=== PATIENT | male | born 1945 | race Caucasian/White ===

== ENCOUNTER → 2020-05-12 | Outpatient (CLI) | payer MEDICARE, OTHER ==
[2020-05-12 10:13] LABS: HCT 45.2 % (39.0-53.0); HGB 14.5 gm/dL (13.0-17.5); MCHC 32.1 g/dL (31.0-37.0); MCV 99.9 fL (80.0-100.0); Mean Platelet Volume 7.6; Platelet Count 258 k/uL (150-450); RBC 4.53 m/uL (4.30-5.90); RDW 12.5 % (11.5-15.5); WBC 13.4 k/uL (3.8-10.6)
[2020-05-12 11:18] LABS: African American GFR (CKD) >90 (>60 ml/min/1.73 sqM); Anion Gap 4 mmol/L; Blood Urea Nitrogen 16 mg/dL (9-20); Carbon Dioxide 31 mmol/L (22-30); Chloride 106 mmol/L (98-107); Non-African American GFR(CKD) 81 (>60 ml/min/1.73 sqM); Potassium 4.4 mmol/L (3.5-5.1); Sodium 141 mmol/L (137-145)
== END | disposition home or self-care (01) ==
LOC: LABPAT 09:39
PROVIDERS: ATTEND Internal Medicine Interventional Cardiology
DX: Z01.818 Encounter for other preprocedural examination (principal); I25.10 Atherosclerotic heart disease of native coronary artery without angina pectoris
CPT/HCPCS: 36415; 80051; 82565; 84520; 85027

== ENCOUNTER 2020-05-19 09:05 | Day surgery (SDC) | payer MEDICARE, OTHER ==
[2020-05-17 11:06] VITALS: BMI 23.0
[~2020-05-19 09:05] MED LIST: ALPRAZolam 0.25 MG TAB PO PRN; ALPRAZolam 0.5 MG TAB PO PRN; ASPIRIN 325 MG TAB PO STA; ATORVASTATIN 80 MG TAB PO STA; NITROGLYCERIN SL TABS 0.4 MG TAB SUBLINGUAL PRN; SODIUM CHLORIDE 0.9% 1,000 ML in EMPTY BAG 1 BAG IV ONE
[2020-05-19] MEDS ORDERED: SODIUM CHLORIDE 0.9% 1,000 ML IV ONE (09:33)
[2020-05-19 09:37] VITALS: RESP 16; TEMP 97.8
[2020-05-19] MEDS ORDERED: LIDOCAINE 1% INJ 10MG/ML (20 ML MDV) ONE (09:42)
[2020-05-19] MEDS ORDERED: MIDAZOLAM 2 MG/2 ML VIAL IVP ONE (09:58)
[2020-05-19] MEDS ORDERED: LIDOCAINE 1% INJ 10MG/ML (20 ML MDV) SQ ONE (09:59)
[2020-05-19] MEDS ORDERED: RX INFO: IV CONTRAST WAS GIVEN 1 EACH MISC MISCELLANE PRN (10:26)
[2020-05-19] MEDS ORDERED: IOPAMIDOL-370 125ML BTL INJ ONE (10:27)
[2020-05-19] MEDS ORDERED: SODIUM CHLORIDE 0.9% 1,000 ML IV SCH (10:30)
--- NOTE | 2020-05-19 10:38 | P.PCN ---
Date of Procedure: 05/19/20 Operative Findings: CARDIAC CATHETERIZATION PERFORMING PHYSICIAN: Bradley Mera MD, RPVI PROCEDURE PERFORMED: 1. Selective right and left coronary angiogram 2. Left heart catheterization 3. Right heart catheterization INDICATION: This is a very pleasant 75-year-old gentleman was hypertension and dyslipidemia who was experiencing symptoms of shortness of breath. He underwent myocardial perfusion imaging stress test that came in to be abnormal showing inferior reversible defect. Because of that he was brought today to undergo a heart catheterization. He underwent an echocardiogram and that revealed normal left ventricular systolic function was mild pulmonary hypertension COMPLICATION: None APPROACH: Right common femoral vein Right common femoral artery LEVEL OF SEDATION: Moderate sedation length of 25 minutes PROCEDURE DESCRIPTION: After obtaining an informed consent, the patient was brought to cardiac dental laboratory supervisor. Local anesthesia was performed using lidocaine subcutaneously. The right common femoral artery was cannulated using Seldinger technique, the guidewire passed easily, following that we advanced a 6 Dominican sheath dilator assembly, the wire and dilator were removed and sheath was flushed. Subsequently I did cannulated the right femoral vein using the same technique and I placed an 8- Dominican sheath. Selective right and left coronary angiogram using a 6-Dominican JR4.5 and JL catheters. Following that we did left heart catheterization using 6-Dominican pigtail catheter. Right heart catheterization was performed using 6-Dominican Ste[place] catheter. The procedure was completed there was no complication. SELECTIVE CORONARY ANGIOGRAM: The right coronary artery: Is a large caliber vessel and is dominant vessel. The right coronary artery is calcified. Distally bifurcates into PDA and PLV branches. The PLV branch is angiographically normal and the PDA branch has a tight lesion in the midportion appears to be in the range of 70%. The arteries only 2 mm in diameter. Otherwise the proximal, mid, and distal RCA appears to have mild disease only. Left main: Is angiographically normal. Bifurcates into a CXR and LAD The left circumflex: Is a large caliber vessel and nondominant vessel. The LCx has mild disease only. In the midportion gives rise into an OM1 which has mild disease only. The left anterior descending artery: The proximal LAD appeared to have mild disease only. The mid LAD has mild dis ease as well appears to be in the range of 30%. The LAD distally appears to have mild disease only as well. The LAD gives rises into first and second diagonal branches both appears to have mild disease only. HEMODYNAMICS: The pulmonary capillary wedge pressure was 12 mmHg PA pressures were as follow systolic 21, diastolic 8, and mean of 13 mmHg RV pressures were as follow systolic 21 and end-diastolic of 7 mmHg RA pressure was 4 mmHg The LVEDP was 11 mmHg CONCLUSION: 1. Normal right heart pressures 2. Normal left ventricular end-diastolic pressure 3. Extremely calcified right and left coronary system 4. Severe disease involving the PDA branch of the RCA which is only about 2 mm in diameter 5. [id number] nonobstructive disease involving the left coronary system POSTPROCEDURE MANAGEMENT: Giving the above anatomy, I did recommend maximize medical treatment and follow- up with the patient. If the patient continues to be symptomatic I with consider doing a PCI of the PDA
[2020-05-19 16:01] VITALS: BP 117/70
[2020-05-19 16:15] VITALS: PULSE 64
== END 2020-05-19 16:25 | disposition home or self-care (01) ==
LOC: CATHCVL 09:05
PROVIDERS: ATTEND Internal Medicine Interventional Cardiology
DX: R94.39 Abnormal result of other cardiovascular function study (principal); I25.110 Atherosclerotic heart disease of native coronary artery with unstable angina pectoris; I25.84 Coronary atherosclerosis due to calcified coronary lesion; I10 Essential (primary) hypertension; I08.1 Rheumatic disorders of both mitral and tricuspid valves; Z72.0 Tobacco use; E78.5 Hyperlipidemia, unspecified; E78.00 Pure hypercholesterolemia, unspecified; I27.20 Pulmonary hypertension, unspecified; Z82.49 Family history of ischemic heart disease and other diseases of the circulatory system; Z79.82 Long term (current) use of aspirin; Z79.899 Other long term (current) drug therapy
CPT/HCPCS: 93460; C1760; C1769 ×4; C1894 ×2; J2250; J2001; Q9967

== ENCOUNTER 2020-05-27 03:54 | Inpatient (IN) | payer MEDICARE, OTHER ==
[2020-05-27] MEDS ORDERED: SODIUM CHLORIDE 0.9% 1,000 ML IV STA (03:55)
--- NOTE | 2020-05-27 03:56 | ED ---
Neuro HPI - General Stated Complaint: Neuro Deficits Time Seen by Provider: 05/27/20 03:55 - Related Data Home Medications: Home Medications Medication Instructions Recorded Confirmed Amantadine HCl [Symmetrel] 100 mg PO TID 05/17/20 05/19/20 Aspirin [Adult Low Dose Aspirin EC] 81 mg PO DAILY 05/17/20 05/19/20 Carbidopa-Levodopa 25-100 mg 1 each PO Q3H 05/17/20 05/19/20 [Sinemet 25-100 mg] Isosorbide Mononitrate ER [Imdur] 30 mg PO DAILY 05/17/20 05/19/20 Melatonin 5 mg PO HS 05/17/20 05/19/20 Allergies/Adverse Reactions: Allergies Allergy/AdvReac Type Severity Reaction Status Date / Time No Known Allergies Allergy Verified 05/19/20 09:19 Review of Systems ROS Statement: Those systems with pertinent positive or pertinent negative responses have been documented in the HPI. ROS Other: All systems not noted in ROS Statement are negative. Stroke MDM - Lab Data Result diagrams: 05/27/20 04:03 05/27/20 04:03 Lab Results 05/27/20 05/27/20 05/27/20 Range/Units 03:57 04:03 04:03 WBC 9.5 (3.8-10.6) k/uL RBC 4.65 (4.30-5.90) m/uL Hgb 14.1 (13.0-17.5) gm/dL Hct 45.7 (39.0-53.0) % MCV 98.2 (80.0-100.0) fL MCH 30.4 (25.0-35.0) pg MCHC 31.0 (31.0-37.0) g/dL RDW 12.5 (11.5-15.5) % Plt Count 291 (150-450) k/uL Neutrophils % 84 % Lymphocytes % 7 % Monocytes % 7 % Eosinophils % 1 % Basophils % 1 % Neutrophils # 8.0 H (1.3-7.7) k/uL Lymphocytes # 0.6 L (1.0-4.8) k/uL Monocytes # 0.7 (0-1.0) k/uL Eosinophils # 0.1 (0-0.7) k/uL Basophils # 0.1 (0-0.2) k/uL PT 10.0 (9.0-12.0) sec INR 1.0 (<1.2) APTT 23.0 (22.0-30.0) sec Sodium (137-145) mmol/L Potassium (3.5-5.1) mmol/L Chloride (98-107) mmol/L Carbon Dioxide (22-30) mmol/L Anion Gap mmol/L BUN (9-20) mg/dL Creatinine (0.66-1.25) mg/dL Est GFR (CKD-EPI)AfAm (>60 ml/min/1.73 sqM) Est GFR (CKD-EPI)NonAf (>60 ml/min/1.73 sqM) Glucose (74-99) mg/dL POC Glucose (mg/dL) 107 H (75-99) mg/dL POC Glu Tube Fitter ID Huber Patel Calcium (8.4-10.2) mg/dL Total Bilirubin (0.2-1.3) mg/dL AST (17-59) U/L ALT (4-49) U/L Alkaline Phosphatase (38-126) U/L Troponin I (0.000-0.034) ng/mL Total Protein (6.3-8.2) g/dL Albumin (3.5-5.0) g/dL 05/27/20 05/27/20 Range/Units 04:03 04:03 WBC (3.8-10.6) k/uL RBC (4.30-5.90) m/uL Hgb (13.0-17.5) gm/dL Hct (39.0-53.0) % MCV (80.0-100.0) fL MCH (25.0-35.0) pg MCHC (31.0-37.0) g/dL RDW (11.5-15.5) % Plt Count (150-450) k/uL Neutrophils % % Lymphocytes % % Monocytes % % Eosinophils % % Basophils % % Neutrophils # (1.3-7.7) k/uL Lymphocytes # (1.0-4.8) k/uL Monocytes # (0-1.0) k/uL Eosinophils # (0-0.7) k/uL Basophils # (0-0.2) k/uL PT (9.0-12.0) sec INR (<1.2) APTT (22.0-30.0) sec Sodium 139 (137-145) mmol/L Potassium 4.1 (3.5-5.1) mmol/L Chloride 104 (98-107) mmol/L Carbon Dioxide 29 (22-30) mmol/L Anion Gap 6 mmol/L BUN 21 H (9-20) mg/dL Creatinine 0.99 (0.66-1.25) mg/dL Est GFR (CKD-EPI)AfAm 86 (>60 ml/min/1.73 sqM) Est GFR (CKD-EPI)NonAf 74 (>60 ml/min/1.73 sqM) Glucose 111 H (74-99) mg/dL POC Glucose (mg/dL) (75-99) mg/dL POC Glu Tube Fitter ID Calcium 9.1 (8.4-10.2) mg/dL Total Bilirubin 0.4 (0.2-1.3) mg/dL AST 23 (17-59) U/L ALT 12 (4-49) U/L Alkaline Phosphatase 110 (38-126) U/L Troponin I <0.012 (0.000-0.034) ng/mL Total Protein 7.1 (6.3-8.2) g/dL Albumin 3.9 (3.5-5.0) g/dL - EKG Data -: EKG Interpreted by Me (EKG shows sinus rhythm of 60 5 PM 144 QRS 80 QTC 418) Course Vital Signs 05/27/20 05/27/20 05/27/20 04:00 04:24 04:30 Temperature 98.1 F Pulse Rate 67 66 65 Respiratory 16 16 16 Rate Blood Pressure 167/89 155/87 163/86 O2 Sat by Pulse 97 97 64 L Oximetry 05/27/20 05/27/20 04:45 05:00 Temperature Pulse Rate 64 61 Respiratory 16 16 Rate Blood Pressure 152/89 154/86 O2 Sat by Pulse 96 96 Oximetry Disposition Clinical Impression: Cerebrovascular accident (CVA), Parkinson's disease Disposition: ADMITTED IP TO THIS HOSP Condition: Fair Is patient prescribed a controlled substance at d/c from ED?: No Referrals: Magali Britt MD [Primary Care Provider] - 1-2 days
[2020-05-27 03:58] LABS: Glucose,Whole Blood 107 mg/dL (75-99)
[2020-05-27 04:12] LABS: Basophils # (A) 0.1 k/uL (0-0.2); Basophils % (A) 1 %; Eosinophils # (A) 0.1 k/uL (0-0.7); Eosinophils % (A) 1 %; HCT 45.7 % (39.0-53.0); HGB 14.1 gm/dL (13.0-17.5); Lymphocytes # (A) 0.6 k/uL (1.0-4.8); Lymphocytes % (A) 7 %; MCH 30.4 pg (25.0-35.0); MCV 98.2 fL (80.0-100.0); Mean Platelet Volume 7.4; Monocytes # (A) 0.7 k/uL (0-1.0); Monocytes % (A) 7 %; Neutrophils % (A) 84 %; Platelet Count 291 k/uL (150-450); RBC 4.65 m/uL (4.30-5.90); RDW 12.5 % (11.5-15.5); WBC 9.5 k/uL (3.8-10.6)
[2020-05-27 04:30] LABS: Albumin 3.9 g/dL (3.5-5.0); Calcium 9.1 mg/dL (8.4-10.2); Potassium 4.1 mmol/L (3.5-5.1); Total Bilirubin 0.4 mg/dL (0.2-1.3); Total Protein 7.1 g/dL (6.3-8.2)
--- NOTE | 2020-05-27 04:42 | CT ---
EXAMINATION TYPE: CT angio head neck DATE OF EXAM: 05/27/2020 COMPARISON: HISTORY: Neuro deficit, acute, stroke suspected CT DLP: 407.1 mGycm Automated exposure control for dose reduction was used. CONTRAST: Performed with IV Contrast, patient injected with 65 mL of Isovue 370. There are 3-D post processed images. There is normal branching pattern of the great vessels on the aortic arch. There is bilateral arteria l flow in the subclavian arteries. There is arterial flow in the common internal and external carotid arteries bilaterally. There is wide patency of the carotid artery bifurcations. There is bilateral a rterial flow in the vertebral arteries. There is no evidence of carotid or vertebral artery aneurysm or dissection. There is arterial flow in the vertebrobasilar artery system. There is large cisterna magna which is normal variant. There is arterial flow in the anterior middle and posterior cerebral arteries. I see no evidence of intracranial arterial stenosis. There is normal contrast opacification of the venous sinuses. There is no mass effect. There is no evidence of intra cranial aneurysm or neovascularity. IMPRESSION: Negative CT angiogram of the neck. Negative CT angiogram of the brain.
--- NOTE | 2020-05-27 04:46 | CT ---
EXAMINATION TYPE: CT brain wo con for TPA DATE OF EXAM: 05/27/2020 COMPARISON: None HISTORY: AMS CT DLP: 1073 mGycm Automated exposure control for dose reduction was used. There is cerebral mild cortical atrophy. There is no mass effect nor midline shift. There is no sign of intracranial hemorrhage. The calvarium is intact. There is some mild hypodensity in the anterior l eft and right internal capsule. Temporal bones appear normal. IMPRESSION: Mild cerebral atrophy. Old lacunar infarcts in the anterior left and right internal capsule. No acute intracranial abnormality.
--- NOTE | 2020-05-27 04:47 | XR ---
EXAMINATION TYPE: XR chest 1V DATE OF EXAM: 05/27/2020 COMPARISON: NONE HISTORY: Weakness TECHNIQUE: Single view FINDINGS: There is no heart failure nor confluent pneumonic infiltrate. Costophrenic angles are clear . There are no hilar masses. Bony thorax is intact. IMPRESSION: No active cardiopulmonary disease.
[2020-05-27] MEDS ORDERED: ASPIRIN 325 MG TAB PO STA (05:35)
[2020-05-27] MEDS: SODIUM CHLORIDE 0.9% 1,000 ML IV SCH ×2 (06:17→17:52)
[2020-05-27 06:42] LABS: Appearance,Urine Clear (Clear); Bilirubin,Urine Negative (Negative); Blood,Urine Negative (Negative); Color,Urine Light Yellow; Glucose,Urine (UA) Negative (Negative); Ketones,Urine Negative (Negative); Leukocyte Esterase,Urine Negative (Negative); Nitrite,Urine Negative (Negative); PH, Urine 5.5 (5.0-8.0); Protein,Urine Negative (Negative); Specific Gravity,Urine 1.032 (1.001-1.035); Urobilinogen,Urine <2.0 mg/dL (<2.0)
[2020-05-27 06:59] LABS: Amphetamine Screen,Urine Not Detected (NotDetected); Barbiturate Screen,Urine Not Detected (NotDetected); Benzodiazepines Screen,Urine Not Detected (NotDetected); Cocaine Screen,Urine Not Detected (NotDetected); Methadone Screen, Urine Not Detected (NotDetected); Opiate Screen,Urine Not Detected (NotDetected); Oxycodone Screen, Urine Not Detected (NotDetected); Phencyclidine Screen,Urine Not Detected (NotDetected); Tricyclic Antidepressant,Urine Not Detected (NotDetected); Urn Cannabinoid Scrn Detected (NotDetected)
--- NOTE | 2020-05-27 11:44 | CONS ---
CONSULTATION Jerson is a 75-year-old gentleman with history of hypertension and parkinsonism, who is admitted to hospital with confusion and facial droop. Cardiology has been consulted because of association with us. The patient had a recent cardiac catheterization because of an abnormal stress test, that showed normal pulmonary pressures. There is severe disease involving a PDA branch and calcified coronaries. The cath was done on the 19. He comes in with CVA now. At the time of my evaluation, his confusion has improved. Still has facial droop that is improving. The patient had a CT scan of the brain that shows old lacunar infarct involving the internal capsular. There is no intracranial hemorrhage. The EKG shows sinus rhythm. PAST MEDICAL HISTORY: Significant for coronary artery disease, Parkinsonism. Medications at home include aspirin, Imdur, melatonin, and Sinemet. ALLERGIES: There are no known drug allergies. FAMILY HISTORY: Negative for premature coronary artery disease. SOCIAL HISTORY: Negative for current smoking, EtOH abuse, or drug abuse. REVIEW OF SYSTEMS: HEENT is significant for facial droop. Cardiac as described above. Respiratory negative. GI negative. negative. Allergy/Immunology none. Skin negative. Musculoskeletal negative. Endocrine negative. DERM: Negative. CONSTITUTIONAL: Negative. MACHINE SKIVER significant for CVA. Rest of the system review is not relevant. EXAM: Patient is afebrile. Heart rate is 60 beats per minute, blood pressure is 140/84, respiratory rate 18, and O2 saturation is 96% on room air. There is no jugular venous distention. Carotid upstroke is diminished. There is no bruit. Chest exam reveals good air entry bilaterally. Heart exam reveals first and second heart sounds. No gallop. No murmur. ABDOMEN: Soft. Exam of extremities did not reveal any edema. Peripheral pulses are felt. Facial droop is noted. Does not have any other focal neurological deficits. ASSESSMENT: 1. Cerebrovascular accident. 2. Recent cardiac catheterization. 3. Mild coronary artery disease. 4. Parkinsonism. PLAN: Patient will continue the aspirin, Imdur that he is on along with the Lipitor. Consult Neurology. I will obtain a 2D echo and will follow the patient. MMODL / IJN: [id number] /
[2020-05-27] MEDS ORDERED: NON FORMULARY DRUG (Aspirin [Adult Low Dose Aspirin Ec] 81 MG) PO SCH (12:15)
--- NOTE | 2020-05-27 12:49 | P.HPIM ---
History of Present Illness H&P Date: 05/27/20 Chief Complaint: Left sided facial weakness and numbness Jerson Edwards, is a 75-year-old male who presented to [facility] emergency room with a chief complaint of left facial droop and numbness of the left upper lip he was evaluated in the emergency room patient was not a candidate for TPA he was admitted to telemetry floor for further evaluation and treatment. Patient was seen and examined he is feeling better he has better movement of the left side of his face, he is still having some numbness and weakness of the left upper lip, patient has a known history of coronary artery disease , he recently had cardiac catheterization about 1 week ago, no angioplasty or stent placement was attempted. He has a known history of Parkinson disease. patient and were informed that there is no neurologist available in the hospital to Friday morning, they were given the option of being transferred to [facility] or [facility], patient and his opted to stay in the hospital. At this time will order MRI of the brain with contrast, will obtain echocardiogram, continue aspirin and add Plavix 75 mg by mouth daily. Past Medical History Past Medical History: Chest Pain / Angina, Myocardial Infarction ([place]) Additional Past Medical History / Comment(s): parkinsons disease Last Myocardial Infarction Date:: 1983 History of Any Multi-Drug Resistant Organisms: None Reported Past Surgical History: Heart Catheterization Additional Past Surgical History / Comment(s): states heart cath last week with Dr Mera- "mild Blockages' Past Anesthesia/Blood Transfusion Reactions: No Reported Reaction Past Psychological History: No Psychological Hx Reported Smoking Status: Former smoker Past Alcohol Use History: Occasional Past Drug Use History: None Reported - Past Family History Mother Family Medical History: Myocardial Infarction ([place]) Father Family Medical History: Myocardial Infarction ([place]) Medications and Allergies Home Medications Medication Instructions Recorded Confirmed Type Amantadine HCl [Symmetrel] 100 mg PO TID 05/17/20 05/27/20 History Aspirin [Adult Low Dose Aspirin EC] 81 mg PO DAILY 05/17/20 05/27/20 History Carbidopa-Levodopa 25-100 mg 1 tab PO Q3H 05/17/20 05/27/20 History [Sinemet 25-100 mg] Isosorbide Mononitrate ER [Imdur] 30 mg PO DAILY 05/17/20 05/27/20 History Melatonin 5 mg PO HS 05/17/20 05/27/20 History Allergies Allergy/AdvReac Type Severity Reaction Status Date / Time No Known Allergies Allergy Verified 05/27/20 10:28 Physical Exam Vitals: Vital Signs Temp Pulse Pulse Resp BP BP Pulse Ox 05/27/20 11:58 98.2 F 56 L 20 136/83 96 05/27/20 08:00 58 L 24 05/27/20 07:23 97.8 F 58 L 24 145/82 96 05/27/20 06:00 57 L 16 145/84 97 05/27/20 05:00 61 16 154/86 96 05/27/20 04:45 64 16 152/89 96 05/27/20 04:30 65 16 163/86 64 L 05/27/20 04:24 66 16 155/87 97 05/27/20 04:00 98.1 F 67 16 167/89 97 Intake and Output 05/26/20 05/27/20 05/27/20 22:59 06:59 14:59 Intake Total 600 Output Total 1 Balance 599 Intake: IV 600 Sodium Chloride 0.9% 1, 600 000 ml @ 100 mls/hr IV . Q10H [facility] Rx#:[id number] Output: Urine 1 Other: Voiding Method Urinal Weight 74.843 kg 74.843 kg In general patient is alert and oriented 3 in no apparent distress. HEENT head normocephalic and atraumatic Neck is supple no JVD no goiter no lymphadenopathy Chest exam reveals a few scattered rhonchi no wheezing Cardiac exam reveals regular heart sounds S1 and S2 no gallops no murmurs Abdomen is soft nontender no organomegaly with normal bowel sounds Extremity exam reveals no edema no cyanosis or clubbing Neurological examination reveals left-sided facial droop, otherwise no findings on exam, there is no weakness or numbness in any of the extremities, no change in vision speech is fluent. Gait was not tested at this time. Results CBC & Chem 7: 05/27/20 04:03 05/27/20 04:03 Labs: Abnormal Lab Results - Last 24 Hours (Table) 05/27/20 05/27/20 05/27/20 Range/Units 03:57 04:03 04:03 Neutrophils # 8.0 H (1.3-7.7) k/uL Lymphocytes # 0.6 L (1.0-4.8) k/uL BUN 21 H (9-20) mg/dL Glucose 111 H (74-99) mg/dL POC Glucose (mg/dL) 107 H (75-99) mg/dL U Marijuana (THC) Screen (NotDetected) 05/27/20 Range/Units 06:26 Neutrophils # (1.3-7.7) k/uL Lymphocytes # (1.0-4.8) k/uL BUN (9-20) mg/dL Glucose (74-99) mg/dL POC Glucose (mg/dL) (75-99) mg/dL U Marijuana (THC) Screen Detected H (NotDetected) Thrombosis Risk Factor Assmnt - Choose All That Apply Each Factor Represents 1 point: Medical pt on bed rest Each Risk Factor Represents 3 Points: Age 75 years or older Thrombosis Risk Factor Assessment Total Risk Factor Score: 4 Thrombosis Risk Factor Assessment Level: Moderate Risk Assessment and Plan Plan: 1. Stroke was left facial droop. At this time continue with current medications including aspirin and add Plavix 75 mg once daily, MRI of the brain with contrast and echocardiogram were ordered, neurology consultation was requested it won't be available until Friday. 2. Underlying history of coronary artery disease stable, patient denies any chest pain, cardiac catheterization done one week ago. 3. Underlying history of Parkinson disease, resume home medications 4. Underlying history of hyperlipidemia 5. Underlying history of hypertension 6. For DVT prophylaxis Will use Lovenox 40 mg subcu once daily, for GI prophylaxis Will add Protonix Will follow during this admission for medical management
--- NOTE | 2020-05-27 13:10 | ECHOF ---
Referral Reason:Thrombus MEASUREMENTS -------- HEIGHT: 180.3 cm WEIGHT: 74.8 kg BP: 145/84 RVIDd: 3.3 cm (< 3.3) IVSd: 1.2 cm (0.6 - 1.1) LVIDd: 5.2 cm (3.9 - 5.3) LVPWd: 1.1 cm (0.6 - 1.1) IVSs: 1.7 cm LVIDs: 3.4 cm LVPWs: 1.7 cm LA Diam: 3.6 cm (2.7 - 3.8) LAESV Index (A-L): 30.96 ml/m Ao Diam: 3.4 cm (2.0 - 3.7) AV Cusp: 2.0 cm (1.5 - 2.6) MV EXCURSION: 13.991 mm (> 18.000) MV EF SLOPE: 97 mm/s (70 - 150) EPSS: 0.7 cm MV E Cricket: 0.77 m/s MV DecT: 245 ms MV A Cricket: 0.87 m/s MV E/A Ratio: 0.88 RAP: 5.00 mmHg RVSP: 23.57 mmHg FINDINGS -------- Sinus rhythm. This was a technically good study. The left ventricular size is normal. There is borderline concentric left ventricular hypertrophy. Overall left ventricular systolic function is normal with, an EF between 60 - 65 %. The right ventricle is mildly enlarged. LA is midly dilated 29-33ml/m2. The right atrium is normal in size. Interatrial and interventricular septum intact. The aortic valve is trileaflet and appears structurally normal. Mild mitral regurgitation is present. Mild tricuspid regurgitation present. Right ventricular systolic pressure is normal at < 35 mmHg. Trace/mild (physiologic) pulmonic regurgitation. The aortic root size is normal. Normal inferior vena cava with normal inspiratory collapse consistent with estimated right atrial pre ssure of 5 mmHg. There is no pericardial effusion. CONCLUSIONS -------- 1. Sinus rhythm. 2. This was a technically good study. 3. The left ventricular size is normal. 4. There is borderline concentric left ventricular hypertrophy. 5. Overall left ventricular systolic function is normal with, an EF between 60 - 65 %. 6. The right ventricle is mildly enlarged. 7. LA is midly dilated 29-33ml/m2. 8. The right atrium is normal in size. 9. Interatrial and interventricular septum intact. 10. The aortic valve is trileaflet and appears structurally normal. 11. Mild mitral regurgitation is present. 12. Mild tricuspid regurgitation present. 13. Right ventricular systolic pressure is normal at < 35 mmHg. 14. Trace/mild (physiologic) pulmonic regurgitation. 15. The aortic root size is normal. 16. Normal inferior vena cava with normal inspiratory collapse consistent with estimated right atrial pressure of 5 mmHg. 17. There is no pericardial effusion. [employer]OTBALLER: Emi Senior RDCS
[2020-05-27] MEDS: ENOXAPARIN 40 MG/0.4 ML SYRINGE SQ SCH (13:37)
[2020-05-27] MEDS: CARBIDOPA-LEVODOPA 25-100 MG 1 EACH TAB PO SCH ×4 (13:37→20:05)
[2020-05-27] MEDS: CLOPIDOGREL 75 MG TAB PO SCH (13:37)
[2020-05-27] MEDS: AMANTADINE HCL 100 MG CAP PO SCH ×3 (13:38→20:04)
[2020-05-27] MEDS: ISOSORBIDE MONONITRATE ER 30 MG TAB.ER.24H PO SCH (13:39)
--- NOTE | 2020-05-27 15:40 | MR ---
EXAMINATION TYPE: MR brain wo/w con DATE OF EXAM: 05/27/2020 COMPARISON: None HISTORY: CVA CONTRAST: Standard multiplanar, multisequence MRI departmental protocol utilizing 7.5 mL intravenous Gadavist g adolinium contrast. There is mild cerebral cortical atrophy. There is no mass effect nor midline shift. There is no sign of intracranial hemorrhage. There is no evidence of acute infarct on the diffusion images. On the FLAIR images there are numerous foci of increased signal in the periventricular white matter. Total number is approximately 25. These measure up to 1 cm. The brainstem appears normal. Contrast im ages show no pathologic enhancement. Corpus callosum is intact. There is normal opacification of the venous sinuses. IMPRESSION: Cerebral atrophy. Periventricular white matter changes more likely related to chronic small vessel is chemia. I think demyelinating disease is less likely. There is relative sparing of the corpus callosu m. No evidence of acute infarct.
[2020-05-27] MEDS: ATORVASTATIN 80 MG TAB PO SCH (20:04)
[2020-05-27] MEDS: MELATONIN 5 MG TABLET PO SCH (20:04)
[2020-05-28] MEDS: SODIUM CHLORIDE 0.9% 1,000 ML IV SCH ×2 (03:32→15:19)
[2020-05-28] MEDS: CARBIDOPA-LEVODOPA 25-100 MG 1 EACH TAB PO SCH ×6 (06:09→21:22)
[2020-05-28 07:38] LABS: Basophils # (A) 0.1 k/uL (0-0.2); Basophils % (A) 1 %; Eosinophils # (A) 0.1 k/uL (0-0.7); Eosinophils % (A) 1 %; HCT 39.7 % (39.0-53.0); HGB 12.9 gm/dL (13.0-17.5); Lymphocytes # (A) 0.8 k/uL (1.0-4.8); Lymphocytes % (A) 10 %; MCHC 32.4 g/dL (31.0-37.0); Mean Platelet Volume 7.6; Monocytes # (A) 0.6 k/uL (0-1.0); Monocytes % (A) 7 %; Neutrophils # (A) 6.1 k/uL (1.3-7.7); Neutrophils % (A) 80 %; Platelet Count 235 k/uL (150-450); RBC 4.01 m/uL (4.30-5.90); RDW 12.5 % (11.5-15.5); WBC 7.7 k/uL (3.8-10.6)
[2020-05-28 07:40] LABS: ALT <6 U/L (4-49); AST 15 U/L (17-59); African American GFR (CKD) >90 (>60 ml/min/1.73 sqM); Albumin 3.1 g/dL (3.5-5.0); Alkaline Phosphatase 90 U/L (38-126); Anion Gap 5 mmol/L; Blood Urea Nitrogen 16 mg/dL (9-20); Calcium 8.5 mg/dL (8.4-10.2); Carbon Dioxide 28 mmol/L (22-30); Chloride 107 mmol/L (98-107); Cholesterol 97 mg/dL (<200); Glucose 88 mg/dL (74-99); HDL Cholesterol 38 mg/dL (40-60); LDL Cholesterol,Calculated 43 mg/dL (0-99); Non-African American GFR(CKD) 85 (>60 ml/min/1.73 sqM); Potassium 4.1 mmol/L (3.5-5.1); Sodium 140 mmol/L (137-145); Total Bilirubin 1.1 mg/dL (0.2-1.3); Triglycerides 81 mg/dL (<150)
[2020-05-28] MEDS: AMANTADINE HCL 100 MG CAP PO SCH ×3 (09:06→21:23)
[2020-05-28] MEDS: ISOSORBIDE MONONITRATE ER 30 MG TAB.ER.24H PO SCH (09:06)
[2020-05-28] MEDS: ASPIRIN 325 MG TAB PO SCH (09:07)
[2020-05-28] MEDS: ENOXAPARIN 40 MG/0.4 ML SYRINGE SQ SCH (09:07)
[2020-05-28] MEDS: CLOPIDOGREL 75 MG TAB PO SCH (09:07)
--- NOTE | 2020-05-28 11:46 | P.PN ---
Subjective Progress Note Date: 05/28/20 Jerson Edwards, is a 75-year-old male who presented to [facility] emergency room with a chief complaint of left facial droop and numbness of the left upper lip he was evaluated in the emergency room patient was not a candidate for TPA he was admitted to telemetry floor for further evaluation and treatment. Patient was seen and examined he is feeling better he has better movement of the left side of his face, he is still having some numbness and weakness of the left upper lip, patient has a known history of coronary artery disease , he recently had cardiac catheterization about 1 week ago, no angioplasty or stent placement was attempted. He has a known history of Parkinson disease. patient and were informed that there is no neurologist available in the hospital to Friday morning, they were given the option of being transferred to [facility] or [facility], patient and his opted to stay in the hospital. At this time will order MRI of the brain with contrast, will obtain echocardiogram, continue aspirin and add Plavix 75 mg by mouth daily. On 05/28/2020 patient was seen and examined on the medical floor he is alert and oriented 3 in no apparent distress he is still having significant drooping in the left side of his face he is still complaining of numbness in his upper lip on the left side otherwise he denies any complaints there is no fever or chills no headache or dizziness no chest pain no shortness of breath no cough no nausea or vomiting no abdominal pain no diarrhea no burning with urination no frequency or urgency no hematuria. MRI reviewed no evidence of acute infarct, there is a possibility that this is left facial nerve palsy, at this time neurology is not available to tomorrow, will start IV Solu-Medrol and oral Valtrex until evaluated by neurology. Objective - Vital Signs Vital signs: Vital Signs Temp 97.8 F 05/28/20 11:39 Pulse 62 05/28/20 11:39 Resp 20 05/28/20 11:39 BP 136/61 05/28/20 11:39 Pulse Ox 95 05/28/20 11:39 Intake & Output 05/27/20 05/28/20 05/28/20 18:59 06:59 18:59 Intake Total 620 240 Balance 620 240 Weight 74.843 kg 74.9 kg Intake: IV 500 Sodium Chloride 0.9% 1, 500 000 ml @ 100 mls/hr IV . Q10H [facility] Rx#:[id number] Oral 120 240 Other: Voiding Method Urinal Urinal Toilet Urinal # Voids 1 1 # Bowel Movements 1 - Exam In general patient is alert and oriented 3 in no apparent distress. HEENT head normocephalic and atraumatic Neck is supple no JVD no goiter no lymphadenopathy Chest exam reveals a few scattered rhonchi no wheezing Cardiac exam reveals regular heart sounds S1 and S2 no gallops no murmurs Abdomen is soft nontender no organomegaly with normal bowel sounds Extremity exam reveals no edema no cyanosis or clubbing Neurological examination reveals left-sided facial droop, otherwise no findings on exam, there is no weakness or numbness in any of the extremities, no change in vision speech is fluent. Gait was not tested at this time. No change since yesterday - Labs CBC & Chem 7: 05/28/20 07:04 05/28/20 07:04 Labs: Abnormal Lab Results - Last 24 Hours (Table) 05/28/20 05/28/20 Range/Units 07:04 07:04 RBC 4.01 L (4.30-5.90) m/uL Hgb 12.9 L (13.0-17.5) gm/dL Lymphocytes # 0.8 L (1.0-4.8) k/uL AST 15 L (17-59) U/L Total Protein 6.0 L (6.3-8.2) g/dL Albumin 3.1 L (3.5-5.0) g/dL HDL Cholesterol 38 L (40-60) mg/dL Assessment and Plan Plan: 1. left facial droop. Stroke versus left facial nerve palsy. At this time continue with current medications including aspirin and add Plavix 75 mg once daily, MRI of the brain with contrast and echocardiogram were ordered, neurology consultation was requested it won't be available until Friday. At this time I added IV Solu-Medrol and oral Valtrex awaiting neurology evaluation 2. Underlying history of coronary artery disease stable, patient denies any chest pain, cardiac catheterization done one week ago. 3. Underlying history of Parkinson disease, resume home medications 4. Underlying history of hyperlipidemia 5. Underlying history of hypertension 6. For DVT prophylaxis Will use Lovenox 40 mg subcu once daily, for GI prophylaxis Will add Protonix Will follow during this admission for medical management
--- NOTE | 2020-05-28 12:13 | P.PN ---
Subjective Progress Note Date: 05/28/20 This is a pleasant 75-year-old gentleman with history of hypertension, parkinsonism, who initially presented to the hospital with symptoms. And facial droop. Patient had a recent cardiac catheterization because of an abnormal stress test that revealed normal pulmonary pressures, there is severe disease i nvolving the PDA branch and patient had calcified coronary arteries. Patient did rule in for a CVA, his confusion overall has improved he still continues to have a mild facial droop. EKG and rhythm strips continued to show a normal sinus rhythm. MRI of the brain revealed cerebral atrophy, P rate ventricular white matter changes more likely related to chronic small vessel ischemia. Blood pressure 136/60 with a heart rate in the 60s, 95% on room air. Laboratory data reviewed today, white blood cell count 7.7, hemoglobin 12.9, platelet count 235. Sodium 140, potassium 4.1, BUN 16, creatinine 0.8. Objective - Vital Signs Vital signs: Vital Signs Temp 97.8 F 05/28/20 11:39 Pulse 62 05/28/20 11:39 Resp 20 05/28/20 11:39 BP 136/61 05/28/20 11:39 Pulse Ox 95 05/28/20 11:39 Intake & Output 05/27/20 05/28/20 05/28/20 18:59 06:59 18:59 Intake Total 620 240 Balance 620 240 Weight 74.843 kg 74.9 kg Intake: IV 500 Sodium Chloride 0.9% 1, 500 000 ml @ 100 mls/hr IV . Q10H [facility] Rx#:[id number] Oral 120 240 Other: Voiding Method Urinal Urinal Toilet Urinal # Voids 1 1 # Bowel Movements 1 - Exam PHYSICAL EXAMINATION: GENERAL: 75-year-old gentleman in no acute distress at the time of my examination HEENT: Head is atraumatic, normocephalic. Pupils equal, round. Sclera anicte letha. Conjunctiva are clear. Mucous membranes of the mouth are moist. Neck is supple. There is no elevated jugular venous pressure. No carotid bruit is heard. HEART EXAMINATION: Heart S1, S2 normal. No murmur or gallop heard. CHEST EXAMINATION: Lungs are clear to auscultation and precussion. No chest wall tenderness is noted on palpation or with deep breathing. ABDOMEN: Soft, nontender. Bowel sounds are heard. No organomegaly noted. EXTREMITIES: 2+ peripheral pulses with no evidence of peripheral edema and no calf tenderness noted. NEUROLOGIC patient is awake, alert and oriented 3 Patient continues to have a left-sided facial droop. . - Labs CBC & Chem 7: 05/28/20 07:04 05/28/20 07:04 Labs: Abnormal Lab Results - Last 24 Hours (Table) 05/28/20 05/28/20 Range/Units 07:04 07:04 RBC 4.01 L (4.30-5.90) m/uL Hgb 12.9 L (13.0-17.5) gm/dL Lymphocytes # 0.8 L (1.0-4.8) k/uL AST 15 L (17-59) U/L Total Protein 6.0 L (6.3-8.2) g/dL Albumin 3.1 L (3.5-5.0) g/dL HDL Cholesterol 38 L (40-60) mg/dL Assessment and Plan Plan: Assessment and plan #1 symptoms of confusion with associated left facial droop, rule out CVA. #2 known history of coronary artery disease, recent cardiac catheterization performed medical therapy advised. #3 hyperlipidemia #4 Parkinson's Plan Echocardiogram with Doppler study was performed which revealed a normal left ventricular systolic function. No evidence of any atrial fibrillation on the monitor. We'll continue with current medications. DNP note has been reviewed, I agree with a documented findings and plan of care. Patient was seen and examined.
[2020-05-28] MEDS: methylPREDNISolone SOD SUCCI 125 MG/2 ML VIAL IV SCH ×2 (12:50→18:22)
[2020-05-28] MEDS: valACYclovir 500 MG TAB PO SCH ×3 (15:18→21:23)
[2020-05-28 17:00] LABS: Glucose,Whole Blood 111 mg/dL (75-99)
[2020-05-28 20:49] LABS: Glucose,Whole Blood 178 mg/dL (75-99)
[2020-05-28] MEDS: MELATONIN 5 MG TABLET PO SCH (21:22)
[2020-05-28] MEDS: ATORVASTATIN 80 MG TAB PO SCH (21:23)
[2020-05-29] MEDS: methylPREDNISolone SOD SUCCI 125 MG/2 ML VIAL IV SCH ×3 (00:05→12:44)
[2020-05-29 05:59] LABS: Glucose,Whole Blood 108 mg/dL (75-99)
[2020-05-29] MEDS: CARBIDOPA-LEVODOPA 25-100 MG 1 EACH TAB PO SCH ×4 (06:39→16:29)
[2020-05-29 06:44] VITALS: TEMP 98
--- NOTE | 2020-05-29 09:51 | P.PN ---
Subjective Progress Note Date: 05/29/20 This is a pleasant 75-year-old gentleman with history of hypertension, parkinsonism, who initially presented to the hospital with symptoms. And facial droop. Patient had a recent cardiac catheterization because of an abnormal stress test that revealed normal pulmonary pressures, there is severe disease i nvolving the PDA branch and patient had calcified coronary arteries. Patient did rule in for a CVA, his confusion overall has improved he still continues to have a mild facial droop. EKG and rhythm strips continued to show a normal sinus rhythm. MRI of the brain revealed cerebral atrophy, P rate ventricular white matter changes more likely related to chronic small vessel ischemia. Blood pressure 136/60 with a heart rate in the 60s, 95% on room air. Laboratory data reviewed today, white blood cell count 7.7, hemoglobin 12.9, platelet count 235. Sodium 140, potassium 4.1, BUN 16, creatinine 0.8. 05/29/2020 Patient seen and examined this morning, sitting up in the chair at bedside. Bl ood pressure 146/78 with a heart rate in the 60s, afebrile, 96% on room air. Objective - Vital Signs Vital signs: Vital Signs Temp 98.0 F 05/29/20 04:00 Pulse 68 05/29/20 04:00 Resp 18 05/29/20 04:00 BP 159/81 05/29/20 04:00 Pulse Ox 96 05/29/20 04:00 Intake & Output 05/28/20 05/29/20 05/29/20 18:59 06:59 18:59 Intake Total 600 700 Balance 600 700 Weight 74.1 kg Intake: IV 0 700 Sodium Chloride 0.9% 1, 0 700 000 ml @ 100 mls/hr IV . Q10H [facility] Rx#:[id number] Oral 600 Other: Voiding Method Toilet Toilet Urinal Urinal # Voids 2 - Exam PHYSICAL EXAMINATION: GENERAL: 75-year-old gentleman in no acute distress at the time of my examination HEENT: Head is atraumatic, normocephalic. Pupils equal, round. Sclera anicteric. Conjunctiva are clear. Mucous membranes of the mouth are moist. Neck is supple. There is no elevated jugular venous pressure. No carotid bruit is heard. HEART EXAMINATION: Heart S1, S2 normal. No murmur or gallop heard. CHEST EXAMINATION: Lungs are clear to auscultation and precussion. No chest wall tenderness is noted on palpation or with deep breathing. ABDOMEN: Soft, nontender. Bowel sounds are heard. No organomegaly noted. EXTREMITIES: 2+ peripheral pulses with no evidence of peripheral edema and no calf tenderness noted. NEUROLOGIC patient is awake, alert and oriented 3 Patient continues to have a left-sided facial droop. . - Labs CBC & Chem 7: 05/28/20 07:04 05/28/20 07:04 Labs: Abnormal Lab Results - Last 24 Hours (Table) 05/28/20 05/28/20 05/29/20 Range/Units 16:45 20:43 05:50 POC Glucose (mg/dL) 111 H 178 H 108 H (75-99) mg/dL Assessment and Plan Plan: Assessment and plan #1 symptoms of confusion with associated left facial droop, rule out CVA. #2 known history of coronary artery disease, recent cardiac catheterization performed medical therapy advised. #3 hyperlipidemia #4 Parkinson's Plan Echocardiogram with Doppler study was performed which revealed a normal left ventricular systolic function. No evidence of any atrial fibrillation on the monitor. We'll continue with current medications. Patient may be discharged home from our perspective. We'll make a follow-up appointment in the office post discharge. DNP note has been reviewed, I agree with a documented findings and plan of care. Patient was seen and examined.
[2020-05-29] MEDS: CLOPIDOGREL 75 MG TAB PO SCH (10:28)
[2020-05-29] MEDS: ISOSORBIDE MONONITRATE ER 30 MG TAB.ER.24H PO SCH (10:29)
[2020-05-29] MEDS: ENOXAPARIN 40 MG/0.4 ML SYRINGE SQ SCH (10:29)
[2020-05-29] MEDS: valACYclovir 500 MG TAB PO SCH ×2 (10:29→16:20)
[2020-05-29] MEDS: AMANTADINE HCL 100 MG CAP PO SCH ×2 (10:29→16:37)
[2020-05-29] MEDS: ASPIRIN 325 MG TAB PO SCH (10:29)
[2020-05-29 11:34] LABS: Glucose,Whole Blood 117 mg/dL (75-99)
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
[2020-05-29 16:26] LABS: Glucose,Whole Blood 109 mg/dL (75-99)
[2020-05-29 16:58] VITALS: PULSE 58
--- NOTE | 2020-05-29 17:13 | P.DS ---
Providers Date of admission: 05/27/20 05:35 Expected date of discharge: 05/29/20 Attending physician: Jeovanny Lui Consults: 05/27/20 05:36 Consult Physician Routine Consulting Provider: Bradley Mera Consult Reason/Comments: known Do you want consulting provider notified?: Yes 05/27/20 12:14 Consult Physician Routine Consulting Provider: Dave Tierney Consult Reason/Comments: CVA Do you want consulting provider notified?: Yes Primary care physician: Magali Britt Hospital Course: Diagnosis on discharge: 1. left facial droop. Stroke versus left facial nerve palsy. At this time continue with current medications including aspirin and add Plavix 75 mg once daily, MRI of the brain with contrast and echocardiogram were ordered, neurology consultation was requested it won't be available until Friday. At this time I added IV Solu-Medrol and oral Valtrex awaiting neurology evaluation. Patient was evaluated again on 05/29/2020, case was discussed in details with neurology, patient's symptoms improved significantly, and this favors CVA etiology versus left facial nerve pulsy, patient was evaluated by neurology and was cleared for discharge Solu-Medrol and Valtrex were discontinued Plavix 75 mg by mouth daily was added to regimen and Lipitor 80 mg by mouth daily was added by cardiology. 2. Underlying history of coronary artery disease stable, patient denies any chest pain, cardiac catheterization done one week ago. 3. Underlying history of Parkinson disease, resume home medications 4. Underlying history of hyperlipidemia 5. Underlying history of hypertension 6. For DVT prophylaxis Will use Lovenox 40 mg subcu once daily, for GI prophylaxis Will add Protonix Hospital course: Jerson Edwards, is a 75-year-old male who presented to [facility] emergency room with a chief complaint of left facial droop and numbness of the left upper lip he was evaluated in the emergency room patient was not a candidate for TPA he was admitted to telemetry floor for further evaluation and treatment. Patient was seen and examined he is feeling better he has better movement of the left side of his face, he is still having some numbness and weakness of the left upper lip, patient has a known history of coronary artery disease , he recently had cardiac catheterization about 1 week ago, no angioplasty or stent placement was attempted. He has a known history of Parkinson disease. patient and were informed that there is no neurologist available in the hospital to Friday morning, they were given the option of being transferred to [facility] or [facility], patient and his opted to stay in the hospital. At this time will order MRI of the brain with contrast, will obtain echocardiogram, continue aspirin and add Plavix 75 mg by mouth daily. On 05/28/2020 patient was seen and examined on the medical floor he is alert and oriented 3 in no apparent distress he is still having significant drooping in the left side of his face he is still complaining of numbness in his upper lip on the left side otherwise he denies any complaints there is no fever or chills no headache or dizziness no chest pain no shortness of breath no cough no nausea or vomiting no abdominal pain no diarrhea no burning with urination no frequency or urgency no hematuria. MRI reviewed no evidence of acute infarct, there is a possibility that this is left facial nerve palsy, at this time neurology is not available to tomorrow, will start IV Solu-Medrol and oral Valtrex until evaluated by neurology. On 05/29/2020 patient was seen and examined on the medical floor he is alert and oriented 3 in no apparent distress there is no fever or chills no headache or dizziness no chest pain no shortness of breath no cough no nausea or vomiting no abdominal pain no diarrhea no burning with urination no frequency or urgency no hematuria left sided facial drooping improved significantly since yesterday Patient Condition at Discharge: Fair Plan - Discharge Summary New Discharge Prescriptions: New Atorvastatin [Lipitor] 80 mg PO HS tab Clopidogrel [Plavix] 75 mg PO DAILY tab Continue Carbidopa-Levodopa 25-100 mg [Sinemet 25-100 mg] 1 tab PO Q3H Amantadine HCl [Symmetrel] 100 mg PO TID Isosorbide Mononitrate ER [Imdur] 30 mg PO DAILY Aspirin [Adult Low Dose Aspirin EC] 81 mg PO DAILY Melatonin 5 mg PO HS Discharge Medication List Amantadine HCl [Symmetrel] 100 mg PO TID 05/17/20 [History] Aspirin [Adult Low Dose Aspirin EC] 81 mg PO DAILY 05/17/20 [History] Carbidopa-Levodopa 25-100 mg [Sinemet 25-100 mg] 1 tab PO Q3H 05/17/20 [History] Isosorbide Mononitrate ER [Imdur] 30 mg PO DAILY 05/17/20 [History] Melatonin 5 mg PO HS 05/17/20 [History] Atorvastatin [Lipitor] 80 mg PO HS tab 05/29/20 [Rx] Clopidogrel [Plavix] 75 mg PO DAILY tab 05/29/20 [Rx] Follow up Appointment(s)/Referral(s): Magali Britt MD [Primary Care Provider] - 1-2 days
[2020-05-29 17:18] VITALS: BP 152/84; RESP 17
[2020-05-30] MEDS ORDERED: ASPIRIN 81 MG PO SCH (09:00)
== END 2020-05-29 18:16 | disposition home or self-care (01) | DRG 65 ==
LOC: EC 03:54 → 3SCARD 05:35
PROVIDERS: ADMIT Internal Medicine; ATTEND Internal Medicine
DX: I63.9 Cerebral infarction, unspecified (principal); G93.40 Encephalopathy, unspecified; R29.810 Facial weakness; G20 Parkinson's disease; E78.5 Hyperlipidemia, unspecified; I10 Essential (primary) hypertension; Z11.59 Encounter for screening for other viral diseases; I25.10 Atherosclerotic heart disease of native coronary artery without angina pectoris; I25.2 Old myocardial infarction; I73.9 Peripheral vascular disease, unspecified; Z79.02 Long term (current) use of antithrombotics/antiplatelets; Z79.82 Long term (current) use of aspirin; Z79.899 Other long term (current) drug therapy; Z82.49 Family history of ischemic heart disease and other diseases of the circulatory system; Z86.73 Personal history of transient ischemic attack (TIA), and cerebral infarction without residual deficits; Z87.891 Personal history of nicotine dependence
CPT/HCPCS: 36415; 70450; 70496; 70498; 70553; 71045; 80053; 80061; 80306; 81003; 84484; 85025; 85610; 85730; 93005; 93306; 96360; 96372; 99285

== ENCOUNTER 2023-10-02 07:53 | Day surgery (SDC) | payer MEDICARE ==
[2023-09-30 12:37] VITALS: BMI 20.6
--- NOTE | 2023-10-02 07:52 | P.GSHP ---
History of Present Illness H&P Date: 10/02/23 CHIEF COMPLAINT: Complications from gastrostomy tube HISTORY OF PRESENT ILLNESS: The patient is a 78-year-old male who presents reports complications from gastrostomy tube and gastroesophageal reflux disease. Upper endoscopy was offered for further evaluation and management. PAST MEDICAL HISTORY: Please see list. PAST SURGICAL HISTORY: Please see list. MEDICATIONS: Please see list. ALLERGIES: Please see list. SOCIAL HISTORY: No illicit drug use FAMILY HISTORY: No reports of Crohn disease or ulcerative colitis. REVIEW OF ORGAN SYSTEMS: CONSTITUTIONAL: No reports of fevers or chills. GI: Denies any blood in stools or constipation. NEURO: Parkinson's disease with history of aspiration pneumonia PHYSICAL EXAM: VITAL SIGNS: Stable GENERAL: Well-developed and pleasant in no acute distress. HEENT: No scleral icterus. Extraocular movements grossly intact. Moist buccal mucosa. NECK: Supple without lymphadenopathy. CHEST: Unlabored respirations. Equal bilateral excursions. CARDIOVASCULAR: Regular rate and rhythm. Distal 2+ pulses. ABDOMEN: Soft, nondistended. MUSCULOSKELETAL: No clubbing, cyanosis, or edema. ASSESSMENT: 1. Gastrostomy tube status PLAN: 1. Recommend proceeding with an upper endoscopy with removal of gastrostomy tube Past Medical History Past Medical History: Chest Pain / Angina, CVA/TIA, GERD/Reflux, Hyperlipidemia, Hypertension, Myocardial Infarction ([place]), Musculoskeletal Disorder Additional Past Medical History / Comment(s): parkinsons disease. 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-NO RESIDUAL EFFFECTS Last Myocardial Infarction Date:: 1983, History of Any Multi-Drug Resistant Organisms: None Reported Past Surgical History: Heart Catheterization Additional Past Surgical History / Comment(s): states heart cath last week with Dr Mera- "mild Blockages'- PEG TUBE PLACEMENT-08/13/23, COLONOSCOPY Past Anesthesia/Blood Transfusion Reactions: No Reported Reaction Smoking Status: Former smoker - Past Family History Mother Family Medical History: Myocardial Infarction ([place]) Father Family Medical History: Myocardial Infarction ([place]) Medications and Allergies Home Medications Medication Instructions Recorded Confirmed Type Carbidopa-Levodopa 25-100 mg 1 tab PO Q3HR 05/17/20 09/30/23 History [Sinemet 25-100 mg] amantadine HCL [Symmetrel] 100 mg PO TID@0600,1200,1800 05/17/20 09/30/23 History Multivitamins, Thera [Multivitamin 1 tab PO DAILY 08/09/23 09/30/23 History (formulary)] amLODIPine [Norvasc] 5 mg PO HS 08/09/23 09/30/23 History Artificial Tears-Hypromellose 2 drops BOTH EYES Q2H ml 08/18/23 09/30/23 Rx [Artificial Tear Drops] Aspirin 325 mg PO DAILY 30 Days #30 tab 08/18/23 09/30/23 Rx Atorvastatin [Lipitor] 40 mg PO DAILY 30 Days #30 tab 08/18/23 09/30/23 Rx Clopidogrel [Plavix] 75 mg PO DAILY 30 Days #30 tab 08/18/23 09/30/23 Rx Losartan [Cozaar] 50 mg PO DAILY 30 Days #30 tab 08/18/23 09/30/23 Rx Pantoprazole [Protonix] 40 mg PO AC-BRKFST 30 Days #30 tab 08/18/23 09/30/23 Rx Allergies Allergy/AdvReac Type Severity Reaction Status Date / Time No Known Allergies Allergy Verified 09/30/23 12:09
[~2023-10-02 07:53] MED LIST changes: -ALPRAZolam 0.25 MG TAB PO PRN; -ALPRAZolam 0.5 MG TAB PO PRN; -ASPIRIN 325 MG TAB PO STA; -ATORVASTATIN 80 MG TAB PO STA; +LACTATED RINGERS 1,000 ML IV SCH; +LIDOCAINE 1% (10MG/ML) FOR IV START INTRADERMA PRN; -NITROGLYCERIN SL TABS 0.4 MG TAB SUBLINGUAL PRN; -SODIUM CHLORIDE 0.9% 1,000 ML in EMPTY BAG 1 BAG IV ONE
[2023-10-02 08:50] VITALS: RESP 16; TEMP 97.6
[2023-10-02] MEDS ORDERED: PROPOFOL 10 MG/ML 20 ML VIAL IV ONE (09:41)
[2023-10-02 10:19] VITALS: BP 119/73; PULSE 54
--- NOTE | 2023-10-02 11:40 | P.PCN ---
Date of Procedure: 10/02/23 Description of Procedure: PREOPERATIVE DIAGNOSIS: Protein malnutrition Gastrostomy tube status with malfunction POSTOPERATIVE DIAGNOSIS: Protein malnutrition Gastrostomy tube status with malfunction OPERATION: Esophagogastroduodenoscopy with removal of foreign body/gastrostomy tube using snare retrieval SURGEON: Pamela Landeros MD ANESTHESIA: MAC. INDICATIONS: The patient is a 78-year-old male who presents with gastrostomy tube. Family and patient reports that he is eating and wants his gastrostomy tube out. There report occasional leakage. Benefits and risks of the procedure were described. Informed consent was obtained. DESCRIPTION: The patient was brought into the endoscopy suite and laid in the left lateral decubitus position. After a timeout was confirmed, the procedure was initiated. The scope was passed beyond the stomach with identification of the gastrostomy tube. Next, gastrostomy tubing was cut and snared with removal via the mouth. Within the stomach, no recurrent hiatal hernia was identified. Hill grade 1 lower esophageal valve identified. LA grade B erosive esophagitis was identified. No full-thickness injury was encountered. The GI tract was desufflated. The patient tolerated the procedure well. FINDINGS: Diaphragmatic hiatus at 40 cm from the incisors Squamocolumnar junction 40 cm from the incisors. No hiatal hernia Gastrostomy tube removed without sequelae LA grade B erosive esophagitis Hill grade 1 lower esophageal valve. RECOMMENDATIONS: Upper endoscopy as needed Plan - Discharge Summary Discharge Rx Participant: No New Discharge Prescriptions: Continue Carbidopa-Levodopa 25-100 mg [Sinemet 25-100 mg] 1 tab PO Q3HR amantadine HCL [Symmetrel] 100 mg PO TID@0600,1200,1800 Aspirin 325 mg PO DAILY 30 Days #30 tab Losartan [Cozaar] 50 mg PO DAILY 30 Days #30 tab amLODIPine [Norvasc] 5 mg PO HS Multivitamins, Thera [Multivitamin (formulary)] 1 tab PO DAILY Artificial Tears-Hypromellose [Artificial Tear Drops] 2 drops BOTH EYES Q2H ml Atorvastatin [Lipitor] 40 mg PO DAILY 30 Days #30 tab Pantoprazole [Protonix] 40 mg PO AC-BRKFST 30 Days #30 tab Clopidogrel [Plavix] 75 mg PO DAILY 30 Days #30 tab Discharge Medication List Carbidopa-Levodopa 25-100 mg [Sinemet 25-100 mg] 1 tab PO Q3HR 05/17/20 [History] amantadine HCL [Symmetrel] 100 mg PO TID@0600,1200,1800 05/17/20 [History] Multivitamins, Thera [Multivitamin (formulary)] 1 tab PO DAILY 08/09/23 [History] amLODIPine [Norvasc] 5 mg PO HS 08/09/23 [History] Artificial Tears-Hypromellose [Artificial Tear Drops] 2 drops BOTH EYES Q2H ml 08/18/23 [Rx] Aspirin 325 mg PO DAILY 30 Days #30 tab 08/18/23 [Rx] Atorvastatin [Lipitor] 40 mg PO DAILY 30 Days #30 tab 08/18/23 [Rx] Clopidogrel [Plavix] 75 mg PO DAILY 30 Days #30 tab 08/18/23 [Rx] Losartan [Cozaar] 50 mg PO DAILY 30 Days #30 tab 08/18/23 [Rx] Pantoprazole [Protonix] 40 mg PO AC-BRKFST 30 Days #30 tab 08/18/23 [Rx] Follow up Appointment(s)/Referral(s): Pamela Landeros MD [STAFF PHYSICIAN] - As Needed Patient Instructions/Handouts: Upper Endoscopy (DC) Activity/Diet/Wound Care/Special Instructions: KEEP PEG TUBE SITE CLEAN AND DRY UNTIL IT HEALS UP Discharge Disposition: HOME SELF-CARE
== END 2023-10-02 11:20 | disposition home or self-care (01) ==
LOC: ORWHC2ENDO 07:53
PROVIDERS: ATTEND Surgery Plastic and Reconstructive Surgery
DX: K94.23 Gastrostomy malfunction (principal); K21.9 Gastro-esophageal reflux disease without esophagitis; E46 Unspecified protein-calorie malnutrition; I10 Essential (primary) hypertension; I25.2 Old myocardial infarction; E78.5 Hyperlipidemia, unspecified; G40.909 Epilepsy, unspecified, not intractable, without status epilepticus; G20.A1 Parkinson's disease without dyskinesia, without mention of fluctuations; Z79.1 Long term (current) use of non-steroidal anti-inflammatories (NSAID); Z86.73 Personal history of transient ischemic attack (TIA), and cerebral infarction without residual deficits; Z79.02 Long term (current) use of antithrombotics/antiplatelets; Z79.82 Long term (current) use of aspirin; Z79.899 Other long term (current) drug therapy; Z87.891 Personal history of nicotine dependence
CPT/HCPCS: 43246; J2704

== ENCOUNTER 2023-11-26 08:51 | Inpatient (IN) | payer OTHER, MEDICARE ==
--- NOTE | 2023-11-26 08:56 | ED ---
General Adult HPI - General Source: patient, RN notes reviewed Mode of arrival: ambulatory Limitations: no limitations <Zaheer Paredes - Last Filed: 11/26/23 08:53> - General Source: patient, RN notes reviewed, old records reviewed <Maxime Greenfield - Last Filed: 11/26/23 14:53> - History of Present Illness -: days(s) Location: abdomen Radiation: abdomen Severity scale (1-10): 4 Quality: stabbing, sharp Consistency: intermittent Worsens with: none Associated Symptoms: denies other symptoms Treatments Prior to Arrival: none <Flynn Reynolds - Last Filed: 11/30/23 13:26> - General Stated complaint: GI Bleed Time Seen by Provider: 11/26/23 08:54 - History of Present Illness Initial comments: 70-year-old male presents emergency departments for evaluation rectal bleeding. Patient states she had several bowel movements and bloody bowel movements. Patient states that he call his PCP advised, emergency department. Patient is on Plavix and aspirin denies any significant (Zaheer Paredes) Patient is a 78-year-old male who presents as a evaluation for GI bleed. Originally evaluated as a quick note. Workup started in triage. Has had a few days of bright red blood per rectum in intermittent stools. Not with every stool. Denies any constipation. Does endorse some mild left lower quadrant abdominal pain. Is not on blood thinners. Has no other acute complaints at thi s time. Presents after workup was started in triage. No history of abdominal surgeries.Denies any weakness. (Maxime Greenfield) 78 male presenting for GI bleed blood in the stool occasional pain but no real specific abdominal pain now. Colonoscopy greater than 10 years ago. Occasional left lower quadrant abdominal pain. In blood in his stool. No blood thinners. (Flynn Reynolds) - Related Data Home Medications Medication Instructions Recorded Confirmed Carbidopa-Levodopa 25-100 mg 1 tab PO DIRECTED 05/17/20 11/26/23 [Sinemet 25-100 mg] amantadine HCL [Symmetrel] 100 mg PO TID@0600,1200,1800 05/17/20 11/26/23 Multivitamins, Thera [Multivitamin 1 tab PO DAILY 08/09/23 11/26/23 (formulary)] amLODIPine [Norvasc] 5 mg PO HS 08/09/23 11/26/23 Previous Rx's Medication Instructions Recorded Artificial Tears-Hypromellose 2 drops BOTH EYES Q2H ml 08/18/23 [Artificial Tear Drops] Aspirin 325 mg PO DAILY 30 Days #30 tab 08/18/23 Clopidogrel [Plavix] 75 mg PO DAILY 30 Days #30 tab 08/18/23 Losartan [Cozaar] 50 mg PO DAILY 30 Days #30 tab 08/18/23 Allergies Allergy/AdvReac Type Severity Reaction Status Date / Time No Known Allergies Allergy Verified 11/26/23 12:42 Review of Systems ROS Other: All systems not noted in ROS Statement are negative. <Zaheer Paredes - Last Filed: 11/26/23 08:53> ROS Other: All systems not noted in ROS Statement are negative. <Maxime Greenfield - Last Filed: 11/26/23 14:53> ROS Other: All systems not noted in ROS Statement are negative. <Flynn Reynolds - Last Filed: 11/30/23 13:26> ROS Statement: Those systems with pertinent positive or pertinent negative responses have been documented in the HPI. Review of Systems: CONST: Denies fever EYES: Denies blurry vision ENT: Denies nasal congestion C/V: Denies Chest pain RESP: Denies shortness of breath GI: Endorses left lower quadrant abdominal pain : Denies dysuria SKIN: Denies rash. MSK: Denies joint pain. NEURO: Denies headache (Maxime Greenfield) Past Medical History Past Medical History: Chest Pain / Angina, CVA/TIA, GERD/Reflux, Hyperlipidemia, Hypertension, Myocardial Infarction (ID), Musculoskeletal Disorder Additional Past Medical History / Comment(s): parkinsons disease. 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-NO RESIDUAL EFFFECTS Last Myocardial Infarction Date:: 1983, History of Any Multi-Drug Resistant Organisms: None Reported Past Surgical History: Heart Catheterization Additional Past Surgical History / Comment(s): states heart cath last week with Dr Mera- "mild Blockages'- PEG TUBE PLACEMENT-08/13/23, COLONOSCOPY Past Anesthesia/Blood Transfusion Reactions: No Reported Reaction Smoking Status: Former smoker - Past Family History Mother Family Medical History: Myocardial Infarction (ID) Father Family Medical History: Myocardial Infarction (ID) <Zaheer Paredes - Last Filed: 11/26/23 08:53> General Exam <Zaheer Paredes - Last Filed: 11/26/23 08:53> <Maxime Greenfield - Last Filed: 11/26/23 14:53> General appearance: alert, in no apparent distress, anxious Head exam: Present: atraumatic, normocephalic, normal inspection Eye exam: Present: normal appearance, PERRL, EOMI. Absent: scleral icterus, conjunctival injection, periorbital swelling ENT exam: Present: normal exam, mucous membranes moist Neck exam: Present: normal inspection. Absent: tenderness, meningismus, lymphadenopathy Respiratory exam: Present: normal lung sounds bilaterally. Absent: respiratory distress, wheezes, rales, rhonchi, stridor Cardiovascular Exam: Present: regular rate, normal rhythm, normal heart sounds. Absent: systolic murmur, diastolic murmur, rubs, gallop, clicks GI/Abdominal exam: Present: soft, normal bowel sounds. Absent: distended, tend erness, guarding, rebound, rigid Extremities exam: Present: normal inspection, full ROM, normal capillary refill. Absent: tenderness, pedal edema, joint swelling, calf tenderness Back exam: Present: normal inspection Neurological exam: Present: alert, oriented X3, CN II-XII intact Psychiatric exam: Present: normal affect, normal mood Skin exam: Present: warm, dry, intact, normal color. Absent: rash <Flynn Reynolds - Last Filed: 11/30/23 13:26> - General Exam Comments Initial Comments: Visual Physical Exam Vital signs reviewed General: Well-appearing, nontoxic, no acute distress. Head: Normocephalic, atraumatic Eyes: PERRLA, EOMI ENT: Airway patent Chest: Nonlabored breathing Skin: No visual rash, normal skin tone Neuro: Alert and oriented 3 Musculoskeletal: No gross abnormalities (Zaheer Paredes) General: Appears in no acute distress. HEAD: Normal with no signs of head trauma. EYES: PERRLA, EOMI, conjunctiva normal, no discharge. ENT: Hearing grossly intact, normal oropharynx. RESPIRATORY: Clear breath sounds bilaterally. No wheezes, rales, or rhonchi. C/V: Regular rate and rhythm. S1 and S2 auscultated, no edema, peripheral puls es 2+ and intact throughout ABD: Left lower quadrant abdominal pain. No distention. Soft. No guarding, rebound tenderness, peritoneal signs. EXT: Normal range of motion, no obvious deformity SKIN: No rashes or lesions observed on exposed skin. NEURO: Alert and oriented x 4. Cranial nerves II-XII intact. No focal sensory or strength deficits. (Maxime Greenfield) Course <Flynn Reynolds - Last Filed: 11/30/23 13:26> Vital Signs 11/26/23 11/26/23 11/26/23 09:14 12:57 19:43 Temperature 97.5 F L Pulse Rate 71 69 64 Respiratory 18 18 18 Rate Blood Pressure 150/86 124/83 129/94 O2 Sat by Pulse 98 99 Oximetry - Reevaluation(s) Reevaluation #1: 11/26/23 19:43 Medical record is reviewed (Flynn Reynolds) Reevaluation #2: 11/26/23 20:05 Patient has no significant bleeding here in the emergency department (Flynn Reynolds) Reevaluation #3: 11/26/23 20:05 Patient informed of results questions answered (Flynn Reynolds) Reevaluation #4: 11/26/23 19:44 Was pt. sent in by a medical professional or institution (, TANIK[facility], MEDIATION COMMISSIONER, urgent care, hospital, or longterm...) When possible be specific @ -no Did you speak to anyone other than the patient for history (EMS, parent, family, police, friend...)? What history was obtained from this source @ -no Did you review nursing and triage notes (agree or disagree)? Why? @ -agree Are old charts reviewed (outside hosp., previous admission, EMS record, old EKG, old radiological studies, urgent care reports/EKG's, longterm records)? Report findings @ -yes Differential Diagnosis (chest pain, altered mental status, abdominal pain women, abdominal pain men, vaginal bleeding, weakness, fever, dyspnea, syncope, headache, dizziness, GI bleed, back pain, seizure, CVA, palpatations, mental health, musculoskeletal)? @ -prior EKG interpreted by me (3pts min.). @ -yes X-rays interpreted by me (1pt min.). @ -no CT interpreted by me (1pt min.). @ -yes positive for possible tumor versus abscess, diverticulitis U/S interpreted by me (1pt. min.). @ -no What testing was considered but not performed or refused? (CT, X-rays, U/S, labs)? Why? @ -none What meds were considered but not given or refused? Why? @ -none Did you discuss the management of the patient with other professionals (professionals i.e. , PA, MEDIATION COMMISSIONER, lab, RT, psych nurse, social psychologist, frog shaker, teacher, transportation security officer, complex case manager)? Give summary @ -no Was smoking cessation discussed for >3mins.? @ -no Was critical care preformed (if so, how long)? @ -no Were there social determinants of health that impacted care today? How? (Homelessness, low income, unemployed, alcoholism, drug addiction, transportation, low edu. Level, literacy, decrease access to med. care, halfway, rehab)? @ -none Was there de-escalation of care discussed even if they declined (Discuss DNR or withdrawal of care, Hospice)? DNR status @ -no What co-morbidities impacted this encounter? (DM, HTN, Smoking, COPD, CAD, Cancer, CVA, ARF, Chemo, Hep., AIDS, mental health diagnosis, sleep apnea, morbid obesity)? @ -none Was patient admitted / discharged? Hospital course, mention meds given and route, prescriptions, significant lab abnormalities, going to OR and other pertinent info. @ - 78 male will be admitted for possible abscess versus diverticulitis possibly related GI bleed blood in stool abdominal pain versus possible occult tumor. Admitted Undiagnosed new problem with uncertain prognosis? @ -no Drug Therapy requiring intensive monitoring for toxicity (Heparin, Nitro, Insulin, Cardizem)? @ -no Were any procedures done? @ -no Diagnosis/symptom? @ -GI bleed with tumor versus abscess diverticulitis Acute, or Chronic, or Acute on Chronic? @ -Acute Uncomplicated (without systemic symptoms) or Complicated (systemic symptoms)? @ -Complicated Side effects of treatment? @ -no Exacerbation, Progression, or Severe Exacerbation? @ -exacerbation Poses a threat to life or bodily function? How? (Chest pain, USA, ID, pneumonia, PE, COPD, DKA, ARF, appy, cholecystitis, CVA, Diverticulitis, Homicidal, Suicidal, threat to staff... and all critical care pts) @ -yes extreme of age of GI bleed likely underlying tumor versus abscess (Flynn Reynolds) Reevaluation #5: 11/26/23 20:05 Differential Abdominal Pain Men: Appendicitis, cholecystitis, diverticulosis, ischemic bowel, pancreatitis, hepatitis, UTI, gastroenteritis, AAA, incarcerated hernia, bowel obstruction, constipation, inflammatory bowel, hepatitis, peptic ulcer disease, splenic infarction, perforated viscus, testicular torsion, this is not meant to be an all-inclusive list (Flynn Reynolds) - Consultations Consultation #1: Spoke with H reviewed admit this patient (Flynn Reynolds) Medical Decision Making <Zaheer Paredes - Last Filed: 11/26/23 08:53> - Lab Data Result diagrams: 11/26/23 09:17 11/26/23 09:17 <Maxime Greenfield - Last Filed: 11/26/23 14:53> - Lab Data Result diagrams: 11/27/23 06:26 11/27/23 06:26 - Radiology Data Radiology results: report reviewed (CT of the abdomen and pelvis for likely abscess versus diverticulitis versus neoplasm, will be admitted for antibiotics and surgical evaluation and management), image reviewed <Flynn Reynolds - Last Filed: 11/30/23 13:26> - Medical Decision Making I completed the quick note portion of this chart signed Zaheer Paredes PA-C (Zaheer Paredes) Was pt. sent in by a medical professional or institution (TANIKA Campos, MEDIATION COMMISSIONER, urgent care, hospital, or longterm...) When possible be specific @ -No Did you speak to anyone other than the patient for history (EMS, parent, family, police, friend...)? What history was obtained from this source @ -No Did you review nursing and triage notes (agree or disagree)? Why? @ -I reviewed and agree with nursing and triage notes Were old charts reviewed (outside hosp., previous admission, EMS record, old EKG, old radiological studies, urgent care reports/EKG's, longterm records)? Report findings @ -Old charts reviewed Differential Diagnosis (chest pain, altered mental status, abdominal pain women, abdominal pain men, vaginal bleeding, weakness, fever, dyspnea, syncope, headache, dizziness, GI bleed, back pain, seizure, CVA, palpatations, mental health, musculoskeletal)? @ -Differential GI Bleed: Esophageal varices, aortoenteric fistula, Zita-Meza, gastritis, peptic ulcer disease, diverticulosis, inflammatory bowel disease, hemorrhoids, fissure, colitis, malignancy, Meckels diverticulum, this is not meant to be an all- inclusive list. EKG interpreted by me (3pts min.). @ -None done X-rays interpreted by me (1pt min.). @ -None done CT interpreted by me (1pt min.). @ -Pending U/S interpreted by me (1pt. min.). @ -None done What testing was considered but not performed or refused? (CT, X-rays, U/S, labs )? Why? @ -None What meds were considered but not given or refused? Why? @ -None Did you discuss the management of the patient with other professionals (professionals i.e. , PA, MEDIATION COMMISSIONER, lab, RT, psych nurse, social psychologist, frog shaker, teacher, transportation security officer, complex case manager)? Give summary @ -No Was smoking cessation discussed for >3mins.? @ -No Was critical care preformed (if so, how long)? @ -No Were there social determinants of health that impacted care today? How? (Homelessness, low income, unemployed, alcoholism, drug addiction, transportation, low edu. Level, literacy, decrease access to med. care, halfway, rehab)? @ -No Was there de-escalation of care discussed even if they declined (Discuss DNR or withdrawal of care, Hospice)? DNR status @ -No What co-morbidities impacted this encounter? (DM, HTN, Smoking, COPD, CAD, Cancer, CVA, ARF, Chemo, Hep., AIDS, mental health diagnosis, sleep apnea, morbid obesity)? @ -None Was patient admitted / discharged? Hospital course, mention meds given and route, prescriptions, significant lab abnormalities, going to OR and other pertinent info. @ -Patient is a 70-year-old male presents emergency department for GI bleed. No history of GI bleeds. Is not on blood thinners. Workup showed it in triage as a quick. Vital signs within except for limits. Patient's laboratory studies returned remarkable for a normal hemoglobin. Normal platelets. No coagulopathies. Rectal exam performed by myself revealed no obvious gross blood or evidence of hemorrhoids. Good rectal tone. Occult blood did return positive. I did recommend CT angiogram concerning his left lower quadrant abdominal pain as well as his images of his bowel movements. He was in agreement this plan. He'll be given IV Protonix. Vital signs within acceptable limits. Declines analgesic medications. At this time is the end of my shift. CT imaging is pending. Patient sent to Dr. Reynolds. Undiagnosed new problem with uncertain prognosis? @ -No Drug Therapy requiring intensive monitoring for toxicity (Heparin, Nitro, Insulin, Cardizem)? @ -No Were any procedures done? @ -No (Maxime Greenfield) 78 male will be admitted for possible abscess versus diverticulitis possibly related GI bleed blood in stool abdominal pain versus possible occult tumor. (Flynn Reynolds) - Lab Data Lab Results 11/26/23 11/26/23 11/26/23 Range/Units 09:17 09:17 09:17 WBC 8.6 (3.8-10.6) k/uL RBC 4.16 L (4.30-5.90) m/uL Hgb 13.3 (13.0-17.5) gm/dL Hct 41.8 (39.0-53.0) % MCV 100.4 H (80.0-100.0) fL MCH 32.0 (25.0-35.0) pg MCHC 31.9 (31.0-37.0) g/dL RDW 12.4 (11.5-15.5) % Plt Count 303 (150-450) k/uL MPV 7.8 Neutrophils % 78 % Lymphocytes % 12 % Monocytes % 8 % Eosinophils % 1 % Basophils % 1 % Neutrophils # 6.8 (1.3-7.7) k/uL Lymphocytes # 1.0 (1.0-4.8) k/uL Monocytes # 0.7 (0-1.0) k/uL Eosinophils # 0.1 (0-0.7) k/uL Basophils # 0.0 (0-0.2) k/uL PT 10.5 (10.0-12.5) sec INR 0.9 (<1.2) APTT 23.8 (22.0-30.0) sec Sodium 144 (137-145) mmol/L Potassium 4.1 (3.5-5.1) mmol/L Chloride 106 (98-107) mmol/L Carbon Dioxide 26 (22-30) mmol/L Anion Gap 12 mmol/L BUN 22 H (9-20) mg/dL Creatinine 0.95 (0.66-1.25) mg/dL Est GFR (CKD-EPI)AfAm 89 (>60 ml/min/1.73 sqM) Est GFR (CKD-EPI)NonAf 77 (>60 ml/min/1.73 sqM) Glucose 101 H (74-99) mg/dL Plasma Lactic Acid Ernesto (0.7-2.0) mmol/L Calcium 9.2 (8.4-10.2) mg/dL Magnesium 1.9 (1.6-2.3) mg/dL Total Bilirubin 0.9 (0.2-1.3) mg/dL AST 17 (17-59) U/L ALT 8 (4-49) U/L Alkaline Phosphatase 137 H (38-126) U/L Total Protein 7.1 (6.3-8.2) g/dL Albumin 3.6 (3.5-5.0) g/dL Stool Occult Blood (Negative) 11/26/23 11/26/23 Range/Units 09:17 12:28 WBC (3.8-10.6) k/uL RBC (4.30-5.90) m/uL Hgb (13.0-17.5) gm/dL Hct (39.0-53.0) % MCV (80.0-100.0) fL MCH (25.0-35.0) pg MCHC (31.0-37.0) g/dL RDW (11.5-15.5) % Plt Count (150-450) k/uL MPV Neutrophils % % Lymphocytes % % Monocytes % % Eosinophils % % Basophils % % Neutrophils # (1.3-7.7) k/uL Lymphocytes # (1.0-4.8) k/uL Monocytes # (0-1.0) k/uL Eosinophils # (0-0.7) k/uL Basophils # (0-0.2) k/uL PT (10.0-12.5) sec INR (<1.2) APTT (22.0-30.0) sec Sodium (137-145) mmol/L Potassium (3.5-5.1) mmol/L Chloride (98-107) mmol/L Carbon Dioxide (22-30) mmol/L Anion Gap mmol/L BUN (9-20) mg/dL Creatinine (0.66-1.25) mg/dL Est GFR (CKD-EPI)AfAm (>60 ml/min/1.73 sqM) Est GFR (CKD-EPI)NonAf (>60 ml/min/1.73 sqM) Glucose (74-99) mg/dL Plasma Lactic Acid Ernesto 1.4 (0.7-2.0) mmol/L Calcium (8.4-10.2) mg/dL Magnesium (1.6-2.3) mg/dL Total Bilirubin (0.2-1.3) mg/dL AST (17-59) U/L ALT (4-49) U/L Alkaline Phosphatase (38-126) U/L Total Protein (6.3-8.2) g/dL Albumin (3.5-5.0) g/dL Stool Occult Blood Positive (Negative) Disposition <Zaheer Paredes - Last Filed: 11/26/23 08:53> <Maxime Greenfield - Last Filed: 11/26/23 14:53> Is patient prescribed a controlled substance at d/c from ED?: No Time of Disposition: 18:00 <Flynn Reynolds - Last Filed: 11/30/23 13:26> Clinical Impression: Parkinson's disease, GI bleed, Lower gastrointestinal hemorrhage, Diverticulitis Narrative: Colonic Mass v Abscess (Flynn Reynolds) Disposition: ADMITTED IP TO THIS HOSP Condition: Fair
[2023-11-26 10:12] LABS: Basophils % (A) 1 %; Eosinophils # (A) 0.1 k/uL (0-0.7); Eosinophils % (A) 1 %; HCT 41.8 % (39.0-53.0); HGB 13.3 gm/dL (13.0-17.5); Lymphocytes % (A) 12 %; MCHC 31.9 g/dL (31.0-37.0); MCV 100.4 fL (80.0-100.0); Mean Platelet Volume 7.8; Monocytes # (A) 0.7 k/uL (0-1.0); Monocytes % (A) 8 %; Neutrophils # (A) 6.8 k/uL (1.3-7.7); Neutrophils % (A) 78 %; Platelet Count 303 k/uL (150-450); RBC 4.16 m/uL (4.30-5.90); RDW 12.4 % (11.5-15.5); WBC 8.6 k/uL (3.8-10.6)
[2023-11-26 10:24] LABS: INR 0.9 (<1.2); Partial Thromboplastin Time 23.8 sec (22.0-30.0); Prothrombin Time 10.5 sec (10.0-12.5)
[2023-11-26 10:29] LABS: ALT 8 U/L (4-49); AST 17 U/L (17-59); African American GFR (CKD) 89 (>60 ml/min/1.73 sqM); Albumin 3.6 g/dL (3.5-5.0); Alkaline Phosphatase 137 U/L (38-126); Anion Gap 12 mmol/L; Blood Urea Nitrogen 22 mg/dL (9-20); Calcium 9.2 mg/dL (8.4-10.2); Carbon Dioxide 26 mmol/L (22-30); Chloride 106 mmol/L (98-107); Glucose 101 mg/dL (74-99); Magnesium 1.9 mg/dL (1.6-2.3); Non-African American GFR(CKD) 77 (>60 ml/min/1.73 sqM); Potassium 4.1 mmol/L (3.5-5.1); Sodium 144 mmol/L (137-145); Total Bilirubin 0.9 mg/dL (0.2-1.3); Total Protein 7.1 g/dL (6.3-8.2)
[2023-11-26] MEDS ORDERED: PANTOPRAZOLE 40 MG/10 ML VIAL IVP STA (14:55)
--- NOTE | 2023-11-26 16:02 | CT ---
EXAMINATION TYPE: CT angio abdomen pelvis CT DLP: 1583.5 mGycm, Automated exposure control for dose reduction was used. DATE OF EXAM: 11/26/2023 1:49 PM COMPARISON: . . CLINICAL INDICATION:Male, 78 years old with history of LLQ pain. GI bleed protocol; [facility], GI bleed TECHNIQUE: Noncontrast CT of the abdomen and pelvis followed by postcontrast arterial phase CT as wel l as 90 second delayed imaging. Multiple thin slice sub-millimeter images were obtained after adminis tration of contrast. 3-D reconstructed images and maximum intensity projection images were obtained. CT angio abdomen pelvis CT Contrast: Contrast used:100 mL of Isovue 370 without and with IV Contrast, Oral contrast used: without Oral Contrast None FINDINGS: GI: No focal area of increased attenuation or progressive accumulation of contrast seen to suggest ac tive GI bleeding site. There could be a tiny sliding hiatal hernia. Stomach and small bowel show no e vidence of obstruction. The appendix appears normal. There is moderate stool throughout the colon. Si gmoid and transverse colon appear especially redundant. It seems a tortuous portion of sigmoid colon courses cranially within the left abdomen around an inflamed-appearing structure which appears to be colonic, the largest portion of this measures 6.5 cm craniocaudal and 5.3 x 5.6 cm axially. This has a peripheral thickened rind of soft tissue with somewhat hazy margination. Central contents demonstra te essentially stool signature, and there is some gas also seen within. This appears to extend superi joel and laterally towards the right and anteriorly seemingly communicating with the adjacent distal sigmoid colon. There is some soft tissue thickening and haziness of the surrounding mesenteric fat ab out the extracolonic collection, as well as some wall thickening of the colon where it communicates w ith the sigmoid. Additional points of connection/fistulization cannot be fully excluded. In the colon more distally, some segments are nondistended and not well assessed. Additionally there is tortuosit y in the distal sigmoid and rectum limiting assessment. There are multiple colonic diverticula seen t hroughout the colon, which do not appear acutely inflamed. CTA Abdomen and pelvis: Mild/moderate atherosclerotic calcifications throughout. Proximal celiac, sup erior mesenteric, bilateral renal and inferior mesenteric arteries appear patent without significant stenosis. No abdominal aortic aneurysm or dissection. There is diffuse mild to moderate atherosclerot ic disease throughout the bilateral iliac arterial trees without evidence of high-grade stenosis, ane urysm, or dissection. No area of contrast extravasation/accumulation is encountered. Delayed imaging shows no additional abnormalities. LOWER CHEST: No evidence of focal consolidation, pneumothorax or pleural effusion. Heart size upper n ormal with moderate coronary arterial calcifications seen mostly on the right. Trace pericardial flui d. LIVER: Unremarkable GALLBLADDER AND BILE DUCTS: Unremarkable. PANCREAS: Fatty infiltrated without acute finding SPLEEN: Unremarkable. ADRENAL GLANDS: Mildly thickened and nodular likely adenomatoid changes.. KIDNEYS AND URETERS: Kidneys enhance symmetrically. There is no evidence of hydronephrosis. PELVIS BLADDER: Incompletely distended, the wall appears diffusely thickened, and the base is indented by th e enlarged prostate. REPRODUCTIVE: Prostate is enlarged in size measuring 4.6 cm transverse and extends about 4.4 cm crani ocaudal. A few small parenchymal calcifications. ABDOMEN & PELVIS GI: Please see above. PERITONEUM: No evidence of pneumoperitoneum or free fluid. MUSCULOSKELETAL: Moderate degenerative changes throughout the spine. No clearly acute abnormality. LYMPH NODES: No gross evidence for lymphadenopathy. SOFT TISSUE/ABDOMINAL WALL: Unremarkable IMPRESSION 1. No CT evidence of active GI bleeding site. 2. Abnormal inflammatory appearing structure within the left pelvis, appears to be extracolonic, how ever with likely communication with the distal sigmoid. Likely considerations include abscess, contai marcin perforation. This could represent a perforated diverticulitis, however neoplasm is certainly in t he differential. 3. Multiple colonic diverticula throughout the colon, which do not appear acutely inflamed. 4. Mild/moderate atherosclerotic calcifications throughout the aorta and branches. No abdominal aort ic aneurysm or dissection. 5. Heart size upper normal with moderate coronary arterial calcifications seen mostly on the right. Trace pericardial fluid. 6. Thickened appearance of the urinary bladder wall, could be due to incomplete distention, chronic thickening such as bladder wall hypertrophy, but correlate clinically to exclude cystitis. 7. Prostatomegaly.
[2023-11-26] MEDS ORDERED: ONDANSETRON 4 MG/2 ML VIAL IVP PRN (17:59)
[2023-11-26] MEDS ORDERED: NALOXONE 0.4 MG/ML 1 ML VIAL IV PRN (17:59)
[2023-11-26] MEDS ORDERED: MORPHINE SULFATE 4 MG/ML SYRINGE IV PRN (17:59)
[2023-11-26] MEDS ORDERED: AMPICILLIN-SULBACTAM 3 GM in SODIUM CHLORIDE 0.9% 100 ML IVPB STA (18:04)
[2023-11-26 20:20] LABS: Basophils # (A) 0.1 k/uL (0-0.2); Basophils % (A) 1 %; Eosinophils # (A) 0.2 k/uL (0-0.7); Eosinophils % (A) 2 %; HCT 40.2 % (39.0-53.0); HGB 13.2 gm/dL (13.0-17.5); Lymphocytes # (A) 1.3 k/uL (1.0-4.8); Lymphocytes % (A) 13 %; MCHC 32.8 g/dL (31.0-37.0); MCV 100.6 fL (80.0-100.0); Mean Platelet Volume 8.1; Monocytes # (A) 0.7 k/uL (0-1.0); Monocytes % (A) 7 %; Neutrophils # (A) 7.3 k/uL (1.3-7.7); Neutrophils % (A) 76 %; Platelet Count 278 k/uL (150-450); RDW 12.6 % (11.5-15.5); WBC 9.7 k/uL (3.8-10.6)
[2023-11-26] MEDS: PANTOPRAZOLE 40 MG/10 ML VIAL IV SCH (21:23)
--- NOTE | 2023-11-26 22:41 | P.GSCN ---
History of Present Illness Consult date: 11/26/23 History of present illness: Patient known with recent EGD 1 month ago. Last colonoscopy 20 years ago. Has acute blood from rectum. Recommend colonoscopy while inpatient. Past Medical History Past Medical History: Chest Pain / Angina, CVA/TIA, GERD/Reflux, Hyperlipidemia, Hypertension, Myocardial Infarction ([place]), Musculoskeletal Disorder Additional Past Medical History / Comment(s): parkinsons disease. 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-NO RESIDUAL EFFFECTS Last Myocardial Infarction Date:: 1983, History of Any Multi-Drug Resistant Organisms: None Reported Past Surgical History: Heart Catheterization Additional Past Surgical History / Comment(s): states heart cath last week with Dr Mera- "mild Blockages'- PEG TUBE PLACEMENT-08/13/23, COLONOSCOPY Past Anesthesia/Blood Transfusion Reactions: No Reported Reaction Past Psychological History: No Psychological Hx Reported Smoking Status: Former smoker Past Alcohol Use History: None Reported Past Drug Use History: None Reported - Past Family History Mother Family Medical History: Myocardial Infarction ([place]) Father Family Medical History: Myocardial Infarction ([place]) Medications and Allergies Home Medications Medication Instructions Recorded Confirmed Type Carbidopa-Levodopa 25-100 mg 1 tab PO DIRECTED 05/17/20 11/26/23 History [Sinemet 25-100 mg] amantadine HCL [Symmetrel] 100 mg PO TID@0600,1200,1800 05/17/20 11/26/23 History Multivitamins, Thera [Multivitamin 1 tab PO DAILY 08/09/23 11/26/23 History (formulary)] amLODIPine [Norvasc] 5 mg PO HS 08/09/23 11/26/23 History Artificial Tears-Hypromellose 2 drops BOTH EYES Q2H ml 08/18/23 11/26/23 Rx [Artificial Tear Drops] Aspirin 325 mg PO DAILY 30 Days #30 tab 08/18/23 11/26/23 Rx Clopidogrel [Plavix] 75 mg PO DAILY 30 Days #30 tab 08/18/23 11/26/23 Rx Losartan [Cozaar] 50 mg PO DAILY 30 Days #30 tab 08/18/23 11/26/23 Rx Allergies Allergy/AdvReac Type Severity Reaction Status Date / Time No Known Allergies Allergy Verified 11/26/23 12:42 Surgical - Exam Vital Signs Temp Pulse Resp BP Pulse Ox 97.5 F L 71 18 150/86 98 11/26/23 09:14 11/26/23 09:14 11/26/23 09:14 11/26/23 09:14 11/26/23 09:14 Results - Labs 11/26/23 18:04 11/26/23 09:17 Abnormal Lab Results - Last 24 Hours (Table) 11/26/23 11/26/23 11/26/23 Range/Units 09:17 09:17 18:04 RBC 4.16 L 4.00 L (4.30-5.90) m/uL MCV 100.4 H 100.6 H (80.0-100.0) fL BUN 22 H (9-20) mg/dL Glucose 101 H (74-99) mg/dL Alkaline Phosphatase 137 H (38-126) U/L Diabetes panel 11/26/23 Range/Units 09:17 Sodium 144 (137-145) mmol/L Potassium 4.1 (3.5-5.1) mmol/L Chloride 106 (98-107) mmol/L Carbon Dioxide 26 (22-30) mmol/L BUN 22 H (9-20) mg/dL Creatinine 0.95 (0.66-1.25) mg/dL Glucose 101 H (74-99) mg/dL Calcium 9.2 (8.4-10.2) mg/dL AST 17 (17-59) U/L ALT 8 (4-49) U/L Alkaline Phosphatase 137 H (38-126) U/L Total Protein 7.1 (6.3-8.2) g/dL Albumin 3.6 (3.5-5.0) g/dL Calcium panel 11/26/23 Range/Units 09:17 Calcium 9.2 (8.4-10.2) mg/dL Albumin 3.6 (3.5-5.0) g/dL Pituitary panel 11/26/23 Range/Units 09:17 Sodium 144 (137-145) mmol/L Potassium 4.1 (3.5-5.1) mmol/L Chloride 106 (98-107) mmol/L Carbon Dioxide 26 (22-30) mmol/L BUN 22 H (9-20) mg/dL Creatinine 0.95 (0.66-1.25) mg/dL Glucose 101 H (74-99) mg/dL Calcium 9.2 (8.4-10.2) mg/dL Adrenal panel 11/26/23 Range/Units 09:17 Sodium 144 (137-145) mmol/L Potassium 4.1 (3.5-5.1) mmol/L Chloride 106 (98-107) mmol/L Carbon Dioxide 26 (22-30) mmol/L BUN 22 H (9-20) mg/dL Creatinine 0.95 (0.66-1.25) mg/dL Glucose 101 H (74-99) mg/dL Calcium 9.2 (8.4-10.2) mg/dL Total Bilirubin 0.9 (0.2-1.3) mg/dL AST 17 (17-59) U/L ALT 8 (4-49) U/L Alkaline Phosphatase 137 H (38-126) U/L Total Protein 7.1 (6.3-8.2) g/dL Albumin 3.6 (3.5-5.0) g/dL
[2023-11-26] MEDS ORDERED: PEG 3350 (420 GM/BTL) + LYTES 4,000 ML BOTTLE PO ONE (22:42)
[2023-11-27] MEDS: CARBIDOPA-LEVODOPA 25-100 MG 1 EACH TAB PO SCH ×7 (00:02→21:57)
[2023-11-27] MEDS: AMPICILLIN-SULBACTAM 3 GM in SODIUM CHLORIDE 0.9% 100 ML IVPB SCH ×5 (00:02→23:35)
[2023-11-27] MEDS: ARTIFICIAL TEARS-HYPROMELLOSE DROPS 15 ML BTL BOTH EYES SCH ×13 (00:02→23:35)
[2023-11-27] MEDS ORDERED: PANTOPRAZOLE 40 MG/10 ML VIAL IV SCH (09:00)
[2023-11-27] MEDS: LOSARTAN 50 MG TAB PO SCH (09:01)
[2023-11-27] MEDS: PANTOPRAZOLE 40 MG/10 ML VIAL IV SCH ×2 (09:01→21:56)
[2023-11-27 10:59] LABS: Basophils # (A) 0.08 X 10*3/uL (0.00-0.10); Basophils % (A) 1.1 %; Eosinophils % (A) 1.3 %; HCT 37.9 % (39.6-50.0); HGB 12.4 g/dL (13.0-17.0); Lymphocytes # (A) 0.86 X 10*3/uL (0.90-5.00); Lymphocytes % (A) 11.6 %; MCH 32.1 pg (27.0-32.0); MCHC 32.7 g/dL (32.0-37.0); MCV 98.2 FL (80.0-97.0); Mean Platelet Volume 9.8 FL (9.5-12.2); Monocytes # (A) 0.86 X 10*3/uL (0.20-1.00); Monocytes % (A) 11.6 %; NRBC Per 100 WBC 0 X 10*3/uL (0.00-0.01); Neutrophils # (A) 5.51 X 10*3/uL (1.80-7.70); Platelet Count 272 X 10*3/uL (140-440); RBC 3.86 X 10*6/uL (4.40-5.60); RDW 12.7 % (11.5-14.5); WBC 7.44 X 10*3/uL (4.50-10.00)
[2023-11-27 11:14] LABS: BUN/Creat Ratio 15.45 Ratio (12.00-20.00); Glucose 85 mg/dL (70-110); Magnesium 1.9 mg/dL (1.5-2.4)
[2023-11-27 11:15] LABS: ALT 6 U/L (10-49); AST 11 U/L (14-35); Albumin 3.6 g/dL (3.8-4.9); Albumin/Globulin Ratio 1.33 Ratio (1.60-3.17); Alkaline Phosphatase 136 U/L (41-126); Calcium 9.4 mg/dL (8.7-10.3); Carbon Dioxide 28.3 mmol/L (21.6-31.8); Chloride 108 mmol/L (96-109); Globulin 2.7 g/dL (1.6-3.3); Phosphorus 3.2 mg/dL (2.4-5.1); Potassium 4.4 mmol/L (3.5-5.5); Sodium 145 mmol/L (135-145); Total Bilirubin 0.8 mg/dL (0.3-1.2); Total Protein 6.3 g/dL (6.2-8.2)
--- NOTE | 2023-11-27 13:24 | P.HPIM ---
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 At that time his been evaluated by neurologist and was discharged on aspirin Plavix. At the for dysphagia. Currently he does not have PEG tube. And as per he was taken only aspirin at home and Plavix were stopped already. Patient presents because of blood in his stool 3 days associated with mild left lower quadrant tenderness with no rebound tenderness and since nonspecific. No nausea or vomiting. No chest pain or dyspnea. No change in urine habits. No fever or chills. He denies smoking alcohol or illicit drugs. No headache weakness numbness or tingling. His vital stable, blood pressure actually 162/106, going to increase his Norvasc 5 mg daily and to twice daily His hemoglobin stabilized at 13.2. Occult blood in stool is positive. has pictures of bloody bowel movement in the toilet. CAT scan of the abdomen and pelvis showing no acute process, left pelvic abscess versus neoplasm cannot be excluded suspected due to perforated diverticulum. Particular bladder rule out cystitis, Review of Systems Review of systems CONSTITUTIONAL: No fever, no malaise, no fatigue. HEENT: No recent visual problems or hearing problems. Denied any sore throat. CARDIOVASCULAR: No orthopnea, PND, no palpitations, no syncope. PULMONARY: No shortness of breath, no cough, no hemoptysis. GASTROINTESTINAL: No diarrhea, no nausea, no vomiting, no abdominal pain. Normoactive bowel sounds. NEUROLOGICAL: No headaches, no weakness, no numbness. HEMATOLOGICAL: Denies any bleeding or petechiae. GENITOURINARY: Denies any burning micturition, frequency, or urgency. MUSCULOSKELETAL/RHEUMATOLOGICAL: Denies any joint pain, swelling, or any muscle pain. ENDOCRINE: Denies any polyuria or polydipsia. Past Medical History Past Medical History: Chest Pain / Angina, CVA/TIA, GERD/Reflux, Hyperlipidemia, Hypertension, Myocardial Infarction ([place]), Musculoskeletal Disorder Additional Past Medical History / Comment(s): parkinsons disease. 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-NO RESIDUAL EFFFECTS Last Myocardial Infarction Date:: 1983, History of Any Multi-Drug Resistant Organisms: None Reported Past Surgical History: Heart Catheterization Additional Past Surgical History / Comment(s): states heart cath last week with Dr Mera- "mild Blockages'- PEG TUBE PLACEMENT-08/13/23, COLONOSCOPY Past Anesthesia/Blood Transfusion Reactions: No Reported Reaction Past Psychological History: No Psychological Hx Reported Smoking Status: Former smoker Past Alcohol Use History: None Reported Past Drug Use History: None Reported - Past Family History Mother Family Medical History: Myocardial Infarction ([place]) Father Family Medical History: Myocardial Infarction ([place]) Medications and Allergies Home Medications Medication Instructions Recorded Confirmed Type Carbidopa-Levodopa 25-100 mg 1 tab PO DIRECTED 05/17/20 11/26/23 History [Sinemet 25-100 mg] amantadine HCL [Symmetrel] 100 mg PO TID@0600,1200,1800 05/17/20 11/26/23 History Multivitamins, Thera [Multivitamin 1 tab PO DAILY 08/09/23 11/26/23 History (formulary)] amLODIPine [Norvasc] 5 mg PO HS 08/09/23 11/26/23 History Artificial Tears-Hypromellose 2 drops BOTH EYES Q2H ml 08/18/23 11/26/23 Rx [Artificial Tear Drops] Aspirin 325 mg PO DAILY 30 Days #30 tab 08/18/23 11/26/23 Rx Clopidogrel [Plavix] 75 mg PO DAILY 30 Days #30 tab 08/18/23 11/26/23 Rx Losartan [Cozaar] 50 mg PO DAILY 30 Days #30 tab 08/18/23 11/26/23 Rx Allergies Allergy/AdvReac Type Severity Reaction Status Date / Time No Known Allergies Allergy Verified 11/26/23 12:42 Physical Exam Vitals: Vital Signs Temp Pulse Pulse Resp BP BP Pulse Ox 11/27/23 07:21 97.8 F 72 19 162/106 98 11/27/23 01:10 98.1 F 62 17 151/84 97 11/26/23 19:43 64 18 129/94 11/26/23 12:57 69 18 124/83 99 11/26/23 09:14 97.5 F L 71 18 150/86 98 Intake and Output 11/26/23 11/27/23 11/27/23 22:59 06:59 14:59 Other: Voiding Method Toilet # Voids 2 Weight 68.039 kg GENERAL: The patient is alert and oriented x3, not in any acute distress. Well developed, well nourished. HEENT: Pupils are round and equally reacting to light. EOMI. No scleral icterus. No conjunctival pallor. Normocephalic, atraumatic. No pharyngeal erythema. No thyromegaly. CARDIOVASCULAR: S1 and S2 present. No murmurs, rubs, or gallops. PULMONARY: Chest is clear to auscultation, no wheezing , no crackles. -ABDOMEN: Soft, nontende mild LLQ tenderness r, nondistended, normoactive bowel sounds. No palpable organomegaly. MUSCULOSKELETAL: No joint swelling or deformity. EXTREMITIES: No cyanosis, clubbing, or pedal edema. NEUROLOGICAL: Gross neurological examination did not reveal any focal deficits. SKIN: No rashes. no petechiae. Results CBC & Chem 7: 11/27/23 06:26 11/27/23 06:26 Labs: Abnormal Lab Results - Last 24 Hours (Table) 11/26/23 11/26/23 11/26/23 Range/Units 09:17 09:17 18:04 RBC 4.16 L 4.00 L (4.30-5.90) m/uL MCV 100.4 H 100.6 H (80.0-100.0) fL BUN 22 H (9-20) mg/dL Glucose 101 H (74-99) mg/dL Alkaline Phosphatase 137 H (38-126) U/L Thrombosis Risk Factor Assmnt - Choose All That Apply Any of the Below Risk Factors Present?: Yes Each Risk Factor Represents 3 Points: Age 75 years or older Thrombosis Risk Factor Assessment Total Risk Factor Score: 3 Thrombosis Risk Factor Assessment Level: Moderate Risk Assessment and Plan Assessment: Blood per rectum Left lower quadrant tenderness suspicious for mild diverticulitis Left pelvic abscess, Pleasant, patient excluded suspected secondary to perforated diverticulum Attention, uncontrolled on admission Parkinson disease History of dysphagia, currently improved and has no PEG tube History 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 Continue same treatment. Continue with symptomatic treatment. Resume home medication. Monitor labs and vitals. DVT and GI prophylaxis. Further recommendations as per clinical course of the patient DVT prophylaxis: no Subcutaneous heparin,. For GI bleed GI Prophylaxis: Ppi Prognosis is guarded
[2023-11-27] MEDS: DEXTROSE 5%-0.45% NACL 1,000 ML IV SCH (14:53)
[2023-11-27] MEDS: amLODIPine 5 MG TAB PO SCH ×2 (14:53→21:58)
[2023-11-27] MEDS ORDERED: amLODIPine 5 MG TAB PO SCH (21:00)
--- NOTE | 2023-11-27 22:38 | P.PN ---
Subjective Progress Note Date: 11/27/23 He reports blood in stool after bowel prep. No abdominal pain. He has recent EGD and feeding tube removal 2 months. Recommend proceed with Colonoscopy for GI bleed. Objective - Vital Signs Vital signs: Vital Signs Temp 97.6 F 11/27/23 19:45 Pulse 53 L 11/27/23 19:45 Resp 18 11/27/23 19:45 BP 144/100 11/27/23 19:45 Pulse Ox 91 L 11/27/23 19:45 FiO2 Intake & Output 11/27/23 11/27/23 11/28/23 06:59 18:59 06:59 Weight 68.039 kg Other: Voiding Method Toilet # Voids 2 4 # Bowel Movements 6 - Labs CBC & Chem 7: 11/27/23 06:26 11/27/23 06:26 Labs: Abnormal Lab Results - Last 24 Hours (Table) 11/27/23 11/27/23 Range/Units 06:26 06:26 RBC 3.86 L (4.40-5.60) X 10*6/uL Hgb 12.4 L (13.0-17.0) g/dL Hct 37.9 L (39.6-50.0) % MCV 98.2 H (80.0-97.0) FL MCH 32.1 H (27.0-32.0) pg Lymphocytes # 0.86 L (0.90-5.00) X 10*3/uL AST 11 L (14-35) U/L ALT 6 L (10-49) U/L Alkaline Phosphatase 136 H (41-126) U/L Albumin 3.6 L (3.8-4.9) g/dL Albumin/Globulin Ratio 1.33 L (1.60-3.17) Ratio
[2023-11-28] MEDS: ARTIFICIAL TEARS-HYPROMELLOSE DROPS 15 ML BTL BOTH EYES SCH ×6 (01:40→11:29)
[2023-11-28] MEDS: AMPICILLIN-SULBACTAM 3 GM in SODIUM CHLORIDE 0.9% 100 ML IVPB SCH ×3 (06:23→18:46)
[2023-11-28] MEDS: CARBIDOPA-LEVODOPA 25-100 MG 1 EACH TAB PO SCH ×6 (06:23→21:36)
[2023-11-28] MEDS: amLODIPine 5 MG TAB PO SCH ×2 (08:51→21:35)
[2023-11-28] MEDS: PANTOPRAZOLE 40 MG/10 ML VIAL IV SCH ×2 (08:51→21:35)
[2023-11-28] MEDS: DEXTROSE 5%-0.45% NACL 1,000 ML IV SCH (08:51)
[2023-11-28] MEDS: LOSARTAN 50 MG TAB PO SCH (08:51)
[2023-11-28] MEDS ORDERED: PROPOFOL 10 MG/ML 20 ML VIAL IV ONE (15:18)
[2023-11-28] MEDS ORDERED: IV FLUID CONTINUATION 900 ML IV ONE (15:19)
--- NOTE | 2023-11-28 15:34 | P.PCN ---
Date of Procedure: 11/28/23 Description of Procedure: PREOPERATIVE DIAGNOSIS: Gastrointestinal bleeding with hematochezia POSTOPERATIVE DIAGNOSIS: Acute sigmoid diverticulitis with bleeding Severe sigmoid diverticulosis Grade 3 internal hemorrhoids without bleeding OPERATION: Colonoscopy to the cecum, ileocecal valve and appendiceal orifice SURGEON: Pamela Landeros MD. ANESTHESIA: MAC. INDICATIONS: The patient is a 78-year-old male who presents with gastrointestinal bleeding. Benefits and risks were described and informed consent was obtained. DESCRIPTION OF PROCEDURE: The patient had undergone attempted Golytely prep 4 L. The patient had been brought into the operating room and laid in the left lateral decubitus position. After adequate intravenous sedation, the rectum was examined with 2% lidocaine jelly. Rectal tone within normal limits. External hemorrhoids identified per An Olympus colonoscope was gently advanced to the cecum with clear visualization of the ileocecal valve including appendiceal orifice. The prep was fair. Severe sigmoid diverticulosis was encountered with active bleeding between 25-30 cm from anal verge. No intraluminal masses were identified within the colon. No colonic polyps were found. No evidence of focal colitis was found. Retroflexion of the scope demonstrated grade internal hemorrhoids with recent inflammation. The colon was desufflated. The patient had tolerated the procedure well. Withdrawal time was over 6 minutes. FINDINGS: Aronchick preparation quality scale 2+ (1-5) Internal hemorrhoids, grade 3 without bleeding No thrombosed hemorrhoid identified. No arteriovenous malformations. No large over 1 cm adenomatous polyps Active bleeding localized 25-30 cm from the anal verge for active sigmoid diverticulitis RECOMMENDATIONS: 1. Low fiber diet for acute attack 2. Unasyn and Flagyl for treatment of active sigmoid diverticulitis for 24-48 hours prior to discharge 3. Recommend low fiber diet for 2 weeks including antibiotics for 10 days
[2023-11-28] MEDS ORDERED: metroNIDAZOLE-NS PMX 500 MG in SALINE 1 100ML.BAG IVPB SCH (18:00)
--- NOTE | 2023-11-28 20:31 | P.PN ---
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 At that time his been evaluated by neurologist and was discharged on aspirin Plavix. At the for dysphagia. Currently he does not have PEG tube. And as per he was taken only aspirin at home and Plavix were stopped already. Patient presents because of blood in his stool 3 days associated with mild left lower quadrant tenderness with no rebound tenderness and since nonspecific. No nausea or vomiting. No chest pain or dyspnea. No change in urine habits. No fever or chills. He denies smoking alcohol or illicit drugs. No headache weakness numbness or tingling. His vital stable, blood pressure actually 162/106, going to increase his Norvasc 5 mg daily and to twice daily His hemoglobin stabilized at 13.2. Occult blood in stool is positive. has pictures of bloody bowel movement in the toilet. CAT scan of the abdomen and pelvis showing no acute process, left pelvic abscess versus neoplasm cannot be excluded suspected due to perforated diverticulum. Particular bladder rule out cystitis, 11/28/2023 Been clinically doing well overall History of minimal left lower quadrant abdominal pain and tenderness, no vomiting. He was nothing by mouth for the procedure but after that he tolerates diet. No other new complaints and he looks like some pleasant Hemodynamically stable Hemoglobin 12.4. Colonoscopy today showing severe sigmoid diverticulosis with active bleeding about 25-30 cm from the anal verge Patient antibiotic was adjusted to Unasyn and Flagyl Patient tolerates diet, stop IV fluid Aspirin remains on hold Review of systems CONSTITUTIONAL: No fever, no malaise, no fatigue. HEENT: No recent visual problems or hearing problems. Denied any sore throat. CARDIOVASCULAR: No orthopnea, PND, no palpitations, no syncope. PULMONARY: No shortness of breath, no cough, no hemoptysis. GENITOURINARY: Denies any burning micturition, frequency, or urgency. MUSCULOSKELETAL/RHEUMATOLOGICAL: Denies any joint pain, swelling, or any muscle pain. ENDOCRINE: Denies any polyuria or polydipsia. Active Medications Generic Name Dose Route Start Last Admin Trade Name Freq PRN Reason Stop Dose Admin Amlodipine Besylate 5 mg 11/27/23 13:30 11/28/23 08:51 Amlodipine 5 Mg Tab PO 5 mg BID YULISA Administration Carbidopa/Levodopa 1 each 11/26/23 23:30 11/28/23 11:47 Carbidopa-Levodopa 25-100 Mg 1 Each Tab PO 1 each TID@0600,0900,1200 YULISA Administration Carbidopa/Levodopa 1 each 11/27/23 15:00 11/28/23 18:46 Carbidopa-Levodopa 25-100 Mg 1 Each Tab PO 1 each TID@1500,1800,2100 YULISA Administration Ampicillin Sodium/Sulbactam 100 mls @ 200 mls/hr 11/27/23 00:00 11/28/23 18:46 Sodium 3 gm/ Sodium Chloride IVPB 200 mls/hr Q6HR YULISA Administration Protocol Metronidazole 500 mg/ IV 100 mls @ 100 mls/hr 11/28/23 18:00 11/28/23 18:48 Solution IVPB 100 mls/hr Q6HR YULISA Administration Protocol Losartan Potassium 50 mg 11/27/23 09:00 11/28/23 08:51 Losartan 50 Mg Tab PO 50 mg DAILY YULISA Administration Melatonin 5 mg 11/28/23 21:00 Melatonin 5 Mg Tablet PO HS YULISA Morphine Sulfate 4 mg 11/26/23 17:59 Morphine Sulfate 4 Mg/Ml Syringe IV Q4HR PRN Severe Pain (Scale 7 to 10) Naloxone HCl 0.2 mg 11/26/23 17:59 Naloxone 0.4 Mg/Ml 1 Ml Vial IV Q2M PRN Opioid Reversal Ondansetron HCl 4 mg 11/26/23 17:59 Ondansetron 4 Mg/2 Ml Vial IVP Q8HR PRN Nausea And Vomiting Pantoprazole Sodium 40 mg 11/26/23 21:00 11/28/23 08:51 Pantoprazole 40 Mg/10 Ml Vial IV 40 mg BID YULISA Administration Objective - Vital Signs Vital signs: Vital Signs Temp 97.7 F 11/28/23 13:19 Pulse 62 11/28/23 15:46 Resp 19 11/28/23 15:46 BP 171/87 11/28/23 15:46 Pulse Ox 99 11/28/23 15:46 FiO2 Intake & Output 11/27/23 11/28/23 11/28/23 18:59 06:59 18:59 Intake Total 200 Balance 200 Intake: IV 200 Other: Voiding Method Toilet # Voids 4 1 3 # Bowel Movements 6 - Exam GENERAL: The patient is alert and oriented x3, not in any acute distress. Well developed, well nourished. HEENT: Pupils are round and equally reacting to light. EOMI. No scleral icterus. No conjunctival pallor. Normocephalic, atraumatic. No pharyngeal erythema. No thyromegaly. CARDIOVASCULAR: S1 and S2 present. No murmurs, rubs, or gallops. PULMONARY: Chest is clear to auscultation, no wheezing , no crackles. -ABDOMEN: Soft, mild LLQ tenderness, nondistended, normoactive bowel sounds. No palpable organomegaly. MUSCULOSKELETAL: No joint swelling or deformity. EXTREMITIES: No cyanosis, clubbing, or pedal edema. NEUROLOGICAL: Gross neurological examination did not reveal any focal deficits. SKIN: No rashes. no petechiae. 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 Continue same treatment. Continue with symptomatic treatment. Resume home medication. Monitor labs and vitals. DVT and GI prophylaxis. Further recommendations as per clinical course of the jomar ent DVT prophylaxis: no Subcutaneous heparin,. For GI bleed GI Prophylaxis: Ppi Prognosis is guarded
[2023-11-28] MEDS: MELATONIN 5 MG TABLET PO SCH (21:35)
[2023-11-29] MEDS: AMPICILLIN-SULBACTAM 3 GM in SODIUM CHLORIDE 0.9% 100 ML IVPB SCH ×5 (01:05→23:15)
[2023-11-29] MEDS: metroNIDAZOLE-NS PMX 500 MG in SALINE 1 100ML.BAG IVPB SCH ×4 (04:04→20:31)
[2023-11-29] MEDS: CARBIDOPA-LEVODOPA 25-100 MG 1 EACH TAB PO SCH ×6 (05:27→20:31)
--- NOTE | 2023-11-29 08:31 | P.PN ---
Progress Note - Text Progress Note Date: 11/28/23 Findings of colonoscopy discussed with patient's son and regarding no cancer identified. Presence of acute diverticulitis as a cause for GI bleed including abnormality on computed tomography scan. PLAN: Recommend IV antibiotics for 24-48 hours. Transition to oral antibiotics for 2 weeks. Low fiber diet described for 2 weeks. Follow-up as outpatient. Patient may be stable for discharge from a surgical standpoint when tolerating diet and no further active bleeding in 24-48 hours.
[2023-11-29] MEDS: amLODIPine 5 MG TAB PO SCH ×2 (09:50→20:30)
[2023-11-29] MEDS: LOSARTAN 50 MG TAB PO SCH (09:50)
[2023-11-29] MEDS: PANTOPRAZOLE 40 MG/10 ML VIAL IV SCH ×2 (10:18→20:31)
--- NOTE | 2023-11-29 13:09 | P.PN ---
Subjective Progress Note Date: 11/29/23 NAEON overnight. no worsening abdominal pain. no fevers or chills. No hematochezia. Ambulatory and voiding. Objective - Vital Signs Vital signs: Vital Signs Temp 97.5 F L 11/29/23 08:00 Pulse 67 11/29/23 08:00 Resp 17 11/29/23 08:00 BP 130/68 11/29/23 08:00 Pulse Ox 98 11/29/23 08:00 FiO2 Intake & Output 11/28/23 11/29/23 11/29/23 18:59 06:59 18:59 Intake Total 200 Balance 200 Intake: IV 200 Other: Voiding Method Toilet # Voids 3 2 - Exam Gen: AxO, NAD Pulm: non-labored respirations Abd: soft, non-tender, minimally distended, no guarding/rebound/rigidity Extrem: no edema seen - Labs CBC & Chem 7: 11/27/23 06:26 11/27/23 06:26 Labs: Microbiology - Last 24 Hours (Table) 11/26/23 19:15 Blood Culture - Preliminary Blood Assessment and Plan Assessment: Patient is a 78 year old male who presents with diverticulitis and hematochezia s/p colonoscopy Plan: -Continue IV abx; transition to PO upon dc -Continue soft diet -PRN pain and nausea control -Okay to DC from surgical standpoint once Hb stabilizes Long Ty MD General Surgery
[2023-11-29] MEDS: IOPAMIDOL CONTRAST (ORAL USE) VIAL PO PRN ×2 (13:52→14:58)
[2023-11-29] MEDS: SODIUM CHLORIDE 0.9% 1,000 ML IV SCH (13:54)
--- NOTE | 2023-11-29 17:32 | CT ---
EXAMINATION TYPE: CT abdomen pelvis w con CT DLP: 777.6 mGycm, Automated exposure control for dose reduction was used. DATE OF EXAM: 11/29/2023 3:47 PM COMPARISON: CT Angio 11/26/2023 CLINICAL INDICATION:Male, 78 years old with history of abscess; abscess TECHNIQUE: Axial CT abdomen pelvis w con;Sagittal and coronal reformats were created on a separate w orkstation. Contrast used:100 mL of Isovue 300 with IV Contrast, (none if empty) Oral contrast used: with Oral Contrast (none if empty) FINDINGS: LOWER CHEST: Unremarkable ABDOMEN LIVER: Unremarkable GALLBLADDER AND BILE DUCTS: Unremarkable. PANCREAS: Unremarkable. SPLEEN: Unremarkable. ADRENAL GLANDS: Unremarkable. KIDNEYS AND URETERS: No evidence of hydronephrosis or renal calculus. The ureters are unremarkable. PELVIS BLADDER: Unremarkable REPRODUCTIVE: Prostate is enlarged in size measuring 4.7 cm in transverse dimension. ABDOMEN & PELVIS STOMACH AND BOWEL: No evidence of bowel obstruction. Scattered colonic diverticula present. There is a suspected contained rupture of the sigmoid colon with organizing feces/a abscess which com municates with the colon indications seen on series 201 image 62 which was wider on prior exam measur ing up to 2.8 cm now measuring up to 0.6 cm. Area measures approximately 5.7 x 4.0 cm on today's exam and previously measured up to 6.4 x 4.3 cm on prior exam. PERITONEUM/RETROPERITONEUM: See above regarding contained rupture. VASCULATURE: Moderate atherosclerotic calcifications are present throughout the abdominal aorta and i ts branches. No evidence of aortic aneurysm. MUSCULOSKELETAL: No acute osseous abnormalities LYMPH NODES: No gross evidence for lymphadenopathy. SOFT TISSUE/ABDOMINAL WALL: Unremarkable IMPRESSION: Compatible with contained rupture of the sigmoid colon with tract extending away from the sigmoid col on that terminates with feces/colonic contents. This has decreased in size compared to prior 11/26/20 23.
[2023-11-29] MEDS: MELATONIN 5 MG TABLET PO SCH (20:30)
--- NOTE | 2023-11-29 21:41 | P.PN ---
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 At that time his been evaluated by neurologist and was discharged on aspirin Plavix. At the for dysphagia. Currently he does not have PEG tube. And as per he was taken only aspirin at home and Plavix were stopped already. Patient presents because of blood in his stool 3 days associated with mild left lower quadrant tenderness with no rebound tenderness and since nonspecific. No nausea or vomiting. No chest pain or dyspnea. No change in urine habits. No fever or chills. He denies smoking alcohol or illicit drugs. No headache weakness numbness or tingling. His vital stable, blood pressure actually 162/106, going to increase his Norvasc 5 mg daily and to twice daily His hemoglobin stabilized at 13.2. Occult blood in stool is positive. has pictures of bloody bowel movement in the toilet. CAT scan of the abdomen and pelvis showing no acute process, left pelvic abscess versus neoplasm cannot be excluded suspected due to perforated diverticulum. Particular bladder rule out cystitis, 11/28/2023 Been clinically doing well overall History of minimal left lower quadrant abdominal pain and tenderness, no vomiting. He was nothing by mouth for the procedure but after that he tolerates diet. No other new complaints and he looks like some pleasant Hemodynamically stable Hemoglobin 12.4. Colonoscopy today showing severe sigmoid diverticulosis with active bleeding about 25-30 cm from the anal verge Patient antibiotic was adjusted to Unasyn and Flagyl Patient tolerates diet, stop IV fluid Aspirin remains on hold 11/29/[address] Burnett today, his overt lesion is not very obvious because the CAT scan was done without contrast. On 4 sacral follow-up with repeated CAT scan of the abdomen and pelvis with IV and oral contrast after the risks and benefits explained for the patient including but not limited to the risk of nephrotoxicity and possibility of permanent damage and he verbalized understanding and acceptance. Abdomen and pelvis showing: contained rupture of the sigmoid colon with tract extending away from the sigmoid colon that terminates with feces/colonic contents. This has decreased in size compared to prior 11/26/2023. Gentle remains on Unasyn and Flagyl Other than that patient himself was sitting in chair pleasant comfortable: Denies left lower quadrant abdominal pain or tenderness today. He was eating with good appetite. He was made nothing by mouth and surgery team R following closely plan was discussed with the staff Review of systems CONSTITUTIONAL: No fever, no malaise, no fatigue. HEENT: No recent visual problems or hearing problems. Denied any sore throat. CARDIOVASCULAR: No orthopnea, PND, no palpitations, no syncope. PULMONARY: No shortness of breath, no cough, no hemoptysis. GENITOURINARY: Denies any burning micturition, frequency, or urgency. MUSCULOSKELETAL/RHEUMATOLOGICAL: Denies any joint pain, swelling, or any muscle pain. Active Medications Generic Name Dose Route Start Last Admin Trade Name Freq PRN Reason Stop Dose Admin Amlodipine Besylate 5 mg 11/27/23 13:30 11/29/23 20:30 Amlodipine 5 Mg Tab PO 5 mg BID YULISA Administration Carbidopa/Levodopa 1 each 11/26/23 23:30 11/29/23 11:58 Carbidopa-Levodopa 25-100 Mg 1 Each Tab PO 1 each TID@0600,0900,1200 YULISA Administration Carbidopa/Levodopa 1 each 11/27/23 15:00 11/29/23 20:31 Carbidopa-Levodopa 25-100 Mg 1 Each Tab PO 1 each TID@1500,1800,2100 YULISA Administration Ampicillin Sodium/Sulbactam 100 mls @ 200 mls/hr 11/27/23 00:00 11/29/23 17:37 Sodium 3 gm/ Sodium Chloride IVPB 200 mls/hr Q6HR YULISA Administration Protocol Metronidazole 500 mg/ IV 100 mls @ 100 mls/hr 11/29/23 04:00 11/29/23 20:31 Solution IVPB 100 mls/hr Q6H YULISA Administration Protocol Sodium Chloride 1,000 mls @ 75 mls/hr 11/29/23 12:15 11/29/23 13:54 Saline 0.9% IV 11/30/23 06:16 75 mls/hr .[id number] YULISA Administration Losartan Potassium 50 mg 11/27/23 09:00 11/29/23 09:50 Losartan 50 Mg Tab PO 50 mg DAILY YULISA Administration Melatonin 5 mg 11/28/23 21:00 11/29/23 20:30 Melatonin 5 Mg Tablet PO 5 mg HS YULISA Administration Morphine Sulfate 4 mg 11/26/23 17:59 Morphine Sulfate 4 Mg/Ml Syringe IV Q4HR PRN Severe Pain (Scale 7 to 10) Naloxone HCl 0.2 mg 11/26/23 17:59 Naloxone 0.4 Mg/Ml 1 Ml Vial IV Q2M PRN Opioid Reversal Ondansetron HCl 4 mg 11/26/23 17:59 Ondansetron 4 Mg/2 Ml Vial IVP Q8HR PRN Nausea And Vomiting Pantoprazole Sodium 40 mg 11/26/23 21:00 11/29/23 20:31 Pantoprazole 40 Mg/10 Ml Vial IV 40 mg BID YULISA Administration Objective - Vital Signs Vital signs: Vital Signs Temp 97.6 F 11/29/23 14:00 Pulse 54 L 11/29/23 14:00 Resp 17 11/29/23 14:00 BP 143/74 11/29/23 14:00 Pulse Ox 99 11/29/23 14:00 FiO2 Intake & Output 11/28/23 11/29/23 11/29/23 18:59 06:59 18:59 Intake Total 200 Balance 200 Intake: IV 200 Other: Voiding Method Toilet # Voids 3 2 - Exam GENERAL: The patient is alert and oriented x3, not in any acute distress. Well developed, well nourished. HEENT: Pupils are round and equally reacting to light. EOMI. No scleral icterus. No conjunctival pallor. Normocephalic, atraumatic. No pharyngeal erythema. No thyromegaly. CARDIOVASCULAR: S1 and S2 present. No murmurs, rubs, or gallops. PULMONARY: Chest is clear to auscultation, no wheezing , no crackles. -ABDOMEN: Soft, mild LLQ tenderness, nondistended, normoactive bowel sounds. No palpable organomegaly. MUSCULOSKELETAL: No joint swelling or deformity. EXTREMITIES: No cyanosis, clubbing, or pedal edema. NEUROLOGICAL: Gross neurological examination did not reveal any focal deficits. SKIN: No rashes. no petechiae. 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 Continue same treatment. Continue with symptomatic treatment. Resume home medication. Monitor labs and vitals. DVT and GI prophylaxis. Further recommendations as per clinical course of the patient DVT prophylaxis: no Subcutaneous heparin,. For GI bleed GI Prophylaxis: Ppi Prognosis is guarded
--- NOTE | 2023-11-29 22:49 | P.CONS ---
History of Present Illness - Reason for Consult Consult date: 11/29/23 - History of Present Illness Patient is a 78-year-old male with a past medical history significant for hypertension hyperlipidemia [place] reflex CVA TIA patient presented to the hospital 3 days ago for evaluation of bleeding per rectum apparently the patient symptoms started on the day of presentation the hospital did have multiple bloody stools and also have lower abdominal cramping pain moderate in intensity without any radiation patient denies having any nausea or any vomiting did have some chills but no high-grade fever on presentation to the hospital the patient was afebrile and no fever has been recorded subsequently patient was not tachycardic hypotensive or hypoxic did have white count of 8.6 creatinine 0.95 liver enzymes not elevated blood cultures obtained which are currently pending patient did have a abdominal pelvis CT with IV contrast only no oral contrast and raises the possibility of concerning for possible perforated diverticulitis with an abscess patient has been evaluated by general surgery and the patient did have a colonoscopy done patient has been started on Unasyn with concern for possible peridiverticular abscess infectious disease was consulted for further management of antibiotic therapy patient is currently afebrile he is breathing comfortably on room air denies any chest pain shortness of breath or cough denies any nausea vomiting abdominal pain has improved and no further bleeding per rectum Past Medical History Past Medical History: Chest Pain / Angina, CVA/TIA, GERD/Reflux, Hyperlipidemia, Hypertension, Myocardial Infarction ([place]), Musculoskeletal Disorder Additional Past Medical History / Comment(s): parkinsons disease. 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-NO RESIDUAL EFFFECTS Last Myocardial Infarction Date:: 1983, History of Any Multi-Drug Resistant Organisms: None Reported Past Surgical History: Heart Catheterization Additional Past Surgical History / Comment(s): states heart cath last week with Dr Mera- "mild Blockages'- PEG TUBE PLACEMENT-08/13/23, COLONOSCOPY Past Anesthesia/Blood Transfusion Reactions: No Reported Reaction Past Psychological History: No Psychological Hx Reported Smoking Status: Former smoker Past Alcohol Use History: None Reported Past Drug Use History: None Reported - Past Family History Mother Family Medical History: Myocardial Infarction ([place]) Father Family Medical History: Myocardial Infarction ([place]) Medications and Allergies Home Medications Medication Instructions Recorded Confirmed Type Carbidopa-Levodopa 25-100 mg 1 tab PO DIRECTED 05/17/20 11/26/23 History [Sinemet 25-100 mg] amantadine HCL [Symmetrel] 100 mg PO TID@0600,1200,1800 05/17/20 11/26/23 History Multivitamins, Thera [Multivitamin 1 tab PO DAILY 08/09/23 11/26/23 History (formulary)] amLODIPine [Norvasc] 5 mg PO HS 08/09/23 11/26/23 History Artificial Tears-Hypromellose 2 drops BOTH EYES Q2H ml 08/18/23 11/26/23 Rx [Artificial Tear Drops] Aspirin 325 mg PO DAILY 30 Days #30 tab 08/18/23 11/26/23 Rx Clopidogrel [Plavix] 75 mg PO DAILY 30 Days #30 tab 08/18/23 11/26/23 Rx Losartan [Cozaar] 50 mg PO DAILY 30 Days #30 tab 08/18/23 11/26/23 Rx Allergies Allergy/AdvReac Type Severity Reaction Status Date / Time No Known Allergies Allergy Verified 11/26/23 12:42 Physical Exam Vitals: Vital Signs Temp Pulse Resp BP Pulse Ox 11/29/23 08:00 97.5 F L 67 17 130/68 98 11/29/23 01:45 97.9 F 56 L 18 108/59 98 11/28/23 19:00 97.5 F L 64 18 166/90 99 11/28/23 15:46 62 19 171/87 99 11/28/23 13:19 97.7 F 56 L 18 141/92 99 11/28/23 11:48 148/83 Intake and Output 11/28/23 11/29/23 11/29/23 22:59 06:59 14:59 Intake Total 200 Balance 200 Intake: IV 200 Other: # Voids 3 2 Results CBC & Chem 7: 11/27/23 06:26 11/27/23 06:26 Labs: Microbiology - Last 24 Hours (Table) 11/26/23 19:15 Blood Culture - Preliminary Blood Assessment and Plan Plan: 1patient presented to the hospital with bleeding per rectum and lower abdominal pain in this patient who did have abdominal pelvis CTA that has been suggestive of possible perforated diverticulitis with an abscess and possible diverticular bleed 2-we will obtain a CT of abdominal pelvis with oral contrast to better define abdominal abnormality and the extent of the abscess 3-patient to continue with Unasyn 3 g every 6 outpatient for adequate antibiotic coverage for underlying diverticulitis 4-if any evidence of abscess may benefit from IR drainage of the abscess to decrease the burden of infection This has been discussed with medical team We will follow on clinical condition and cultures to further adjust medication if needed Thank you for this consultation we will follow the patient along with you Dictation was produced using [employer] dictation software. please excuse any grammatical, word or spelling errors. Time with Patient: Greater than 30
[2023-11-30] MEDS: SODIUM CHLORIDE 0.9% 1,000 ML IV SCH ×2 (02:07→04:42)
[2023-11-30] MEDS: metroNIDAZOLE-NS PMX 500 MG in SALINE 1 100ML.BAG IVPB SCH ×4 (04:42→21:10)
[2023-11-30] MEDS: CARBIDOPA-LEVODOPA 25-100 MG 1 EACH TAB PO SCH ×6 (06:05→20:08)
[2023-11-30] MEDS: AMPICILLIN-SULBACTAM 3 GM in SODIUM CHLORIDE 0.9% 100 ML IVPB SCH ×4 (06:05→23:53)
[2023-11-30] MEDS: amLODIPine 5 MG TAB PO SCH ×2 (09:39→20:07)
[2023-11-30] MEDS: PANTOPRAZOLE 40 MG/10 ML VIAL IV SCH ×2 (09:39→21:10)
[2023-11-30] MEDS: LOSARTAN 50 MG TAB PO SCH (09:39)
--- NOTE | 2023-11-30 14:16 | P.PN ---
Subjective Progress Note Date: 11/30/23 Principal diagnosis: Diverticulitis Patient doing well today. Denies pain. Apparently he was made nothing by mouth after yesterday's CAT scan shows persistent abscess. Abscess improved from CAT scan 3 days prior. He is hungry. Remains on IV antibiotics. He is afebrile. Objective - Vital Signs Vital signs: Vital Signs Temp 97.0 F L 11/30/23 07:34 Pulse 70 11/30/23 07:34 Resp 16 11/30/23 07:34 BP 131/74 11/30/23 07:34 Pulse Ox 98 11/30/23 07:34 FiO2 Intake & Output 11/29/23 11/30/23 11/30/23 18:59 06:59 18:59 Intake Total 1400 Balance 1400 Intake: Intake, IV Titration 900 Amount Sodium Chloride 0.9% 1, 900 000 ml @ 75 mls/hr IV . [id number] YULISA Rx#:[id number] Oral 500 Other: Voiding Method Toilet # Voids 4 3 - Exam Abdomen: Soft, nontender, nondistended - Labs CBC & Chem 7: 11/27/23 06:26 11/27/23 06:26 Labs: Microbiology - Last 24 Hours (Table) 11/26/23 19:15 Blood Culture - Preliminary Blood Assessment and Plan (1) Diverticulitis Narrative/Plan: 70-year-old male with GI bleed and diverticular abscess. Patient improving clinically. Resume diet. Continue antibiotics. Discharge home on oral antibiotics versus IV antibiotics. Patient will require short-term follow-up CAT scan in 1-2 weeks. Current Visit: Yes Status: Acute Code(s): K57.92 - DVTRCLI OF INTEST, PART UNSP, W/O PERF OR ABSCESS W/O BLEED SNOMED Code(s): 925394308
--- NOTE | 2023-11-30 15:21 | P.PN ---
Subjective Progress Note Date: 11/30/23 Principal diagnosis: Reason for follow-up with perforated diverticulitis intra-abdominal abscess. Patient is a 78-year old male with multiple comorbidities presented to hospital with lower abdominal pain and did have bleeding per rectum patient did have abnormal CTA that was suspicious for possible perforated diverticulitis and abscess patient is status post colonoscopy by general surgery during this admission, repeat CT abdominal pelvis with oral contrast confirmed perforated diverticulitis and peridiverticular abscess slightly decreased in size On today's evaluation that is 11/30/2023, the patient denies having any fever or chills, patient complaining of feeling hungry and would like to eat as the patient is n.p.o. but denies any chest pain shortness of breath or cough no nausea no vomiting and no further bleeding per rectum. Patient did have white count of 7.44, creatinine is 1.1 Objective - Vital Signs Vital signs: Vital Signs Temp 97.0 F L 11/30/23 07:34 Pulse 70 11/30/23 07:34 Resp 16 11/30/23 07:34 BP 131/74 11/30/23 07:34 Pulse Ox 98 11/30/23 07:34 FiO2 Intake & Output 11/29/23 11/30/23 11/30/23 18:59 06:59 18:59 Intake Total 1400 Balance 1400 Intake: Intake, IV Titration 900 Amount Sodium Chloride 0.9% 1, 900 000 ml @ 75 mls/hr IV . [id number] [facility] Rx#:[id number] Oral 500 Other: Voiding Method Toilet # Voids 4 3 - Exam GENERAL DESCRIPTION: An elderly male up in the chair in no distress RESPIRATORY SYSTEM: Unlabored breathing , decreased breath sounds at bases HEART: S1 S2 regular rate and rhythm , ABDOMEN: Soft , no tenderness EXTREMITIES: No edema feet - Labs CBC & Chem 7: 11/27/23 06:26 11/27/23 06:26 Labs: Microbiology - Last 24 Hours (Table) 11/26/23 19:15 Blood Culture - Preliminary Blood Assessment and Plan (1) Perforated diverticulum Current Visit: Yes Status: Acute Code(s): K57.80 - DVTRCLI OF INTEST, PART UNSP, W PERF AND ABSCESS W/O BLEED SNOMED Code(s): 26394325 (2) Intra-abdominal abscess Current Visit: Yes Status: Acute Code(s): K65.1 - PERITONEAL ABSCESS SNOMED Code(s): 10885738 (3) Diverticulitis Current Visit: Yes Status: Acute Code(s): K57.92 - DVTRCLI OF INTEST, PART UNSP, W/O PERF OR ABSCESS W/O BLEED SNOMED Code(s): 794670327 Plan: 1patient presented to the hospital with bleeding per rectum and lower abdominal pain in this patient who did have abdominal pelvis CTA that has been suggestive of possible perforated diverticulitis with an abscess and possible diverticular bleed 2repeat CT abdominal pelvis with oral contrast that shows perforated diverticulitis and peridiverticular abscess, we will request for IR drainage of this abscess and send the fluid for culture. 3we will keep the patient on Unasyn with a discharge antibiotic on the basis of clinical response and cultures Multiple questions concern answered Dictation was produced using [employer] dictation software. please excuse any gra mmatical, word or spelling errors.
[2023-11-30] MEDS: MELATONIN 5 MG TABLET PO SCH (20:07)
--- NOTE | 2023-11-30 21:08 | P.PN ---
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 At that time his been evaluated by neurologist and was discharged on aspirin Plavix. At the for dysphagia. Currently he does not have PEG tube. And as per he was taken only aspirin at home and Plavix were stopped already. Patient presents because of blood in his stool 3 days associated with mild left lower quadrant tenderness with no rebound tenderness and since nonspecific. No nausea or vomiting. No chest pain or dyspnea. No change in urine habits. No fever or chills. He denies smoking alcohol or illicit drugs. No headache weakness numbness or tingling. His vital stable, blood pressure actually 162/106, going to increase his Norvasc 5 mg daily and to twice daily His hemoglobin stabilized at 13.2. Occult blood in stool is positive. has pictures of bloody bowel movement in the toilet. CAT scan of the abdomen and pelvis showing no acute process, left pelvic abscess versus neoplasm cannot be excluded suspected due to perforated diverticulum. Particular bladder rule out cystitis, 11/28/2023 Been clinically doing well overall History of minimal left lower quadrant abdominal pain and tenderness, no vomiting. He was nothing by mouth for the procedure but after that he tolerates diet. No other new complaints and he looks like some pleasant Hemodynamically stable Hemoglobin 12.4. Colonoscopy today showing severe sigmoid diverticulosis with active bleeding about 25-30 cm from the anal verge Patient antibiotic was adjusted to Unasyn and Flagyl Patient tolerates diet, stop IV fluid Aspirin remains on hold 11/29/[address] Burnett today, his overt lesion is not very obvious because the CAT scan was done without contrast. On 4 sacral follow-up with repeated CAT scan of the abdomen and pelvis with IV and oral contrast after the risks and benefits explained for the patient including but not limited to the risk of nephrotoxicity and possibility of permanent damage and he verbalized understanding and acceptance. Abdomen and pelvis showing: contained rupture of the sigmoid colon with tract extending away from the sigmoid colon that terminates with feces/colonic contents. This has decreased in size compared to prior 11/26/2023. Gentle remains on Unasyn and Flagyl Other than that patient himself was sitting in chair pleasant comfortable: Denies left lower quadrant abdominal pain or tenderness today. He was eating with good appetite. He was made nothing by mouth and surgery team R following closely plan was discussed with the staff 11/30/2023 Patient clinically doing well with less or minimal left lower quadrant abdominal pain and he eats well However CAT scan shows possible abscess, currently patient covered with Unasyn and Flagyl. Surgery team recommended repeat CAT scan in 1-2 weeks and continue with antibiotics upon discharge either oral or IV Patient as per remains on hold for bleeding from the colon during colonoscopy. Objective - Vital Signs Vital signs: Vital Signs Temp 97.8 F 11/30/23 14:00 Pulse 50 L 11/30/23 14:00 Resp 18 11/30/23 14:00 BP 122/68 11/30/23 14:00 Pulse Ox 97 11/30/23 14:00 FiO2 Intake & Output 11/29/23 11/30/23 11/30/23 18:59 06:59 18:59 Intake Total 1400 Balance 1400 Intake: Intake, IV Titration 900 Amount Sodium Chloride 0.9% 1, 900 000 ml @ 75 mls/hr IV . [id number] [facility] Rx#:[id number] Oral 500 Other: Voiding Method Toilet # Voids 4 3 2 - Exam GENERAL: The patient is alert and oriented x3, not in any acute distress. Well developed, well nourished. HEENT: Pupils are round and equally reacting to light. EOMI. No scleral icterus. No conjunctival pallor. Normocephalic, atraumatic. No pharyngeal erythema. No thyromegaly. CARDIOVASCULAR: S1 and S2 present. No murmurs, rubs, or gallops. PULMONARY: Chest is clear to auscultation, no wheezing , no crackles. -ABDOMEN: Soft, mild LLQ tenderness, nondistended, normoactive bowel sounds. No palpable organomegaly. MUSCULOSKELETAL: No joint swelling or deformity. EXTREMITIES: No cyanosis, clubbing, or pedal edema. NEUROLOGICAL: Gross neurological examination did not reveal any focal deficits. SKIN: No rashes. no petechiae. 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 Continue same treatment. Continue with symptomatic treatment. Resume home medication. Monitor labs and vitals. DVT and GI prophylaxis. Further recommendations as per clinical course of the patient DVT prophylaxis: no Subcutaneous heparin,. For GI bleed GI Prophylaxis: Ppi Prognosis is guarded
[2023-12-01] MEDS: metroNIDAZOLE-NS PMX 500 MG in SALINE 1 100ML.BAG IVPB SCH ×4 (03:19→21:22)
[2023-12-01] MEDS: AMPICILLIN-SULBACTAM 3 GM in SODIUM CHLORIDE 0.9% 100 ML IVPB SCH ×3 (05:59→17:44)
[2023-12-01] MEDS: CARBIDOPA-LEVODOPA 25-100 MG 1 EACH TAB PO SCH ×6 (05:59→21:22)
[2023-12-01] MEDS: amLODIPine 5 MG TAB PO SCH ×2 (10:00→21:22)
[2023-12-01] MEDS: LOSARTAN 50 MG TAB PO SCH (10:00)
[2023-12-01] MEDS: PANTOPRAZOLE 40 MG/10 ML VIAL IV SCH ×2 (10:00→20:18)
--- NOTE | 2023-12-01 12:51 | P.PN ---
Subjective Progress Note Date: 12/01/23 Principal diagnosis: Diverticulitis Patient feels well again today. No pain. No rectal bleeding. He would like to go home. He is afebrile. Objective - Vital Signs Vital signs: Vital Signs Temp 97.6 F 12/01/23 06:46 Pulse 70 12/01/23 06:46 Resp 19 12/01/23 06:46 BP 141/81 12/01/23 06:46 Pulse Ox 95 12/01/23 06:46 FiO2 Intake & Output 11/30/23 12/01/23 12/01/23 18:59 06:59 18:59 Other: Voiding Method Toilet # Voids 2 1 - Exam Abdomen: Soft, nontender, nondistended - Labs CBC & Chem 7: 11/27/23 06:26 11/27/23 06:26 Assessment and Plan (1) Diverticulitis Narrative/Plan: Patient doing well today. No rectal bleeding. Await infectious disease recommendations regarding home antibiotics. Stable for discharge from my [facility]. Follow-up with Dr. Gifford in the office. Current Visit: Yes Status: Acute Code(s): K57.92 - DVTRCLI OF INTEST, PART UNSP, W/O PERF OR ABSCESS W/O BLEED SNOMED Code(s): 699592283
--- NOTE | 2023-12-01 15:40 | P.PN ---
Subjective Progress Note Date: 12/01/23 Principal diagnosis: Reason for follow-up with perforated diverticulitis intra-abdominal abscess. Patient is a 78-year old male with multiple comorbidities presented to hospital with lower abdominal pain and did have bleeding per rectum patient did have abnormal CTA that was suspicious for possible perforated diverticulitis and abscess patient is status post colonoscopy by general surgery during this admission, repeat CT abdominal pelvis with oral contrast confirmed perforated diverticulitis and peridiverticular abscess slightly decreased in size On today's evaluation that is 12/01/2023, the patient remains to be afebrile, the patient is breathing comfortably on room air without need for supplemental oxygen patient denies having any chest pain shortness of breath or cough no nausea vomiting abdominal pain is currently controlled and has been tolerating her diet no further hematochezia Patient did not have any lab draw today Objective - Vital Signs Vital signs: Vital Signs Temp 97.6 F 12/01/23 13:35 Pulse 73 12/01/23 13:35 Resp 19 12/01/23 13:35 BP 160/81 12/01/23 13:35 Pulse Ox 99 12/01/23 13:35 FiO2 Intake & Output 11/30/23 12/01/23 12/01/23 18:59 06:59 18:59 Other: Voiding Method Toilet # Voids 2 1 - Exam GENERAL DESCRIPTION: An elderly male up in the chair in no distress RESPIRATORY SYSTEM: Unlabored breathing , decreased breath sounds at bases HEART: S1 S2 regular rate and rhythm , ABDOMEN: Soft , no tenderness EXTREMITIES: No edema feet - Labs CBC & Chem 7: 11/27/23 06:26 11/27/23 06:26 Assessment and Plan (1) Perforated diverticulum Current Visit: Yes Status: Acute Code(s): K57.80 - DVTRCLI OF INTEST, PART UNSP, W PERF AND ABSCESS W/O BLEED SNOMED Code(s): 66589311 (2) Intra-abdominal abscess Current Visit: Yes Status: Acute Code(s): K65.1 - PERITONEAL ABSCESS SNOMED Code(s): 68548664 (3) Diverticulitis Current Visit: Yes Status: Acute Code(s): K57.92 - DVTRCLI OF INTEST, PART UNSP, W/O PERF OR ABSCESS W/O BLEED SNOMED Code(s): 120733638 Plan: 1patient presented to the hospital with bleeding per rectum and lower abdominal pain in this patient who did have abdominal pelvis CTA that has been suggestive of possible perforated diverticulitis with an abscess and possible diverticular bleed 2repeat CT abdominal pelvis with oral contrast that shows perforated diverticulitis and peridiverticular abscess, we will request for IR drainage of this abscess and send the fluid for culture. 3patient to continue with Unasyn if the abscess cannot be drained through IR he will need a PICC line and outpatient IV antibiotic therapy Dictation was produced using [email or web address] dictation software. please excuse any grammatical, word or spelling errors.
--- NOTE | 2023-12-01 20:08 | P.PN ---
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 At that time his been evaluated by neurologist and was discharged on aspirin Plavix. At the for dysphagia. Currently he does not have PEG tube. And as per he was taken only aspirin at home and Plavix were stopped already. Patient presents because of blood in his stool 3 days associated with mild left lower quadrant tenderness with no rebound tenderness and since nonspecific. No nausea or vomiting. No chest pain or dyspnea. No change in urine habits. No fever or chills. He denies smoking alcohol or illicit drugs. No headache weakness numbness or tingling. His vital stable, blood pressure actually 162/106, going to increase his Norvasc 5 mg daily and to twice daily His hemoglobin stabilized at 13.2. Occult blood in stool is positive. has pictures of bloody bowel movement in the toilet. CAT scan of the abdomen and pelvis showing no acute process, left pelvic abscess versus neoplasm cannot be excluded suspected due to perforated diverticulum. Particular bladder rule out cystitis, 11/28/2023 Been clinically doing well overall History of minimal left lower quadrant abdominal pain and tenderness, no vomiting. He was nothing by mouth for the procedure but after that he tolerates diet. No other new complaints and he looks like some pleasant Hemodynamically stable Hemoglobin 12.4. Colonoscopy today showing severe sigmoid diverticulosis with active bleeding about 25-30 cm from the anal verge Patient antibiotic was adjusted to Unasyn and Flagyl Patient tolerates diet, stop IV fluid Aspirin remains on hold 11/29/[address] Burnett today, his overt lesion is not very obvious because the CAT scan was done without contrast. On 4 sacral follow-up with repeated CAT scan of the abdomen and pelvis with IV and oral contrast after the risks and benefits explained for the patient including but not limited to the risk of nephrotoxicity and possibility of permanent damage and he verbalized understanding and acceptance. Abdomen and pelvis showing: contained rupture of the sigmoid colon with tract extending away from the sigmoid colon that terminates with feces/colonic contents. This has decreased in size compared to prior 11/26/2023. Gentle remains on Unasyn and Flagyl Other than that patient himself was sitting in chair pleasant comfortable: Denies left lower quadrant abdominal pain or tenderness today. He was eating with good appetite. He was made nothing by mouth and surgery team R following closely plan was discussed with the staff 11/30/2023 Patient clinically doing well with less or minimal left lower quadrant abdominal pain and he eats well However CAT scan shows possible abscess, currently patient covered with Unasyn and Flagyl. Surgery team recommended repeat CAT scan in 1-2 weeks and continue with antibiotics upon discharge either oral or IV Patient as per remains on hold for bleeding from the colon during colonoscopy. 12/01/2023 Patient with pelvic abscess with fecal materials, no surgical intervention is required currently Patient with no or minimal abdominal pain and tolerates diet well and is afebrile with no leukocytosis He remains on oral Flagyl and Unasyn Plan to repeat CAT scan tomorrow and possible IR consult for aspiration otherwi se discharged on IV antibiotics requiring PICC line placement. Plan discussed with patient and agreeable Objective - Vital Signs Vital signs: Vital Signs Temp 97.6 F 12/01/23 06:46 Pulse 70 12/01/23 06:46 Resp 19 12/01/23 06:46 BP 141/81 12/01/23 06:46 Pulse Ox 95 12/01/23 06:46 FiO2 Intake & Output 11/30/23 12/01/23 12/01/23 18:59 06:59 18:59 Other: Voiding Method Toilet # Voids 2 1 - Exam GENERAL: The patient is alert and oriented x3, not in any acute distress. Well developed, well nourished. HEENT: Pupils are round and equally reacting to light. EOMI. No scleral icterus. No conjunctival pallor. Normocephalic, atraumatic. No pharyngeal erythema. No thyromegaly. CARDIOVASCULAR: S1 and S2 present. No murmurs, rubs, or gallops. PULMONARY: Chest is clear to auscultation, no wheezing , no crackles. -ABDOMEN: Soft, mild LLQ tenderness, nondistended, normoactive bowel sounds. No palpable organomegaly. MUSCULOSKELETAL: No joint swelling or deformity. EXTREMITIES: No cyanosis, clubbing, or pedal edema. NEUROLOGICAL: Gross neurological examination did not reveal any focal deficits. SKIN: No rashes. no petechiae. 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 Continue same treatment. Continue with symptomatic treatment. Resume home medication. Monitor labs and vitals. DVT and GI prophylaxis. Further recommendations as per clinical course of the patient DVT prophylaxis: no Subcutaneous heparin,. For GI bleed GI Prophylaxis: Ppi Prognosis is guarded
[2023-12-01] MEDS: MELATONIN 5 MG TABLET PO SCH (21:22)
[2023-12-02] MEDS: AMPICILLIN-SULBACTAM 3 GM in SODIUM CHLORIDE 0.9% 100 ML IVPB SCH ×4 (00:02→18:14)
[2023-12-02] MEDS: CARBIDOPA-LEVODOPA 25-100 MG 1 EACH TAB PO SCH ×6 (04:44→21:00)
[2023-12-02] MEDS: metroNIDAZOLE-NS PMX 500 MG in SALINE 1 100ML.BAG IVPB SCH ×4 (04:44→21:00)
[2023-12-02] MEDS: amLODIPine 5 MG TAB PO SCH ×2 (09:07→21:00)
[2023-12-02] MEDS: LOSARTAN 50 MG TAB PO SCH (09:07)
[2023-12-02] MEDS: PANTOPRAZOLE 40 MG/10 ML VIAL IV SCH ×2 (10:24→21:00)
[2023-12-02 11:21] LABS: Glucose,Whole Blood 104 mg/dL (70-110)
--- NOTE | 2023-12-02 13:02 | P.PN ---
Subjective Progress Note Date: 12/02/23 Principal diagnosis: Reason for follow-up with perforated diverticulitis intra-abdominal abscess. Patient is a 78-year old male with multiple comorbidities presented to hospital with lower abdominal pain and did have bleeding per rectum patient did have abnormal CTA that was suspicious for possible perforated diverticulitis and abscess patient is status post colonoscopy by general surgery during this admission, repeat CT abdominal pelvis with oral contrast confirmed perforated diverticulitis and peridiverticular abscess slightly decreased in size On today's evaluation that is 12/02/2023 patient remains to be afebrile, the patient is breathing comfortably on room air, the patient denies chest pain shortness of breath or cough., The patient denies nausea vomiting, has been tolerating her diet abdominal pain is controlled with pain medication and denies any further bleeding per rectum The patient white count of 7.44 as of 11/27/2023 no lab draw today Objective - Vital Signs Vital signs: Vital Signs Temp 97.4 F L 12/02/23 08:00 Pulse 66 12/02/23 08:00 Resp 17 12/02/23 08:00 BP 163/90 12/02/23 08:00 Pulse Ox 99 12/02/23 08:00 FiO2 Intake & Output 12/01/23 12/02/23 12/02/23 18:59 06:59 18:59 Other: Voiding Method Toilet # Voids 4 3 - Exam GENERAL DESCRIPTION: An elderly male up in the chair in no distress RESPIRATORY SYSTEM: Unlabored breathing , decreased breath sounds at bases HEART: S1 S2 regular rate and rhythm , ABDOMEN: Soft , no tenderness EXTREMITIES: No edema feet - Labs CBC & Chem 7: 11/27/23 06:26 11/27/23 06:26 Labs: Microbiology - Last 24 Hours (Table) 11/26/23 19:15 Blood Culture - Final Blood Assessment and Plan (1) Perforated diverticulum Current Visit: Yes Status: Acute Code(s): K57.80 - DVTRCLI OF INTEST, PART UNSP, W PERF AND ABSCESS W/O BLEED SNOMED Code(s): 08346341 (2) Intra-abdominal abscess Current Visit: Yes Status: Acute Code(s): K65.1 - PERITONEAL ABSCESS SNOMED Code(s): 53876711 (3) Diverticulitis Current Visit: Yes Status: Acute Code(s): K57.92 - DVTRCLI OF INTEST, PART UNSP, W/O PERF OR ABSCESS W/O BLEED SNOMED Code(s): 429035073 Plan: 1patient presented to the hospital with bleeding per rectum and lower abdominal pain in this patient who did have abdominal pelvis CTA that has been suggestive of possible perforated diverticulitis with an abscess and possible diverticular bleed 2repeat CT abdominal pelvis with oral contrast that shows perforated dive rticulitis and peridiverticular abscess, we will request for IR drainage of this abscess and send the fluid for culture. 3currently waiting for IR response if the abscess can be drained or not, for n ow continue with the Unasyn will need a PICC line for outpatient IV antibiotics Dictation was produced using [employer] dictation software. please excuse any grammatical, word or spelling errors. Time with Patient: Less than 30
[2023-12-02] MEDS: MELATONIN 5 MG TABLET PO SCH (21:00)
[2023-12-03] MEDS: AMPICILLIN-SULBACTAM 3 GM in SODIUM CHLORIDE 0.9% 100 ML IVPB SCH ×4 (00:28→18:21)
[2023-12-03] MEDS: metroNIDAZOLE-NS PMX 500 MG in SALINE 1 100ML.BAG IVPB SCH ×2 (03:46→09:39)
--- NOTE | 2023-12-03 05:49 | P.PN ---
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 At that time his been evaluated by neurologist and was discharged on aspirin Plavix. At the for dysphagia. Currently he does not have PEG tube. And as per he was taken only aspirin at home and Plavix were stopped already. Patient presents because of blood in his stool 3 days associated with mild left lower quadrant tenderness with no rebound tenderness and since nonspecific. No nausea or vomiting. No chest pain or dyspnea. No change in urine habits. No fever or chills. He denies smoking alcohol or illicit drugs. No headache weakness numbness or tingling. His vital stable, blood pressure actually 162/106, going to increase his Norvasc 5 mg daily and to twice daily His hemoglobin stabilized at 13.2. Occult blood in stool is positive. has pictures of bloody bowel movement in the toilet. CAT scan of the abdomen and pelvis showing no acute process, left pelvic abscess versus neoplasm cannot be excluded suspected due to perforated diverticulum. Particular bladder rule out cystitis, 11/28/2023 Been clinically doing well overall History of minimal left lower quadrant abdominal pain and tenderness, no vomiting. He was nothing by mouth for the procedure but after that he tolerates diet. No other new complaints and he looks like some pleasant Hemodynamically stable Hemoglobin 12.4. Colonoscopy today showing severe sigmoid diverticulosis with active bleeding about 25-30 cm from the anal verge Patient antibiotic was adjusted to Unasyn and Flagyl Patient tolerates diet, stop IV fluid Aspirin remains on hold 11/29/[address] Burnett today, his overt lesion is not very obvious because the CAT scan was done without contrast. On 4 sacral follow-up with repeated CAT scan of the abdomen and pelvis with IV and oral contrast after the risks and benefits explained for the patient including but not limited to the risk of nephrotoxicity and possibility of permanent damage and he verbalized understanding and acceptance. Abdomen and pelvis showing: contained rupture of the sigmoid colon with tract extending away from the sigmoid colon that terminates with feces/colonic contents. This has decreased in size compared to prior 11/26/2023. Gentle remains on Unasyn and Flagyl Other than that patient himself was sitting in chair pleasant comfortable: Denies left lower quadrant abdominal pain or tenderness today. He was eating with good appetite. He was made nothing by mouth and surgery team R following closely plan was discussed with the staff 11/30/2023 Patient clinically doing well with less or minimal left lower quadrant abdominal pain and he eats well However CAT scan shows possible abscess, currently patient covered with Unasyn and Flagyl. Surgery team recommended repeat CAT scan in 1-2 weeks and continue with antibiotics upon discharge either oral or IV Patient as per remains on hold for bleeding from the colon during colonoscopy. 12/01/2023 Patient with pelvic abscess with fecal materials, no surgical intervention is required currently Patient with no or minimal abdominal pain and tolerates diet well and is afebrile with no leukocytosis He remains on oral Flagyl and Unasyn Plan to repeat CAT scan tomorrow and possible IR consult for aspiration otherwi se discharged on IV antibiotics requiring PICC line placement. Plan discussed with patient and agreeable 12/02/2023 Patient with no specific complaint today Patient remains on IV antibiotics for his pelvic abscess, currently he is on Unasyn and by mouth Flagyl patient will require decline for outpatient IV antibiotic , which is pending now Objective - Vital Signs Vital signs: Vital Signs Temp 97.5 F L 12/02/23 13:42 Pulse 60 12/02/23 13:42 Resp 18 12/02/23 13:42 BP 145/70 12/02/23 13:42 Pulse Ox 99 12/02/23 13:42 FiO2 Intake & Output 12/01/23 12/02/23 12/02/23 18:59 06:59 18:59 Intake Total 118 Balance 118 Intake: Oral 118 Other: Voiding Method Toilet # Voids 4 3 - Exam GENERAL: The patient is alert and oriented x3, not in any acute distress. Well developed, well nourished. HEENT: Pupils are round and equally reacting to light. EOMI. No scleral icterus. No conjunctival pallor. Normocephalic, atraumatic. No pharyngeal erythema. No thyromegaly. CARDIOVASCULAR: S1 and S2 present. No murmurs, rubs, or gallops. PULMONARY: Chest is clear to auscultation, no wheezing , no crackles. -ABDOMEN: Soft, mild LLQ tenderness, nondistended, normoactive bowel sounds. No palpable organomegaly. MUSCULOSKELETAL: No joint swelling or deformity. EXTREMITIES: No cyanosis, clubbing, or pedal edema. NEUROLOGICAL: Gross neurological examination did not reveal any focal deficits. SKIN: No rashes. no petechiae. 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 Continue same treatment. Continue with symptomatic treatment. Resume home medication. Monitor labs and vitals. DVT and GI prophylaxis. Further recommendations as per clinical course of the patie nt DVT prophylaxis: no Subcutaneous heparin,. For GI bleed GI Prophylaxis: Ppi Prognosis is guarded
[2023-12-03] MEDS: CARBIDOPA-LEVODOPA 25-100 MG 1 EACH TAB PO SCH ×6 (06:14→20:07)
[2023-12-03 09:19] LABS: HCT 40.5 % (39.0-53.0); HGB 13.3 gm/dL (13.0-17.5); MCHC 32.9 g/dL (31.0-37.0); MCV 100.4 fL (80.0-100.0); Mean Platelet Volume 8.1; Platelet Count 254 k/uL (150-450); RBC 4.03 m/uL (4.30-5.90); RDW 12.9 % (11.5-15.5); WBC 7.4 k/uL (3.8-10.6)
[2023-12-03] MEDS: amLODIPine 5 MG TAB PO SCH ×2 (09:39→20:07)
[2023-12-03] MEDS: LOSARTAN 50 MG TAB PO SCH (09:39)
[2023-12-03 09:52] LABS: ALT 16 U/L (4-49); AST 38 U/L (17-59); African American GFR (CKD) 80 (>60 ml/min/1.73 sqM); Albumin 3.7 g/dL (3.5-5.0); Albumin/Globulin Ratio 1.1; Alkaline Phosphatase 105 U/L (38-126); Anion Gap 9 mmol/L; Blood Urea Nitrogen 15 mg/dL (9-20); Calcium 9.1 mg/dL (8.4-10.2); Carbon Dioxide 28 mmol/L (22-30); Chloride 105 mmol/L (98-107); Globulin 3.4 g/dL; Glucose 159 mg/dL (74-99); Non-African American GFR(CKD) 69 (>60 ml/min/1.73 sqM); Potassium 3.5 mmol/L (3.5-5.1); Sodium 142 mmol/L (137-145); Total Bilirubin 0.6 mg/dL (0.2-1.3); Total Protein 7.1 g/dL (6.3-8.2)
[2023-12-03] MEDS: PANTOPRAZOLE 40 MG/10 ML VIAL IV SCH ×2 (10:26→20:07)
--- NOTE | 2023-12-03 11:36 | P.PN ---
Subjective Progress Note Date: 12/03/23 Dr. Santamaria's group covering from 11/27/2023 through 12/03/2022 Patient initially presented to the hospital on 11/26/2023 with complaints of blood in stool for 3 days associated with left lower quadrant tenderness. 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 CT of abdomen was completed showing suspicious for possible perforated diverticulitis and abscess. Patient underwent colonoscopy by general surgery a nd repeat CT abdominal pelvis performed showing perforated diverticulitis and pair of diverticulitis abscess. Patient was started on IV antibiotics infectious disease services were consulted On 12/03/2023 patient alert and oriented 3. Discussed case with infectious disease doctors IR was consulted for possible drainage but unable to perform due to the location of abscess. Per ID patient may get PICC line and eventually DC'd on IV antibiotics Unasyn. Awaiting insurance and PICC line placement. Patient will need close follow-up with surgical services outpatient for further management. At this time patient is alert and oriented 3. Patient has been tolerating regular diet. Patient denies chest pain or shortness of breath. Patient denies nausea vomiting or diarrhea. Patient denies any urinary burning or frequency. Patient remains on IV antibiotics Flagyl and Unasyn. Current vi martha signs temp 97.8, heart rate 69, respiratory rate 16, blood pressure 130/77 with a pulse ox 95% on room air. White blood cell 7.4 Objective - Vital Signs Vital signs: Vital Signs Temp 97.8 F 12/03/23 07:03 Pulse 69 12/03/23 07:03 Resp 16 12/03/23 07:03 BP 130/77 12/03/23 07:03 Pulse Ox 95 12/03/23 07:03 FiO2 Intake & Output 12/02/23 12/03/23 12/03/23 18:59 06:59 18:59 Intake Total 236 Balance 236 Intake: Oral 236 Other: Voiding Method Toilet # Voids 2 2 - Exam Head normocephalic Neck supple Lungs clear to auscultation bilaterally no wheezing or crackles Heart regular rate and rhythm S1-S2, no rub or gallop Abdomen is soft nontender nondistended positive bowel sounds no hepatosplenomegaly Extremities no edema Neuro alert and orientated to 3 - Labs CBC & Chem 7: 12/03/23 09:08 12/03/23 09:08 Labs: Abnormal Lab Results - Last 24 Hours (Table) 12/03/23 12/03/23 Range/Units 09:08 09:08 RBC 4.03 L (4.30-5.90) m/uL MCV 100.4 H (80.0-100.0) fL Glucose 159 H (74-99) mg/dL Assessment and Plan Assessment: GI bleed secondary to severe diverticulosis with active bleeding and colonoscopy Left pelvic abscess repeat CT showing decrease in size. 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 Aspirin currently on hold History of dysphasia requiring PEG tube past currently improved PEG tube removed History of essential hypertension History of Parkinson's disease History of BPH Maintained on Protonix Maintained on IV antibiotics Infectious disease and surgical services are following PICC line has been ordered Case management following for discharge planning
--- NOTE | 2023-12-03 12:28 | P.PN ---
Subjective Progress Note Date: 12/03/23 Patient denies abdominal pain. at bedside. CT reviewed demonstrating intra-abdominal abscess not amenable to drainage. As patient is clinically stable,.may benefit from IV antibiotics upon discharge with transition to oral antibiotics. Surgical care plan discussed with patient and family with outpatient follow-up. Will likely need surgical resection once intra-abdominal abscess is resolved. Otherwise, clear from surgical standpoint for discharge with IV antibiotics. Close follow-up with infectious disease including primary care provider. Patient and family made aware that I will be unavailable for 3 weeks this month and will follow up upon my return. Objective - Vital Signs Vital signs: Vital Signs Temp 97.8 F 12/03/23 07:03 Pulse 69 12/03/23 07:03 Resp 16 12/03/23 07:03 BP 130/77 12/03/23 07:03 Pulse Ox 95 12/03/23 07:03 FiO2 Intake & Output 12/02/23 12/03/23 12/03/23 18:59 06:59 18:59 Intake Total 236 Balance 236 Intake: Oral 236 Other: Voiding Method Toilet # Voids 2 2 - Labs CBC & Chem 7: 12/03/23 09:08 12/03/23 09:08 Labs: Abnormal Lab Results - Last 24 Hours (Table) 12/03/23 12/03/23 Range/Units 09:08 09:08 RBC 4.03 L (4.30-5.90) m/uL MCV 100.4 H (80.0-100.0) fL Glucose 159 H (74-99) mg/dL
[2023-12-03] MEDS ORDERED: LIDOCAINE 1% INJ 10MG/ML (5 ML VIAL-PF) SQ ONE ×2 (13:15→13:21)
--- NOTE | 2023-12-03 13:23 | P.OP ---
Date of Procedure: 12/03/23 Description of Procedure: Preoperative Diagnosis: Need for long-term IV antibiotic access. Postoperative Diagnosis: Same. Procedure(s) Performed: Ultrasound-guided cannulation left basilic vein. Insertion of peripherally inserted central catheter under fluoroscopic guidance. Anesthesia: local 1% lidocaine jad Surgeon: Hunter Estimated Blood Loss (ml): 5 IV fluids (ml): 0 Urine output (ml): 0 Pathology: none sent Condition: stable Disposition: no change Indications for Procedure: Patient requires long-term IV antibiotics as an outpatient patient is offered a PICC line to allow for intravenous administration of antibiotics. Description of Procedure: Patient was brought to the special procedure suite. The left upper extremity sterilely prepped and draped in usual manner. Ultrasound was utilized to identify the basilic vein which was normally compressible free of visible thrombus. Permenant image was stored. 1% Xylocaine was utilized for local anesthesia tissues overlying the vein. Through this anesthetized area and with the aid of ultrasound a micropuncture needle was utilized to cannulate the vein. Once cannulated, Softip guidewire was advanced into the vein. The needle was withdrawn and a micropuncture sheath and dilator advanced over the guidewire. The guidewire was withdrawn and exchanged for the PICC guidewire and measured 42 cm to the cavoatrial junction. The catheter was cut to size and advanced into the cavoatrial junction without resistance. The sheath was peeled away. Blood was easily withdrawn through the catheter and the catheter was then flushed with heparinized saline solution and secured to the skin. Patient tolerated procedure well and was returned to their room in satisfactory and stable condition.
--- NOTE | 2023-12-03 13:45 | IR ---
EXAMINATION TYPE: IR cvc insert >=5 years DATE OF EXAM: 12/03/2023 CLINICAL HISTORY: Antibiotic use TECHNIQUE: Fluoroscopy. COMPARISON: None. FINDINGS: Fluoroscopic guidance was provided during left-sided PIC line insertion procedure performe d by Dr. Harrison. A total of 24 seconds of fluoroscopic time was utilized during the procedure and 9 s pot images was acquired. TOTAL DAP= 0.6. IMPRESSION: As Above.
[2023-12-03 14:06] VITALS: BMI 20.9
[2023-12-03] MEDS: MELATONIN 5 MG TABLET PO SCH (20:07)
[2023-12-03] MEDS ORDERED: ACETAMINOPHEN TAB 325 MG TAB PO PRN (20:11)
[2023-12-04] MEDS: AMPICILLIN-SULBACTAM 3 GM in SODIUM CHLORIDE 0.9% 100 ML IVPB SCH ×4 (00:17→18:23)
[2023-12-04] MEDS: CARBIDOPA-LEVODOPA 25-100 MG 1 EACH TAB PO SCH ×6 (06:43→20:19)
[2023-12-04] MEDS: PANTOPRAZOLE 40 MG/10 ML VIAL IV SCH ×2 (08:39→22:10)
[2023-12-04] MEDS: LOSARTAN 50 MG TAB PO SCH (08:40)
[2023-12-04] MEDS: amLODIPine 5 MG TAB PO SCH ×2 (08:40→20:19)
--- NOTE | 2023-12-04 08:52 | P.PN ---
Subjective Progress Note Date: 12/04/23 Dr. Santamaria's group covering from 11/27/2023 through 12/03/2022 Patient initially presented to the hospital on 11/26/2023 with complaints of blood in stool for 3 days associated with left lower quadrant tenderness. 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 CT of abdomen was completed showing suspicious for possible perforated diverticulitis and abscess. Patient underwent colonoscopy by general surgery a nd repeat CT abdominal pelvis performed showing perforated diverticulitis and pair of diverticulitis abscess. Patient was started on IV antibiotics infectious disease services were consulted On 12/03/2023 patient alert and oriented 3. Discussed case with infectious disease doctors IR was consulted for possible drainage but unable to perform due to the location of abscess. Per ID patient may get PICC line and eventually DC'd on IV antibiotics Unasyn. Awaiting insurance and PICC line placement. Patient will need close follow-up with surgical services outpatient for further management. At this time patient is alert and oriented 3. Patient has been tolerating regular diet. Patient denies chest pain or shortness of breath. Patient denies nausea vomiting or diarrhea. Patient denies any urinary burning or frequency. Patient remains on IV antibiotics Flagyl and Unasyn. Current vi martha signs temp 97.8, heart rate 69, respiratory rate 16, blood pressure 130/77 with a pulse ox 95% on room air. White blood cell 7.4 On 12/04/2023 patient alert and oriented 3. Patient reports that he is having loose watery stools. At this time will order stool for C. diff denies blood in stool. Patient received PICC line yesterday. Discussed case with social work services awaiting insurance authorization for home IV antibiotics. At this time patient denies chest pain or shortness of breath. Patient denies any urinary burning or frequency. Current vital signs temp 97.1, heart rate 62, respiratory rate 18, blood pressure 132/76 with pulse ox 98% on room air Objective - Vital Signs Vital signs: Vital Signs Temp 97.1 F L 12/04/23 07:49 Pulse 62 12/04/23 07:49 Resp 19 12/04/23 07:49 BP 132/76 12/04/23 07:49 Pulse Ox 98 12/04/23 07:49 FiO2 Intake & Output 12/03/23 12/04/23 12/04/23 18:59 06:59 18:59 Weight 68.039 kg Other: # Voids 4 2 - Exam Head normocephalic Neck supple Lungs clear to auscultation bilaterally no wheezing or crackles Heart regular rate and rhythm S1-S2, no rub or gallop Abdomen is soft nontender nondistended positive bowel sounds no hepatosplenomegaly Extremities no edema Neuro alert and orientated to 3 - Labs CBC & Chem 7: 12/03/23 09:08 12/03/23 09:08 Labs: Abnormal Lab Results - Last 24 Hours (Table) 12/03/23 12/03/23 Range/Units 09:08 09:08 RBC 4.03 L (4.30-5.90) m/uL MCV 100.4 H (80.0-100.0) fL Glucose 159 H (74-99) mg/dL Assessment and Plan Assessment: GI bleed secondary to severe diverticulosis with active bleeding and colonoscopy Left pelvic abscess repeat CT showing decrease in size. 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 Aspirin currently on hold History of dysphasia requiring PEG tube past currently improved PEG tube removed History of essential hypertension History of Parkinson's disease History of BPH Maintained on Protonix Maintained on IV antibiotics Infectious disease and surgical services are following PICC line has been placed Stool for C. diff ordered Case management following for discharge planning
[2023-12-04 09:06] LABS: ALT 13 U/L (10-49); AST 30 U/L (14-35); Albumin 3.3 g/dL (3.8-4.9); Albumin/Globulin Ratio 1.32 Ratio (1.60-3.17); Alkaline Phosphatase 92 U/L (41-126); Blood Urea Nitrogen 13.5 mg/dL (9.0-27.0); Calcium 8.9 mg/dL (8.7-10.3); Carbon Dioxide 28.8 mmol/L (21.6-31.8); Chloride 108 mmol/L (96-109); Globulin 2.5 g/dL (1.6-3.3); Glucose 87 mg/dL (70-110); Potassium 3.8 mmol/L (3.5-5.5); Sodium 146 mmol/L (135-145); Total Bilirubin 0.5 mg/dL (0.3-1.2); Total Protein 5.8 g/dL (6.2-8.2)
[2023-12-04 09:15] LABS: Basophils # (A) 0.05 X 10*3/uL (0.00-0.10); Basophils % (A) 0.7 %; Eosinophils # (A) 0.09 X 10*3/uL (0.04-0.35); Eosinophils % (A) 1.3 %; HCT 35.8 % (39.6-50.0); HGB 11.9 g/dL (13.0-17.0); Lymphocytes # (A) 0.74 X 10*3/uL (0.90-5.00); Lymphocytes % (A) 10.5 %; MCH 32.2 pg (27.0-32.0); MCHC 33.2 g/dL (32.0-37.0); Mean Platelet Volume 10.3 FL (9.5-12.2); Monocytes # (A) 0.87 X 10*3/uL (0.20-1.00); Monocytes % (A) 12.3 %; NRBC Per 100 WBC 0 X 10*3/uL (0.00-0.01); Neutrophils % (A) 74.8 %; Platelet Count 235 X 10*3/uL (140-440); RBC 3.69 X 10*6/uL (4.40-5.60); RDW 12.8 % (11.5-14.5); WBC 7.08 X 10*3/uL (4.50-10.00)
[2023-12-04] MEDS: CHOLESTYRAMINE (WITH SUGAR) 4 GM PACKET PO SCH ×2 (12:37→18:24)
--- NOTE | 2023-12-04 13:45 | P.PN ---
Subjective Progress Note Date: 12/04/23 CHIEF COMPLAINT: Diverticulitis with abscess HISTORY OF PRESENT ILLNESS: Patient reports decrease in abdominal pain. He denies any nausea or vomiting. Patient reports loose stools. Denies any blood in the stools. He is tolerating diet. He had PICC line placed. Afebrile. WBC 7.08 Hgb 11.9. PHYSICAL EXAM: VITAL SIGNS: Reviewed GENERAL: Well-developed in no acute distress. HEENT: No sclera icterus. Extraocular movements grossly intact. Moist buccal mucosa. Head is atraumatic, normocephalic. Hears conversational speech. No nasal drainage. NECK: Supple without lymphadenopathy. CHEST: Non-labored respirations and equal bilateral excursions. CARDIOVASCULAR: Palpable 2+ radial pulses. ABDOMEN: Soft. Nondistended. suprapubic tenderness MUSCULOSKELETAL: No clubbing or cyanosis. NEUROLOGIC: No focal or lateralizing signs. Cranial nerves II through XII grossly intact. PSYCH: Appropriate affect. Alert and oriented to person, place and time. SKIN: Well perfused. Good skin turgor. ASSESSMENT: 1. Acute Sigmoid colon diverticulitis with abscess 2. GI bleed PLAN: -Patient can be discharged from surgical standpoint -Discharge antibiotics per infectious disease -Continue low fiber diet -Patient follow-up with Dr. Landeros outpatient after discharge Physician Starter Mechanic note has been reviewed by physician. Signing provider agrees with the documented findings, assessment, and plan of care. Objective - Vital Signs Vital signs: Vital Signs Temp 97.1 F L 12/04/23 07:49 Pulse 62 12/04/23 07:49 Resp 19 12/04/23 07:49 BP 132/76 12/04/23 07:49 Pulse Ox 98 12/04/23 07:49 FiO2 Intake & Output 12/03/23 12/04/23 12/04/23 18:59 06:59 18:59 Weight 68.039 kg Other: # Voids 4 2 - Labs CBC & Chem 7: 12/04/23 06:09 12/04/23 06:09 Labs: Abnormal Lab Results - Last 24 Hours (Table) 12/04/23 12/04/23 Range/Units 06:09 06:09 RBC 3.69 L (4.40-5.60) X 10*6/uL Hgb 11.9 L (13.0-17.0) g/dL Hct 35.8 L (39.6-50.0) % MCH 32.2 H (27.0-32.0) pg Lymphocytes # 0.74 L (0.90-5.00) X 10*3/uL Sodium 146 H (135-145) mmol/L Total Protein 5.8 L (6.2-8.2) g/dL Albumin 3.3 L (3.8-4.9) g/dL Albumin/Globulin Ratio 1.32 L (1.60-3.17) Ratio
--- NOTE | 2023-12-04 16:38 | P.PN ---
Subjective Progress Note Date: 12/03/23 Principal diagnosis: Reason for follow-up with perforated diverticulitis intra-abdominal abscess. Patient is a 78-year old male with multiple comorbidities presented to hospital with lower abdominal pain and did have bleeding per rectum patient did have abnormal CTA that was suspicious for possible perforated diverticulitis and abscess patient is status post colonoscopy by general surgery during this admission, repeat CT abdominal pelvis with oral contrast confirmed perforated diverticulitis and peridiverticular abscess slightly decreased in size On today's evaluation that is 12/03/2023, the patient continues to be afebrile the patient is breathing comfortably on room air, patient denies chest pain shortness of breath or cough no nausea vomiting no abdominal pain has been complaining of some diarrhea no further bleeding per rectum. Patient did have white count of 7.4, creatinine 1.04 Objective - Vital Signs Vital signs: Vital Signs Temp 97.8 F 12/03/23 07:03 Pulse 69 12/03/23 07:03 Resp 16 12/03/23 07:03 BP 130/77 12/03/23 07:03 Pulse Ox 95 12/03/23 07:03 FiO2 Intake & Output 12/02/23 12/03/23 12/03/23 18:59 06:59 18:59 Intake Total 236 Balance 236 Intake: Oral 236 Other: Voiding Method Toilet # Voids 2 2 - Exam GENERAL DESCRIPTION: An elderly male up in the chair in no distress RESPIRATORY SYSTEM: Unlabored breathing , decreased breath sounds at bases HEART: S1 S2 regular rate and rhythm , ABDOMEN: Soft , no tenderness EXTREMITIES: No edema feet - Labs CBC & Chem 7: 12/04/23 06:09 12/04/23 06:09 Labs: Abnormal Lab Results - Last 24 Hours (Table) 12/03/23 12/03/23 Range/Units 09:08 09:08 RBC 4.03 L (4.30-5.90) m/uL MCV 100.4 H (80.0-100.0) fL Glucose 159 H (74-99) mg/dL Assessment and Plan (1) Perforated diverticulum Current Visit: Yes Status: Acute Code(s): K57.80 - DVTRCLI OF INTEST, PART UNSP, W PERF AND ABSCESS W/O BLEED SNOMED Code(s): 73823429 (2) Intra-abdominal abscess Current Visit: Yes Status: Acute Code(s): K65.1 - PERITONEAL ABSCESS SNOMED Code(s): 20480734 (3) Diverticulitis Current Visit: Yes Status: Acute Code(s): K57.92 - DVTRCLI OF INTEST, PART UNSP, W/O PERF OR ABSCESS W/O BLEED SNOMED Code(s): 699867181 Plan: 1patient presented to the hospital with bleeding per rectum and lower abdominal pain in this patient who did have abdominal pelvis CTA that has been suggestive of possible perforated diverticulitis with an abscess and possible diverticular bleed 2repeat CT abdominal pelvis with oral contrast that shows perforated diverticulitis and peridiverticular abscess, CT images were reviewed by the IR mention cannot be drained CT-guided surgery recommending IV antibiotics before any surgical intervention. 3patient to continue with the Unasyn 3 g every 6 hours in view of clinical response waiting for PICC line placement and outpatient IV antibiotics Dictation was produced using [employer] dictation software. please excuse any grammatical, word or spelling errors.
--- NOTE | 2023-12-04 16:39 | P.PN ---
Subjective Progress Note Date: 12/04/23 Principal diagnosis: Reason for follow-up with perforated diverticulitis intra-abdominal abscess. Patient is a 78-year old male with multiple comorbidities presented to hospital with lower abdominal pain and did have bleeding per rectum patient did have abnormal CTA that was suspicious for possible perforated diverticulitis and abscess patient is status post colonoscopy by general surgery during this admission, repeat CT abdominal pelvis with oral contrast confirmed perforated diverticulitis and peridiverticular abscess slightly decreased in size On today's evaluation that is 12/04/2023, the patient denies any fever or any chills the patient is breathing comfortably on room air, patient denies chest pain shortness of breath or cough no nausea vomiting, the patient is having abdominal pain did have resolution of diarrhea and a soft bowel movement per the nursing staff Patient did have white count of 7.08, creatinine 0.9 Objective - Vital Signs Vital signs: Vital Signs Temp 97.1 F L 12/04/23 07:49 Pulse 62 12/04/23 07:49 Resp 19 12/04/23 07:49 BP 132/76 12/04/23 07:49 Pulse Ox 98 12/04/23 07:49 FiO2 Intake & Output 12/03/23 12/04/23 12/04/23 18:59 06:59 18:59 Weight 68.039 kg Other: # Voids 4 2 - Exam GENERAL DESCRIPTION: An elderly male up in the chair in no distress RESPIRATORY SYSTEM: Unlabored breathing , decreased breath sounds at bases HEART: S1 S2 regular rate and rhythm , ABDOMEN: Soft , no tenderness EXTREMITIES: No edema feet - Labs CBC & Chem 7: 12/04/23 06:09 12/04/23 06:09 Labs: Abnormal Lab Results - Last 24 Hours (Table) 12/04/23 12/04/23 Range/Units 06:09 06:09 RBC 3.69 L (4.40-5.60) X 10*6/uL Hgb 11.9 L (13.0-17.0) g/dL Hct 35.8 L (39.6-50.0) % MCH 32.2 H (27.0-32.0) pg Lymphocytes # 0.74 L (0.90-5.00) X 10*3/uL Sodium 146 H (135-145) mmol/L Total Protein 5.8 L (6.2-8.2) g/dL Albumin 3.3 L (3.8-4.9) g/dL Albumin/Globulin Ratio 1.32 L (1.60-3.17) Ratio Assessment and Plan (1) Perforated diverticulum Current Visit: Yes Status: Acute Code(s): K57.80 - DVTRCLI OF INTEST, PART UNSP, W PERF AND ABSCESS W/O BLEED SNOMED Code(s): 89813864 (2) Intra-abdominal abscess Current Visit: Yes Status: Acute Code(s): K65.1 - PERITONEAL ABSCESS SNOMED Code(s): 02885943 (3) Diverticulitis Current Visit: Yes Status: Acute Code(s): K57.92 - DVTRCLI OF INTEST, PART UNSP, W/O PERF OR ABSCESS W/O BLEED SNOMED Code(s): 457992095 Plan: 1patient presented to the hospital with bleeding per rectum and lower abdominal pain in this patient who did have abdominal pelvis CTA that has been suggestive of possible perforated diverticulitis with an abscess and possible diverticular bleed 2repeat CT abdominal pelvis with oral contrast that shows perforated diverticulitis and peridiverticular abscess, CT images were reviewed by the IR mention cannot be drained CT-guided surgery recommending IV antibiotics before any surgical intervention. 3patient did have placement of PICC line on 12/03/2023 is currently waiting for outpatient IV medical regimen continue with Unasyn. at the bedside multiple questions Answered Dictation was produced using [employer] dictation software. please excuse any grammatical, word or spelling errors. Time with Patient: Less than 30
[2023-12-04] MEDS: MELATONIN 5 MG TABLET PO SCH (20:19)
[2023-12-05] MEDS: AMPICILLIN-SULBACTAM 3 GM in SODIUM CHLORIDE 0.9% 100 ML IVPB SCH ×3 (00:22→14:02)
[2023-12-05] MEDS: CARBIDOPA-LEVODOPA 25-100 MG 1 EACH TAB PO SCH ×2 (06:00→09:09)
[2023-12-05 08:15] VITALS: BP 157/77; PULSE 75; RESP 16; TEMP 97.9
[2023-12-05] MEDS: PANTOPRAZOLE 40 MG/10 ML VIAL IV SCH (09:09)
[2023-12-05] MEDS: CHOLESTYRAMINE (WITH SUGAR) 4 GM PACKET PO SCH (09:09)
[2023-12-05] MEDS: amLODIPine 5 MG TAB PO SCH (09:09)
[2023-12-05] MEDS: LOSARTAN 50 MG TAB PO SCH (09:09)
--- NOTE | 2023-12-05 10:55 | P.DS ---
Providers Date of admission: 11/26/23 17:59 Expected date of discharge: 12/05/23 Attending physician: Jeovanny Lui Consults: 11/26/23 17:59 Consult Physician Routine Consulting Provider: Pamela Landeros Consult Reason/Comments: abscess?ticitis Do you want consulting provider notified?: Yes 11/28/23 18:42 Consult Physician Urgent Consulting Provider: Deanne Burnett Consult Reason/Comments: diverticulitis, possilbe asbcess Do you want consulting provider notified?: Yes Primary care physician: Magali Britt Hospital Course: Discharge diagnosis GI bleed secondary to severe diverticulosis with active bleeding and colonoscopy Left pelvic abscess repeat CT showing decrease in size. 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 Aspirin currently on hold History of dysphasia requiring PEG tube past currently improved PEG tube removed History of essential hypertension History of Parkinson's disease History of BPH Hospital course Dr. Santamaria's group covering from 11/27/2023 through 12/03/2022 Patient initially presented to the hospital on 11/26/2023 with complaints of blood in stool for 3 days associated with left lower quadrant tenderness. 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 CT of abdomen was completed showing suspicious for possible perforated diverticulitis and abscess. Patient underwent colonoscopy by general surgery and repeat CT abdominal pelvis performed showing perforated diverticulitis and pair of diverticulitis abscess. Patient was started on IV antibiotics infectious disease services were consulted On 12/03/2023 patient alert and oriented 3. Discussed case with infectious disease doctors IR was consulted for possible drainage but unable to perform due to the location of abscess. Per ID patient may get PICC line and eventually DC'd on IV antibiotics Unasyn. Awaiting insurance and PICC line placement. Patient will need close follow-up with surgical services outpatient for further management. At this time patient is alert and oriented 3. Patient has been tolerating regular diet. Patient denies chest pain or shortness of breath. Patient denies nausea vomiting or diarrhea. Patient denies any urinary burning or frequency. Patient remains on IV antibiotics Flagyl and Unasyn. Current vital signs temp 97.8, heart rate 69, respiratory rate 16, blood pressure 130/77 with a pulse ox 95% on room air. White blood cell 7.4 On 12/04/2023 patient alert and oriented 3. Patient reports that he is having loose watery stools. At this time will order stool for C. diff denies blood in stool. Patient received PICC line yesterday. Discussed case with social work services awaiting insurance authorization for home IV antibiotics. At this time patient denies chest pain or shortness of breath. Patient denies any urinary burning or frequency. Current vital signs temp 97.1, heart rate 62, respiratory rate 18, blood pressure 132/76 with pulse ox 98% on room air 12/05/2024 for patients alert and oriented 3. We'll was negative for C. diff loose watery stools has improved. Discussed case with social work team she will have IV antibiotics over to hospice for her evening dose patient to get new dose prior to discharge. Patient will be discharged home and follow-up with surgical services for further management. PICC line in place. Patient also reports that he's been off Plavix was DC'd only on baby aspirin which she is to resume at home. Patient denies chest pain or shortness of breath. Patient denies nausea vomiting or diarrhea. Patient denies any urinary burning or frequency Patient Condition at Discharge: Stable Plan - Discharge Summary Discharge Rx Participant: No New Discharge Prescriptions: New Pantoprazole [Protonix] 40 mg PO DAILY 30 Days #30 tab Ampicillin-Sulbactam [Unasyn 3 gm vial] 3 gm IVPB Q6HR each Aspirin 81 mg PO DAILY 30 Days #30 tab Continue Carbidopa-Levodopa 25-100 mg [Sinemet 25-100 mg] 1 tab PO DIRECTED amantadine HCL [Symmetrel] 100 mg PO TID@0600,1200,1800 Losartan [Cozaar] 50 mg PO DAILY 30 Days #30 tab amLODIPine [Norvasc] 5 mg PO HS Multivitamins, Thera [Multivitamin (formulary)] 1 tab PO DAILY Artificial Tears-Hypromellose [Artificial Tear Drops] 2 drops BOTH EYES Q2H ml Discontinued Aspirin 325 mg PO DAILY 30 Days #30 tab Clopidogrel [Plavix] 75 mg PO DAILY 30 Days #30 tab Discharge Medication List Carbidopa-Levodopa 25-100 mg [Sinemet 25-100 mg] 1 tab PO DIRECTED 06/17/20 [History] amantadine HCL [Symmetrel] 100 mg PO TID@0600,1200,1800 05/17/20 [History] Multivitamins, Thera [Multivitamin (formulary)] 1 tab PO DAILY 08/09/23 [History] amLODIPine [Norvasc] 5 mg PO HS 08/09/23 [History] Artificial Tears-Hypromellose [Artificial Tear Drops] 2 drops BOTH EYES Q2H ml 08/18/23 [Rx] Losartan [Cozaar] 50 mg PO DAILY 30 Days #30 tab 08/18/23 [Rx] Ampicillin-Sulbactam [Unasyn 3 gm vial] 3 gm IVPB Q6HR each 12/05/23 [Rx] Aspirin 81 mg PO DAILY 30 Days #30 tab 12/05/23 [Rx] Pantoprazole [Protonix] 40 mg PO DAILY 30 Days #30 tab 12/05/23 [Rx] Follow up Appointment(s)/Referral(s): Magali Britt MD [Primary Care Provider] - 1-2 days Pamela Landeros MD [STAFF PHYSICIAN] - 12/09/23 10:45 am [facility] [REFERRING] - 1 Week ([facility] will provide your infusion services) [facility] [NON-STAFF] - 1 Week ([facility] call [facility] to arrange a visit) Deanne Burnett MD [STAFF PHYSICIAN] - 1 Week Activity/Diet/Wound Care/Special Instructions: STOP PLAVIX FOR 7 DAYS, May resume 12/07/23 per Surgery
--- NOTE | 2023-12-05 12:21 | P.PN ---
Subjective Progress Note Date: 12/05/23 CHIEF COMPLAINT: Diverticulitis with abscess HISTORY OF PRESENT ILLNESS: Patient is sitting up in bedside chair. He reports that he is feeling better and ready for discharge. He reports having regular latia wel movements. Pain is minimal. Denies any nausea or vomiting. Afebrile. Tolerating low fiber diet. PHYSICAL EXAM: VITAL SIGNS: Reviewed GENERAL: Well-developed in no acute distress. HEENT: No sclera icterus. Extraocular movements grossly intact. Moist buccal mucosa. Head is atraumatic, normocephalic. Hears conversational speech. No nasal drainage. NECK: Supple without lymphadenopathy. CHEST: Non-labored respirations and equal bilateral excursions. CARDIOVASCULAR: Palpable 2+ radial pulses. ABDOMEN: Soft. Nondistended. MUSCULOSKELETAL: No clubbing or cyanosis. NEUROLOGIC: No focal or lateralizing signs. Cranial nerves II through XII grossly intact. PSYCH: Appropriate affect. Alert and oriented to person, place and time. SKIN: Well perfused. Good skin turgor. ASSESSMENT: 1. Acute Sigmoid colon diverticulitis with abscess 2. GI bleed PLAN: -Patient can be discharged from surgical standpoint -Discharge antibiotics per infectious disease -Continue low fiber diet -Patient follow-up with Dr. Landeros outpatient after discharge Physician Cob Sawyer note has been reviewed by physician. Signing provider agrees with the documented findings, assessment, and plan of care. Objective - Vital Signs Vital signs: Vital Signs Temp 97.9 F 12/05/23 06:53 Pulse 75 12/05/23 06:53 Resp 16 12/05/23 06:53 BP 157/77 12/05/23 06:53 Pulse Ox 96 12/05/23 06:53 FiO2 Intake & Output 12/04/23 12/05/23 12/05/23 18:59 06:59 18:59 Other: Voiding Method Toilet # Voids 2 1 - Labs CBC & Chem 7: 12/04/23 06:09 12/04/23 06:09
== END 2023-12-05 13:57 | disposition home health service (06) | DRG 377 ==
LOC: EC 08:51 → 4SSUR 17:59
PROVIDERS: ADMIT Internal Medicine; ATTEND Internal Medicine
PROC: 0DJD8ZZ Inspection of Lower Intestinal Tract, Via Natural or Artificial Opening Endoscopic (ICD-10-PCS; 2023-11-28)
PROC: 02HV33Z Insertion of Infusion Device into Superior Vena Cava, Percutaneous Approach (ICD-10-PCS; principal; 2023-12-03 10:30)
DX: K57.33 Diverticulitis of large intestine without perforation or abscess with bleeding (principal); K65.1 Peritoneal abscess; G81.91 Hemiplegia, unspecified affecting right dominant side; E78.5 Hyperlipidemia, unspecified; I10 Essential (primary) hypertension; I25.2 Old myocardial infarction; K64.2 Third degree hemorrhoids; N40.0 Benign prostatic hyperplasia without lower urinary tract symptoms; G20.A1 Parkinson's disease without dyskinesia, without mention of fluctuations; I69.320 Aphasia following cerebral infarction; I69.392 Facial weakness following cerebral infarction; Z79.02 Long term (current) use of antithrombotics/antiplatelets; Z79.82 Long term (current) use of aspirin; Z79.899 Other long term (current) drug therapy; Z87.891 Personal history of nicotine dependence
CPT/HCPCS: 36415; 36573; 45378; 74174; 74177; 80053; 82272; 83605; 83735; 84100; 85025; 85027; 85610; 85730; 87040; 87324; 96365; 96375; 99285

== ENCOUNTER → 2023-12-23 | Outpatient (CLI) | payer MEDICARE, OTHER ==
[2023-12-23 09:44] LABS: African American GFR (CKD) 89 (>60 ml/min/1.73 sqM); Blood Urea Nitrogen 26 mg/dL (9-20); Non-African American GFR(CKD) 77 (>60 ml/min/1.73 sqM)
--- NOTE | 2023-12-23 12:06 | CT ---
EXAMINATION TYPE: CT abdomen pelvis w con DATE OF EXAM: 12/23/2023 COMPARISON: 11/29/2023 INDICATION: f/u colon abscess, prior on pacs. DLP: 657.50 mGycm, Automated exposure control for dose reduction was used. CONTRAST: 90ml mL of Isovue 300. Study performed with Oral Contrast TECHNIQUE: Axial images were obtained from above the diaphragm to the pubic rami in the axial plane a t 5 mm thick sections. Reconstructed images are reviewed on the computer in the coronal plane. FINDINGS: Limited CT sections are obtained the lung bases. The lung bases are clear. CT ABDOMEN: Liver: Normal Spleen: Normal Pancreas: Normal Adrenal glands: The adrenal glands are normal. Gallbladder: Normal Kidneys: No masses are evident. No hydronephrosis is present. No cysts are present. Delayed images were obtained through the kidneys, which remain unremarkable. Aorta: Normal Inferior vena cava: Normal. CT PELVIS: At the previous suspected abscess containing fecal collection of this area is thick walled and currently measures 6.6 x 4.5 cm which is larger than comparison. Significant inflammatory change s adjacent however is not evident. This is more prominent than the comparison study of 11/29/2023. Multiple diverticula are noted through the sigmoid colon. No oral contrast is within the sigmoid colo n or within the collection. Oral contrast extends to the proximal transverse colon. Small bowel loops distended with oral contrast are unremarkable. There are loops of bowel which are i ncompletely distended or lack oral contrast limiting their evaluation. Appendix: Normal as visualized. Urinary bladder: Normal. Genitourinary structures: Prostate is somewhat prominent. Osseous structures: No suspicious lytic or sclerotic lesions. IMPRESSION: 1. Persistent thick-walled collection within the mid pelvis without significant adjacent inflammator y change. This is enlarged from comparison and contains fecal debris.
== END | disposition home or self-care (01) ==
LOC: RADCTMAIN 08:49
PROVIDERS: ATTEND Internal Medicine Infectious Disease
DX: K65.1 Peritoneal abscess (principal); K63.0 Abscess of intestine
CPT/HCPCS: 82565; 84520; 74177; 36415; Q9967

== ENCOUNTER 2023-12-29 13:38 | Inpatient (IN) | payer MEDICARE ==
--- NOTE | 2023-12-29 14:34 | ED ---
General Adult HPI - General Source: patient, RN notes reviewed Mode of arrival: ambulatory Limitations: no limitations <Zaheer Paredes - Last Filed: 12/29/23 14:33> <Gill Dacosta - Last Filed: 01/09/24 01:48> - General Stated complaint: abcess colon/ sent by doctor Time Seen by Provider: 12/29/23 14:33 - History of Present Illness Initial comments: 78-year-old male presents emergency department chief complaint of colonic abscess. Patient was sent in by Dr. Burnett for admission. Patient had 3 CAT scans last CAT scan showing worsening abscess and enlargement of the area. Patient states that he is unsure what caused this. Patient states he was sent here for admission. (Zaheer Paredes) 78-year-old male with past medical history of diverticular abscess who presents to the emergency department under the direction of Dr. Burnett. Patient was hospitalized on IV antibiotics. He was sent home with a PICC line and has been receiving antibiotics at home. He had an appointment with Dr. Burnett today. He had a CAT scan that showed that the abscess was enlarging. Dr. Burnett recommended that the patient come into the hospital for admission with surgical consult. Patient denies any fevers. Denies worsening abdominal pain. No other alleviating, precipitating modifying [id number] female past medical hi story of seizure disorder presents emergency department reporting ataxia. States for the past 2 weeks she has been feeling off balance when she ambulates. The sensation is getting worse to the point where she had 2 falls today. She denies any injuries from the falls. No head injury. Denies any neck or back pain. Does admit to weakness bilaterally in her lower extremities. No upper extremity weakness. Denies headache. Does admit to some blurred vision. No hearing changes. She denies room spinning sensation. No chest pain or difficulty breathing. No history of stroke. Recently her valproic acid level was increased. No other alleviating, precipitating or modifying factors (Gill Dacosta) - Related Data Home Medications Medication Instructions Recorded Confirmed Carbidopa-Levodopa 25-100 mg 1 tab PO DIRECTED 05/17/20 12/29/23 [Sinemet 25-100 mg] amantadine HCL [Symmetrel] 100 mg PO TID@0600,1200,1800 05/17/20 12/29/23 Multivitamins, Thera [Multivitamin 1 tab PO DAILY 08/09/23 12/29/23 (formulary)] amLODIPine [Norvasc] 5 mg PO HS 08/09/23 12/29/23 Previous Rx's Medication Instructions Recorded Artificial Tears-Hypromellose 2 drops BOTH EYES Q2H ml 08/18/23 [Artificial Tear Drops] Losartan [Cozaar] 50 mg PO DAILY 30 Days #30 tab 08/18/23 Aspirin 81 mg PO DAILY 30 Days #30 tab 12/05/23 Pantoprazole [Protonix] 40 mg PO DAILY 30 Days #30 tab 12/05/23 HYDROcodone/APAP 5-325MG [Sarepta 1 tab PO Q6HR PRN 3 Days #12 tab 01/05/24 5-325] cefUROXime axetiL [Ceftin] 500 mg PO BID 7 Days #14 tab 01/07/24 metroNIDAZOLE [Flagyl] 500 mg PO TID #21 tab 01/07/24 Nystatin 100,000 Unit/ml Susp 500,000 unit PO QID 10 Days #200 ml 01/08/24 [Mycostatin Oral Susp] Allergies Allergy/AdvReac Type Severity Reaction Status Date / Time No Known Allergies Allergy Verified 12/31/23 08:24 Review of Systems ROS Other: All systems not noted in ROS Statement are negative. <Zaheer Paredes - Last Filed: 12/29/23 14:33> ROS Other: All systems not noted in ROS Statement are negative. <Gill Dacosta - Last Filed: 01/09/24 01:48> ROS Statement: Those systems with pertinent positive or pertinent negative responses have been documented in the HPI. Past Medical History Past Medical History: Chest Pain / Angina, CVA/TIA, GERD/Reflux, Hyperlipidemia, Hypertension, Myocardial Infarction ([place]), Musculoskeletal Disorder Additional Past Medical History / Comment(s): parkinsons disease. 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-NO RESIDUAL EFFFECTS Last Myocardial Infarction Date:: 1983, History of Any Multi-Drug Resistant Organisms: None Reported Past Surgical History: Heart Catheterization Additional Past Surgical History / Comment(s): states heart cath last week with Dr Mera- "mild Blockages'- PEG TUBE PLACEMENT-08/13/23, COLONOSCOPY Past Anesthesia/Blood Transfusion Reactions: No Reported Reaction Past Psychological History: No Psychological Hx Reported Smoking Status: Former smoker Past Alcohol Use History: None Reported Past Drug Use History: None Reported - Past Family History Mother Family Medical History: Myocardial Infarction ([place]) Father Family Medical History: Myocardial Infarction ([place]) <Zaheer Paredes - Last Filed: 12/29/23 14:33> General Exam <Zaheer Paredes - Last Filed: 12/29/23 14:33> General appearance: alert, in no apparent distress Head exam: Present: atraumatic, normocephalic, normal inspection Eye exam: Present: normal appearance, PERRL, EOMI. Absent: scleral icterus, conjunctival injection, periorbital swelling ENT exam: Present: normal exam, mucous membranes moist Neck exam: Present: normal inspection. Absent: tenderness, meningismus, lymphadenopathy Respiratory exam: Present: normal lung sounds bilaterally. Absent: respiratory distress, wheezes, rales, rhonchi, stridor Cardiovascular Exam: Present: regular rate, normal rhythm, normal heart sounds. Absent: systolic murmur, diastolic murmur, rubs, gallop, clicks GI/Abdominal exam: Present: soft, normal bowel sounds. Absent: distended, tenderness, guarding, rebound, rigid Extremities exam: Present: normal inspection, full ROM, normal capillary refill. Absent: tenderness, pedal edema, joint swelling, calf tenderness Back exam: Present: normal inspection Neurological exam: Present: alert, oriented X3, CN II-XII intact Psychiatric exam: Present: normal affect, normal mood Skin exam: Present: warm, dry, intact, normal color. Absent: rash <Gill Dacosta - Last Filed: 01/09/24 01:48> - General Exam Comments Initial Comments: Visual Physical Exam Vital signs reviewed General: Well-appearing, nontoxic, no acute distress. Head: Normocephalic, atraumatic Eyes: PERRLA, EOMI ENT: Airway patent Chest: Nonlabored breathing Skin: No visual rash, normal skin tone Neuro: Alert and oriented 3 Musculoskeletal: No gross abnormalities (Zaheer Paredes) Course Vital Signs 12/29/23 12/29/23 12/29/23 14:44 17:28 18:38 Temperature 98.6 F 97.5 F L Pulse Rate 74 62 Respiratory 20 18 Rate Blood Pressure 174/100 171/100 136/85 O2 Sat by Pulse 98 98 Oximetry 12/29/23 22:27 Temperature 97.7 F Pulse Rate 60 Respiratory 18 Rate Blood Pressure 150/92 O2 Sat by Pulse 98 Oximetry Medical Decision Making <Zaheer Paredes - Last Filed: 12/29/23 14:33> - Lab Data Result diagrams: 01/05/24 06:23 01/08/24 06:08 <Gill Dacosta David - Last Filed: 01/09/24 01:48> - Medical Decision Making I completed the quick note portion of this chart signed Zaheer Paredes PA-C (Zaheer Paredes) Was pt. sent in by a medical professional or institution (, PA, YARD ASSISTANT, urgent care, hospital, or fci...) When possible be specific @ -Dr. Burnett Did you speak to anyone other than the patient for history (EMS, parent, family, police, friend...)? What history was obtained from this source @ -Dr. Burnett Did you review nursing and triage notes (agree or disagree)? Why? @ -I reviewed and agree with nursing and triage notes Were old charts reviewed (outside hosp., previous admission, EMS record, old EKG, old radiological studies, urgent care reports/EKG's, fci records)? Report findings @ -Reviewed the patient's CAT scan from the Differential Diagnosis (chest pain, altered mental status, abdominal pain women, abdominal pain men, vaginal bleeding, weakness, fever, dyspnea, syncope, headache, dizziness, GI bleed, back pain, seizure, CVA, palpatations, mental health, musculoskeletal)? @ -Differential Abdominal Pain Men: Appendicitis, cholecystitis, diverticulosis, ischemic bowel, pancreatitis, hepatitis, UTI, gastroenteritis, AAA, incarcerated hernia, bowel obstruction, constipation, inflammatory bowel, hepatitis, peptic ulcer disease, splenic infarction, perforated viscus, testicular torsion, this is not meant to be an all-inclusive list EKG interpreted by me (3pts min.). @ -Not done X-rays interpreted by me (1pt min.). @ -None done CT interpreted by me (1pt min.). @ -None done U/S interpreted by me (1pt. min.). @ -None done What testing was considered but not performed or refused? (CT, X-rays, U/S, katey an)? Why? @ -None What meds were considered but not given or refused? Why? @ -None Did you discuss the management of the patient with other professionals (professionals i.e. , PA, YARD ASSISTANT, lab, RT, psych nurse, nephrology social worker, environmental programs manager, teacher, executive officer special warfare team, child support case officer)? Give summary @ -Spoke with Dr. Lui Was smoking cessation discussed for >3mins.? @ -No Was critical care preformed (if so, how long)? @ -No Were there social determinants of health that impacted care today? How? (Homelessness, low income, unemployed, alcoholism, drug addiction, transportation, low edu. Level, literacy, decrease access to med. care, custodial, rehab)? @ -No Was there de-escalation of care discussed even if they declined (Discuss DNR or withdrawal of care, Hospice)? DNR status @ -No What co-morbidities impacted this encounter? (DM, HTN, Smoking, COPD, CAD, Cancer, CVA, ARF, Chemo, Hep., AIDS, mental health diagnosis, sleep apnea, morbid obesity)? @ -None Was patient admitted / discharged? Hospital course, mention meds given and route, prescriptions, significant lab abnormalities, going to OR and other pertinent info. @ -Upon arrival patient was placed into room 6. Thorough history and physical exam was performed. IV was established. Blood cultures were obtained. Patient initiated on IV antibiotics. Patient was admitted to Dr. Lui with surgical consult Undiagnosed new problem with uncertain prognosis? @ -No Drug Therapy requiring intensive monitoring for toxicity (Heparin, Nitro, Insulin, Cardizem)? @ -No Were any procedures done? @ -No Diagnosis/symptom? @ -Acute abdominal diverticulitis with perforation Acute, or Chronic, or Acute on Chronic? @ -Acute Uncomplicated (without systemic symptoms) or Complicated (systemic symptoms)? @ -Complicated Side effects of treatment? @ -No Exacerbation, Progression, or Severe Exacerbation? @ -No Poses a threat to life or bodily function? How? (Chest pain, USA, ME, pneumonia, PE, COPD, DKA, ARF, appy, cholecystitis, CVA, Diverticulitis, Homicidal, Suicidal, threat to staff... and all critical care pts) @ -Yes, patient has worsening abscess even though he is on home IV antibiotics (Gill Dacosta) - Lab Data Lab Results 12/29/23 12/29/23 12/29/23 Range/Units 16:44 16:44 16:44 WBC 14.3 H (3.8-10.6) k/uL RBC 4.16 L (4.30-5.90) m/uL Hgb 13.7 (13.0-17.5) gm/dL Hct 41.0 (39.0-53.0) % MCV 98.7 (80.0-100.0) fL MCH 32.9 (25.0-35.0) pg MCHC 33.4 (31.0-37.0) g/dL RDW 12.9 (11.5-15.5) % Plt Count 304 (150-450) k/uL MPV 8.0 Neutrophils % 84 % Lymphocytes % 7 % Monocytes % 6 % Eosinophils % 1 % Basophils % 0 % Neutrophils # 12.1 H (1.3-7.7) k/uL Lymphocytes # 1.0 (1.0-4.8) k/uL Monocytes # 0.9 (0-1.0) k/uL Eosinophils # 0.1 (0-0.7) k/uL Basophils # 0.1 (0-0.2) k/uL PT 10.2 (10.0-12.5) sec INR 0.9 (<1.2) APTT 23.8 (22.0-30.0) sec Sodium 145 (137-145) mmol/L Potassium 4.3 (3.5-5.1) mmol/L Chloride 108 H (98-107) mmol/L Carbon Dioxide 29 (22-30) mmol/L Anion Gap 8 mmol/L BUN 22 H (9-20) mg/dL Creatinine 0.82 (0.66-1.25) mg/dL Est GFR (CKD-EPI)AfAm >90 (>60 ml/min/1.73 sqM) Est GFR (CKD-EPI)NonAf 85 (>60 ml/min/1.73 sqM) Glucose 96 (74-99) mg/dL Plasma Lactic Acid Ernesto (0.7-2.0) mmol/L Calcium 9.6 (8.4-10.2) mg/dL Total Bilirubin 0.6 (0.2-1.3) mg/dL AST 26 (17-59) U/L ALT 6 (4-49) U/L Alkaline Phosphatase 152 H (38-126) U/L C-Reactive Protein 1.0 H (<1.0) mg/dL Total Protein 8.1 (6.3-8.2) g/dL Albumin 4.3 (3.5-5.0) g/dL Blood Type Confirm 12/29/23 12/29/23 Range/Units 16:44 16:44 WBC (3.8-10.6) k/uL RBC (4.30-5.90) m/uL Hgb (13.0-17.5) gm/dL Hct (39.0-53.0) % MCV (80.0-100.0) fL MCH (25.0-35.0) pg MCHC (31.0-37.0) g/dL RDW (11.5-15.5) % Plt Count (150-450) k/uL MPV Neutrophils % % Lymphocytes % % Monocytes % % Eosinophils % % Basophils % % Neutrophils # (1.3-7.7) k/uL Lymphocytes # (1.0-4.8) k/uL Monocytes # (0-1.0) k/uL Eosinophils # (0-0.7) k/uL Basophils # (0-0.2) k/uL PT (10.0-12.5) sec INR (<1.2) APTT (22.0-30.0) sec Sodium (137-145) mmol/L Potassium (3.5-5.1) mmol/L Chloride (98-107) mmol/L Carbon Dioxide (22-30) mmol/L Anion Gap mmol/L BUN (9-20) mg/dL Creatinine (0.66-1.25) mg/dL Est GFR (CKD-EPI)AfAm (>60 ml/min/1.73 sqM) Est GFR (CKD-EPI)NonAf (>60 ml/min/1.73 sqM) Glucose (74-99) mg/dL Plasma Lactic Acid Ernesto 0.8 (0.7-2.0) mmol/L Calcium (8.4-10.2) mg/dL Total Bilirubin (0.2-1.3) mg/dL AST (17-59) U/L ALT (4-49) U/L Alkaline Phosphatase (38-126) U/L C-Reactive Protein (<1.0) mg/dL Total Protein (6.3-8.2) g/dL Albumin (3.5-5.0) g/dL Blood Type Confirm O Positive Disposition <Zaheer Paredes - Last Filed: 12/29/23 14:33> Is patient prescribed a controlled substance at d/c from ED?: No Time of Disposition: 17:53 Decision to Admit Reason: Admit from EC Decision Date: 12/29/23 Decision Time: 17:53 <Gill Dacosta - Last Filed: 01/09/24 01:48> Clinical Impression: Diverticulitis, Perforated diverticulum Disposition: ADMITTED IP TO THIS HOSP Condition: Serious
[2023-12-29 18:35] LABS: Basophils # (A) 0.1 k/uL (0-0.2); Basophils % (A) 0 %; Eosinophils # (A) 0.1 k/uL (0-0.7); Eosinophils % (A) 1 %; HGB 13.7 gm/dL (13.0-17.5); Lymphocytes % (A) 7 %; MCH 32.9 pg (25.0-35.0); MCHC 33.4 g/dL (31.0-37.0); MCV 98.7 fL (80.0-100.0); Monocytes # (A) 0.9 k/uL (0-1.0); Monocytes % (A) 6 %; Neutrophils # (A) 12.1 k/uL (1.3-7.7); Neutrophils % (A) 84 %; Platelet Count 304 k/uL (150-450); RBC 4.16 m/uL (4.30-5.90); RDW 12.9 % (11.5-15.5); WBC 14.3 k/uL (3.8-10.6)
[2023-12-29 18:46] LABS: INR 0.9 (<1.2); Partial Thromboplastin Time 23.8 sec (22.0-30.0); Prothrombin Time 10.2 sec (10.0-12.5)
[2023-12-29] MEDS ORDERED: NALOXONE 0.4 MG/ML 1 ML VIAL IV PRN (19:00)
[2023-12-29 19:04] LABS: ALT 6 U/L (4-49); AST 26 U/L (17-59); African American GFR (CKD) >90 (>60 ml/min/1.73 sqM); Albumin 4.3 g/dL (3.5-5.0); Alkaline Phosphatase 152 U/L (38-126); Blood Urea Nitrogen 22 mg/dL (9-20); Calcium 9.6 mg/dL (8.4-10.2); Carbon Dioxide 29 mmol/L (22-30); Glucose 96 mg/dL (74-99); Non-African American GFR(CKD) 85 (>60 ml/min/1.73 sqM); Total Bilirubin 0.6 mg/dL (0.2-1.3); Total Protein 8.1 g/dL (6.3-8.2)
[2023-12-29 19:18] LABS: Potassium 4.3 mmol/L (3.5-5.1); Sodium 145 mmol/L (137-145)
[2023-12-29 19:47] LABS: Anion Gap 8 mmol/L; Chloride 108 mmol/L (98-107)
[2023-12-29] MEDS: SODIUM CHLORIDE 0.9% 1,000 ML IV SCH (19:47)
[2023-12-29] MEDS: PIPERACILLIN-TAZOBACTAM 3.375 GM in SODIUM CHLORIDE 0.9% 100 ML IVPB SCH (19:47)
[2023-12-30 09:02] LABS: Basophils # (A) 0.04 X 10*3/uL (0.00-0.10); Basophils % (A) 0.5 %; Eosinophils % (A) 1.3 %; HCT 35.1 % (39.6-50.0); HGB 11.4 g/dL (13.0-17.0); Lymphocytes # (A) 0.82 X 10*3/uL (0.90-5.00); Lymphocytes % (A) 10.9 %; MCH 31.5 pg (27.0-32.0); MCHC 32.5 g/dL (32.0-37.0); NRBC Per 100 WBC 0 X 10*3/uL (0.00-0.01); Neutrophils # (A) 5.63 X 10*3/uL (1.80-7.70); Neutrophils % (A) 74.8 %; Platelet Count 257 X 10*3/uL (140-440); RBC 3.62 X 10*6/uL (4.40-5.60); RDW 12.9 % (11.5-14.5); WBC 7.53 X 10*3/uL (4.50-10.00)
[2023-12-30 09:46] LABS: BUN/Creat Ratio 18.78 Ratio (12.00-20.00); Blood Urea Nitrogen 16.9 mg/dL (9.0-27.0); Calcium 8.9 mg/dL (8.7-10.3); Carbon Dioxide 27.6 mmol/L (21.6-31.8); Chloride 109 mmol/L (96-109); Glucose 84 mg/dL (70-110); Potassium 4.1 mmol/L (3.5-5.5); Sodium 145 mmol/L (135-145)
[2023-12-30] MEDS: ARTIFICIAL TEARS-HYPROMELLOSE DROPS 15 ML BTL BOTH EYES SCH (10:18)
[2023-12-30] MEDS: CARBIDOPA-LEVODOPA 25-100 MG 1 EACH TAB PO SCH (10:23)
[2023-12-30] MEDS: LOSARTAN 50 MG TAB PO SCH (10:23)
[2023-12-30] MEDS: PANTOPRAZOLE 40 MG TABLET PO SCH (10:24)
--- NOTE | 2023-12-30 12:42 | P.GSCN ---
History of Present Illness Consult date: 12/30/23 History of present illness: CHIEF COMPLAINT: Worsening CT abdomen HISTORY OF PRESENT ILLNESS: This is a 78-year-old male who was sent to the ER by Dr. Burnett. Patient's follow-up CT scan his diverticulitis with abscess from 12/23/[address] Burnett recommended the patient presents to the ER. Patient had recent hospitalization at the end of October for diverticulitis with abscess. Patient reports that he has been on IV antibiotics for about a month with no improvement in the abscess. He does report some minimal suprapubic abdominal pain. He is not requiring pain medication. CT scan abdomen and pelvis from December 23 reports persistent thick-walled collection within the mid pelvis without significant adjacent inflammatory changes. This is enlarged from comparison and contains fecal debris. Suspected abscess containing fecal collection measures 6.6 x 4.5 cm. Patient does report having prior diverticulitis episodes. History of stroke not on any blood thinners. PAST MEDICAL HISTORY: CVA,GERD/Reflux, Hyperlipidemia, Hypertension, Myocardial Infarction ([place]), Musculoskeletal Disorder, Parkinson's, CISC PAST SURGICAL HISTORY: Peg tube placement and removal MEDICATIONS: See below ALLERGIES: See below SOCIAL HISTORY: No illicit drug use. REVIEW OF SYSTEMS: CONSTITUTIONAL: Denies fever or chills. HEENT: Denies blurred vision, vision changes, or eye pain. Denies hemoptysis CARDIOVASCULAR: Denies chest pain or pressure. RESPIRATORY: No shortness of breath. GASTROINTESTINAL: See HPI for pertinent findings HEMATOLOGIC: Denies bleeding disorders. GENITOURINARY: Denies any blood in urine or increased urinary frequency. SKIN: Denies pruitis. Denies rash. PHYSICAL EXAM: VITAL SIGNS: Reviewed GENERAL: Well-developed in no acute distress. ABDOMEN: Soft. Nondistended. Tenderness with palpation suprapubic area NEUROLOGIC: Alert and oriented. Cranial nerves II through XII grossly intact. LABORATORY DATA: WBC 14.3 down to 7.53 Hgb 11.4 platelets 257 Sodium is 145 potassium 4.1 creatinine 0.9 Lactic acid 0.8 CRP 1.0 IMAGING: CT scan abdomen pelvis as stated above ASSESSMENT: 1. Sigmoid diverticulitis with worsening abscess. CT scan reporting enlarging abscess containing fecal debris PLAN: -Patient scheduled for sigmoid colectomy with possible colostomy tomorrow, December 31, [address] Kathleen -Clear liquid diet today -GoLytely bowel prep -N.p.o. after midnight -Continue IV antibiotics -Continue IV fluids Physician Bundle Cutter note has been reviewed by physician. Signing provider agrees with the documented findings, assessment, and plan of care. Past Medical History Past Medical History: Chest Pain / Angina, CVA/TIA, GERD/Reflux, Hyperlipidemia, Hypertension, Myocardial Infarction ([place]), Musculoskeletal Disorder Additional Past Medical History / Comment(s): parkinsons disease. 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-NO RESIDUAL EFFFECTS Last Myocardial Infarction Date:: 1983, History of Any Multi-Drug Resistant Organisms: None Reported Past Surgical History: Heart Catheterization Additional Past Surgical History / Comment(s): states heart cath last week with Dr Mera- "mild Blockages'- PEG TUBE PLACEMENT-08/13/23, COLONOSCOPY Past Anesthesia/Blood Transfusion Reactions: No Reported Reaction Past Psychological History: No Psychological Hx Reported Smoking Status: Former smoker Past Alcohol Use History: None Reported Additional Past Alcohol Use History / Comment(s): QUIT SMOKING 40 YEARS Past Drug Use History: None Reported - Past Family History Mother Family Medical History: Myocardial Infarction ([place]) Father Family Medical History: Myocardial Infarction ([place]) Medications and Allergies Home Medications Medication Instructions Recorded Confirmed Type Carbidopa-Levodopa 25-100 mg 1 tab PO DIRECTED 05/17/20 12/29/23 History [Sinemet 25-100 mg] amantadine HCL [Symmetrel] 100 mg PO TID@0600,1200,1800 05/17/20 12/29/23 History Multivitamins, Thera [Multivitamin 1 tab PO DAILY 08/09/23 12/29/23 History (formulary)] amLODIPine [Norvasc] 5 mg PO HS 08/09/23 12/29/23 History Artificial Tears-Hypromellose 2 drops BOTH EYES Q2H ml 08/18/23 12/29/23 Rx [Artificial Tear Drops] Losartan [Cozaar] 50 mg PO DAILY 30 Days #30 tab 08/18/23 12/29/23 Rx Ampicillin-Sulbactam [Unasyn 3 gm 3 gm IVPB Q6HR each 12/05/23 12/29/23 Rx vial] Aspirin 81 mg PO DAILY 30 Days #30 tab 12/05/23 12/29/23 Rx Pantoprazole [Protonix] 40 mg PO DAILY 30 Days #30 tab 12/05/23 12/29/23 Rx Allergies Allergy/AdvReac Type Severity Reaction Status Date / Time No Known Allergies Allergy Verified 12/29/23 18:36 Surgical - Exam Vital Signs Temp Pulse Resp BP Pulse Ox 98.6 F 74 20 174/100 98 12/29/23 14:44 12/29/23 14:44 12/29/23 14:44 12/29/23 14:44 12/29/23 14:44 Results - Labs 12/30/23 05:47 12/30/23 05:47 Abnormal Lab Results - Last 24 Hours (Table) 12/29/23 12/29/23 12/30/23 Range/Units 16:44 16:44 05:47 WBC 14.3 H (3.8-10.6) k/uL RBC 4.16 L 3.62 L (4.30-5.90) m/uL Hgb 11.4 L (13.0-17.0) g/dL Hct 35.1 L (39.6-50.0) % Neutrophils # 12.1 H (1.3-7.7) k/uL Lymphocytes # 0.82 L (0.90-5.00) X 10*3/uL Chloride 108 H (98-107) mmol/L BUN 22 H (9-20) mg/dL Alkaline Phosphatase 152 H (38-126) U/L C-Reactive Protein 1.0 H (<1.0) mg/dL Diabetes panel 12/29/23 Range/Units 16:44 Sodium 145 (137-145) mmol/L Potassium 4.3 (3.5-5.1) mmol/L Chloride 108 H (98-107) mmol/L Carbon Dioxide 29 (22-30) mmol/L BUN 22 H (9-20) mg/dL Creatinine 0.82 (0.66-1.25) mg/dL Glucose 96 (74-99) mg/dL Calcium 9.6 (8.4-10.2) mg/dL AST 26 (17-59) U/L ALT 6 (4-49) U/L Alkaline Phosphatase 152 H (38-126) U/L Total Protein 8.1 (6.3-8.2) g/dL Albumin 4.3 (3.5-5.0) g/dL Calcium panel 12/29/23 Range/Units 16:44 Calcium 9.6 (8.4-10.2) mg/dL Albumin 4.3 (3.5-5.0) g/dL Pituitary panel 12/29/23 Range/Units 16:44 Sodium 145 (137-145) mmol/L Potassium 4.3 (3.5-5.1) mmol/L Chloride 108 H (98-107) mmol/L Carbon Dioxide 29 (22-30) mmol/L BUN 22 H (9-20) mg/dL Creatinine 0.82 (0.66-1.25) mg/dL Glucose 96 (74-99) mg/dL Calcium 9.6 (8.4-10.2) mg/dL Adrenal panel 12/29/23 Range/Units 16:44 Sodium 145 (137-145) mmol/L Potassium 4.3 (3.5-5.1) mmol/L Chloride 108 H (98-107) mmol/L Carbon Dioxide 29 (22-30) mmol/L BUN 22 H (9-20) mg/dL Creatinine 0.82 (0.66-1.25) mg/dL Glucose 96 (74-99) mg/dL Calcium 9.6 (8.4-10.2) mg/dL Total Bilirubin 0.6 (0.2-1.3) mg/dL AST 26 (17-59) U/L ALT 6 (4-49) U/L Alkaline Phosphatase 152 H (38-126) U/L Total Protein 8.1 (6.3-8.2) g/dL Albumin 4.3 (3.5-5.0) g/dL
[2023-12-30] MEDS: PEG 3350 (236 GM/BTL) + LYTES 4,000 ML BOTTLE PO ONE (14:09)
--- NOTE | 2023-12-30 14:54 | P.HPIM ---
History of Present Illness H&P Date: 12/30/23 This is a 78-year-old male patient who was sent to the ER for evaluation per infectious disease. Patient has extensive medical history including recent treatment for GI bleed secondary to severe diverticulosis with development of left pelvic abscess patient was discharged on 12/05/2023 on IV antibiotics. According to patient he had follow-up CTs per infectious disease showing worsening abscess. Patient denies any further episodes of acute symptoms. Patient reports he has been receiving outpatient IV antibiotics as ordered through PICC line without issue. 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 History of dysphasia previously requiring PEG tube this was removed. History of Parkinson's disease, history of essential hypertension and BPH. Most recent CT completed on 12/23/2023 showing persistent thick walled collection with the midpelvis without significant adjacent inflammatory change this is enlarged from comparison and contains fecal debris. At this time patient has been started on IV Zosyn infectious disease and surgical service is consulted. Patient denies chest pain or shortness breath. Patient denies nausea vomiting or diarrhea. Patient denies any urinary burning or frequency. White blood cell noted to be elevated at 14.3. Current vital signs temp 97.6, heart rate 56, respiratory rate 18, blood pressure 172/88 with a pulse ox 97% home meds resumed including blood pressure medication. Review of Systems Please refer to HPI otherwise unremarkable Past Medical History Past Medical History: Chest Pain / Angina, CVA/TIA, GERD/Reflux, Hyperlipidemia, Hypertension, Myocardial Infarction ([place]), Musculoskeletal Disorder Additional Past Medical History / Comment(s): parkinsons disease. 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-NO RESIDUAL EFFFECTS Last Myocardial Infarction Date:: 1983, History of Any Multi-Drug Resistant Organisms: None Reported Past Surgical History: Heart Catheterization Additional Past Surgical History / Comment(s): states heart cath last week with Dr Mera- "mild Blockages'- PEG TUBE PLACEMENT-08/13/23, COLONOSCOPY Past Anesthesia/Blood Transfusion Reactions: No Reported Reaction Past Psychological History: No Psychological Hx Reported Smoking Status: Former smoker Past Alcohol Use History: None Reported Additional Past Alcohol Use History / Comment(s): QUIT SMOKING 40 YEARS Past Drug Use History: None Reported - Past Family History Mother Family Medical History: Myocardial Infarction ([place]) Father Family Medical History: Myocardial Infarction ([place]) Medications and Allergies Home Medications Medication Instructions Recorded Confirmed Type Carbidopa-Levodopa 25-100 mg 1 tab PO DIRECTED 05/17/20 12/29/23 History [Sinemet 25-100 mg] amantadine HCL [Symmetrel] 100 mg PO TID@0600,1200,1800 05/17/20 12/29/23 History Multivitamins, Thera [Multivitamin 1 tab PO DAILY 08/09/23 12/29/23 History (formulary)] amLODIPine [Norvasc] 5 mg PO HS 08/09/23 12/29/23 History Artificial Tears-Hypromellose 2 drops BOTH EYES Q2H ml 08/18/23 12/29/23 Rx [Artificial Tear Drops] Losartan [Cozaar] 50 mg PO DAILY 30 Days #30 tab 08/18/23 12/29/23 Rx Ampicillin-Sulbactam [Unasyn 3 gm 3 gm IVPB Q6HR each 12/05/23 12/29/23 Rx vial] Aspirin 81 mg PO DAILY 30 Days #30 tab 12/05/23 12/29/23 Rx Pantoprazole [Protonix] 40 mg PO DAILY 30 Days #30 tab 12/05/23 12/29/23 Rx Allergies Allergy/AdvReac Type Severity Reaction Status Date / Time No Known Allergies Allergy Verified 12/29/23 18:36 Physical Exam Vitals: Vital Signs Temp Pulse Pulse Resp BP BP Pulse Ox 12/30/23 07:00 97.6 F 56 L 18 172/88 97 12/30/23 02:02 98.0 F 67 18 158/94 96 12/30/23 00:00 18 12/29/23 23:59 155/90 12/29/23 23:20 97.5 F L 68 187/92 97 12/29/23 22:27 97.7 F 60 18 150/92 98 12/29/23 18:38 97.5 F L 136/85 12/29/23 17:28 62 18 171/100 98 12/29/23 14:44 98.6 F 74 20 174/100 98 Intake and Output 12/29/23 12/30/23 12/30/23 22:59 06:59 14:59 Intake Total 1000 Balance 1000 Intake: Intake, IV Titration 1000 Amount Piperacillin-Tazobactam 3 100 .375 gm In Sodium Chloride 0.9% 100 ml @ 25 mls/hr IVPB Q8H [facility] Rx#: [id number] Sodium Chloride 0.9% 1, 900 000 ml @ 75 mls/hr IV . [id number] [facility] Rx#:[id number] Other: Voiding Method Toilet # Voids 1 Weight 72.575 kg Head normocephalic Neck supple Lungs clear to auscultation bilaterally no wheezing or crackles Heart regular rate and rhythm S1-S2, no rub or gallop Abdomen is soft nontender nondistended positive bowel sounds no hepatosplenomegaly Extremities no edema Neuro alert and orientated to 3. Left facial droop and hemiparesis on left side from previous stroke Results CBC & Chem 7: 12/29/23 16:44 12/29/23 16:44 Labs: Abnormal Lab Results - Last 24 Hours (Table) 12/29/23 12/29/23 Range/Units 16:44 16:44 WBC 14.3 H (3.8-10.6) k/uL RBC 4.16 L (4.30-5.90) m/uL Neutrophils # 12.1 H (1.3-7.7) k/uL Chloride 108 H (98-107) mmol/L BUN 22 H (9-20) mg/dL Alkaline Phosphatase 152 H (38-126) U/L C-Reactive Protein 1.0 H (<1.0) mg/dL Thrombosis Risk Factor Assmnt - Choose All That Apply Any of the Below Risk Factors Present?: Yes Each Factor Represents 1 point: Swollen legs (current) Other Risk Factors: Yes Each Risk Factor Represents 3 Points: Age 75 years or older Other congenital or acquired thrombophilia - If yes, enter type in comment: No Thrombosis Risk Factor Assessment Total Risk Factor Score: 4 Thrombosis Risk Factor Assessment Level: Moderate Risk Assessment and Plan Assessment: 1. Worsening left pelvic abscess. 2. History of GI bleed secondary to severe diverticulosis with development of abscess patient was discharged 12/05/2022 for IV antibiotics 3. 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 Aspirin currently on hold 4. History of dysphagia requiring PEG tube in the past. peg tube has been removed 5. History of Parkinson's disease 6. History of BPH DVT DVT prophylaxis SCDs. GI prophylaxis Protonix Infectious disease and surgical service is consulted Patient started on IV antibiotics Repeat labs ordered Time with Patient: Greater than 30 (Greater than 60% of the total time spent in counseling and coordination of care)
[2023-12-30] MEDS: amLODIPine 5 MG TAB PO SCH (21:05)
--- NOTE | 2023-12-30 23:06 | P.CONS ---
History of Present Illness - Reason for Consult Consult date: 12/30/23 Abscess Requesting physician: Jeovanny Lui - Chief Complaint Abdominal pain x few days - History of Present Illness Patient is a 78-year-old male with a past medical history for hypertension hyperlipidemia CVA reflux patient was recently admitted to the hospital and was diagnosed with a diverticulitis and peridiverticular abscess which could not be drained CT-guided General surgery saw the patient recommending IV antibiotic therapy before consideration for any surgery as the patient did not want to have any colostomy patient required a PICC line and has received more than 4 weeks of IV Unasyn therapy patient did have a follow-up CT abdominal pelvis completed on 12/23/2023 which mention persistent thick-walled collection within the mid pelvis without significant adjacent inflammatory changes this is enlarged from comparison and contains fecal debris's 4 the patient was advised to go to the hospital for admission and surgical evaluation. Patient on presentation to the hospital was afebrile and the patient did not mention any fever at home patient denies having any headache or URI symptoms no chest pain shortness of breath or cough no nausea no vomiting no abdominal pain no diarrhea and no urinary symptoms patient was afebrile and not tachycardic hypotensive or hypoxic patient did have a white count of 14.3 on admission with a left shift creatinine has been 0.8 electrolytes are normal liver isms are normal CRP was 1.0 Case was discussed with me by the ER physician last night and the patient was started on Zosyn pending evaluation this morning Review of Systems Positive point and negatives has been mentioned in the HPI, complete review of systems was performed and all other systems are negative Past Medical History Past Medical History: Chest Pain / Angina, CVA/TIA, GERD/Reflux, Hyperlipidemia, Hypertension, Myocardial Infarction ([place]), Musculoskeletal Disorder Additional Past Medical History / Comment(s): parkinsons disease. 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-NO RESIDUAL EFFFECTS Last Myocardial Infarction Date:: 1983, History of Any Multi-Drug Resistant Organisms: None Reported Past Surgical History: Heart Catheterization Additional Past Surgical History / Comment(s): states heart cath last week with Dr Mera- "mild Blockages'- PEG TUBE PLACEMENT-08/13/23, COLONOSCOPY Past Anesthesia/Blood Transfusion Reactions: No Reported Reaction Past Psychological History: No Psychological Hx Reported Smoking Status: Former smoker Past Alcohol Use History: None Reported Additional Past Alcohol Use History / Comment(s): QUIT SMOKING 40 YEARS Past Drug Use History: None Reported - Past Family History Mother Family Medical History: Myocardial Infarction ([place]) Father Family Medical History: Myocardial Infarction ([place]) Medications and Allergies Home Medications Medication Instructions Recorded Confirmed Type Carbidopa-Levodopa 25-100 mg 1 tab PO DIRECTED 05/17/20 12/29/23 History [Sinemet 25-100 mg] amantadine HCL [Symmetrel] 100 mg PO TID@0600,1200,1800 05/17/20 12/29/23 History Multivitamins, Thera [Multivitamin 1 tab PO DAILY 08/09/23 12/29/23 History (formulary)] amLODIPine [Norvasc] 5 mg PO HS 08/09/23 12/29/23 History Artificial Tears-Hypromellose 2 drops BOTH EYES Q2H ml 08/18/23 12/29/23 Rx [Artificial Tear Drops] Losartan [Cozaar] 50 mg PO DAILY 30 Days #30 tab 08/18/23 12/29/23 Rx Aspirin 81 mg PO DAILY 30 Days #30 tab 12/05/23 12/29/23 Rx Pantoprazole [Protonix] 40 mg PO DAILY 30 Days #30 tab 12/05/23 12/29/23 Rx HYDROcodone/APAP 5-325MG [[place] 1 tab PO Q6HR PRN 3 Days #12 tab 01/05/24 Rx 5-325] cefUROXime axetiL [Ceftin] 500 mg PO BID 7 Days #14 tab 01/07/24 Rx metroNIDAZOLE [Flagyl] 500 mg PO TID #21 tab 01/07/24 Rx Nystatin 100,000 Unit/ml Susp 500,000 unit PO QID 10 Days #200 ml 01/08/24 Rx [Mycostatin Oral Susp] Allergies Allergy/AdvReac Type Severity Reaction Status Date / Time No Known Allergies Allergy Verified 12/31/23 08:24 Physical Exam Vitals: Vital Signs Temp Pulse Pulse Resp BP BP Pulse Ox 12/30/23 07:00 97.6 F 56 L 18 172/88 97 12/30/23 02:02 98.0 F 67 18 158/94 96 12/30/23 00:00 18 12/29/23 23:59 155/90 12/29/23 23:20 97.5 F L 68 187/92 97 12/29/23 22:27 97.7 F 60 18 150/92 98 12/29/23 18:38 97.5 F L 136/85 12/29/23 17:28 62 18 171/100 98 12/29/23 14:44 98.6 F 74 20 174/100 98 Intake and Output 12/29/23 12/30/23 12/30/23 22:59 06:59 14:59 Intake Total 1000 Balance 1000 Intake: Intake, IV Titration 1000 Amount Piperacillin-Tazobactam 3 100 .375 gm In Sodium Chloride 0.9% 100 ml @ 25 mls/hr IVPB Q8H [facility] Rx#: [id number] Sodium Chloride 0.9% 1, 900 000 ml @ 75 mls/hr IV . [id number] [facility] Rx#:[id number] Other: Voiding Method Toilet # Voids 1 Weight 72.575 kg GENERAL DESCRIPTION: Elderly male lying in bed, no distress. No tachypnea or accessory muscle of respiration use. HEENT: Shows Pallor , no scleral icterus. Oral mucous membrane is dry. No pharyngeal erythema or thrush NECK: Trachea central, no thyromegaly. LUNGS: Unlabored breathing. Clear to auscultation anteriorly. No wheeze or crackle. HEART: S1, S2, regular rate and rhythm. No loud murmur ABDOMEN: Soft, mild tenderness EXTREMITIES: No edema of feet. SKIN: No rash, no masses palpable. NEUROLOGICAL: The patient is awake, alert, oriented x3, mood and affect normal. Results CBC & Chem 7: 01/05/24 06:23 01/08/24 06:08 Labs: Abnormal Lab Results - Last 24 Hours (Table) 12/29/23 12/29/23 12/30/23 Range/Units 16:44 16:44 05:47 WBC 14.3 H (3.8-10.6) k/uL RBC 4.16 L 3.62 L (4.30-5.90) m/uL Hgb 11.4 L (13.0-17.0) g/dL Hct 35.1 L (39.6-50.0) % Neutrophils # 12.1 H (1.3-7.7) k/uL Lymphocytes # 0.82 L (0.90-5.00) X 10*3/uL Chloride 108 H (98-107) mmol/L BUN 22 H (9-20) mg/dL Alkaline Phosphatase 152 H (38-126) U/L C-Reactive Protein 1.0 H (<1.0) mg/dL Assessment and Plan (1) Diverticulitis Status: Acute Code(s): K57.92 - DVTRCLI OF INTEST, PART UNSP, W/O PERF OR ABSCESS W/O BLEED SNOMED Code(s): 200643611 (2) Intra-abdominal abscess Status: Acute Code(s): K65.1 - PERITONEAL ABSCESS SNOMED Code(s): 55527717 (3) Leukocytosis Status: Acute Code(s): D72.829 - ELEVATED WHITE BLOOD CELL COUNT, UNSPECIFIED SNOMED Code(s): 725302294 Plan: 1-patient with a history of complicated diverticulitis with a peridiverticular abscess failing outpatient extensive systemic antibiotic therapy in the form of IV Unasyn with repeat CAT scan showing a thick-walled cavity however decrease inflammation 2-await surgery scheduled for tomorrow hopefully drainage of the abscess deep culture and the patient can dodge colostomy if there is no significant inflammation however may be necessary depending upon the operative finding this was discussed in detail with the family and the patient who has multiple question 3-we will keep the patient on Zosyn 3.375 g every 8 hours We will follow on clinical condition and cultures to further adjust medication if needed Thank you for this consultation we will follow the patient along with you Dictation was produced using [employer] dictation software. please excuse any grammatical, word or spelling errors. Time with Patient: Greater than 30
[2023-12-31 07:35] LABS: Basophils # (A) 0.1 k/uL (0-0.2); Basophils % (A) 1 %; Eosinophils # (A) 0.1 k/uL (0-0.7); Eosinophils % (A) 1 %; HCT 39.1 % (39.0-53.0); HGB 12.9 gm/dL (13.0-17.5); Lymphocytes # (A) 0.5 k/uL (1.0-4.8); Lymphocytes % (A) 9 %; MCH 32.8 pg (25.0-35.0); MCV 99.3 fL (80.0-100.0); Monocytes # (A) 0.4 k/uL (0-1.0); Monocytes % (A) 7 %; Neutrophils # (A) 4.6 k/uL (1.3-7.7); Neutrophils % (A) 80 %; Platelet Count 258 k/uL (150-450); RBC 3.94 m/uL (4.30-5.90); RDW 12.5 % (11.5-15.5); WBC 5.7 k/uL (3.8-10.6)
[2023-12-31 07:45] LABS: African American GFR (CKD) >90 (>60 ml/min/1.73 sqM); Anion Gap 9 mmol/L; Blood Urea Nitrogen 15 mg/dL (9-20); Carbon Dioxide 24 mmol/L (22-30); Chloride 109 mmol/L (98-107); Glucose 75 mg/dL (74-99); Non-African American GFR(CKD) 84 (>60 ml/min/1.73 sqM); Potassium 4.1 mmol/L (3.5-5.1); Sodium 142 mmol/L (137-145)
--- NOTE | 2023-12-31 08:09 | P.PN ---
Subjective Progress Note Date: 12/31/23 Patient was seen and examined. Chart reviewed patient is scheduled for abdominal surgery He has a moderate to high surgical risk due to history of coronary artery disease with [place], however his Myocardial infarction was in 1983 Echocardiogram done in August 2023 revealed no wall motion abnormalities with a normal LV EF of 55-60 % patient has a history of parkinson disease which may complicate the post surgery recovery period However patient failed conservative management with IV antibiotics and was readmitted to the hospital. I recommend proceeding with surgery with close monitoring I will consult cardiology for follow up. Objective - Vital Signs Vital signs: Vital Signs Temp 97.4 F L 12/31/23 02:00 Pulse 74 12/31/23 02:00 Resp 16 12/31/23 02:00 BP 177/84 12/31/23 02:00 Pulse Ox 94 L 12/31/23 02:00 FiO2 Intake & Output 12/30/23 12/31/23 12/31/23 18:59 06:59 18:59 Intake Total 200 Output Total 600 Balance 200 -600 Intake: Intake, IV Titration 200 Amount Piperacillin-Tazobactam 3 200 .375 gm In Sodium Chloride 0.9% 100 ml @ 25 mls/hr IVPB Q[facility]H [facility] Rx#: [id number] Output: Urine 600 Other: Voiding Method Toilet Urinal - Labs CBC & Chem 7: 12/31/23 06:34 12/31/23 06:34 Labs: Abnormal Lab Results - Last 24 Hours (Table) 12/30/23 12/31/23 12/31/23 Range/Units 05:47 06:34 06:34 RBC 3.62 L 3.94 L (4.40-5.60) X 10*6/uL Hgb 11.4 L 12.9 L (13.0-17.0) g/dL Hct 35.1 L (39.6-50.0) % Lymphocytes # 0.82 L 0.5 L (0.90-5.00) X 10*3/uL Chloride 109 H (98-107) mmol/L Microbiology - Last 24 Hours (Table) 12/29/23 18:00 Blood Culture - Preliminary Blood
[2023-12-31] MEDS: IV FLUID CONTINUATION 1,000 ML IV ONE (08:13)
[2023-12-31] MEDS ORDERED: ONDANSETRON 4 MG/2 ML VIAL ONE (08:18)
[2023-12-31] MEDS: DEXAMETHASONE SOD PHOSPHATE 4 MG/ML 1 ML VIAL IV ONE (08:30)
[2023-12-31] MEDS: ONDANSETRON 4 MG/2 ML VIAL IVP ONE (08:30)
[2023-12-31] MEDS: MIDAZOLAM 2 MG/2 ML VIAL IVP ONE (08:45)
--- NOTE | 2023-12-31 09:15 | P.PN ---
Progress Note - Text Cardiology consult placed this morning by Dr. Lui for "cardiac evaluation". Patient already down in OR when consult placed. Per Dr. Lui, he would still like patient evaluated postoperatively. Patient will be evaluated tomorrow by cardiology team. Please call with questions or concerns in the meantime.
[2023-12-31] MEDS ORDERED: PROPOFOL 10 MG/ML 20 ML VIAL IV ONE (09:29)
[2023-12-31] MEDS ORDERED: KETOROLAC 15 MG/ML 1 ML VIAL ONE (09:29)
[2023-12-31] MEDS ORDERED: LIDOCAINE 1% INJ 10MG/ML (20 ML MDV) ONE (09:29)
[2023-12-31] MEDS ORDERED: NEOSTIGMINE 1 MG/ML 10 ML VIAL ONE (09:29)
[2023-12-31] MEDS ORDERED: fentaNYL (PF) 50 MCG/ML 2 ML AMP ONE (09:29)
[2023-12-31] MEDS ORDERED: KETAMINE HCL IN 0.9 % NACL 50 MG/5 ML SYRINGE ONE (09:29)
[2023-12-31] MEDS ORDERED: ROCURONIUM 10 MG/ML (5 ML VIAL) IV ONE (09:29)
[2023-12-31] MEDS ORDERED: LABETALOL 5 MG/ML VIAL MDV ONE (09:29)
[2023-12-31] MEDS ORDERED: GLYCOPYRROLATE 0.2 MG/ML 2 ML VIAL ONE (09:29)
[2023-12-31] MEDS: LACTATED RINGERS 1,000 ML IV SCH ×2 (10:35→15:21)
--- NOTE | 2023-12-31 11:22 | P.OP ---
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 He received general endotracheal tube anesthesia. Patient was placed in dorsolithotomy this. His abdomen was prepped and draped in sterile fashion. The abdomen is entered through a low midline incision. Use electrocautery the abdominal wall was divided. The Book[place] tract placed the wound. There was extensive diverticular changes seen on the left colon. This was followed down to the sigmoid colon. There appeared to be fistulization of the colon on the lateral pelvic wall. The colon was transected with a ERICH stapler just above the area of inflammation. And then using blunt dissection electrocautery the colon was dissected off the lateral pelvic wall. There appeared to be a perforation with evidence of fistulization into the lateral pelvic wall. The area is quite inflamed. The sigmoid colon mesentery was then divided with the Enseal device. And then the sigmoid colon was divided distally with a contour stapler. The specimen to pathology. Due to the inflammatory changes decided not to perform an anastomosis. The left colon was then mobilized by dividing white line of Toldt. A suitable length: Was achieved to bring out a colostomy. The abdomen is irrigated there is no bleeding seen. A FAYE drain was placed in the pelvis. This was secured with 2-0 nylon suture. The colostomy is then brought through the abdominal wall. And then the fascia was closed with looped #1 PDS suture. The skin was close table. The colostomy then matured with 3-0 Vicryl suture. Patient tolerated the procedure well and was sent to recovery in stable condition.
[2023-12-31] MEDS: HYDROmorphone 0.5 MG/0.5 ML SYRINGE IVP PRN (11:37)
--- NOTE | 2023-12-31 14:05 | P.CRDCN ---
History of Present Illness History of present illness: HISTORY OF PRESENT ILLNESS: This is a 78-year-old male with a past medical history significant for hypertension, CVA, Parkinson's disease, and former nicotine dependence. Patient follows in the office with Dr. Mera but has not been seen since 2019. We have been asked to see the patient in consultation for cardiac evaluation. Patient examined at the bedside. Patient status post sigmoid colectomy with end colostomy secondary to perforated diverticulitis with fistulization into lateral pelvic wall with Dr. Kathleen earlier today. Patient is resting comfortably in bed in no acute distress. His family is at the bedside. Patient denies any chest pain or pressure. Denies shortness of breath. He reports abdominal pain near his surgical site. Blood pressure is elevated with a systolic in the 160s. Patient has not been unable to take his home antihypertensive medication secondary to NPO status. DIAGNOSTICS: - EKG reveals sinus mechanism with no signs of acute ischemia. - Laboratory data: WBC 5.7. Hemoglobin 12.9. Platelet count 258. Sodium 142. Potassium 4.1. BUN 15. Creatinine 0.85. Lactic acid 0.8. - Current home cardiac medications include amlodipine 5 mg at night, losartan 50 mg daily, and aspirin 81 mg daily. - Most recent echocardiogram obtained in August 2023 revealed EF 55 to 60%, mild MR, trace AR, mild TR - Cardiac catheterization history: May 2020 revealing normal right heart pressures. Normal left ventricular end-diastolic pressure. Extremely calcified right and left coronary system. Severe disease involving the PDA branch of the RCA which is only 2 mm. Mild to moderate nonobstructive disease involving the left coronary. REVIEW OF SYSTEMS: At the time of my exam: CONSTITUTIONAL: Denies fever or chills. HEENT: Denies blurred vision, vision changes, or eye pain. Denies hemoptysis CARDIOVASCULAR: Denies chest pain. Denies orthopnea. Denies PND. Denies palpitations RESPIRATORY: Denies shortness of breath. GASTROINTESTINAL: Denies abdominal pain. Denies nausea or vomiting. HEMATOLOGIC: Denies bleeding disorders. GENITOURINARY: Denies any blood in urine. SKIN: Denies pruitis. Denies rash. PHYSICAL EXAM: VITAL SIGNS: Reviewed. GENERAL: Well-developed in no acute distress. HEENT: Head is normocephalic. Pupils are equal, round. Sclerae anicteric. Mucous membranes of the mouth are moist. Neck supple. No JVD or thyromegaly LUNGS: Respirations even and unlabored. Lungs essentially clear to auscultation bilaterally. HEART: Regular rate and rhythm. S1 and S2 heard. Soft systolic murmur noted. ABDOMEN: Soft. Colostomy noted. Appropriate surgical tenderness. EXTREMITIES: Normal range of motion. No clubbing or cyanosis. Peripheral pulses intact. No lower extremity edema NEUROLOGIC: Awake and alert. Oriented x 3. ASSESSMENT: Sigmoid diverticulitis with worsening abscess, status post sigmoid colectomy and end colostomy Hypertension Nonobstructive coronary artery disease History of CVA x 2 Parkinson's disease Former nicotine dependence PLAN: Continue post operative management per general surgery No need to repeat echocardiogram as this was performed in August 2023 Resume home cardiac medications when able to tolerate PO medications While patient is NPO, add IVP hydralazine 10 mg every 4 hours as needed for blood pressure greater than 170. DC PRN BP medications when patient can tolerate PO intake. Add aspirin 81 mg daily and Lipitor 20 mg due to history of CAD/CVA when able to tolerate PO intake Further recommendations pending patient course Nurse practitioner note has been reviewed by physician. Signing provider agrees with the documented findings, assessment, and plan of care documented by UI UX WEB DEVELOPER as a scribe. Past Medical History Past Medical History: Chest Pain / Angina, CVA/TIA, GERD/Reflux, Hyperlipidemia, Hypertension, Myocardial Infarction (OK), Musculoskeletal Disorder Additional Past Medical History / Comment(s): parkinsons disease. 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-NO RESIDUAL EFFFECTS Last Myocardial Infarction Date:: 1983, History of Any Multi-Drug Resistant Organisms: None Reported Past Surgical History: Heart Catheterization Additional Past Surgical History / Comment(s): states heart cath last week with Dr Mera- "mild Blockages'- PEG TUBE PLACEMENT-08/13/23, COLONOSCOPY Past Anesthesia/Blood Transfusion Reactions: No Reported Reaction Past Psychological History: No Psychological Hx Reported Smoking Status: Former smoker Past Alcohol Use History: None Reported Additional Past Alcohol Use History / Comment(s): QUIT SMOKING 40 YEARS Past Drug Use History: None Reported - Past Family History Mother Family Medical History: Myocardial Infarction (OK) Father Family Medical History: Myocardial Infarction (OK) Medications and Allergies Home Medications Medication Instructions Recorded Confirmed Type Carbidopa-Levodopa 25-100 mg 1 tab PO DIRECTED 05/17/20 12/29/23 History [Sinemet 25-100 mg] amantadine HCL [Symmetrel] 100 mg PO TID@0600,1200,1800 05/17/20 12/29/23 History Multivitamins, Thera [Multivitamin 1 tab PO DAILY 08/09/23 12/29/23 History (formulary)] amLODIPine [Norvasc] 5 mg PO HS 08/09/23 12/29/23 History Artificial Tears-Hypromellose 2 drops BOTH EYES Q2H ml 08/18/23 12/29/23 Rx [Artificial Tear Drops] Losartan [Cozaar] 50 mg PO DAILY 30 Days #30 tab 08/18/23 12/29/23 Rx Ampicillin-Sulbactam [Unasyn 3 gm 3 gm IVPB Q6HR each 12/05/23 12/29/23 Rx vial] Aspirin 81 mg PO DAILY 30 Days #30 tab 12/05/23 12/29/23 Rx Pantoprazole [Protonix] 40 mg PO DAILY 30 Days #30 tab 12/05/23 12/29/23 Rx Allergies Allergy/AdvReac Type Severity Reaction Status Date / Time No Known Allergies Allergy Verified 12/31/23 08:24 Physical Exam Vitals: Vital Signs Temp Pulse Resp BP Pulse Ox 12/31/23 09:00 63 16 168/83 97 12/31/23 08:15 63 16 177/93 97 12/31/23 08:00 63 16 12/31/23 07:36 98.1 F 69 16 170/89 96 12/31/23 02:00 97.4 F L 74 16 177/84 94 L 12/30/23 19:34 97.5 F L 63 16 179/100 98 12/30/23 12:18 97.6 F 50 L 18 166/96 100 Intake and Output 12/30/23 12/31/23 12/31/23 22:59 06:59 14:59 Intake Total 200 0 Output Total 600 Balance 200 -600 0 Intake: IV 0 Intake, IV Titration 200 Amount Piperacillin-Tazobactam 3 200 .375 gm In Sodium Chloride 0.9% 100 ml @ 25 mls/hr IVPB Q8H [facility] Rx#: [id number] Output: Urine 600 Other: Voiding Method Urinal Urinal Results 12/31/23 06:34 12/31/23 06:34 CBC 12/31/23 Range/Units 06:34 WBC 5.7 (3.8-10.6) k/uL RBC 3.94 L (4.30-5.90) m/uL Hgb 12.9 L (13.0-17.5) gm/dL Hct 39.1 (39.0-53.0) % Plt Count 258 (150-450) k/uL Comprehensive Metabolic Panel 12/31/23 Range/Units 06:34 Sodium 142 (137-145) mmol/L Potassium 4.1 (3.5-5.1) mmol/L Chloride 109 H (98-107) mmol/L Carbon Dioxide 24 (22-30) mmol/L BUN 15 (9-20) mg/dL Creatinine 0.85 (0.66-1.25) mg/dL Glucose 75 (74-99) mg/dL Calcium 9.0 (8.4-10.2) mg/dL Current Medications Generic Name Dose Route Start Last Admin Trade Name Freq PRN Reason Stop Dose Admin Amantadine HCl 100 mg 12/30/23 12:00 12/31/23 08:46 Amantadine Hcl 100 Mg Cap PO Not Given TID@0600,1200,1800 YULISA Amlodipine Besylate 5 mg 12/30/23 21:00 12/30/23 21:05 Amlodipine 5 Mg Tab PO 5 mg HS YULISA Administration Artificial Tears 2 drops 12/30/23 08:00 12/31/23 08:47 Artificial Tears-Hypromellose Drops 15 Ml Btl BOTH EYES Not Given Q2H YULISA Carbidopa/Levodopa 1 each 12/30/23 09:00 12/31/23 08:47 Carbidopa-Levodopa 25-100 Mg 1 Each Tab PO Not Given 0600,0900,1200,1500,1800,2100 YULISA Hydromorphone HCl 0.5 mg 12/31/23 08:19 Hydromorphone 0.5 Mg/0.5 Ml Syringe IVP 12/31/23 23:00 Q5M PRN Phase 1 or 2 - Pain Control Piperacillin Sod/Tazobactam 100 mls @ 25 mls/hr 12/29/23 20:00 12/31/23 05:16 Sod 3.375 gm/ Sodium Chloride IVPB 25 mls/hr Q8H YULISA Administration Protocol Sodium Chloride 1,000 mls @ 75 mls/hr 12/29/23 19:00 12/30/23 18:10 Saline 0.9% IV 75 mls/hr .[id number] YULISA Administration Lactated Ringer's 1,000 mls @ 20 mls/hr 12/31/23 08:19 Lactated Ringers IV .Q24H YULISA Losartan Potassium 50 mg 12/30/23 09:00 12/30/23 10:23 Losartan 50 Mg Tab PO 50 mg DAILY YULISA Administration Naloxone HCl 0.2 mg 12/29/23 19:00 Naloxone 0.4 Mg/Ml 1 Ml Vial IV Q2M PRN Opioid Reversal Pantoprazole Sodium 40 mg 12/30/23 09:00 12/30/23 10:24 Pantoprazole 40 Mg Tablet PO 40 mg DAILY YULISA Administration Intake and Output 12/30/23 12/31/23 12/31/23 22:59 06:59 14:59 Intake Total 200 0 Output Total 600 Balance 200 -600 0 Intake: IV 0 Intake, IV Titration 200 Amount Piperacillin-Tazobactam 3 200 .375 gm In Sodium Chloride 0.9% 100 ml @ 25 mls/hr IVPB Q8H [facility] Rx#: [id number] Output: Urine 600 Other: Voiding Method Urinal Urinal 12/31/23 06:34 12/31/23 06:34
[2023-12-31] MEDS: HYDROmorphone 1 MG/ML 1 ML SYRINGE IVP PRN (17:01)
[2023-12-31] MEDS: ACETAMINOPHEN IV (For NPO) 1,000 MG in EMPTY BAG 1 BAG IVPB PRN (18:31)
[2023-12-31] MEDS: ATORVASTATIN 20 MG TAB PO SCH (20:54)
[2024-01-01] MEDS: ASPIRIN 81 MG PO SCH (09:17)
--- NOTE | 2024-01-01 10:41 | P.PN ---
Subjective HISTORY OF PRESENT ILLNESS: This is a 78-year-old male with a past medical history significant for hypertension, CVA, Parkinson's disease, and former nicotine dependence. Patient follows in the office with Dr. Mera but has not been seen since 2019. We have been asked to see the patient in consultation for cardiac evaluation. Patient examined at the bedside. Patient status post sigmoid colectomy with end colostomy secondary to perforated diverticulitis with fistulization into lateral pelvic wall with Dr. Kathleen earlier today. Patient is resting comfortably in bed in no acute distress. His family is at the bedside. Patient denies any chest pain or pressure. Denies shortness of breath. He reports abdominal pain near his surgical site. Blood pressure is elevated with a systolic in the 160s. Patient has not been unable to take his home antihypertensive medication secondary to NPO status. DIAGNOSTICS: - EKG reveals sinus mechanism with no signs of acute ischemia. - Laboratory data: WBC 5.7. Hemoglobin 12.9. Platelet count 258. Sodium 142. Potassium 4.1. BUN 15. Creatinine 0.85. Lactic acid 0.8. - Current home cardiac medications include amlodipine 5 mg at night, losartan 50 mg daily, and aspirin 81 mg daily. - Most recent echocardiogram obtained in August 2023 revealed EF 55 to 60%, mild MR, trace AR, mild TR - Cardiac catheterization history: May 2020 revealing normal right heart pressures. Normal left ventricular end-diastolic pressure. Extremely calcified right and left coronary system. Severe disease involving the PDA branch of the RCA which is only 2 mm. Mild to moderate nonobstructive disease involving the left coronary. January 01, 2024 Patient examined this morning at the bedside. Patient reports pain in his abdomen at the surgical site. He denies chest pain or pressure. He denies shortness of breath. Blood pressure this morning 155/95. He remains NPO. PHYSICAL EXAM: VITAL SIGNS: Reviewed. GENERAL: Well-developed in no acute distress. HEENT: Head is normocephalic. Pupils are equal, round. Sclerae anicteric. Mucous membranes of the mouth are moist. Neck supple. No JVD or thyromegaly LUNGS: Respirations even and unlabored. Lungs essentially clear to auscultation bilaterally. HEART: Regular rate and rhythm. S1 and S2 heard. Soft systolic murmur noted. ABDOMEN: Soft. Colostomy noted. Appropriate surgical tenderness. EXTREMITIES: Normal range of motion. No clubbing or cyanosis. Peripheral pulses intact. No lower extremity edema ASSESSMENT: Sigmoid diverticulitis with worsening abscess, status post sigmoid colectomy and end colostomy Hypertension Nonobstructive coronary artery disease History of CVA x 2 Parkinson's disease Former nicotine dependence PLAN: Continue post operative management per general surgery No need to repeat echocardiogram as this was performed in August 2023 Resume home cardiac medications when able to tolerate PO medications While patient is NPO, add IVP hydralazine 10 mg every 4 hours as needed for blood pressure greater than 170. DC PRN BP medications when patient can tolerate PO intake. Add aspirin 81 mg daily and Lipitor 20 mg due to history of CAD/CVA when able to tolerate PO intake Patient is currently stable from a cardiac perspective with no further inpatient recommendations We will follow on an as-needed basis. Please call with questions or concerns. Nurse practitioner note has been reviewed by physician. Signing provider agrees with the documented findings, assessment, and plan of care documented by APPLIQUE SEWER as a scribe. Objective - Vital Signs Vital signs: Vital Signs Temp 98.2 F 01/01/24 07:45 Pulse 75 01/01/24 07:45 Resp 16 01/01/24 07:45 BP 155/95 01/01/24 07:45 Pulse Ox 98 01/01/24 07:45 FiO2 Intake & Output 12/31/23 01/01/24 01/01/24 18:59 06:59 18:59 Intake Total 900 Output Total 405 490 Balance 495 -490 Intake: IV 900 Oral 0 Output: Drainage 5 90 Abdomen 5 90 Urine 300 400 Estimated Blood Loss 100 Other: Voiding Method Urinal Indwelling Catheter - Labs CBC & Chem 7: 12/31/23 06:34 12/31/23 06:34 Labs: Microbiology - Last 24 Hours (Table) 12/29/23 18:00 Blood Culture - Preliminary Blood
[2024-01-01 12:32] LABS: Basophils % (A) 0 %; Eosinophils % (A) 0 %; HCT 37.3 % (39.0-53.0); Lymphocytes # (A) 0.7 k/uL (1.0-4.8); Lymphocytes % (A) 4 %; MCH 32.2 pg (25.0-35.0); MCHC 32.3 g/dL (31.0-37.0); MCV 99.9 fL (80.0-100.0); Mean Platelet Volume 8.4; Monocytes # (A) 1.2 k/uL (0-1.0); Monocytes % (A) 7 %; Neutrophils # (A) 15.7 k/uL (1.3-7.7); Neutrophils % (A) 88 %; Platelet Count 314 k/uL (150-450); RBC 3.74 m/uL (4.30-5.90); RDW 12.7 % (11.5-15.5); WBC 17.9 k/uL (3.8-10.6)
[2024-01-01] MEDS: ACETAMINOPHEN IV (For NPO) 1,000 MG in EMPTY BAG 1 BAG IVPB SCH (12:42)
[2024-01-01 12:43] LABS: African American GFR (CKD) 70 (>60 ml/min/1.73 sqM); Anion Gap 8 mmol/L; Blood Urea Nitrogen 23 mg/dL (9-20); Calcium 8.6 mg/dL (8.4-10.2); Carbon Dioxide 24 mmol/L (22-30); Chloride 110 mmol/L (98-107); Glucose 88 mg/dL (74-99); Non-African American GFR(CKD) 60 (>60 ml/min/1.73 sqM); Potassium 4.3 mmol/L (3.5-5.1); Sodium 142 mmol/L (137-145)
[2024-01-01] MEDS: PANTOPRAZOLE 40 MG/10 ML VIAL IVP SCH (12:53)
[2024-01-01] MEDS: DEXTROSE 5%-0.45% NACL 1,000 ML IV SCH (14:15)
--- NOTE | 2024-01-01 15:04 | P.PN ---
Subjective Progress Note Date: 12/31/23 This is a 78-year-old male patient who was sent to the ER for evaluation per infectious disease. Patient has extensive medical history including recent treatment for GI bleed secondary to severe diverticulosis with development of left pelvic abscess patient was discharged on 12/05/2023 on IV antibiotics. According to patient he had follow-up CTs per infectious disease showing worsening abscess. Patient denies any further episodes of acute symptoms. Patient reports he has been receiving outpatient IV antibiotics as ordered through PICC line without issue. 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 History of dysphasia previously requiring PEG tube this was removed. History of Parkinson's disease, history of essential hypertension and BPH. Most recent CT completed on 12/23/2023 showing persistent thick walled collection with the midpelvis without significant adjacent inflammatory change this is enlarged from comparison and contains fecal debris. At this time patient has been started on IV Zosyn infectious disease and surgical service is consulted. Patient denies chest pain or shortness breath. Patient denies nausea vomiting or diarrhea. Patient denies any urinary burning or frequency. White blood cell noted to be elevated at 14.3. Current vital signs temp 97.6, heart rate 56, respiratory rate 18, blood pressure 172/88 with a pulse ox 97% home meds resumed including blood pressure medication. On 12/31/2023 patient was seen and examined on the medical floor, he is alert and oriented 3 in no apparent distress, he is complaining of abdominal pain, otherwise he denies any complaints, there is no fever or chills no headache or dizziness no chest pain no shortness of breath no cough no nausea or vomiting no diarrhea and no urinary symptoms. 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 Vital exam reveals a temperature of 98.7 pulse 73 respiration 15 blood pressure 147/84 pulse ox 95% on room air white blood count is 5.7 hemoglobin 12.9 platelet count 250 Objective - Vital Signs Vital signs: Vital Signs Temp 97.6 F 12/31/23 11:06 Pulse 67 12/31/23 13:50 Resp 16 12/31/23 11:51 BP 165/88 12/31/23 13:50 Pulse Ox 99 12/31/23 13:50 FiO2 Intake & Output 12/30/23 12/31/23 12/31/23 18:59 06:59 18:59 Intake Total 200 900 Output Total 600 205 Balance 200 -600 695 Intake: IV 900 Intake, IV Titration 200 Amount Piperacillin-Tazobactam 3 200 .375 gm In Sodium Chloride 0.9% 100 ml @ 25 mls/hr IVPB Q8H [facility] Rx#: [id number] Output: Drainage 5 Abdomen 5 Urine 600 100 Estimated Blood Loss 100 Other: Voiding Method Toilet Urinal Urinal - Exam Head normocephalic Neck supple Lungs clear to auscultation bilaterally no wheezing or crackles Heart regular rate and rhythm S1-S2, no rub or gallop Abdomen is soft nontender nondistended positive bowel sounds no hepatosplenomegaly Extremities no edema Neuro alert and orientated to 3. Left facial droop and hemiparesis on left side from previous stroke - Labs CBC & Chem 7: 01/01/24 11:12 01/01/24 11:12 Labs: Abnormal Lab Results - Last 24 Hours (Table) 12/31/23 12/31/23 Range/Units 06:34 06:34 RBC 3.94 L (4.30-5.90) m/uL Hgb 12.9 L (13.0-17.5) gm/dL Lymphocytes # 0.5 L (1.0-4.8) k/uL Chloride 109 H (98-107) mmol/L Microbiology - Last 24 Hours (Table) 12/29/23 18:00 Blood Culture - Preliminary Blood Assessment and Plan Assessment: 1. Worsening left pelvic abscess. 2. History of GI bleed secondary to severe diverticulosis with development of abscess patient was discharged 12/05/2022 for IV antibiotics 3. 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 Aspirin currently on hold 4. History of dysphagia requiring PEG tube in the past. peg tube has been removed 5. History of Parkinson's disease 6. History of BPH DVT DVT prophylaxis SCDs. GI prophylaxis Protonix Infectious disease and surgical service is consulted Patient started on IV antibiotics Repeat labs ordered
--- NOTE | 2024-01-01 15:40 | P.PN ---
Subjective Progress Note Date: 01/01/24 CHIEF COMPLAINT: Perforated diverticulitis HISTORY OF PRESENT ILLNESS: Patient is postop day #1 status post sigmoid colectomy with end colostomy. No output from ostomy. Patient does report abdominal pain that is controlled. Denies any nausea or vomiting. FAYE drain 90 mL serosanguineous output. Afebrile. WBC is up to 17.9 Hgb 12 platelets 314 creatinine 1.16 glucose 88. Patient having difficulty with swallowing his pills. Urine output dark PHYSICAL EXAM: VITAL SIGNS: Reviewed. GENERAL: Well-developed in no acute distress. ABDOMEN: Soft. Nondistended. Mild tenderness at incision site. Incision site clean dry and intact. Stoma on the left is mildly edematous and pink. Small amount of bloody output noted in the ostomy bag. NEUROLOGIC: Alert and oriented. Cranial nerves II through XII grossly intact. ASSESSMENT: 1. Perforated diverticulitis with fistulization into lateral pelvic wall PLAN: -Keep patient n.p.o. -Continue pain management. Tylenol IV changed to scheduled -Encourage patient ambulate. Consult PT OT -Change IV fluids to D5 half-normal saline and increase to 125/h. Urine output is dark blood sugars on the lower side. -Speech therapy consulted for swallow eval Physician Design Printing Machine Set Up Operator note has been reviewed by physician. Signing provider agrees with the documented findings, assessment, and plan of care. Objective - Vital Signs Vital signs: Vital Signs Temp 97.8 F 01/01/24 11:25 Pulse 67 01/01/24 11:25 Resp 16 01/01/24 11:25 BP 171/94 01/01/24 11:25 Pulse Ox 99 01/01/24 11:25 FiO2 Intake & Output 12/31/23 01/01/24 01/01/24 18:59 06:59 18:59 Intake Total 900 Output Total 405 490 40 Balance 495 -490 -40 Intake: IV 900 Oral 0 Output: Drainage 5 90 40 Abdomen 5 90 40 Urine 300 400 Estimated Blood Loss 100 Other: Voiding Method Urinal Indwelling Catheter Indwelling Catheter - Labs CBC & Chem 7: 01/01/24 11:12 01/01/24 11:12 Labs: Abnormal Lab Results - Last 24 Hours (Table) 01/01/24 01/01/24 Range/Units 11:12 11:12 WBC 17.9 H (3.8-10.6) k/uL RBC 3.74 L (4.30-5.90) m/uL Hgb 12.0 L (13.0-17.5) gm/dL Hct 37.3 L (39.0-53.0) % Neutrophils # 15.7 H (1.3-7.7) k/uL Lymphocytes # 0.7 L (1.0-4.8) k/uL Monocytes # 1.2 H (0-1.0) k/uL Chloride 110 H (98-107) mmol/L BUN 23 H (9-20) mg/dL Microbiology - Last 24 Hours (Table) 12/29/23 18:00 Blood Culture - Preliminary Blood
--- NOTE | 2024-01-01 16:36 | P.PN ---
Subjective Progress Note Date: 12/31/23 Principal diagnosis: Reason for follow-up is intra-abdominal abscess and complicated diverticulitis Patient is a 78-year-old male with a past medical history for hyperte nsion hyperlipidemia CVA reflux patient was recently admitted to the hospital and was diagnosed with a diverticulitis and peridiverticular abscess for the patient and received extensive IV antibiotic therapy however was still noticed to have a abscess on follow-up CT 4 the patient has been admitted to the hospital. Patient is status post sigmoid colectomy with end colostomy evidence of perforated diverticulitis with fistulization to the lateral pelvic wall however did not mention any abscess and no culture was done. On today's evaluation that is 12/31/2023 patient denies having any fever or any chills patient abdominal pain is currently controlled with the pain medication patient denies having any chest pain shortness of breath or cough no nausea no vomiting. Patient white count is 5.7, creatinine 0.85 blood cultures so far pending Objective - Vital Signs Vital signs: Vital Signs Temp 97.6 F 12/31/23 11:06 Pulse 54 L 12/31/23 12:20 Resp 16 12/31/23 11:51 BP 176/90 12/31/23 12:20 Pulse Ox 99 12/31/23 12:20 FiO2 Intake & Output 12/30/23 12/31/23 12/31/23 18:59 06:59 18:59 Intake Total 200 900 Output Total 600 200 Balance 200 -600 700 Intake: IV 900 Intake, IV Titration 200 Amount Piperacillin-Tazobactam 3 200 .375 gm In Sodium Chloride 0.9% 100 ml @ 25 mls/hr IVPB Q8H [facility] BEDS AT [facility] Rx#: [id number] Output: Urine 600 100 Estimated Blood Loss 100 Other: Voiding Method Toilet Urinal Urinal - Exam GENERAL DESCRIPTION: An elderly male lying in bed in no distress RESPIRATORY SYSTEM: Unlabored breathing , decreased breath sounds at bases HEART: S1 S2 regular rate and rhythm , ABDOMEN: Soft , mild tenderness EXTREMITIES: No edema feet - Labs CBC & Chem 7: 01/01/24 11:12 01/01/24 11:12 Labs: Abnormal Lab Results - Last 24 Hours (Table) 12/31/23 12/31/23 Range/Units 06:34 06:34 RBC 3.94 L (4.30-5.90) m/uL Hgb 12.9 L (13.0-17.5) gm/dL Lymphocytes # 0.5 L (1.0-4.8) k/uL Chloride 109 H (98-107) mmol/L Microbiology - Last 24 Hours (Table) 12/29/23 18:00 Blood Culture - Preliminary Blood Assessment and Plan (1) Diverticulitis Current Visit: Yes Status: Acute Code(s): K57.92 - DVTRCLI OF INTEST, PART UNSP, W/O PERF OR ABSCESS W/O BLEED SNOMED Code(s): 674275450 (2) Intra-abdominal abscess Current Visit: No Status: Acute Code(s): K65.1 - PERITONEAL ABSCESS SNOMED Code(s): 38099732 (3) Leukocytosis Current Visit: No Status: Acute Code(s): D72.829 - ELEVATED WHITE BLOOD CELL COUNT, UNSPECIFIED SNOMED Code(s): 175926992 Plan: 1-patient with a history of complicated diverticulitis with a peridiverticular abscess failing outpatient extensive systemic antibiotic therapy in the form of IV Unasyn with repeat CAT scan showing a thick-walled cavity however decrease inflammation 2-patient is status post laparotomy with sigmoid colectomy and end colostomy did not mention any abscess and no culture was done surgery has told the family he will not need an antibiotic on discharge 3-we will keep the patient on Zosyn 3.375 g every 8 hours while inpatient and monitor his clinical course closely at the bedside multiple questions answered Dictation was produced using [employer] dictation software. please excuse any grammatical, word or spelling errors. Time with Patient: Less than 30
--- NOTE | 2024-01-01 16:38 | P.PN ---
Subjective Progress Note Date: 01/01/24 Principal diagnosis: Reason for follow-up is intra-abdominal abscess and complicated diverticulitis Patient is a 78-year-old male with a past medical history for hyperte nsion hyperlipidemia CVA reflux patient was recently admitted to the hospital and was diagnosed with a diverticulitis and peridiverticular abscess for the patient and received extensive IV antibiotic therapy however was still noticed to have a abscess on follow-up CT 4 the patient has been admitted to the hospital. Patient is status post sigmoid colectomy with end colostomy evidence of perforated diverticulitis with fistulization to the lateral pelvic wall however did not mention any abscess and no culture was done. On today's evaluation that is 01/01/2024, patient remains to be afebrile, the patient is breathing comfortably on room air denies any chest pain shortness of breath or cough no nausea vomiting abdominal pain is currently controlled no output in colostomy. Patient white count slightly up to 17.9 today, creatinine is 1.16 Objective - Vital Signs Vital signs: Vital Signs Temp 97.8 F 01/01/24 11:25 Pulse 67 01/01/24 11:25 Resp 16 01/01/24 11:25 BP 171/94 01/01/24 11:25 Pulse Ox 99 01/01/24 11:25 FiO2 Intake & Output 12/31/23 01/01/24 01/01/24 18:59 06:59 18:59 Intake Total 900 Output Total 405 490 40 Balance 495 -490 -40 Intake: IV 900 Oral 0 Output: Drainage 5 90 40 Abdomen 5 90 40 Urine 300 400 Estimated Blood Loss 100 Other: Voiding Method Urinal Indwelling Catheter Indwelling Catheter - Exam GENERAL DESCRIPTION: An elderly male lying in bed in no distress RESPIRATORY SYSTEM: Unlabored breathing , decreased breath sounds at bases HEART: S1 S2 regular rate and rhythm , ABDOMEN: Soft , mild tenderness EXTREMITIES: No edema feet - Labs CBC & Chem 7: 01/01/24 11:12 01/01/24 11:12 Labs: Abnormal Lab Results - Last 24 Hours (Table) 01/01/24 01/01/24 Range/Units 11:12 11:12 WBC 17.9 H (3.8-10.6) k/uL RBC 3.74 L (4.30-5.90) m/uL Hgb 12.0 L (13.0-17.5) gm/dL Hct 37.3 L (39.0-53.0) % Neutrophils # 15.7 H (1.3-7.7) k/uL Lymphocytes # 0.7 L (1.0-4.8) k/uL Monocytes # 1.2 H (0-1.0) k/uL Chloride 110 H (98-107) mmol/L BUN 23 H (9-20) mg/dL Microbiology - Last 24 Hours (Table) 12/29/23 18:00 Blood Culture - Preliminary Blood Assessment and Plan (1) Diverticulitis Current Visit: Yes Status: Acute Code(s): K57.92 - DVTRCLI OF INTEST, PART UNSP, W/O PERF OR ABSCESS W/O BLEED SNOMED Code(s): 729249324 (2) Intra-abdominal abscess Current Visit: No Status: Acute Code(s): K65.1 - PERITONEAL ABSCESS SNOMED Code(s): 49812193 (3) Leukocytosis Current Visit: No Status: Acute Code(s): D72.829 - ELEVATED WHITE BLOOD CELL COUNT, UNSPECIFIED SNOMED Code(s): 963510937 Plan: 1-patient with a history of complicated diverticulitis with a peridiverticular abscess failing outpatient extensive systemic antibiotic therapy in the form of IV Unasyn with repeat CAT scan showing a thick-walled cavity however decrease inflammation 2-patient is status post laparotomy with sigmoid colectomy and end colostomy did not mention any abscess and no culture was done 3-we will keep the patient on Zosyn 3.375 g every 8 hours, patient did have slight leukocytosis more likely postoperative and reactive and will be monitored closely Dictation was produced using [employer] dictation software. please excuse any grammatical, word or spelling errors. Time with Patient: Less than 30
--- NOTE | 2024-01-01 16:50 | P.PN ---
Subjective Progress Note Date: 01/01/24 This is a 78-year-old male patient who was sent to the ER for evaluation per infectious disease. Patient has extensive medical history including recent treatment for GI bleed secondary to severe diverticulosis with development of left pelvic abscess patient was discharged on 12/05/2023 on IV antibiotics. According to patient he had follow-up CTs per infectious disease showing worsening abscess. Patient denies any further episodes of acute symptoms. Patient reports he has been receiving outpatient IV antibiotics as ordered through PICC line without issue. 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 History of dysphasia previously requiring PEG tube this was removed. History of Parkinson's disease, history of essential hypertension and BPH. Most recent CT completed on 12/23/2023 showing persistent thick walled collection with the midpelvis without significant adjacent inflammatory change this is enlarged from comparison and contains fecal debris. At this time patient has been started on IV Zosyn infectious disease and surgical service is consulted. Patient denies chest pain or shortness breath. Patient denies nausea vomiting or diarrhea. Patient denies any urinary burning or frequency. White blood cell noted to be elevated at 14.3. Current vital signs temp 97.6, heart rate 56, respiratory rate 18, blood pressure 172/88 with a pulse ox 97% home meds resumed including blood pressure medication. On 12/31/2023 patient was seen and examined on the medical floor, he is alert and oriented 3 in no apparent distress, he is complaining of abdominal pain, otherwise he denies any complaints, there is no fever or chills no headache or dizziness no chest pain no shortness of breath no cough no nausea or vomiting no diarrhea and no urinary symptoms. 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 Vital exam reveals a temperature of 98.7 pulse 73 respiration 15 blood pressure 147/84 pulse ox 95% on room air white blood count is 5.7 hemoglobin 12.9 platelet count 250. On 01/01/2024 patient was seen and examined on the medical floor he is alert and oriented 3 in no apparent distress he is still complaining of abdominal pain otherwise no complaints, there is no fever or chills no headache or dizziness no chest pain no shortness of breath no cough no nausea or vomiting no diarrhea no blood in the stools no burning with urination no frequency or urgency and no hematuria. Input from cardiology reviewed, patient is followed by infectious disease and general surgery. We will continue to follow closely. Objective - Vital Signs Vital signs: Vital Signs Temp 97.8 F 01/01/24 11:25 Pulse 67 01/01/24 11:25 Resp 16 01/01/24 11:25 BP 171/94 01/01/24 11:25 Pulse Ox 99 01/01/24 11:25 FiO2 Intake & Output 12/31/23 01/01/24 01/01/24 18:59 06:59 18:59 Intake Total 900 Output Total 405 490 40 Balance 495 -490 -40 Intake: IV 900 Oral 0 Output: Drainage 5 90 40 Abdomen 5 90 40 Urine 300 400 Estimated Blood Loss 100 Other: Voiding Method Urinal Indwelling Catheter Indwelling Catheter - Exam Head normocephalic Neck supple Lungs clear to auscultation bilaterally no wheezing or crackles Heart regular rate and rhythm S1-S2, no rub or gallop Abdomen is soft nontender nondistended positive bowel sounds no he patosplenomegaly Extremities no edema Neuro alert and orientated to 3. Left facial droop and hemiparesis on left side from previous stroke - Labs CBC & Chem 7: 01/01/24 11:12 01/01/24 11:12 Labs: Abnormal Lab Results - Last 24 Hours (Table) 01/01/24 01/01/24 Range/Units 11:12 11:12 WBC 17.9 H (3.8-10.6) k/uL RBC 3.74 L (4.30-5.90) m/uL Hgb 12.0 L (13.0-17.5) gm/dL Hct 37.3 L (39.0-53.0) % Neutrophils # 15.7 H (1.3-7.7) k/uL Lymphocytes # 0.7 L (1.0-4.8) k/uL Monocytes # 1.2 H (0-1.0) k/uL Chloride 110 H (98-107) mmol/L BUN 23 H (9-20) mg/dL Microbiology - Last 24 Hours (Table) 12/29/23 18:00 Blood Culture - Preliminary Blood Assessment and Plan Assessment: 1. Worsening left pelvic abscess. 2. History of GI bleed secondary to severe diverticulosis with development of abscess patient was discharged 12/05/2022 for IV antibiotics 3. 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 Aspirin currently on hold 4. History of dysphagia requiring PEG tube in the past. peg tube has been removed 5. History of Parkinson's disease 6. History of BPH DVT DVT prophylaxis SCDs. GI prophylaxis Protonix Infectious disease and surgical service is consulted Patient started on IV antibiotics Repeat labs ordered
[2024-01-01] MEDS: hydrALAZINE HCL 20 MG/ML 1 ML VIAL IVP PRN (18:57)
[2024-01-01] MEDS: HEPARIN SODIUM,PORCINE 5,000 UNIT/ML 1 ML VIAL SQ SCH (20:59)
[2024-01-02 11:11] LABS: HCT 35.2 % (39.6-50.0); HGB 11.2 g/dL (13.0-17.0); MCH 31.5 pg (27.0-32.0); MCHC 31.8 g/dL (32.0-37.0); MCV 99.2 FL (80.0-97.0); Mean Platelet Volume 10.3 FL (9.5-12.2); NRBC Per 100 WBC 0 X 10*3/uL (0.00-0.01); Platelet Count 289 X 10*3/uL (140-440); RBC 3.55 X 10*6/uL (4.40-5.60); RDW 12.8 % (11.5-14.5); WBC 13.93 X 10*3/uL (4.50-10.00)
--- NOTE | 2024-01-02 11:20 | P.PN ---
Subjective Progress Note Date: 01/02/24 This is a 78-year-old male patient who was sent to the ER for evaluation per infectious disease. Patient has extensive medical history including recent treatment for GI bleed secondary to severe diverticulosis with development of left pelvic abscess patient was discharged on 12/05/2023 on IV antibiotics. According to patient he had follow-up CTs per infectious disease showing worsening abscess. Patient denies any further episodes of acute symptoms. Patient reports he has been receiving outpatient IV antibiotics as ordered through PICC line without issue. 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 History of dysphasia previously requiring PEG tube this was removed. History of Parkinson's disease, history of essential hypertension and BPH. Most recent CT completed on 12/23/2023 showing persistent thick walled collection with the midpelvis without significant adjacent inflammatory change this is enlarged from comparison and contains fecal debris. At this time patient has been started on IV Zosyn infectious disease and surgical service is consulted. Patient denies chest pain or shortness breath. Patient denies nausea vomiting or diarrhea. Patient denies any urinary burning or frequency. White blood cell noted to be elevated at 14.3. Current vital signs temp 97.6, heart rate 56, respiratory rate 18, blood pressure 172/88 with a pulse ox 97% home meds resumed including blood pressure medication. On 12/31/2023 patient was seen and examined on the medical floor, he is alert and oriented 3 in no apparent distress, he is complaining of abdominal pain, otherwise he denies any complaints, there is no fever or chills no headache or dizziness no chest pain no shortness of breath no cough no nausea or vomiting no diarrhea and no urinary symptoms. 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 Vital exam reveals a temperature of 98.7 pulse 73 respiration 15 blood pressure 147/84 pulse ox 95% on room air white blood count is 5.7 hemoglobin 12.9 platelet count 250. On 01/01/2024 patient was seen and examined on the medical floor he is alert and oriented 3 in no apparent distress he is still complaining of abdominal pain otherwise no complaints, there is no fever or chills no headache or dizziness no chest pain no shortness of breath no cough no nausea or vomiting no diarrhea no blood in the stools no burning with urination no frequency or urgency and no hematuria. Input from cardiology reviewed, patient is followed by infectious disease and general surgery. We will continue to follow closely. On 01/02/2024 patient was seen and examined on the medical floor he is alert and oriented 3 in no apparent distress he is sitting up in a chair, this morning he was having difficulty swallowing his pills, speech therapy consult was requested, he is still complaining of abdominal pain otherwise he denies any complaints there is no fever or chills no headache or dizziness no chest pain no shortness of breath no cough no nausea or vomiting no diarrhea no blood in the stools and no urinary symptoms Objective - Vital Signs Vital signs: Vital Signs Temp 98.3 F 01/02/24 07:24 Pulse 80 01/02/24 07:24 Resp 16 01/02/24 07:24 BP 176/85 01/02/24 07:24 Pulse Ox 99 01/02/24 02:00 FiO2 Intake & Output 01/01/24 01/02/24 01/02/24 18:59 06:59 18:59 Intake Total 900 Output Total 680 870 Balance 220 -870 Intake: Intake, IV Titration 900 Amount ACETAMINOPHEN IV (For NPO 200 ) 1,000 mg In Empty Bag 1 bag @ 400 mls/hr IVPB Q6HR YUL[facility] Rx#:[id number] Dextrose 5%-0.45% NaCl 1, 500 000 ml @ 125 mls/hr IV . Q8H YULISA Rx#:[id number] Piperacillin-Tazobactam 3 200 .375 gm In Sodium Chloride 0.9% 100 ml @ 25 mls/hr IVPB Q8H YULISA Rx#: [id number] Output: Drainage 80 70 Abdomen 80 70 Urine 600 800 Other: Voiding Method Indwelling Catheter Indwelling Catheter - Exam Head normocephalic Neck supple Lungs clear to auscultation bilaterally no wheezing or crackles Heart regular rate and rhythm S1-S2, no rub or gallop Abdomen is soft nontender nondistended positive bowel sounds no hepatosplenomegaly Extremities no edema Neuro alert and orientated to 3. Left facial droop and hemiparesis on left side from previous stroke - Labs CBC & Chem 7: 01/02/24 07:19 01/01/24 11:12 Labs: Abnormal Lab Results - Last 24 Hours (Table) 01/01/24 01/01/24 Range/Units 11:12 11:12 WBC 17.9 H (3.8-10.6) k/uL RBC 3.74 L (4.30-5.90) m/uL Hgb 12.0 L (13.0-17.5) gm/dL Hct 37.3 L (39.0-53.0) % Neutrophils # 15.7 H (1.3-7.7) k/uL Lymphocytes # 0.7 L (1.0-4.8) k/uL Monocytes # 1.2 H (0-1.0) k/uL Chloride 110 H (98-107) mmol/L BUN 23 H (9-20) mg/dL Microbiology - Last 24 Hours (Table) 12/29/23 18:00 Blood Culture - Preliminary Blood Assessment and Plan Assessment: 1. Worsening left pelvic abscess. 2. History of GI bleed secondary to severe diverticulosis with development of abscess patient was discharged 12/05/2022 for IV antibiotics 3. 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 Aspirin currently on hold 4. History of dysphagia requiring PEG tube in the past. peg tube has been removed 5. History of Parkinson's disease 6. History of BPH DVT DVT prophylaxis SCDs. GI prophylaxis Protonix Infectious disease and surgical service is consulted Patient started on IV antibiotics Repeat labs ordered
[2024-01-02 11:44] LABS: Basophils # (A) 0.06 X 10*3/uL (0.00-0.10); Basophils % (A) 0.4 %; Eosinophils # (A) 0.06 X 10*3/uL (0.04-0.35); Eosinophils % (A) 0.4 %; Lymphocytes # (A) 0.61 X 10*3/uL (0.90-5.00); Lymphocytes % (A) 4.4 %; Monocytes # (A) 1.54 X 10*3/uL (0.20-1.00); Monocytes % (A) 11.1 %; Neutrophils % (A) 83.3 %; RBC Morphology Normal (Normal)
[2024-01-02 11:45] LABS: ALT 6 U/L (10-49); AST 14 U/L (14-35); Albumin 3.1 g/dL (3.8-4.9); Albumin/Globulin Ratio 1.24 Ratio (1.60-3.17); Alkaline Phosphatase 100 U/L (41-126); Blood Urea Nitrogen 14.5 mg/dL (9.0-27.0); Calcium 8.7 mg/dL (8.7-10.3); Carbon Dioxide 25.3 mmol/L (21.6-31.8); Chloride 108 mmol/L (96-109); Globulin 2.5 g/dL (1.6-3.3); Glucose 111 mg/dL (70-110); Sodium 142 mmol/L (135-145); Total Bilirubin 0.8 mg/dL (0.3-1.2); Total Protein 5.6 g/dL (6.2-8.2)
--- NOTE | 2024-01-02 12:51 | P.PN ---
Subjective Progress Note Date: 01/02/24 Principal diagnosis: Reason for follow-up is intra-abdominal abscess and complicated diverticulitis Patient is a 78-year-old male with a past medical history for hyperte nsion hyperlipidemia CVA reflux patient was recently admitted to the hospital and was diagnosed with a diverticulitis and peridiverticular abscess for the patient and received extensive IV antibiotic therapy however was still noticed to have a abscess on follow-up CT 4 the patient has been admitted to the hospital. Patient is status post sigmoid colectomy with end colostomy evidence of perforated diverticulitis with fistulization to the lateral pelvic wall however did not mention any abscess and no culture was done. On today's evaluation that is 01/02/2024, the patient continues to be afebrile patient is currently breathing comfortably on 2 L nasal cannula oxygen, the patient denies having any chest pain shortness of breath or cough, the patient denies nausea vomiting abdominal pain is currently controlled did not have any output in the colostomy bag. Patient white count is down to 13.19, creatinine is 1.0 blood cultures pending Objective - Vital Signs Vital signs: Vital Signs Temp 98.3 F 01/02/24 07:24 Pulse 80 01/02/24 07:24 Resp 16 01/02/24 07:24 BP 176/85 01/02/24 07:24 Pulse Ox 99 01/02/24 02:00 FiO2 Intake & Output 01/01/24 01/02/24 01/02/24 18:59 06:59 18:59 Intake Total 900 Output Total 680 870 Balance 220 -870 Intake: Intake, IV Titration 900 Amount ACETAMINOPHEN IV (For NPO 200 ) 1,000 mg In Empty Bag 1 bag @ 400 mls/hr IVPB Q6HR Y[facility] Rx#:[id number] Dextrose 5%-0.45% NaCl 1, 500 000 ml @ 125 mls/hr IV . Q8H YULISA Rx#:[id number] Piperacillin-Tazobactam 3 200 .375 gm In Sodium Chloride 0.9% 100 ml @ 25 mls/hr IVPB Q8H YULISA Rx#: [id number] Output: Drainage 80 70 Abdomen 80 70 Urine 600 800 Other: Voiding Method Indwelling Catheter Indwelling Catheter Indwelling Catheter - Exam GENERAL DESCRIPTION: An elderly male lying in bed in no distress RESPIRATORY SYSTEM: Unlabored breathing , decreased breath sounds at bases HEART: S1 S2 regular rate and rhythm , ABDOMEN: Soft , mild tenderness EXTREMITIES: No edema feet - Labs CBC & Chem 7: 01/02/24 07:19 01/02/24 07:19 Labs: Abnormal Lab Results - Last 24 Hours (Table) 01/02/24 01/02/24 Range/Units 07:19 07:19 WBC 13.93 H (4.50-10.00) X 10*3/uL RBC 3.55 L (4.40-5.60) X 10*6/uL Hgb 11.2 L (13.0-17.0) g/dL Hct 35.2 L (39.6-50.0) % MCV 99.2 H (80.0-97.0) FL MCHC 31.8 L (32.0-37.0) g/dL Immature Gran # 0.06 H (0.00-0.04) X 10*3/uL Neutrophils # 11.60 H (1.80-7.70) X 10*3/uL Lymphocytes # 0.61 L (0.90-5.00) X 10*3/uL Monocytes # 1.54 H (0.20-1.00) X 10*3/uL Glucose 111 H (70-110) mg/dL ALT 6 L (10-49) U/L Total Protein 5.6 L (6.2-8.2) g/dL Albumin 3.1 L (3.8-4.9) g/dL Albumin/Globulin Ratio 1.24 L (1.60-3.17) Ratio Microbiology - Last 24 Hours (Table) 12/29/23 18:00 Blood Culture - Preliminary Blood Assessment and Plan (1) Diverticulitis Current Visit: Yes Status: Acute Code(s): K57.92 - DVTRCLI OF INTEST, PART UNSP, W/O PERF OR ABSCESS W/O BLEED SNOMED Code(s): 305067272 (2) Intra-abdominal abscess Current Visit: No Status: Acute Code(s): K65.1 - PERITONEAL ABSCESS SNOMED Code(s): 34581320 (3) Leukocytosis Current Visit: No Status: Acute Code(s): D72.829 - ELEVATED WHITE BLOOD CELL COUNT, UNSPECIFIED SNOMED Code(s): 124761009 Plan: 1-patient with a history of complicated diverticulitis with a peridiverticular abscess failing outpatient extensive systemic antibiotic therapy in the form of IV Unasyn with repeat CAT scan showing a thick-walled cavity however decrease inflammation 2-patient is status post laparotomy with sigmoid colectomy and end colostomy did not mention any abscess and no culture was done 3-patient did have some clinical improvement and the patient white count is trending down, we will continue the patient on Zosyn 3.375 g every 8 hours and monitor clinical course closely at the bedside multiple questions were answered Dictation was produced using [employer] dictation software. please excuse any grammatical, word or spelling errors. Time with Patient: Less than 30
[2024-01-02 14:10] VITALS: BMI 22.3
[2024-01-02] MEDS: ACETAMINOPHEN IV (For NPO) 1,000 MG in EMPTY BAG 1 BAG IVPB SCH (15:08)
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
[2024-01-02 16:15] LABS: Magnesium 1.9 mg/dL (1.6-2.3); Phosphorus 2.2 mg/dL (2.5-4.5)
[2024-01-02] MEDS: SODIUM CHLORIDE 0.9% 1,000 ML IV SCH (17:38)
[2024-01-02] MEDS: MVI, ADULT NO.4 WITH VIT K 10 ML, TRACE (CONC-1ML/DOSE) 1 ML in AMINO ACID 5%-D20W+LYTE... IV SCH (17:39)
[2024-01-03 00:45] LABS: Glucose,Whole Blood 105 mg/dL (70-110)
[2024-01-03 06:23] LABS: Glucose,Whole Blood 130 mg/dL (70-110)
[2024-01-03 08:05] LABS: Ionized Calcium 4.9 mg/dL (4.5-5.3)
[2024-01-03 08:20] LABS: ALT <6 U/L (4-49); AST 23 U/L (17-59); African American GFR (CKD) >90 (>60 ml/min/1.73 sqM); Albumin 2.7 g/dL (3.5-5.0); Albumin/Globulin Ratio 0.9; Alkaline Phosphatase 119 U/L (38-126); Anion Gap 4 mmol/L; Blood Urea Nitrogen 11 mg/dL (9-20); Calcium 8.7 mg/dL (8.4-10.2); Carbon Dioxide 25 mmol/L (22-30); Chloride 113 mmol/L (98-107); Globulin 3.1 g/dL; Glucose 114 mg/dL (74-99); Magnesium 1.7 mg/dL (1.6-2.3); Non-African American GFR(CKD) 85 (>60 ml/min/1.73 sqM); Phosphorus 2.6 mg/dL (2.5-4.5); Potassium 3.8 mmol/L (3.5-5.1); Sodium 142 mmol/L (137-145); Total Protein 5.8 g/dL (6.3-8.2)
[2024-01-03 09:38] LABS: Basophils # (A) 0.06 X 10*3/uL (0.00-0.10); Basophils % (A) 0.5 %; Eosinophils # (A) 0.07 X 10*3/uL (0.04-0.35); Eosinophils % (A) 0.6 %; HCT 33.3 % (39.6-50.0); HGB 10.9 g/dL (13.0-17.0); Lymphocytes # (A) 0.49 X 10*3/uL (0.90-5.00); Lymphocytes % (A) 4.1 %; MCH 31.9 pg (27.0-32.0); MCHC 32.7 g/dL (32.0-37.0); MCV 97.4 FL (80.0-97.0); Mean Platelet Volume 10.2 FL (9.5-12.2); Monocytes # (A) 1.13 X 10*3/uL (0.20-1.00); Monocytes % (A) 9.5 %; NRBC Per 100 WBC 0 X 10*3/uL (0.00-0.01); Neutrophils # (A) 10.11 X 10*3/uL (1.80-7.70); Neutrophils % (A) 84.8 %; Platelet Count 274 X 10*3/uL (140-440); RBC 3.42 X 10*6/uL (4.40-5.60); RDW 12.9 % (11.5-14.5); WBC 11.92 X 10*3/uL (4.50-10.00)
--- NOTE | 2024-01-03 11:37 | P.PN ---
Subjective Progress Note Date: 01/03/24 This is a 78-year-old male patient who was sent to the ER for evaluation per infectious disease. Patient has extensive medical history including recent treatment for GI bleed secondary to severe diverticulosis with development of left pelvic abscess patient was discharged on 12/05/2023 on IV antibiotics. According to patient he had follow-up CTs per infectious disease showing worsening abscess. Patient denies any further episodes of acute symptoms. Patient reports he has been receiving outpatient IV antibiotics as ordered through PICC line without issue. 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 History of dysphasia previously requiring PEG tube this was removed. History of Parkinson's disease, history of essential hypertension and BPH. Most recent CT completed on 12/23/2023 showing persistent thick walled collection with the midpelvis without significant adjacent inflammatory change this is enlarged from comparison and contains fecal debris. At this time patient has been started on IV Zosyn infectious disease and surgical service is consulted. Patient denies chest pain or shortness breath. Patient denies nausea vomiting or diarrhea. Patient denies any urinary burning or frequency. White blood cell noted to be elevated at 14.3. Current vital signs temp 97.6, heart rate 56, respiratory rate 18, blood pressure 172/88 with a pulse ox 97% home meds resumed including blood pressure medication. On 12/31/2023 patient was seen and examined on the medical floor, he is alert and oriented 3 in no apparent distress, he is complaining of abdominal pain, otherwise he denies any complaints, there is no fever or chills no headache or dizziness no chest pain no shortness of breath no cough no nausea or vomiting no diarrhea and no urinary symptoms. 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 Vital exam reveals a temperature of 98.7 pulse 73 respiration 15 blood pressure 147/84 pulse ox 95% on room air white blood count is 5.7 hemoglobin 12.9 platelet count 250. On 01/01/2024 patient was seen and examined on the medical floor he is alert and oriented 3 in no apparent distress he is still complaining of abdominal pain otherwise no complaints, there is no fever or chills no headache or dizziness no chest pain no shortness of breath no cough no nausea or vomiting no diarrhea no blood in the stools no burning with urination no frequency or urgency and no hematuria. Input from cardiology reviewed, patient is followed by infectious disease and general surgery. We will continue to follow closely. On 01/02/2024 patient was seen and examined on the medical floor he is alert and oriented 3 in no apparent distress he is sitting up in a chair, this morning he was having difficulty swallowing his pills, speech therapy consult was requested, he is still complaining of abdominal pain otherwise he denies any complaints there is no fever or chills no headache or dizziness no chest pain no shortness of breath no cough no nausea or vomiting no diarrhea no blood in the stools and no urinary symptoms. On 01/03/2024 patient was seen and examined on the medical floor he is alert and oriented 3 in no apparent distress he is sitting up in a chair, this morning he was having difficulty swallowing his pills, speech therapy consult was requested, he is still complaining of abdominal pain otherwise he denies any complaints there is no fever or chills no headache or dizziness no chest pain no shortness of breath no cough no nausea or vomiting no diarrhea no blood in the stools and no urinary symptoms. Patient has evidence of thrush, nystatin mouthwash was admitted, he is also complaining of difficulty sleeping, melatonin 10 mg at bedtime was added. He was started on clear liquid diet by general surgery. Objective - Vital Signs Vital signs: Vital Signs Temp 98.2 F 01/03/24 07:30 Pulse 73 01/03/24 08:20 Resp 16 01/03/24 08:20 BP 165/94 01/03/24 07:30 Pulse Ox 96 01/03/24 08:51 FiO2 Intake & Output 01/02/24 01/03/24 01/03/24 18:59 06:59 18:59 Intake Total 1860 0 Output Total 1320 1175 Balance 540 -1175 Weight 72.575 kg Intake: Intake, IV Titration 1860 Amount ACETAMINOPHEN IV (For NPO 200 ) 1,000 mg In Empty Bag 1 bag @ 400 mls/hr IVPB Q6H [facility] Rx#:[id number] Amino Acid 5%-D20w+Lytes* 60 E* 1,000 ml @ 84 mls/hr IV .BY DURATION [facility] Rx#: [id number] Dextrose 5%-0.45% NaCl 1, 1250 000 ml @ 125 mls/hr IV . Q8H [facility] Rx#:[id number] Piperacillin-Tazobactam 3 200 .375 gm In Sodium Chloride 0.9% 100 ml @ 25 mls/hr IVPB Q8H [facility] Rx#: [id number] Sodium Chloride 0.9% 1, 150 000 ml @ 75 mls/hr IV . [id number] [facility] Rx#:[id number] Oral 0 Output: Drainage 40 Abdomen 40 Urine 1250 1175 Other 30 Other: Voiding Method Indwelling Catheter Indwelling Catheter Indwelling Catheter - Exam Head normocephalic Neck supple Lungs clear to auscultation bilaterally no wheezing or crackles Heart regular rate and rhythm S1-S2, no rub or gallop Abdomen is soft nontender nondistended positive bowel sounds no hepatosplenomegaly Extremities no edema Neuro alert and orientated to 3. Left facial droop and hemiparesis on left side from previous stroke - Labs CBC & Chem 7: 01/03/24 06:56 01/03/24 06:56 Labs: Abnormal Lab Results - Last 24 Hours (Table) 01/02/24 01/02/24 01/02/24 Range/Units 07:19 07:19 14:06 WBC (4.50-10.00) X 10*3/uL RBC (4.40-5.60) X 10*6/uL Hgb (13.0-17.0) g/dL Hct (39.6-50.0) % MCV (80.0-97.0) FL Immature Gran # 0.06 H (0.00-0.04) X 10*3/uL Neutrophils # 11.60 H (1.80-7.70) X 10*3/uL Lymphocytes # 0.61 L (0.90-5.00) X 10*3/uL Monocytes # 1.54 H (0.20-1.00) X 10*3/uL Chloride (98-107) mmol/L Glucose 111 H (70-110) mg/dL POC Glucose (mg/dL) (70-110) mg/dL Phosphorus 2.2 L (2.5-4.5) mg/dL ALT 6 L (10-49) U/L Total Protein 5.6 L (6.2-8.2) g/dL Albumin 3.1 L (3.8-4.9) g/dL Albumin/Globulin Ratio 1.24 L (1.60-3.17) Ratio 01/03/24 01/03/24 01/03/24 Range/Units 06:22 06:56 06:56 WBC 11.92 H (4.50-10.00) X 10*3/uL RBC 3.42 L (4.40-5.60) X 10*6/uL Hgb 10.9 L (13.0-17.0) g/dL Hct 33.3 L (39.6-50.0) % MCV 97.4 H (80.0-97.0) FL Immature Gran # 0.06 H (0.00-0.04) X 10*3/uL Neutrophils # 10.11 H (1.80-7.70) X 10*3/uL Lymphocytes # 0.49 L (0.90-5.00) X 10*3/uL Monocytes # 1.13 H (0.20-1.00) X 10*3/uL Chloride 113 H (98-107) mmol/L Glucose 114 H (70-110) mg/dL POC Glucose (mg/dL) 130 H (70-110) mg/dL Phosphorus (2.5-4.5) mg/dL ALT (10-49) U/L Total Protein 5.8 L (6.2-8.2) g/dL Albumin 2.7 L (3.8-4.9) g/dL Albumin/Globulin Ratio (1.60-3.17) Ratio Assessment and Plan Assessment: 1. Worsening left pelvic abscess. 2. History of GI bleed secondary to severe diverticulosis with development of abscess patient was discharged 12/05/2022 for IV antibiotics 3. 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 Aspirin currently on hold 4. History of dysphagia requiring PEG tube in the past. peg tube has been removed 5. History of Parkinson's disease 6. History of BPH DVT DVT prophylaxis SCDs. GI prophylaxis Protonix Infectious disease and surgical service is consulted Patient started on IV antibiotics Repeat labs ordered
[2024-01-03 12:20] LABS: Glucose,Whole Blood 112 mg/dL (70-110)
[2024-01-03] MEDS: NYSTATIN 100,000 UNIT/ML SUSP 500,000 UNIT/5 ML CUP PO SCH (12:37)
--- NOTE | 2024-01-03 14:50 | P.PN ---
Subjective Progress Note Date: 01/03/24 NAEON. No N/V. No F/C. NO SOB or CP. Ambulatory and good hansen output. Admits to mild gas in ostomy bag but no stool. Endorses painful swallowing. No hematemesis or hemoptysis. Objective - Vital Signs Vital signs: Vital Signs Temp 98.2 F 01/03/24 07:30 Pulse 73 01/03/24 08:20 Resp 16 01/03/24 08:20 BP 165/94 01/03/24 07:30 Pulse Ox 96 01/03/24 08:51 FiO2 Intake & Output 01/02/24 01/03/24 01/03/24 18:59 06:59 18:59 Intake Total 1860 0 Output Total 1320 1175 960 Balance 540 -1175 -960 Weight 72.575 kg Intake: Intake, IV Titration 1860 Amount ACETAMINOPHEN IV (For NPO 200 ) 1,000 mg In Empty Bag 1 bag @ 400 mls/hr IVPB Q6H [facility] Rx#:[id number] Amino Acid 5%-D20w+Lytes* 60 E* 1,000 ml @ 84 mls/hr IV .BY DURATION [facility] Rx#: [id number] Dextrose 5%-0.45% NaCl 1, 1250 000 ml @ 125 mls/hr IV . Q8H [facility] Rx#:[id number] Piperacillin-Tazobactam 3 200 .375 gm In Sodium Chloride 0.9% 100 ml @ 25 mls/hr IVPB Q8H [facility] Rx#: [id number] Sodium Chloride 0.9% 1, 150 000 ml @ 75 mls/hr IV . [id number] [facility] Rx#:[id number] Oral 0 Output: Drainage 40 110 Abdomen 40 110 Urine 1250 1175 850 Other 30 Other: Voiding Method Indwelling Catheter Indwelling Catheter Indwelling Catheter - Exam Gen: AxO, NAD Pulm: non-labored respirations Abd: soft, non-tender, mildly-distended. No guarding/rebound/rigidity Brad: intact producing serous output Ostomy: pink and patent, gas seen in ostomy bag, bowel sweat seen without stool appreciated Extrem: no edema seen - Labs CBC & Chem 7: 01/03/24 06:56 01/03/24 06:56 Labs: Abnormal Lab Results - Last 24 Hours (Table) 01/02/24 01/03/24 01/03/24 Range/Units 14:06 06:22 06:56 WBC 11.92 H (4.50-10.00) X 10*3/uL RBC 3.42 L (4.40-5.60) X 10*6/uL Hgb 10.9 L (13.0-17.0) g/dL Hct 33.3 L (39.6-50.0) % MCV 97.4 H (80.0-97.0) FL Immature Gran # 0.06 H (0.00-0.04) X 10*3/uL Neutrophils # 10.11 H (1.80-7.70) X 10*3/uL Lymphocytes # 0.49 L (0.90-5.00) X 10*3/uL Monocytes # 1.13 H (0.20-1.00) X 10*3/uL Chloride (98-107) mmol/L Glucose (74-99) mg/dL POC Glucose (mg/dL) 130 H (70-110) mg/dL Phosphorus 2.2 L (2.5-4.5) mg/dL Total Protein (6.3-8.2) g/dL Albumin (3.5-5.0) g/dL 01/03/24 01/03/24 Range/Units 06:56 12:19 WBC (4.50-10.00) X 10*3/uL RBC (4.40-5.60) X 10*6/uL Hgb (13.0-17.0) g/dL Hct (39.6-50.0) % MCV (80.0-97.0) FL Immature Gran # (0.00-0.04) X 10*3/uL Neutrophils # (1.80-7.70) X 10*3/uL Lymphocytes # (0.90-5.00) X 10*3/uL Monocytes # (0.20-1.00) X 10*3/uL Chloride 113 H (98-107) mmol/L Glucose 114 H (74-99) mg/dL POC Glucose (mg/dL) 112 H (70-110) mg/dL Phosphorus (2.5-4.5) mg/dL Total Protein 5.8 L (6.3-8.2) g/dL Albumin 2.7 L (3.5-5.0) g/dL Assessment and Plan Assessment: Patient is a 78 year old male who is s/p hartmanns resection for perforated diverticulitits Plan: -Sips of CLD -Continue TPN -IVF hydration -Nystatin swish and swallow for oral thrush seen on examination -Encourage ambulation Long Ty MD General Surgery
[2024-01-03] MEDS: FAT EMULSION 20% 250 ML in EMPTY BAG 1 BAG IV SCH (17:25)
[2024-01-03 17:32] LABS: Glucose,Whole Blood 100 mg/dL (70-110)
[2024-01-03] MEDS: HYDROcodone/APAP 5-325MG 1 EACH TAB PO PRN (21:04)
[2024-01-03] MEDS: MELATONIN 3 MG TABLET PO SCH (21:04)
[2024-01-03] MEDS: 1: MVI, ADULT NO.4 WITH VIT K 10 ML, TRACE (CONC-1ML/DOSE) 1 ML in AMINO ACID 5%-D20W+LY IV SCH (21:13)
[2024-01-04 00:37] LABS: Glucose,Whole Blood 123 mg/dL (70-110)
[2024-01-04 05:58] LABS: Glucose,Whole Blood 98 mg/dL (70-110)
[2024-01-04 07:28] LABS: Triglycerides 75.4 mg/dL (0.00-149.00)
[2024-01-04 07:50] LABS: Basophils % (A) 0 %; Eosinophils # (A) 0.3 k/uL (0-0.7); Eosinophils % (A) 3 %; HCT 34.7 % (39.0-53.0); HGB 10.9 gm/dL (13.0-17.5); Lymphocytes # (A) 0.5 k/uL (1.0-4.8); Lymphocytes % (A) 5 %; MCH 31.6 pg (25.0-35.0); MCHC 31.5 g/dL (31.0-37.0); MCV 100.5 fL (80.0-100.0); Monocytes # (A) 0.6 k/uL (0-1.0); Monocytes % (A) 6 %; Neutrophils # (A) 7.9 k/uL (1.3-7.7); Neutrophils % (A) 85 %; Platelet Count 248 k/uL (150-450); RBC 3.45 m/uL (4.30-5.90); RDW 12.4 % (11.5-15.5); WBC 9.4 k/uL (3.8-10.6)
[2024-01-04 07:58] LABS: ALT 6 U/L (4-49); AST 18 U/L (17-59); African American GFR (CKD) >90 (>60 ml/min/1.73 sqM); Albumin 2.6 g/dL (3.5-5.0); Albumin/Globulin Ratio 0.9; Alkaline Phosphatase 148 U/L (38-126); Anion Gap 6 mmol/L; Blood Urea Nitrogen 14 mg/dL (9-20); Calcium 8.6 mg/dL (8.4-10.2); Carbon Dioxide 25 mmol/L (22-30); Chloride 111 mmol/L (98-107); Glucose 127 mg/dL (74-99); Magnesium 1.6 mg/dL (1.6-2.3); Non-African American GFR(CKD) >90 (>60 ml/min/1.73 sqM); Phosphorus 2.8 mg/dL (2.5-4.5); Potassium 3.9 mmol/L (3.5-5.1); Sodium 142 mmol/L (137-145); Total Bilirubin 0.7 mg/dL (0.2-1.3); Total Protein 5.6 g/dL (6.3-8.2)
--- NOTE | 2024-01-04 09:27 | P.PN ---
Subjective Progress Note Date: 01/03/24 Principal diagnosis: Reason for follow-up is intra-abdominal abscess and complicated diverticulitis Patient is a 78-year-old male with a past medical history for hyperte nsion hyperlipidemia CVA reflux patient was recently admitted to the hospital and was diagnosed with a diverticulitis and peridiverticular abscess for the patient and received extensive IV antibiotic therapy however was still noticed to have a abscess on follow-up CT 4 the patient has been admitted to the hospital. Patient is status post sigmoid colectomy with end colostomy evidence of perforated diverticulitis with fistulization to the lateral pelvic wall however did not mention any abscess and no culture was done. On today's evaluation that is 01/03/2024, the patient denies having any fever or any chills, patient is breathing comfortably on room air, the patient denies having any chest pain shortness of breath , Pt did have occasional cough patient denies having any nausea vomiting abdominal pain currently controlled did not have any output in his colostomy. Patient white count is down to 11.92, creatinine 0.81 blood culture negative Objective - Vital Signs Vital signs: Vital Signs Temp 98.2 F 01/03/24 07:30 Pulse 73 01/03/24 08:20 Resp 16 01/03/24 08:20 BP 165/94 01/03/24 07:30 Pulse Ox 96 01/03/24 08:51 FiO2 Intake & Output 01/02/24 01/03/24 01/03/24 18:59 06:59 18:59 Intake Total 1860 0 Output Total 1320 1175 Balance 540 -1175 Weight 72.575 kg Intake: Intake, IV Titration 1860 Amount ACETAMINOPHEN IV (For NPO 200 ) 1,000 mg In Empty Bag 1 bag @ 400 mls/hr IVPB Q6H [facility] Rx#:[id number] Amino Acid 5%-D20w+Lytes* 60 E* 1,000 ml @ 84 mls/hr IV .BY DURATION [facility] Rx#: [id number] Dextrose 5%-0.45% NaCl 1, 1250 000 ml @ 125 mls/hr IV . Q8H [facility] Rx#:[id number] Piperacillin-Tazobactam 3 200 .375 gm In Sodium Chloride 0.9% 100 ml @ 25 mls/hr IVPB Q8H [facility] Rx#: [id number] Sodium Chloride 0.9% 1, 150 000 ml @ 75 mls/hr IV . [id number] [facility] Rx#:[id number] Oral 0 Output: Drainage 40 Abdomen 40 Urine 1250 1175 Other 30 Other: Voiding Method Indwelling Catheter Indwelling Catheter Indwelling Catheter - Exam GENERAL DESCRIPTION: An elderly male lying in bed in no distress RESPIRATORY SYSTEM: Unlabored breathing , decreased breath sounds at bases HEART: S1 S2 regular rate and rhythm , ABDOMEN: Soft , mild tenderness EXTREMITIES: No edema feet - Labs CBC & Chem 7: 01/04/24 07:04 01/04/24 07:04 Labs: Abnormal Lab Results - Last 24 Hours (Table) 01/02/24 01/02/24 01/02/24 Range/Units 07:19 07:19 14:06 WBC 13.93 H (4.50-10.00) X 10*3/uL RBC 3.55 L (4.40-5.60) X 10*6/uL Hgb 11.2 L (13.0-17.0) g/dL Hct 35.2 L (39.6-50.0) % MCV 99.2 H (80.0-97.0) FL MCHC 31.8 L (32.0-37.0) g/dL Immature Gran # 0.06 H (0.00-0.04) X 10*3/uL Neutrophils # 11.60 H (1.80-7.70) X 10*3/uL Lymphocytes # 0.61 L (0.90-5.00) X 10*3/uL Monocytes # 1.54 H (0.20-1.00) X 10*3/uL Chloride (98-107) mmol/L Glucose 111 H (70-110) mg/dL POC Glucose (mg/dL) (70-110) mg/dL Phosphorus 2.2 L (2.5-4.5) mg/dL ALT 6 L (10-49) U/L Total Protein 5.6 L (6.2-8.2) g/dL Albumin 3.1 L (3.8-4.9) g/dL Albumin/Globulin Ratio 1.24 L (1.60-3.17) Ratio 01/03/24 01/03/24 01/03/24 Range/Units 06:22 06:56 06:56 WBC 11.92 H (4.50-10.00) X 10*3/uL RBC 3.42 L (4.40-5.60) X 10*6/uL Hgb 10.9 L (13.0-17.0) g/dL Hct 33.3 L (39.6-50.0) % MCV 97.4 H (80.0-97.0) FL MCHC (32.0-37.0) g/dL Immature Gran # 0.06 H (0.00-0.04) X 10*3/uL Neutrophils # 10.11 H (1.80-7.70) X 10*3/uL Lymphocytes # 0.49 L (0.90-5.00) X 10*3/uL Monocytes # 1.13 H (0.20-1.00) X 10*3/uL Chloride 113 H (98-107) mmol/L Glucose 114 H (70-110) mg/dL POC Glucose (mg/dL) 130 H (70-110) mg/dL Phosphorus (2.5-4.5) mg/dL ALT (10-49) U/L Total Protein 5.8 L (6.2-8.2) g/dL Albumin 2.7 L (3.8-4.9) g/dL Albumin/Globulin Ratio (1.60-3.17) Ratio Assessment and Plan (1) Diverticulitis Current Visit: Yes Status: Acute Code(s): K57.92 - DVTRCLI OF INTEST, PART UNSP, W/O PERF OR ABSCESS W/O BLEED SNOMED Code(s): 122110112 (2) Intra-abdominal abscess Current Visit: No Status: Acute Code(s): K65.1 - PERITONEAL ABSCESS SNOMED Code(s): 98598821 (3) Leukocytosis Current Visit: No Status: Acute Code(s): D72.829 - ELEVATED WHITE BLOOD CELL COUNT, UNSPECIFIED SNOMED Code(s): 629040871 Plan: 1-patient with a history of complicated diverticulitis with a peridiverticular abscess failing outpatient extensive systemic antibiotic therapy in the form of IV Unasyn with repeat CAT scan showing a thick-walled cavity however decrease inflammation 2-patient is status post laparotomy with sigmoid colectomy and end colostomy did not mention any abscess and no culture was done 3-patient did have some clinical improvement and the patient white count is trending down, 4-patient to continue with the Zosyn while inpatient and monitor clinical course closely is at the bedside questions were answered Dictation was produced using [employer] dictation software. please excuse any grammatical, word or spelling errors. Time with Patient: Less than 30
--- NOTE | 2024-01-04 09:41 | P.PN ---
Subjective Progress Note Date: 01/04/24 This is a 78-year-old male patient who was sent to the ER for evaluation per infectious disease. Patient has extensive medical history including recent treatment for GI bleed secondary to severe diverticulosis with development of left pelvic abscess patient was discharged on 12/05/2023 on IV antibiotics. According to patient he had follow-up CTs per infectious disease showing worsening abscess. Patient denies any further episodes of acute symptoms. Patient reports he has been receiving outpatient IV antibiotics as ordered through PICC line without issue. 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 History of dysphasia previously requiring PEG tube this was removed. History of Parkinson's disease, history of essential hypertension and BPH. Most recent CT completed on 12/23/2023 showing persistent thick walled collection with the midpelvis without significant adjacent inflammatory change this is enlarged from comparison and contains fecal debris. At this time patient has been started on IV Zosyn infectious disease and surgical service is consulted. Patient denies chest pain or shortness breath. Patient denies nausea vomiting or diarrhea. Patient denies any urinary burning or frequency. White blood cell noted to be elevated at 14.3. Current vital signs temp 97.6, heart rate 56, respiratory rate 18, blood pressure 172/88 with a pulse ox 97% home meds resumed including blood pressure medication. On 12/31/2023 patient was seen and examined on the medical floor, he is alert and oriented 3 in no apparent distress, he is complaining of abdominal pain, otherwise he denies any complaints, there is no fever or chills no headache or dizziness no chest pain no shortness of breath no cough no nausea or vomiting no diarrhea and no urinary symptoms. 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 Vital exam reveals a temperature of 98.7 pulse 73 respiration 15 blood pressure 147/84 pulse ox 95% on room air white blood count is 5.7 hemoglobin 12.9 platelet count 250. On 01/01/2024 patient was seen and examined on the medical floor he is alert and oriented 3 in no apparent distress he is still complaining of abdominal pain otherwise no complaints, there is no fever or chills no headache or dizziness no chest pain no shortness of breath no cough no nausea or vomiting no diarrhea no blood in the stools no burning with urination no frequency or urgency and no hematuria. Input from cardiology reviewed, patient is followed by infectious disease and general surgery. We will continue to follow closely. On 01/02/2024 patient was seen and examined on the medical floor he is alert and oriented 3 in no apparent distress he is sitting up in a chair, this morning he was having difficulty swallowing his pills, speech therapy consult was requested, he is still complaining of abdominal pain otherwise he denies any complaints there is no fever or chills no headache or dizziness no chest pain no shortness of breath no cough no nausea or vomiting no diarrhea no blood in the stools and no urinary symptoms. On 01/03/2024 patient was seen and examined on the medical floor he is alert and oriented 3 in no apparent distress he is sitting up in a chair, this morning he was having difficulty swallowing his pills, speech therapy consult was requested, he is still complaining of abdominal pain otherwise he denies any complaints there is no fever or chills no headache or dizziness no chest pain no shortness of breath no cough no nausea or vomiting no diarrhea no blood in the stools and no urinary symptoms. Patient has evidence of thrush, nystatin mouthwash was admitted, he is also complaining of difficulty sleeping, melatonin 10 mg at bedtime was added. He was started on clear liquid diet by general surgery. On 01/04/2024 patient's alert and oriented 3. Patient remains on clear liquid diet. Patient remains on IV Zosyn. Patient remains on TPN. Surgical services and infectious disease service is following. Chest pain or shortness breath. Patient denies nausea vomiting or diarrhea. Patient denies any urinary burning or frequency Objective - Vital Signs Vital signs: Vital Signs Temp 98.3 F 01/04/24 07:40 Pulse 73 01/04/24 07:40 Resp 18 01/04/24 07:40 BP 178/87 01/04/24 07:40 Pulse Ox 98 01/04/24 09:09 FiO2 Intake & Output 01/03/24 01/04/24 01/04/24 18:59 06:59 18:59 Intake Total 300 Output Total 960 935 Balance -660 935 Intake: Oral 300 Output: Drainage 110 60 Abdomen 110 60 Urine 850 825 Stool 50 Other: Voiding Method Indwelling Catheter Indwelling Catheter - Exam Head normocephalic Neck supple Lungs clear to auscultation bilaterally no wheezing or crackles Heart regular rate and rhythm S1-S2, no rub or gallop Abdomen is soft nontender nondistended positive bowel sounds no hepatosplenomegaly Extremities no edema Neuro alert and orientated to 3. Left facial droop and hemiparesis on left side from previous stroke - Labs CBC & Chem 7: 01/04/24 07:04 01/04/24 07:04 Labs: Abnormal Lab Results - Last 24 Hours (Table) 01/03/24 01/03/24 01/04/24 Range/Units 06:56 12:19 00:35 WBC 11.92 H (4.50-10.00) X 10*3/uL RBC 3.42 L (4.40-5.60) X 10*6/uL Hgb 10.9 L (13.0-17.0) g/dL Hct 33.3 L (39.6-50.0) % MCV 97.4 H (80.0-97.0) FL Immature Gran # 0.06 H (0.00-0.04) X 10*3/uL Neutrophils # 10.11 H (1.80-7.70) X 10*3/uL Lymphocytes # 0.49 L (0.90-5.00) X 10*3/uL Monocytes # 1.13 H (0.20-1.00) X 10*3/uL Chloride (98-107) mmol/L Glucose (74-99) mg/dL POC Glucose (mg/dL) 112 H 123 H (70-110) mg/dL Alkaline Phosphatase (38-126) U/L Total Protein (6.3-8.2) g/dL Albumin (3.5-5.0) g/dL 01/04/24 01/04/24 Range/Units 07:04 07:04 WBC (4.50-10.00) X 10*3/uL RBC 3.45 L (4.40-5.60) X 10*6/uL Hgb 10.9 L (13.0-17.0) g/dL Hct 34.7 L (39.6-50.0) % MCV 100.5 H (80.0-97.0) FL Immature Gran # (0.00-0.04) X 10*3/uL Neutrophils # 7.9 H (1.80-7.70) X 10*3/uL Lymphocytes # 0.5 L (0.90-5.00) X 10*3/uL Monocytes # (0.20-1.00) X 10*3/uL Chloride 111 H (98-107) mmol/L Glucose 127 H (74-99) mg/dL POC Glucose (mg/dL) (70-110) mg/dL Alkaline Phosphatase 148 H (38-126) U/L Total Protein 5.6 L (6.3-8.2) g/dL Albumin 2.6 L (3.5-5.0) g/dL Microbiology - Last 24 Hours (Table) 12/29/23 18:00 Blood Culture - Final Blood Assessment and Plan Assessment: 1. Worsening left pelvic abscess. 2. History of GI bleed secondary to severe diverticulosis with development of abscess patient was discharged 12/05/2022 for IV antibiotics 3. 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 Aspirin currently on hold 4. History of dysphagia requiring PEG tube in the past. peg tube has been removed 5. History of Parkinson's disease 6. History of BPH 7. oral thrush. Patient started on nystatin DVT DVT prophylaxis heparin. GI prophylaxis Protonix Infectious disease and surgical service is consulted Status post sigmoid colectomy with end colostomy on 12/31/2023 Patient started on clear liquid diet Maintained on antibiotics Maintained on TPN
--- NOTE | 2024-01-04 10:12 | P.PN ---
Subjective Progress Note Date: 01/04/24 Principal diagnosis: Lai's procedure Patient doing well today. Pain is improving. Says it is a 5 out of 10. White blood cell count 9.4. Tolerating nectar thickened liquids. Small amount of stool in the ostomy bag. Appetite improving. White blood cell count 9.4. Objective - Vital Signs Vital signs: Vital Signs Temp 98.3 F 01/04/24 07:40 Pulse 73 01/04/24 07:40 Resp 18 01/04/24 07:40 BP 178/87 01/04/24 07:40 Pulse Ox 98 01/04/24 09:09 FiO2 Intake & Output 01/03/24 01/04/24 01/04/24 18:59 06:59 18:59 Intake Total 300 Output Total 960 935 Balance -660 -935 Intake: Oral 300 Output: Drainage 110 60 Abdomen 110 60 Urine 850 825 Stool 50 Other: Voiding Method Indwelling Catheter Indwelling Catheter - Exam Abdomen: Soft, nondistended, dressing clean and dry, ostomy with small amount of stool - Labs CBC & Chem 7: 01/04/24 07:04 01/04/24 07:04 Labs: Abnormal Lab Results - Last 24 Hours (Table) 01/03/24 01/04/24 01/04/24 Range/Units 12:19 00:35 07:04 RBC (4.30-5.90) m/uL Hgb (13.0-17.5) gm/dL Hct (39.0-53.0) % MCV (80.0-100.0) fL Neutrophils # (1.3-7.7) k/uL Lymphocytes # (1.0-4.8) k/uL Chloride 111 H (98-107) mmol/L Glucose 127 H (74-99) mg/dL POC Glucose (mg/dL) 112 H 123 H (70-110) mg/dL Alkaline Phosphatase 148 H (38-126) U/L Total Protein 5.6 L (6.3-8.2) g/dL Albumin 2.6 L (3.5-5.0) g/dL 01/04/24 Range/Units 07:04 RBC 3.45 L (4.30-5.90) m/uL Hgb 10.9 L (13.0-17.5) gm/dL Hct 34.7 L (39.0-53.0) % MCV 100.5 H (80.0-100.0) fL Neutrophils # 7.9 H (1.3-7.7) k/uL Lymphocytes # 0.5 L (1.0-4.8) k/uL Chloride (98-107) mmol/L Glucose (74-99) mg/dL POC Glucose (mg/dL) (70-110) mg/dL Alkaline Phosphatase (38-126) U/L Total Protein (6.3-8.2) g/dL Albumin (3.5-5.0) g/dL Microbiology - Last 24 Hours (Table) 12/29/23 18:00 Blood Culture - Final Blood Assessment and Plan (1) Diverticulitis Narrative/Plan: Patient gradually improving. Advance to full liquids. Ambulate. Physical therapy. Continue antibiotics. Current Visit: Yes Status: Acute Code(s): K57.92 - DVTRCLI OF INTEST, PART UNSP, W/O PERF OR ABSCESS W/O BLEED SNOMED Code(s): 407077185
--- NOTE | 2024-01-04 10:39 | P.PN ---
Subjective Progress Note Date: 01/04/24 This is a 78-year-old male patient who was sent to the ER for evaluation per infectious disease. Patient has extensive medical history including recent treatment for GI bleed secondary to severe diverticulosis with development of left pelvic abscess patient was discharged on 12/05/2023 on IV antibiotics. According to patient he had follow-up CTs per infectious disease showing worsening abscess. Patient denies any further episodes of acute symptoms. Patient reports he has been receiving outpatient IV antibiotics as ordered through PICC line without issue. 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 History of dysphasia previously requiring PEG tube this was removed. History of Parkinson's disease, history of essential hypertension and BPH. Most recent CT completed on 12/23/2023 showing persistent thick walled collection with the midpelvis without significant adjacent inflammatory change this is enlarged from comparison and contains fecal debris. At this time patient has been started on IV Zosyn infectious disease and surgical service is consulted. Patient denies chest pain or shortness breath. Patient denies nausea vomiting or diarrhea. Patient denies any urinary burning or frequency. White blood cell noted to be elevated at 14.3. Current vital signs temp 97.6, heart rate 56, respiratory rate 18, blood pressure 172/88 with a pulse ox 97% home meds resumed including blood pressure medication. On 12/31/2023 patient was seen and examined on the medical floor, he is alert and oriented 3 in no apparent distress, he is complaining of abdominal pain, otherwise he denies any complaints, there is no fever or chills no headache or dizziness no chest pain no shortness of breath no cough no nausea or vomiting no diarrhea and no urinary symptoms. 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 Vital exam reveals a temperature of 98.7 pulse 73 respiration 15 blood pressure 147/84 pulse ox 95% on room air white blood count is 5.7 hemoglobin 12.9 platelet count 250. On 01/01/2024 patient was seen and examined on the medical floor he is alert and oriented 3 in no apparent distress he is still complaining of abdominal pain otherwise no complaints, there is no fever or chills no headache or dizziness no chest pain no shortness of breath no cough no nausea or vomiting no diarrhea no blood in the stools no burning with urination no frequency or urgency and no hematuria. Input from cardiology reviewed, patient is followed by infectious disease and general surgery. We will continue to follow closely. On 01/02/2024 patient was seen and examined on the medical floor he is alert and oriented 3 in no apparent distress he is sitting up in a chair, this morning he was having difficulty swallowing his pills, speech therapy consult was requested, he is still complaining of abdominal pain otherwise he denies any complaints there is no fever or chills no headache or dizziness no chest pain no shortness of breath no cough no nausea or vomiting no diarrhea no blood in the stools and no urinary symptoms. On 01/03/2024 patient was seen and examined on the medical floor he is alert and oriented 3 in no apparent distress he is sitting up in a chair, this morning he was having difficulty swallowing his pills, speech therapy consult was requested, he is still complaining of abdominal pain otherwise he denies any complaints there is no fever or chills no headache or dizziness no chest pain no shortness of breath no cough no nausea or vomiting no diarrhea no blood in the stools and no urinary symptoms. Patient has evidence of thrush, nystatin mouthwash was admitted, he is also complaining of difficulty sleeping, melatonin 10 mg at bedtime was added. He was started on clear liquid diet by general surgery. On 01/04/2024 patient's alert and oriented 3. Patient remains on clear liquid diet. Patient remains on IV Zosyn. Patient remains on TPN. Surgical services and infectious disease service is following. Chest pain or shortness breath. Patient denies nausea vomiting or diarrhea. Patient denies any urinary burning or frequency Objective - Vital Signs Vital signs: Vital Signs Temp 98.3 F 01/04/24 07:40 Pulse 73 01/04/24 07:40 Resp 18 01/04/24 07:40 BP 178/87 01/04/24 07:40 Pulse Ox 98 01/04/24 09:09 FiO2 Intake & Output 01/03/24 01/04/24 01/04/24 18:59 06:59 18:59 Intake Total 300 Output Total 960 935 Balance -660 935 Intake: Oral 300 Output: Drainage 110 60 Abdomen 110 60 Urine 850 825 Stool 50 Other: Voiding Method Indwelling Catheter Indwelling Catheter - Exam Head normocephalic Neck supple Lungs clear to auscultation bilaterally no wheezing or crackles Heart regular rate and rhythm S1-S2, no rub or gallop Abdomen is soft nontender nondistended positive bowel sounds no hepatosplenomegaly Extremities no edema Neuro alert and orientated to 3. Left facial droop and hemiparesis on left side from previous stroke - Labs CBC & Chem 7: 01/04/24 07:04 01/04/24 07:04 Labs: Abnormal Lab Results - Last 24 Hours (Table) 01/03/24 01/04/24 01/04/24 Range/Units 12:19 00:35 07:04 RBC (4.30-5.90) m/uL Hgb (13.0-17.5) gm/dL Hct (39.0-53.0) % MCV (80.0-100.0) fL Neutrophils # (1.3-7.7) k/uL Lymphocytes # (1.0-4.8) k/uL Chloride 111 H (98-107) mmol/L Glucose 127 H (74-99) mg/dL POC Glucose (mg/dL) 112 H 123 H (70-110) mg/dL Alkaline Phosphatase 148 H (38-126) U/L Total Protein 5.6 L (6.3-8.2) g/dL Albumin 2.6 L (3.5-5.0) g/dL 01/04/24 Range/Units 07:04 RBC 3.45 L (4.30-5.90) m/uL Hgb 10.9 L (13.0-17.5) gm/dL Hct 34.7 L (39.0-53.0) % MCV 100.5 H (80.0-100.0) fL Neutrophils # 7.9 H (1.3-7.7) k/uL Lymphocytes # 0.5 L (1.0-4.8) k/uL Chloride (98-107) mmol/L Glucose (74-99) mg/dL POC Glucose (mg/dL) (70-110) mg/dL Alkaline Phosphatase (38-126) U/L Total Protein (6.3-8.2) g/dL Albumin (3.5-5.0) g/dL Microbiology - Last 24 Hours (Table) 12/29/23 18:00 Blood Culture - Final Blood Assessment and Plan Assessment: 1. Worsening left pelvic abscess. 2. History of GI bleed secondary to severe diverticulosis with development of abscess patient was discharged 12/05/2022 for IV antibiotics 3. 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 Aspirin currently on hold 4. History of dysphagia requiring PEG tube in the past. peg tube has been removed 5. History of Parkinson's disease 6. History of BPH DVT DVT prophylaxis SCDs. GI prophylaxis Protonix Infectious disease and surgical service is consulted Patient started on IV antibiotics Repeat labs ordered
[2024-01-04 12:40] LABS: Glucose,Whole Blood 111 mg/dL (70-110)
[2024-01-04] MEDS: MAGNESIUM SULFATE-D5W PMX 1 GM in DEXTROSE/WATER 1 100ML.BAG IVPB SCH (12:50)
--- NOTE | 2024-01-04 12:54 | XR ---
EXAMINATION TYPE: XR chest 1V portable DATE OF EXAM: 01/04/2024 HISTORY: Shortness of breath. COMPARISON: None. TECHNIQUE: Single view of the chest is submitted. FINDINGS: Demonstrated are scattered senescent parenchymal change. There is evidence of pneumoperitoneum under neath the right hemidiaphragm. Correlate with any recent surgical intervention otherwise continue bow el perforation is not excluded. There is no evidence for focal infiltrate. The heart is stable. Hilar and mediastinal structures are within normal limits. Degenerative changes are seen of the dorsal spine. IMPRESSION: 1. Chronic changes without evidence for acute pulmonary disease. 2. There is evidence of pneumoperitoneum underneath the right hemidiaphragm. Correlate with any recen t surgical intervention otherwise continue bowel perforation is not excluded.
--- NOTE | 2024-01-04 16:31 | P.PN ---
Subjective Progress Note Date: 01/04/24 Principal diagnosis: Reason for follow-up is intra-abdominal abscess and complicated diverticulitis Patient is a 78-year-old male with a past medical history for hyperte nsion hyperlipidemia CVA reflux patient was recently admitted to the hospital and was diagnosed with a diverticulitis and peridiverticular abscess for the patient and received extensive IV antibiotic therapy however was still noticed to have a abscess on follow-up CT 4 the patient has been admitted to the hospital. Patient is status post sigmoid colectomy with end colostomy evidence of perforated diverticulitis with fistulization to the lateral pelvic wall however did not mention any abscess and no culture was done. On today's evaluation that is 01/04/2024, the patient remains to be afebrile, patient is breathing comfortably on room air and no need for supplemental oxygen, the patient denies chest pain shortness of breath or cough, patient denies any nausea no vomiting abdominal pain is controlled did have output in colostomy started on a clear liquid diet Patient white count normalized to 9.4, creatinine 0.7 Objective - Vital Signs Vital signs: Vital Signs Temp 97.3 F L 01/04/24 12:33 Pulse 66 01/04/24 12:33 Resp 16 01/04/24 12:33 BP 141/83 01/04/24 12:33 Pulse Ox 99 01/04/24 12:33 FiO2 Intake & Output 01/03/24 01/04/24 01/04/24 18:59 06:59 18:59 Intake Total 300 Output Total 960 935 80 Balance -660 -935 -80 Intake: Oral 300 Output: Drainage 110 60 30 Abdomen 110 60 30 Urine 850 825 Stool 50 50 Other: Voiding Method Indwelling Catheter Indwelling Catheter Indwelling Catheter - Exam GENERAL DESCRIPTION: An elderly male lying in bed in no distress RESPIRATORY SYSTEM: Unlabored breathing , decreased breath sounds at bases HEART: S1 S2 regular rate and rhythm , ABDOMEN: Soft , mild tenderness EXTREMITIES: No edema feet - Labs CBC & Chem 7: 01/04/24 07:04 01/04/24 07:04 Labs: Abnormal Lab Results - Last 24 Hours (Table) 01/04/24 01/04/24 01/04/24 Range/Units 00:35 07:04 07:04 RBC 3.45 L (4.30-5.90) m/uL Hgb 10.9 L (13.0-17.5) gm/dL Hct 34.7 L (39.0-53.0) % MCV 100.5 H (80.0-100.0) fL Neutrophils # 7.9 H (1.3-7.7) k/uL Lymphocytes # 0.5 L (1.0-4.8) k/uL Chloride 111 H (98-107) mmol/L Glucose 127 H (74-99) mg/dL POC Glucose (mg/dL) 123 H (70-110) mg/dL Alkaline Phosphatase 148 H (38-126) U/L Total Protein 5.6 L (6.3-8.2) g/dL Albumin 2.6 L (3.5-5.0) g/dL 01/04/24 Range/Units 12:34 RBC (4.30-5.90) m/uL Hgb (13.0-17.5) gm/dL Hct (39.0-53.0) % MCV (80.0-100.0) fL Neutrophils # (1.3-7.7) k/uL Lymphocytes # (1.0-4.8) k/uL Chloride (98-107) mmol/L Glucose (74-99) mg/dL POC Glucose (mg/dL) 111 H (70-110) mg/dL Alkaline Phosphatase (38-126) U/L Total Protein (6.3-8.2) g/dL Albumin (3.5-5.0) g/dL Microbiology - Last 24 Hours (Table) 12/29/23 18:00 Blood Culture - Final Blood Assessment and Plan (1) Diverticulitis Current Visit: Yes Status: Acute Code(s): K57.92 - DVTRCLI OF INTEST, PART UNSP, W/O PERF OR ABSCESS W/O BLEED SNOMED Code(s): 552883581 (2) Intra-abdominal abscess Current Visit: No Status: Acute Code(s): K65.1 - PERITONEAL ABSCESS SNOMED Code(s): 46299394 (3) Leukocytosis Current Visit: No Status: Acute Code(s): D72.829 - ELEVATED WHITE BLOOD CELL COUNT, UNSPECIFIED SNOMED Code(s): 261521745 Plan: 1-patient with a history of complicated diverticulitis with a peridiverticular abscess failing outpatient extensive systemic antibiotic therapy in the form of IV Unasyn with repeat CAT scan showing a thick-walled cavity however decrease inflammation 2-patient is status post laparotomy with sigmoid colectomy and end colostomy did not mention any abscess and no culture was done 3-patient did have some clinical improvement and the patient white count is trending down, 4-patient to continue with the Zosyn while inpatient and hopefully transition to short course of oral antibiotic on discharge and PICC line will be discontinued at the bedside she was updated about his care Dictation was produced using [employer] dictation software. please excuse any grammatical, word or spelling errors. Time with Patient: Less than 30
[2024-01-04 17:39] LABS: Glucose,Whole Blood 108 mg/dL (70-110)
[2024-01-04 23:51] LABS: Glucose,Whole Blood 128 mg/dL (70-110)
[2024-01-05 05:53] LABS: Glucose,Whole Blood 112 mg/dL (70-110)
[2024-01-05 07:25] LABS: ALT <6 U/L (4-49); AST 20 U/L (17-59); African American GFR (CKD) >90 (>60 ml/min/1.73 sqM); Albumin 2.4 g/dL (3.5-5.0); Albumin/Globulin Ratio 0.8; Alkaline Phosphatase 131 U/L (38-126); Anion Gap 3 mmol/L; Blood Urea Nitrogen 19 mg/dL (9-20); Calcium 8.3 mg/dL (8.4-10.2); Carbon Dioxide 26 mmol/L (22-30); Chloride 112 mmol/L (98-107); Globulin 2.9 g/dL; Glucose 122 mg/dL (74-99); Magnesium 1.7 mg/dL (1.6-2.3); Non-African American GFR(CKD) 89 (>60 ml/min/1.73 sqM); Phosphorus 3.1 mg/dL (2.5-4.5); Potassium 3.9 mmol/L (3.5-5.1); Sodium 141 mmol/L (137-145); Total Bilirubin 0.9 mg/dL (0.2-1.3); Total Protein 5.3 g/dL (6.3-8.2)
[2024-01-05 07:39] LABS: Glucose,Whole Blood 116 mg/dL (70-110)
[2024-01-05 08:45] LABS: HCT 31.2 % (39.6-50.0); HGB 10.2 g/dL (13.0-17.0); MCHC 32.7 g/dL (32.0-37.0); MCV 97.8 FL (80.0-97.0); Mean Platelet Volume 10.3 FL (9.5-12.2); NRBC Per 100 WBC 0 X 10*3/uL (0.00-0.01); Platelet Count 249 X 10*3/uL (140-440); RBC 3.19 X 10*6/uL (4.40-5.60); RDW 12.7 % (11.5-14.5); WBC 7.72 X 10*3/uL (4.50-10.00)
[2024-01-05 08:46] LABS: Basophils # (A) 0.03 X 10*3/uL (0.00-0.10); Basophils % (A) 0.4 %; Eosinophils # (A) 0.26 X 10*3/uL (0.04-0.35); Eosinophils % (A) 3.4 %; Lymphocytes # (A) 0.51 X 10*3/uL (0.90-5.00); Lymphocytes % (A) 6.6 %; Monocytes # (A) 0.81 X 10*3/uL (0.20-1.00); Monocytes % (A) 10.5 %; Neutrophils # (A) 6.08 X 10*3/uL (1.80-7.70); Neutrophils % (A) 78.7 %
[2024-01-05] MEDS: MAGNESIUM SULFATE-D5W PMX 1 GM in DEXTROSE/WATER 1 100ML.BAG IVPB ONE (09:18)
[2024-01-05 12:04] LABS: Glucose,Whole Blood 90 mg/dL (70-110)
--- NOTE | 2024-01-05 12:19 | P.PN ---
Subjective Progress Note Date: 01/05/24 CHIEF COMPLAINT: Perforated diverticulitis HISTORY OF PRESENT ILLNESS: Patient is postop day #5 status post sigmoid colectomy with end colostomy. Patient having air and liquid stool from ostomy. Pain is controlled. He has been up and ambulating. Harrison catheter to be removed today. Afebrile. CBC 7.72 Hgb 10.2 platelets 249 sodium 141 potassium 3.9 creatinine 0.73. PHYSICAL EXAM: VITAL SIGNS: Reviewed. GENERAL: Well-developed in no acute distress. ABDOMEN: Soft. Nondistended. Mild tenderness at incision site. Incision site clean dry and intact. Colostomy bag with liquidy stool. Stoma pink. NEUROLOGIC: Alert and oriented. Cranial nerves II through XII grossly intact. ASSESSMENT: 1. Perforated diverticulitis with fistulization into lateral pelvic wall PLAN: -Advance diet to regular -Wean off TPN -Patient can be discharged from surgical standpoint when medically cleared -Ostomy teaching again today -Discontinue IV fluids -Discontinue Harrison catheter -GI prophylaxis Protonix and DVT prophylaxis subcu heparin Physician Delivery Associate note has been reviewed by physician. Signing provider agrees with the documented findings, assessment, and plan of care. Objective - Vital Signs Vital signs: Vital Signs Temp 97.8 F 01/05/24 07:37 Pulse 70 01/05/24 07:37 Resp 17 01/05/24 07:37 BP 158/82 01/05/24 07:37 Pulse Ox 97 01/05/24 07:37 FiO2 Intake & Output 01/04/24 01/05/24 01/05/24 18:59 06:59 18:59 Intake Total 1131 Output Total 985 1125 Balance 146 -1125 Intake: Intake, IV Titration 1011 Amount Mvi, Adult No.4 with Vit 1011 K 10 ml Trace (Conc-1Ml/ Dose) 1 ml In Amino Acid 5%-D20w+Lytes*E* 1,000 ml @ 84 mls/hr IV .[facility] Rx#: [id number] Oral 120 Output: Drainage 85 50 Abdomen 85 50 Urine 850 1025 Stool 50 50 Other: Voiding Method Indwelling Catheter Indwelling Catheter Indwelling Catheter - Labs CBC & Chem 7: 01/05/24 06:23 01/05/24 06:23 Labs: Abnormal Lab Results - Last 24 Hours (Table) 01/04/24 01/04/24 01/05/24 Range/Units 12:34 23:48 05:50 RBC (4.40-5.60) X 10*6/uL Hgb (13.0-17.0) g/dL Hct (39.6-50.0) % MCV (80.0-97.0) FL Lymphocytes # (0.90-5.00) X 10*3/uL Chloride (98-107) mmol/L Glucose (74-99) mg/dL POC Glucose (mg/dL) 111 H 128 H 112 H (70-110) mg/dL Calcium (8.4-10.2) mg/dL Alkaline Phosphatase (38-126) U/L Total Protein (6.3-8.2) g/dL Albumin (3.5-5.0) g/dL 01/05/24 01/05/24 01/05/24 Range/Units 06:23 06:23 07:37 RBC 3.19 L (4.40-5.60) X 10*6/uL Hgb 10.2 L (13.0-17.0) g/dL Hct 31.2 L (39.6-50.0) % MCV 97.8 H (80.0-97.0) FL Lymphocytes # 0.51 L (0.90-5.00) X 10*3/uL Chloride 112 H (98-107) mmol/L Glucose 122 H (74-99) mg/dL POC Glucose (mg/dL) 116 H (70-110) mg/dL Calcium 8.3 L (8.4-10.2) mg/dL Alkaline Phosphatase 131 H (38-126) U/L Total Protein 5.3 L (6.3-8.2) g/dL Albumin 2.4 L (3.5-5.0) g/dL
--- NOTE | 2024-01-05 13:21 | P.PN ---
Subjective Progress Note Date: 01/05/24 This is a 78-year-old male patient who was sent to the ER for evaluation per infectious disease. Patient has extensive medical history including recent treatment for GI bleed secondary to severe diverticulosis with development of left pelvic abscess patient was discharged on 12/05/2023 on IV antibiotics. According to patient he had follow-up CTs per infectious disease showing worsening abscess. Patient denies any further episodes of acute symptoms. Patient reports he has been receiving outpatient IV antibiotics as ordered through PICC line without issue. 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 History of dysphasia previously requiring PEG tube this was removed. History of Parkinson's disease, history of essential hypertension and BPH. Most recent CT completed on 12/23/2023 showing persistent thick walled collection with the midpelvis without significant adjacent inflammatory change this is enlarged from comparison and contains fecal debris. At this time patient has been started on IV Zosyn infectious disease and surgical service is consulted. Patient denies chest pain or shortness breath. Patient denies nausea vomiting or diarrhea. Patient denies any urinary burning or frequency. White blood cell noted to be elevated at 14.3. Current vital signs temp 97.6, heart rate 56, respiratory rate 18, blood pressure 172/88 with a pulse ox 97% home meds resumed including blood pressure medication. On 12/31/2023 patient was seen and examined on the medical floor, he is alert and oriented 3 in no apparent distress, he is complaining of abdominal pain, otherwise he denies any complaints, there is no fever or chills no headache or dizziness no chest pain no shortness of breath no cough no nausea or vomiting no diarrhea and no urinary symptoms. 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 Vital exam reveals a temperature of 98.7 pulse 73 respiration 15 blood pressure 147/84 pulse ox 95% on room air white blood count is 5.7 hemoglobin 12.9 platelet count 250. On 01/01/2024 patient was seen and examined on the medical floor he is alert and oriented 3 in no apparent distress he is still complaining of abdominal pain otherwise no complaints, there is no fever or chills no headache or dizziness no chest pain no shortness of breath no cough no nausea or vomiting no diarrhea no blood in the stools no burning with urination no frequency or urgency and no hematuria. Input from cardiology reviewed, patient is followed by infectious disease and general surgery. We will continue to follow closely. On 01/02/2024 patient was seen and examined on the medical floor he is alert and oriented 3 in no apparent distress he is sitting up in a chair, this morning he was having difficulty swallowing his pills, speech therapy consult was requested, he is still complaining of abdominal pain otherwise he denies any complaints there is no fever or chills no headache or dizziness no chest pain no shortness of breath no cough no nausea or vomiting no diarrhea no blood in the stools and no urinary symptoms. On 01/03/2024 patient was seen and examined on the medical floor he is alert and oriented 3 in no apparent distress he is sitting up in a chair, this morning he was having difficulty swallowing his pills, speech therapy consult was requested, he is still complaining of abdominal pain otherwise he denies any complaints there is no fever or chills no headache or dizziness no chest pain no shortness of breath no cough no nausea or vomiting no diarrhea no blood in the stools and no urinary symptoms. Patient has evidence of thrush, nystatin mouthwash was admitted, he is also complaining of difficulty sleeping, melatonin 10 mg at bedtime was added. He was started on clear liquid diet by general surgery. On 01/04/2024 patient's alert and oriented 3. Patient remains on clear liquid diet. Patient remains on IV Zosyn. Patient remains on TPN. Surgical services and infectious disease service is following. Chest pain or shortness breath. Patient denies nausea vomiting or diarrhea. Patient denies any urinary burning or frequency On 01/05/2024 patient was seen and examined on the medical floor he is alert and oriented 3 in no apparent distress, he is complaining of fatigue and generalized weakness otherwise he denies any complaints there is no fever or chills no headache or dizziness no chest pain no shortness of breath no cough no nausea or vomiting no abdominal pain no diarrhea and no urinary symptoms. Diet was advanced to regular diet by general surgery, TPN is being weaned off. Patient is complaining of severe weakness physical therapy and occupational therapy consulted, will follow closely. Objective - Vital Signs Vital signs: Vital Signs Temp 97.8 F 01/05/24 07:37 Pulse 70 01/05/24 07:37 Resp 17 01/05/24 07:37 BP 158/82 01/05/24 07:37 Pulse Ox 97 01/05/24 07:37 FiO2 Intake & Output 01/04/24 01/05/24 01/05/24 18:59 06:59 18:59 Intake Total 1131 Output Total 985 1125 Balance 146 -1125 Intake: Intake, IV Titration 1011 Amount Mvi, Adult No.4 with Vit 1011 K 10 ml Trace (Conc-1Ml/ Dose) 1 ml In Amino Acid 5%-D20w+Lytes*E* 1,000 ml @ 84 mls/hr IV .BY DURATION [facility] Rx#: [id number] Oral 120 Output: Drainage 85 50 Abdomen 85 50 Urine 850 1025 Stool 50 50 Other: Voiding Method Indwelling Catheter Indwelling Catheter Indwelling Catheter - Exam Head normocephalic Neck supple Lungs clear to auscultation bilaterally no wheezing or crackles Heart regular rate and rhythm S1-S2, no rub or gallop Abdomen is soft nontender nondistended positive bowel sounds no hepatosplenomegaly Extremities no edema Neuro alert and orientated to 3. Left facial droop and hemiparesis on left side from previous stroke - Labs CBC & Chem 7: 01/05/24 06:23 01/05/24 06:23 Labs: Abnormal Lab Results - Last 24 Hours (Table) 01/04/24 01/04/24 01/05/24 Range/Units 12:34 23:48 05:50 RBC (4.40-5.60) X 10*6/uL Hgb (13.0-17.0) g/dL Hct (39.6-50.0) % MCV (80.0-97.0) FL Lymphocytes # (0.90-5.00) X 10*3/uL Chloride (98-107) mmol/L Glucose (74-99) mg/dL POC Glucose (mg/dL) 111 H 128 H 112 H (70-110) mg/dL Calcium (8.4-10.2) mg/dL Alkaline Phosphatase (38-126) U/L Total Protein (6.3-8.2) g/dL Albumin (3.5-5.0) g/dL 01/05/24 01/05/24 01/05/24 Range/Units 06:23 06:23 07:37 RBC 3.19 L (4.40-5.60) X 10*6/uL Hgb 10.2 L (13.0-17.0) g/dL Hct 31.2 L (39.6-50.0) % MCV 97.8 H (80.0-97.0) FL Lymphocytes # 0.51 L (0.90-5.00) X 10*3/uL Chloride 112 H (98-107) mmol/L Glucose 122 H (74-99) mg/dL POC Glucose (mg/dL) 116 H (70-110) mg/dL Calcium 8.3 L (8.4-10.2) mg/dL Alkaline Phosphatase 131 H (38-126) U/L Total Protein 5.3 L (6.3-8.2) g/dL Albumin 2.4 L (3.5-5.0) g/dL Assessment and Plan Assessment: 1. Worsening left pelvic abscess. 2. History of GI bleed secondary to severe diverticulosis with development of abscess patient was discharged 12/05/2022 for IV antibiotics 3. 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 Aspirin currently on hold 4. History of dysphagia requiring PEG tube in the past. peg tube has been removed 5. History of Parkinson's disease 6. History of BPH DVT DVT prophylaxis SCDs. GI prophylaxis Protonix Infectious disease and surgical service is consulted Patient started on IV antibiotics Repeat labs ordered
[2024-01-05 18:01] LABS: Glucose,Whole Blood 87 mg/dL (70-110)
[2024-01-06 00:01] LABS: Glucose,Whole Blood 88 mg/dL (70-110)
[2024-01-06 05:55] LABS: Glucose,Whole Blood 91 mg/dL (70-110)
[2024-01-06 07:47] LABS: ALT 10 U/L (4-49); AST 43 U/L (17-59); African American GFR (CKD) >90 (>60 ml/min/1.73 sqM); Albumin 2.7 g/dL (3.5-5.0); Albumin/Globulin Ratio 0.9; Alkaline Phosphatase 183 U/L (38-126); Anion Gap 1 mmol/L; Blood Urea Nitrogen 19 mg/dL (9-20); Calcium 8.7 mg/dL (8.4-10.2); Carbon Dioxide 29 mmol/L (22-30); Chloride 111 mmol/L (98-107); Globulin 3.1 g/dL; Glucose 92 mg/dL (74-99); Magnesium 1.7 mg/dL (1.6-2.3); Non-African American GFR(CKD) 81 (>60 ml/min/1.73 sqM); Phosphorus 3.3 mg/dL (2.5-4.5); Sodium 141 mmol/L (137-145); Total Bilirubin 0.6 mg/dL (0.2-1.3); Total Protein 5.8 g/dL (6.3-8.2)
--- NOTE | 2024-01-06 08:43 | P.PN ---
Subjective Progress Note Date: 01/06/24 This is a 78-year-old male patient who was sent to the ER for evaluation per infectious disease. Patient has extensive medical history including recent treatment for GI bleed secondary to severe diverticulosis with development of left pelvic abscess patient was discharged on 12/05/2023 on IV antibiotics. According to patient he had follow-up CTs per infectious disease showing worsening abscess. Patient denies any further episodes of acute symptoms. Patient reports he has been receiving outpatient IV antibiotics as ordered through PICC line without issue. 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 History of dysphasia previously requiring PEG tube this was removed. History of Parkinson's disease, history of essential hypertension and BPH. Most recent CT completed on 12/23/2023 showing persistent thick walled collection with the midpelvis without significant adjacent inflammatory change this is enlarged from comparison and contains fecal debris. At this time patient has been started on IV Zosyn infectious disease and surgical service is consulted. Patient denies chest pain or shortness breath. Patient denies nausea vomiting or diarrhea. Patient denies any urinary burning or frequency. White blood cell noted to be elevated at 14.3. Current vital signs temp 97.6, heart rate 56, respiratory rate 18, blood pressure 172/88 with a pulse ox 97% home meds resumed including blood pressure medication. On 12/31/2023 patient was seen and examined on the medical floor, he is alert and oriented 3 in no apparent distress, he is complaining of abdominal pain, otherwise he denies any complaints, there is no fever or chills no headache or dizziness no chest pain no shortness of breath no cough no nausea or vomiting no diarrhea and no urinary symptoms. 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 Vital exam reveals a temperature of 98.7 pulse 73 respiration 15 blood pressure 147/84 pulse ox 95% on room air white blood count is 5.7 hemoglobin 12.9 platelet count 250. On 01/01/2024 patient was seen and examined on the medical floor he is alert and oriented 3 in no apparent distress he is still complaining of abdominal pain otherwise no complaints, there is no fever or chills no headache or dizziness no chest pain no shortness of breath no cough no nausea or vomiting no diarrhea no blood in the stools no burning with urination no frequency or urgency and no hematuria. Input from cardiology reviewed, patient is followed by infectious disease and general surgery. We will continue to follow closely. On 01/02/2024 patient was seen and examined on the medical floor he is alert and oriented 3 in no apparent distress he is sitting up in a chair, this morning he was having difficulty swallowing his pills, speech therapy consult was requested, he is still complaining of abdominal pain otherwise he denies any complaints there is no fever or chills no headache or dizziness no chest pain no shortness of breath no cough no nausea or vomiting no diarrhea no blood in the stools and no urinary symptoms. On 01/03/2024 patient was seen and examined on the medical floor he is alert and oriented 3 in no apparent distress he is sitting up in a chair, this morning he was having difficulty swallowing his pills, speech therapy consult was requested, he is still complaining of abdominal pain otherwise he denies any complaints there is no fever or chills no headache or dizziness no chest pain no shortness of breath no cough no nausea or vomiting no diarrhea no blood in the stools and no urinary symptoms. Patient has evidence of thrush, nystatin mouthwash was admitted, he is also complaining of difficulty sleeping, melatonin 10 mg at bedtime was added. He was started on clear liquid diet by general surgery. On 01/04/2024 patient's alert and oriented 3. Patient remains on clear liquid diet. Patient remains on IV Zosyn. Patient remains on TPN. Surgical services and infectious disease service is following. Chest pain or shortness breath. Patient denies nausea vomiting or diarrhea. Patient denies any urinary burning or frequency On 01/05/2024 patient was seen and examined on the medical floor he is alert and oriented 3 in no apparent distress, he is complaining of fatigue and generalized weakness otherwise he denies any complaints there is no fever or chills no headache or dizziness no chest pain no shortness of breath no cough no nausea or vomiting no abdominal pain no diarrhea and no urinary symptoms. Diet was advanced to regular diet by general surgery, TPN is being weaned off. Patient is complaining of severe weakness physical therapy and occupational therapy consulted, will follow closely. On 01/06/2024 patient's alert and oriented 3. Patient has been tolerating diet. Patient complains of general fatigue and weakness. Patient denies chest pain or shortness of breath. Patient denies nausea vomiting or diarrhea. Patient denies any urinary burning or frequency. Awaiting final recommendations per ID for antibiotics upon discharge. Objective - Vital Signs Vital signs: Vital Signs Temp 97.6 F 01/06/24 01:26 Pulse 70 01/06/24 01:26 Resp 18 01/06/24 01:26 BP 161/99 01/06/24 01:26 Pulse Ox 97 01/06/24 01:26 FiO2 Intake & Output 01/05/24 01/06/24 01/06/24 18:59 06:59 18:59 Intake Total 900 Output Total 550 830 Balance 350 -830 Weight 72.575 kg Intake: Intake, IV Titration 900 Amount Sodium Chloride 0.9% 1, 900 000 ml @ 75 mls/hr IV . [id number] [facility] Rx#:[id number] Output: Drainage 50 80 Abdomen 50 80 Urine 500 750 Other: Voiding Method Indwelling Catheter Indwelling Catheter - Exam Head normocephalic Neck supple Lungs clear to auscultation bilaterally no wheezing or crackles Heart regular rate and rhythm S1-S2, no rub or gallop Abdomen is soft nontender nondistended positive bowel sounds no hepatosplenomegaly Extremities no edema Neuro alert and orientated to 3. Left facial droop and hemiparesis on left side from previous stroke - Labs CBC & Chem 7: 01/05/24 06:23 01/06/24 06:29 Labs: Abnormal Lab Results - Last 24 Hours (Table) 01/05/24 01/06/24 Range/Units 06:23 06:29 RBC 3.19 L (4.40-5.60) X 10*6/uL Hgb 10.2 L (13.0-17.0) g/dL Hct 31.2 L (39.6-50.0) % MCV 97.8 H (80.0-97.0) FL Lymphocytes # 0.51 L (0.90-5.00) X 10*3/uL Chloride 111 H (98-107) mmol/L Alkaline Phosphatase 183 H (38-126) U/L Total Protein 5.8 L (6.3-8.2) g/dL Albumin 2.7 L (3.5-5.0) g/dL Assessment and Plan Assessment: 1. Worsening left pelvic abscess. 2. History of GI bleed secondary to severe diverticulosis with development of abscess patient was discharged 12/05/2022 for IV antibiotics 3. 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 Aspirin currently on hold 4. History of dysphagia requiring PEG tube in the past. peg tube has been removed 5. History of Parkinson's disease 6. History of BPH 7. oral thrush. Patient started on nystatin DVT DVT prophylaxis heparin. GI prophylaxis Protonix Infectious disease and surgical service is consulted Status post sigmoid colectomy with end colostomy on 12/31/2023 Patient advanced to regular diet Maintained on antibiotics
--- NOTE | 2024-01-06 12:08 | P.PN ---
Subjective Progress Note Date: 01/05/24 Principal diagnosis: Reason for follow-up is intra-abdominal abscess and complicated diverticulitis Patient is a 78-year-old male with a past medical history for hyperte nsion hyperlipidemia CVA reflux patient was recently admitted to the hospital and was diagnosed with a diverticulitis and peridiverticular abscess for the patient and received extensive IV antibiotic therapy however was still noticed to have a abscess on follow-up CT 4 the patient has been admitted to the hospital. Patient is status post sigmoid colectomy with end colostomy evidence of perforated diverticulitis with fistulization to the lateral pelvic wall however did not mention any abscess and no culture was done. On today's evaluation that is 01/05/2024, the patient continues to be afebrile, patient is breathing comfortably on room air, the patient denies chest pain shortness of breath and no significant cough, patient denies nausea no vomiting, no abdominal pain and no diarrhea, patient abdominal pain has decreased in intensity denies any nausea or vomiting did have output in his colostomy. The patient white count normal at 7.72, creatinine 0.73 Objective - Vital Signs Vital signs: Vital Signs Temp 97.8 F 01/05/24 07:37 Pulse 70 01/05/24 07:37 Resp 17 01/05/24 07:37 BP 158/82 01/05/24 07:37 Pulse Ox 97 01/05/24 07:37 FiO2 Intake & Output 01/04/24 01/05/24 01/05/24 18:59 06:59 18:59 Intake Total 1131 Output Total 985 1125 Balance 146 -1125 Intake: Intake, IV Titration 1011 Amount Mvi, Adult No.4 with Vit 1011 K 10 ml Trace (Conc-1Ml/ Dose) 1 ml In Amino Acid 5%-D20w+Lytes*E* 1,000 ml @ 84 mls/hr IV .[facility] Rx#: [id number] Oral 120 Output: Drainage 85 50 Abdomen 85 50 Urine 850 1025 Stool 50 50 Other: Voiding Method Indwelling Catheter Indwelling Catheter Indwelling Catheter - Exam GENERAL DESCRIPTION: An elderly male lying in bed in no distress RESPIRATORY SYSTEM: Unlabored breathing , decreased breath sounds at bases HEART: S1 S2 regular rate and rhythm , ABDOMEN: Soft , mild tenderness EXTREMITIES: No edema feet - Labs CBC & Chem 7: 01/05/24 06:23 01/06/24 06:29 Labs: Abnormal Lab Results - Last 24 Hours (Table) 01/04/24 01/04/24 01/05/24 Range/Units 12:34 23:48 05:50 RBC (4.40-5.60) X 10*6/uL Hgb (13.0-17.0) g/dL Hct (39.6-50.0) % MCV (80.0-97.0) FL Lymphocytes # (0.90-5.00) X 10*3/uL Chloride (98-107) mmol/L Glucose (74-99) mg/dL POC Glucose (mg/dL) 111 H 128 H 112 H (70-110) mg/dL Calcium (8.4-10.2) mg/dL Alkaline Phosphatase (38-126) U/L Total Protein (6.3-8.2) g/dL Albumin (3.5-5.0) g/dL 01/05/24 01/05/24 01/05/24 Range/Units 06:23 06:23 07:37 RBC 3.19 L (4.40-5.60) X 10*6/uL Hgb 10.2 L (13.0-17.0) g/dL Hct 31.2 L (39.6-50.0) % MCV 97.8 H (80.0-97.0) FL Lymphocytes # 0.51 L (0.90-5.00) X 10*3/uL Chloride 112 H (98-107) mmol/L Glucose 122 H (74-99) mg/dL POC Glucose (mg/dL) 116 H (70-110) mg/dL Calcium 8.3 L (8.4-10.2) mg/dL Alkaline Phosphatase 131 H (38-126) U/L Total Protein 5.3 L (6.3-8.2) g/dL Albumin 2.4 L (3.5-5.0) g/dL Assessment and Plan (1) Diverticulitis Current Visit: Yes Status: Acute Code(s): K57.92 - DVTRCLI OF INTEST, PART UNSP, W/O PERF OR ABSCESS W/O BLEED SNOMED Code(s): 927939415 (2) Intra-abdominal abscess Current Visit: No Status: Acute Code(s): K65.1 - PERITONEAL ABSCESS SNOMED Code(s): 99319906 (3) Leukocytosis Current Visit: No Status: Acute Code(s): D72.829 - ELEVATED WHITE BLOOD CELL COUNT, UNSPECIFIED SNOMED Code(s): 499774867 Plan: 1-patient with a history of complicated diverticulitis with a peridiverticular abscess failing outpatient extensive systemic antibiotic therapy in the form of IV Unasyn with repeat CAT scan showing a thick-walled cavity however decrease inflammation 2-patient is status post laparotomy with sigmoid colectomy and end colostomy did not mention any abscess and no culture was done 3-patient did have some clinical improvement and the patient white count has normalized 4-patient to continue with the Zosyn while inpatient however no plan for outpatient antibiotic therapy Dictation was produced using [employer] dictation software. please excuse any grammatical, word or spelling errors. Time with Patient: Less than 30
--- NOTE | 2024-01-06 12:10 | P.PN ---
Subjective Progress Note Date: 01/06/24 Principal diagnosis: Reason for follow-up is intra-abdominal abscess and complicated diverticulitis Patient is a 78-year-old male with a past medical history for hyperte nsion hyperlipidemia CVA reflux patient was recently admitted to the hospital and was diagnosed with a diverticulitis and peridiverticular abscess for the patient and received extensive IV antibiotic therapy however was still noticed to have a abscess on follow-up CT 4 the patient has been admitted to the hospital. Patient is status post sigmoid colectomy with end colostomy evidence of perforated diverticulitis with fistulization to the lateral pelvic wall however did not mention any abscess and no culture was done. On today's evaluation that is 01/06/2024, the patient remains to be afebrile, patient is currently breathing comfortably on room air, the patient denies chest pain or cough, patient denies abdominal pain, no nausea no vomiting and did have output in his colostomy Patient white count was 7.7 as of yesterday creatinine 0.91 Objective - Vital Signs Vital signs: Vital Signs Temp 98.6 F 01/06/24 08:00 Pulse 79 01/06/24 08:00 Resp 18 01/06/24 08:00 BP 161/88 01/06/24 08:00 Pulse Ox 97 01/06/24 01:26 FiO2 Intake & Output 01/05/24 01/06/24 01/06/24 18:59 06:59 18:59 Intake Total 900 Output Total 550 830 600 Balance 350 -830 -600 Weight 72.575 kg Intake: Intake, IV Titration 900 Amount Sodium Chloride 0.9% 1, 900 000 ml @ 75 mls/hr IV . [id number] [facility] Rx#:[id number] Output: Drainage 50 80 Abdomen 50 80 Urine 500 750 600 Other: Voiding Method Indwelling Catheter Indwelling Catheter External Catheter - Exam GENERAL DESCRIPTION: An elderly male lying in bed in no distress RESPIRATORY SYSTEM: Unlabored breathing , decreased breath sounds at bases HEART: S1 S2 regular rate and rhythm , ABDOMEN: Soft , no tenderness, he did have output in his colostomy EXTREMITIES: No edema feet - Labs CBC & Chem 7: 01/05/24 06:23 01/06/24 06:29 Labs: Abnormal Lab Results - Last 24 Hours (Table) 01/06/24 Range/Units 06:29 Chloride 111 H (98-107) mmol/L Alkaline Phosphatase 183 H (38-126) U/L Total Protein 5.8 L (6.3-8.2) g/dL Albumin 2.7 L (3.5-5.0) g/dL Assessment and Plan (1) Diverticulitis Current Visit: Yes Status: Acute Code(s): K57.92 - DVTRCLI OF INTEST, PART UNSP, W/O PERF OR ABSCESS W/O BLEED SNOMED Code(s): 753349491 (2) Intra-abdominal abscess Current Visit: No Status: Acute Code(s): K65.1 - PERITONEAL ABSCESS SNOMED Code(s): 40303729 (3) Leukocytosis Current Visit: No Status: Acute Code(s): D72.829 - ELEVATED WHITE BLOOD CELL COUNT, UNSPECIFIED SNOMED Code(s): 355611104 Plan: 1-patient with a history of complicated diverticulitis with a peridiverticular abscess failing outpatient extensive systemic antibiotic therapy in the form of IV Unasyn with repeat CAT scan showing a thick-walled cavity however decrease inflammation 2-patient is status post laparotomy with sigmoid colectomy and end colostomy did not mention any abscess and no culture was done 3-patient did have some clinical improvement and the patient white count has normalized 4-patient has shown clinical improvement and will continue with the Zosyn while inpatient however PICC line can be discontinued on discharge initial course of oral Ceftin and Flagyl, questions concern answered Dictation was produced using [employer] dictation software. please excuse any grammatical, word or spelling errors. Time with Patient: Less than 30
[2024-01-06] MEDS: ONDANSETRON 4 MG TAB PO PRN (12:58)
[2024-01-06] MEDS: ACETAMINOPHEN TAB 500 MG TAB PO PRN (12:58)
--- NOTE | 2024-01-06 15:32 | P.PN ---
Subjective Progress Note Date: 01/06/24 CHIEF COMPLAINT: Perforated diverticulitis HISTORY OF PRESENT ILLNESS: Patient is postop day #5 status post sigmoid colectomy with end colostomy. Patient's ostomy is functioning. He is tolerating diet. His pain is controlled. He has ambulated in [place] with physical therapy. He is afebrile. Patient and did receive ostomy teaching yesterday PHYSICAL EXAM: VITAL SIGNS: Reviewed. GENERAL: Well-developed in no acute distress. ABDOMEN: Soft. Nondistended. Mild tenderness at incision site. Incision site clean dry and intact. Colostomy bag with liquidy stool. Stoma pink. NEUROLOGIC: Alert and oriented. Cranial nerves II through XII grossly intact. ASSESSMENT: 1. Perforated diverticulitis with fistulization into lateral pelvic wall PLAN: -Patient can be discharged from surgical standpoint -Discharge antibiotics per infectious disease -Continue regular diet -GI prophylaxis Protonix and DVT prophylaxis subcu heparin Physician Software Asset Management Analyst note has been reviewed by physician. Signing provider agrees with the documented findings, assessment, and plan of care. Objective - Vital Signs Vital signs: Vital Signs Temp 98.6 F 01/06/24 08:00 Pulse 79 01/06/24 08:00 Resp 18 01/06/24 08:00 BP 161/88 01/06/24 08:00 Pulse Ox 97 01/06/24 01:26 FiO2 Intake & Output 01/05/24 01/06/24 01/06/24 18:59 06:59 18:59 Intake Total 900 Output Total 550 830 Balance 350 -830 Weight 72.575 kg Intake: Intake, IV Titration 900 Amount Sodium Chloride 0.9% 1, 900 000 ml @ 75 mls/hr IV . [id number] [facility] Rx#:[id number] Output: Drainage 50 80 Abdomen 50 80 Urine 500 750 Other: Voiding Method Indwelling Catheter Indwelling Catheter External Catheter - Labs CBC & Chem 7: 01/05/24 06:23 01/06/24 06:29 Labs: Abnormal Lab Results - Last 24 Hours (Table) 01/06/24 Range/Units 06:29 Chloride 111 H (98-107) mmol/L Alkaline Phosphatase 183 H (38-126) U/L Total Protein 5.8 L (6.3-8.2) g/dL Albumin 2.7 L (3.5-5.0) g/dL
[2024-01-07 07:48] LABS: ALT 8 U/L (4-49); AST 39 U/L (17-59); African American GFR (CKD) >90 (>60 ml/min/1.73 sqM); Albumin 2.8 g/dL (3.5-5.0); Albumin/Globulin Ratio 0.9; Alkaline Phosphatase 173 U/L (38-126); Anion Gap 5 mmol/L; Blood Urea Nitrogen 20 mg/dL (9-20); Calcium 8.8 mg/dL (8.4-10.2); Carbon Dioxide 26 mmol/L (22-30); Chloride 110 mmol/L (98-107); Globulin 3.1 g/dL; Glucose 86 mg/dL (74-99); Magnesium 1.7 mg/dL (1.6-2.3); Non-African American GFR(CKD) 83 (>60 ml/min/1.73 sqM); Phosphorus 3.2 mg/dL (2.5-4.5); Potassium 4.2 mmol/L (3.5-5.1); Sodium 141 mmol/L (137-145); Total Bilirubin 0.8 mg/dL (0.2-1.3); Total Protein 5.9 g/dL (6.3-8.2)
--- NOTE | 2024-01-07 10:17 | P.PN ---
Subjective Progress Note Date: 01/07/24 This is a 78-year-old male patient who was sent to the ER for evaluation per infectious disease. Patient has extensive medical history including recent treatment for GI bleed secondary to severe diverticulosis with development of left pelvic abscess patient was discharged on 12/05/2023 on IV antibiotics. According to patient he had follow-up CTs per infectious disease showing worsening abscess. Patient denies any further episodes of acute symptoms. Patient reports he has been receiving outpatient IV antibiotics as ordered through PICC line without issue. 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 History of dysphasia previously requiring PEG tube this was removed. History of Parkinson's disease, history of essential hypertension and BPH. Most recent CT completed on 12/23/2023 showing persistent thick walled collection with the midpelvis without significant adjacent inflammatory change this is enlarged from comparison and contains fecal debris. At this time patient has been started on IV Zosyn infectious disease and surgical service is consulted. Patient denies chest pain or shortness breath. Patient denies nausea vomiting or diarrhea. Patient denies any urinary burning or frequency. White blood cell noted to be elevated at 14.3. Current vital signs temp 97.6, heart rate 56, respiratory rate 18, blood pressure 172/88 with a pulse ox 97% home meds resumed including blood pressure medication. On 12/31/2023 patient was seen and examined on the medical floor, he is alert and oriented 3 in no apparent distress, he is complaining of abdominal pain, otherwise he denies any complaints, there is no fever or chills no headache or dizziness no chest pain no shortness of breath no cough no nausea or vomiting no diarrhea and no urinary symptoms. 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 Vital exam reveals a temperature of 98.7 pulse 73 respiration 15 blood pressure 147/84 pulse ox 95% on room air white blood count is 5.7 hemoglobin 12.9 platelet count 250. On 01/01/2024 patient was seen and examined on the medical floor he is alert and oriented 3 in no apparent distress he is still complaining of abdominal pain otherwise no complaints, there is no fever or chills no headache or dizziness no chest pain no shortness of breath no cough no nausea or vomiting no diarrhea no blood in the stools no burning with urination no frequency or urgency and no hematuria. Input from cardiology reviewed, patient is followed by infectious disease and general surgery. We will continue to follow closely. On 01/02/2024 patient was seen and examined on the medical floor he is alert and oriented 3 in no apparent distress he is sitting up in a chair, this morning he was having difficulty swallowing his pills, speech therapy consult was requested, he is still complaining of abdominal pain otherwise he denies any complaints there is no fever or chills no headache or dizziness no chest pain no shortness of breath no cough no nausea or vomiting no diarrhea no blood in the stools and no urinary symptoms. On 01/03/2024 patient was seen and examined on the medical floor he is alert and oriented 3 in no apparent distress he is sitting up in a chair, this morning he was having difficulty swallowing his pills, speech therapy consult was requested, he is still complaining of abdominal pain otherwise he denies any complaints there is no fever or chills no headache or dizziness no chest pain no shortness of breath no cough no nausea or vomiting no diarrhea no blood in the stools and no urinary symptoms. Patient has evidence of thrush, nystatin mouthwash was admitted, he is also complaining of difficulty sleeping, melatonin 10 mg at bedtime was added. He was started on clear liquid diet by general surgery. On 01/04/2024 patient's alert and oriented 3. Patient remains on clear liquid diet. Patient remains on IV Zosyn. Patient remains on TPN. Surgical services and infectious disease service is following. Chest pain or shortness breath. Patient denies nausea vomiting or diarrhea. Patient denies any urinary burning or frequency On 01/05/2024 patient was seen and examined on the medical floor he is alert and oriented 3 in no apparent distress, he is complaining of fatigue and generalized weakness otherwise he denies any complaints there is no fever or chills no headache or dizziness no chest pain no shortness of breath no cough no nausea or vomiting no abdominal pain no diarrhea and no urinary symptoms. Diet was advanced to regular diet by general surgery, TPN is being weaned off. Patient is complaining of severe weakness physical therapy and occupational therapy consulted, will follow closely. On 01/06/2024 patient's alert and oriented 3. Patient has been tolerating diet. Patient complains of general fatigue and weakness. Patient denies chest pain or shortness of breath. Patient denies nausea vomiting or diarrhea. Patient denies any urinary burning or frequency. Awaiting final recommendations per ID for antibiotics upon discharge. On 01/07/2024 patient's alert and oriented 3. Patient has been tolerating diet well. Per ID patient likely to be DC'd on oral Ceftin and Flagyl. Patient complaining of increased weakness will consult inpatient rehab for possible placement upon discharge. PT OT services are following case management services following. Patient denies chest pain or shortness breath. Patient denies nausea vomiting or diarrhea. Patient denies any urinary burning or frequency Objective - Vital Signs Vital signs: Vital Signs Temp 97.8 F 01/07/24 08:00 Pulse 73 01/07/24 09:10 Resp 18 01/07/24 08:00 BP 159/97 01/07/24 09:10 Pulse Ox 95 01/07/24 08:00 FiO2 Intake & Output 01/06/24 01/07/24 01/07/24 18:59 06:59 18:59 Intake Total 120 Output Total 1220 950 600 Balance -1220 -830 -600 Intake: Oral 120 Output: Urine 1200 950 600 Stool 20 Other: Voiding Method External Catheter External Catheter External Catheter - Exam Head normocephalic Neck supple Lungs clear to auscultation bilaterally no wheezing or crackles Heart regular rate and rhythm S1-S2, no rub or gallop Abdomen is soft nontender nondistended positive bowel sounds no hepatosp lenomegaly Extremities no edema Neuro alert and orientated to 3. Left facial droop and hemiparesis on left side from previous stroke - Labs CBC & Chem 7: 01/05/24 06:23 01/07/24 06:50 Labs: Abnormal Lab Results - Last 24 Hours (Table) 01/07/24 Range/Units 06:50 Chloride 110 H (98-107) mmol/L Alkaline Phosphatase 173 H (38-126) U/L Total Protein 5.9 L (6.3-8.2) g/dL Albumin 2.8 L (3.5-5.0) g/dL Assessment and Plan Assessment: 1. Worsening left pelvic abscess. 2. History of GI bleed secondary to severe diverticulosis with development of abscess patient was discharged 12/05/2022 for IV antibiotics 3. 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 Aspirin currently on hold 4. History of dysphagia requiring PEG tube in the past. peg tube has been removed 5. History of Parkinson's disease 6. History of BPH 7. oral thrush. Patient started on nystatin DVT DVT prophylaxis heparin. GI prophylaxis Protonix Infectious disease and surgical service is consulted Status post sigmoid colectomy with end colostomy on 12/31/2023 Patient advanced to regular diet Maintained on antibiotics
--- NOTE | 2024-01-07 12:18 | P.CONS ---
History of Present Illness - Reason for Consult Consult date: 01/07/24 debility, rehab recommendations - Chief Complaint sepsis, debility - History of Present Illness Mr Edwards is a 78 y/o right handed male who lives with his in a 2 story home with 0 KEVIN, 20 step spiral staircase to bedroom. Patient has the ability to stay on the main floor. Prior to admission, he was able to ambulate with a walker. able to assist as needed. Patient presented to the ED on 12/29/23 at the recommendation of Dr Burnett after CT scan of abdomen showed worsening colonic abscess. Patient was recently discharged home on IV abx on 12/05/23 for abscess. He has a recent history of CVA and IPR stay in [facility] 2022. He did have issues with dysphagia that required a peg tube which had subsequently been removed. Surgery and ID teams consulted. Patient recommended for sigmoid colectomy and possible colostomy. Intra op patient found to have perforated diverticulitis with fistulization into lateral pelvic wall, had colectomy with end colostomy performed on 12/31/23. Cardiology consulted for elevated BP, resumed home meds. He was evalated by speech for swallow and started on nectar thick liquids, dietary was consulted for TPN. ID followed, on IV zosyn but no plan for outpatient IV antibiotics, plan to transition to oral. PM&R consulted for rehab recommendations, patient was seen by therapies, Min assist with bathing and LB dressing, Min assist with toileting, transfers min assist, bed mobility min assist, gait min assist using rolling walker for a total of 440 ft. 01/07/24: Doing ok today. Is tired, having abdominal incisional pain, but otherwise doing well. Was independent with a walker, as above, now can't get out of the chair by himself. Denies [place], CP, SOB or other complaints. Notes colostomy working well. Review of Systems reviewed, negative unless stated in HPI Past Medical History Past Medical History: Chest Pain / Angina, CVA/TIA, GERD/Reflux, Hyperlipidemia, Hypertension, Myocardial Infarction (SD), Musculoskeletal Disorder Additional Past Medical History / Comment(s): parkinsons disease. 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-NO RESIDUAL EFFFECTS Last Myocardial Infarction Date:: 1983, History of Any Multi-Drug Resistant Organisms: None Reported Past Surgical History: Heart Catheterization Additional Past Surgical History / Comment(s): states heart cath last week with Dr Mera- "mild Blockages'- PEG TUBE PLACEMENT-08/13/23, COLONOSCOPY Past Anesthesia/Blood Transfusion Reactions: No Reported Reaction Past Psychological History: No Psychological Hx Reported Smoking Status: Former smoker Past Alcohol Use History: None Reported Additional Past Alcohol Use History / Comment(s): QUIT SMOKING 40 YEARS Past Drug Use History: None Reported - Past Family History Mother Family Medical History: Myocardial Infarction (SD) Father Family Medical History: Myocardial Infarction (SD) Medications and Allergies Home Medications Medication Instructions Recorded Confirmed Type Carbidopa-Levodopa 25-100 mg 1 tab PO DIRECTED 05/17/20 12/29/23 History [Sinemet 25-100 mg] amantadine HCL [Symmetrel] 100 mg PO TID@0600,1200,1800 05/17/20 12/29/23 History Multivitamins, Thera [Multivitamin 1 tab PO DAILY 08/09/23 12/29/23 History (formulary)] amLODIPine [Norvasc] 5 mg PO HS 08/09/23 12/29/23 History Artificial Tears-Hypromellose 2 drops BOTH EYES Q2H ml 08/18/23 12/29/23 Rx [Artificial Tear Drops] Losartan [Cozaar] 50 mg PO DAILY 30 Days #30 tab 08/18/23 12/29/23 Rx Aspirin 81 mg PO DAILY 30 Days #30 tab 12/05/23 12/29/23 Rx Pantoprazole [Protonix] 40 mg PO DAILY 30 Days #30 tab 12/05/23 12/29/23 Rx HYDROcodone/APAP 5-325MG [[place] 1 tab PO Q6HR PRN 3 Days #12 tab 01/05/24 Rx 5-325] cefUROXime axetiL [Ceftin] 500 mg PO BID 7 Days #14 tab 01/07/24 Rx metroNIDAZOLE [Flagyl] 500 mg PO TID #21 tab 01/07/24 Rx Allergies Allergy/AdvReac Type Severity Reaction Status Date / Time No Known Allergies Allergy Verified 12/31/23 08:24 Physical Exam Vitals: Vital Signs Temp Pulse Pulse Resp BP Pulse Ox 01/07/24 09:10 73 159/97 01/07/24 08:10 151/88 01/07/24 08:00 97.8 F 75 18 171/87 95 01/07/24 02:00 98.0 F 70 15 145/81 95 01/06/24 19:20 97.8 F 64 16 143/89 97 01/06/24 15:37 98 F 66 16 183/95 98 Intake and Output 01/06/24 01/07/24 01/07/24 22:59 06:59 14:59 Intake Total 120 Output Total 620 950 600 Balance -500 -950 -600 Intake: Oral 120 Output: Urine 600 950 600 Stool 20 Other: Voiding Method External Catheter External Catheter EXAM; General: WDWN, male, NAD, masked facies Head: Normocephalic, atraumatic. Eyes: Symmetric Ears: Symmetric. Hearing within normal limits. Mouth: Clear. Neck: Supple. Cardiac: Regular rate. Calves supple, non tender, no edema Lungs: Breathing comfortably on RA. Chest symmetric. Abdomen: Soft, nontender. Abdominal incision with chante, covered. + colostomy. Extremities: Arthritic changes consistent with age. Neurological: Alert and oriented x 4 Speech is clear and fluent without paraphasic errors, mild dysarthria Cranial nerves: CN II-XII: intact except left facial droop, decreased shrug. Sensation: Intact and symmetrical limbs. Musculoskeletal: ROM WFL MMT UE Sh Abd EE EF FABD WE HG Right 5 5 5 5 5 5 Left 4 4 4 4 4 MMT LE HF KE DF EHL Right 5 5 5 5 Left 5- 5- 5- 5- Reflexes Biceps Triceps Brachioradialis Patella Achilles Babinski Hoffmans Right 2 2 2 2 2 Left 2 2 2 3 2 Skin: Skin intact where visible to head, neck, and bilateral upper and lower extremities EXCEPT: abdominal incision with chante, covered Psych: Calm, cooperative Results CBC & Chem 7: 01/05/24 06:23 01/07/24 06:50 Labs: Abnormal Lab Results - Last 24 Hours (Table) 01/07/24 Range/Units 06:50 Chloride 110 H (98-107) mmol/L Alkaline Phosphatase 173 H (38-126) U/L Total Protein 5.9 L (6.3-8.2) g/dL Albumin 2.8 L (3.5-5.0) g/dL Assessment and Plan Assessment: # Debility secondary to perforated sigmoid diverticuliotis with fistulization into lateral pelvic wall s/p sigmoid colectomy with end colostomy -PT/OT/[employer] # Sepsis secondary to above # Oral thrush # Recent GIB # Recent right frontal CVA with left hemiparesis # Parkinson's Disease -Sinemet # Dysphagia with history of peg tube -regular diet low fiber, low fat # Comorbidities: GERD, HLD, HTN, SD, history of tobacco abuse, BPH # Pain Management -Tylenol prn, [place] prn, Dilaudid prn # DVT Proph per medical team # your medical dx and management Disposition: Patient is noted to be significantly below baseline function, would benefit from a structured Inpatient Rehab stay with 3 hours of therapy a day, 6-7 days a week with Physical Therapy, Occupational Therapy, and speech therapy. Patient is motivated and has good social support. Patient will need insurance authorization. Patient seen and examined by Dr. Phillips, note remotely prepped by Lulu Healy PA-C Thank you for consulting our services.
[2024-01-07 14:14] VITALS: RESP 16
--- NOTE | 2024-01-07 16:03 | P.PN ---
Subjective Progress Note Date: 01/07/24 CHIEF COMPLAINT: Perforated diverticulitis HISTORY OF PRESENT ILLNESS: Patient is postop day #6 status post sigmoid colectomy with end colostomy. Patient's ostomy is functioning. He is tolerating diet. His pain is controlled. He has ambulated in [place] with physical therapy. He is afebrile. They completed ostomy teaching. Awaiting rehab placement. PHYSICAL EXAM: VITAL SIGNS: Reviewed. GENERAL: Well-developed in no acute distress. ABDOMEN: Soft. Nondistended. Mild tenderness at incision site. Incision site clean dry and intact. Colostomy bag with liquidy stool. Stoma pink. NEUROLOGIC: Alert and oriented. Cranial nerves II through XII grossly intact. ASSESSMENT: 1. Perforated diverticulitis with fistulization into lateral pelvic wall PLAN: -Patient can be discharged from surgical standpoint -Awaiting rehab placement -Discharge antibiotics per infectious disease -Continue regular diet -GI prophylaxis Protonix and DVT prophylaxis subcu heparin Physician Stitcher Hand note has been reviewed by physician. Signing provider agrees with the documented findings, assessment, and plan of care. Objective - Vital Signs Vital signs: Vital Signs Temp 97.7 F 01/07/24 13:10 Pulse 61 01/07/24 13:10 Resp 16 01/07/24 13:10 BP 161/93 01/07/24 13:10 Pulse Ox 98 01/07/24 13:10 FiO2 Intake & Output 01/06/24 01/07/24 01/07/24 18:59 06:59 18:59 Intake Total 120 Output Total 1220 950 600 Balance -1220 -830 -600 Weight 72.575 kg Intake: Oral 120 Output: Urine 1200 950 600 Stool 20 Other: Voiding Method External Catheter External Catheter External Catheter - Labs CBC & Chem 7: 01/05/24 06:23 01/07/24 06:50 Labs: Abnormal Lab Results - Last 24 Hours (Table) 01/07/24 Range/Units 06:50 Chloride 110 H (98-107) mmol/L Alkaline Phosphatase 173 H (38-126) U/L Total Protein 5.9 L (6.3-8.2) g/dL Albumin 2.8 L (3.5-5.0) g/dL
[2024-01-08 06:56] LABS: ALT 8 U/L (4-49); AST 25 U/L (17-59); African American GFR (CKD) 89 (>60 ml/min/1.73 sqM); Albumin 2.9 g/dL (3.5-5.0); Albumin/Globulin Ratio 0.9; Alkaline Phosphatase 176 U/L (38-126); Anion Gap 5 mmol/L; Blood Urea Nitrogen 16 mg/dL (9-20); Calcium 8.8 mg/dL (8.4-10.2); Carbon Dioxide 28 mmol/L (22-30); Chloride 108 mmol/L (98-107); Globulin 3.1 g/dL; Glucose 92 mg/dL (74-99); Magnesium 1.7 mg/dL (1.6-2.3); Non-African American GFR(CKD) 77 (>60 ml/min/1.73 sqM); Phosphorus 3.2 mg/dL (2.5-4.5); Potassium 3.8 mmol/L (3.5-5.1); Sodium 141 mmol/L (137-145); Total Bilirubin 0.7 mg/dL (0.2-1.3)
--- NOTE | 2024-01-08 11:38 | P.PN ---
Progress Note - Text Progress Note Date: 01/08/24 On 01/08/2024 I was asked to call for a peer to peer review of this case with the patient's insurance in regard to admission to inpatient rehab. I called [phone] I spoke with the medical customer service representative, case was discussed in details, unfortunately the medical customer service representative felt that patient case does not have enough medical complexity to require inpatient rehab. Because he is going to be on oral antibiotic at the time of discharge, and he is off TPN and maintained on regular diet. He is recommending transfer to a fpc for rehab.
[2024-01-08 12:32] VITALS: TEMP 97.4
--- NOTE | 2024-01-08 15:10 | P.PN ---
Subjective Progress Note Date: 01/08/24 Principal diagnosis: Reason for follow-up is intra-abdominal abscess and complicated diverticulitis Patient is a 78-year-old male with a past medical history for hyperte nsion hyperlipidemia CVA reflux patient was recently admitted to the hospital and was diagnosed with a diverticulitis and peridiverticular abscess for the patient and received extensive IV antibiotic therapy however was still noticed to have a abscess on follow-up CT 4 the patient has been admitted to the hospital. Patient is status post sigmoid colectomy with end colostomy evidence of perforated diverticulitis with fistulization to the lateral pelvic wall however did not mention any abscess and no culture was done. On today's evaluation that is 01/08/2024, the patient remains to be afebrile, patient is currently breathing comfortably on room air, the patient denies chest pain and no significant cough, patient denies abdominal pain, no nausea no vomiting did have output in his colostomy and tolerating his diet Patient did have a creatinine 0.95 no CBC was done today Objective - Vital Signs Vital signs: Vital Signs Temp 97.4 F L 01/08/24 11:35 Pulse 68 01/08/24 11:35 Resp 16 01/08/24 11:35 BP 149/89 01/08/24 11:35 Pulse Ox 98 01/08/24 11:35 FiO2 Intake & Output 01/07/24 01/08/24 01/08/24 18:59 06:59 18:59 Output Total 1330 1040 730 Balance -1330 -1040 -730 Weight 72.575 kg Output: Drainage 80 40 30 Abdomen 80 40 30 Urine 1225 1000 700 Stool 25 Other: Voiding Method External Catheter External Catheter External Catheter - Exam GENERAL DESCRIPTION: An elderly male lying in bed in no distress RESPIRATORY SYSTEM: Unlabored breathing , decreased breath sounds at bases HEART: S1 S2 regular rate and rhythm , ABDOMEN: Soft , no tenderness, he did have output in his colostomy EXTREMITIES: No edema feet - Labs CBC & Chem 7: 01/05/24 06:23 01/08/24 06:08 Labs: Abnormal Lab Results - Last 24 Hours (Table) 01/08/24 Range/Units 06:08 Chloride 108 H (98-107) mmol/L Alkaline Phosphatase 176 H (38-126) U/L Total Protein 6.0 L (6.3-8.2) g/dL Albumin 2.9 L (3.5-5.0) g/dL Assessment and Plan (1) Diverticulitis Current Visit: Yes Status: Acute Code(s): K57.92 - DVTRCLI OF INTEST, PART UNSP, W/O PERF OR ABSCESS W/O BLEED SNOMED Code(s): 097528475 (2) Intra-abdominal abscess Current Visit: No Status: Acute Code(s): K65.1 - PERITONEAL ABSCESS SNOMED Code(s): 28306077 (3) Leukocytosis Current Visit: No Status: Acute Code(s): D72.829 - ELEVATED WHITE BLOOD CELL COUNT, UNSPECIFIED SNOMED Code(s): 981721547 Plan: 1-patient with a history of complicated diverticulitis with a peridiverticular abscess failing outpatient extensive systemic antibiotic therapy in the form of IV Unasyn with repeat CAT scan showing a thick-walled cavity however decrease inflammation 2-patient is status post laparotomy with sigmoid colectomy and end colostomy did not mention any abscess and no culture was done 3-patient did have some clinical improvement and the patient white count has normalized, currently covered with Zosyn and finishing therapy with oral Ceftin and Flagyl Dictation was produced using [employer] dictation software. please excuse any grammatical, word or spelling errors. Time with Patient: Less than 30
--- NOTE | 2024-01-08 15:10 | P.PN ---
Subjective Progress Note Date: 01/07/24 Principal diagnosis: Reason for follow-up is intra-abdominal abscess and complicated diverticulitis Patient is a 78-year-old male with a past medical history for hyperte nsion hyperlipidemia CVA reflux patient was recently admitted to the hospital and was diagnosed with a diverticulitis and peridiverticular abscess for the patient and received extensive IV antibiotic therapy however was still noticed to have a abscess on follow-up CT 4 the patient has been admitted to the hospital. Patient is status post sigmoid colectomy with end colostomy evidence of perforated diverticulitis with fistulization to the lateral pelvic wall however did not mention any abscess and no culture was done. On today's evaluation that is 01/07/2024, the patient is afebrile, patient is on room air, the patient denies chest pain shortness of breath or cough, patient denies nausea no vomiting no abdominal pain and did have output in his colostomy No CBC done today, creatinine 0.87 Objective - Vital Signs Vital signs: Vital Signs Temp 97.8 F 01/07/24 08:00 Pulse 73 01/07/24 09:10 Resp 18 01/07/24 08:00 BP 159/97 01/07/24 09:10 Pulse Ox 95 01/07/24 08:00 FiO2 Intake & Output 01/06/24 01/07/24 01/07/24 18:59 06:59 18:59 Intake Total 120 Output Total 1220 950 600 Balance -1220 -830 -600 Intake: Oral 120 Output: Urine 1200 950 600 Stool 20 Other: Voiding Method External Catheter External Catheter External Catheter - Exam GENERAL DESCRIPTION: An elderly male lying in bed in no distress RESPIRATORY SYSTEM: Unlabored breathing , decreased breath sounds at bases HEART: S1 S2 regular rate and rhythm , ABDOMEN: Soft , no tenderness, he did have output in his colostomy EXTREMITIES: No edema feet - Labs CBC & Chem 7: 01/05/24 06:23 01/08/24 06:08 Labs: Abnormal Lab Results - Last 24 Hours (Table) 01/07/24 Range/Units 06:50 Chloride 110 H (98-107) mmol/L Alkaline Phosphatase 173 H (38-126) U/L Total Protein 5.9 L (6.3-8.2) g/dL Albumin 2.8 L (3.5-5.0) g/dL Assessment and Plan (1) Diverticulitis Current Visit: Yes Status: Acute Code(s): K57.92 - DVTRCLI OF INTEST, PART UNSP, W/O PERF OR ABSCESS W/O BLEED SNOMED Code(s): 172218439 (2) Intra-abdominal abscess Current Visit: No Status: Acute Code(s): K65.1 - PERITONEAL ABSCESS SNOMED Code(s): 63618066 (3) Leukocytosis Current Visit: No Status: Acute Code(s): D72.829 - ELEVATED WHITE BLOOD CELL COUNT, UNSPECIFIED SNOMED Code(s): 355803288 Plan: 1-patient with a history of complicated diverticulitis with a peridiverticular abscess failing outpatient extensive systemic antibiotic therapy in the form of IV Unasyn with repeat CAT scan showing a thick-walled cavity however decrease inflammation 2-patient is status post laparotomy with sigmoid colectomy and end colostomy did not mention any abscess and no culture was done 3-patient did have some clinical improvement and the patient white count has normalized 4-patient to continue with the Zosyn while inpatient however will consider short course of oral Ceftin and Flagyl, on discharge and PICC line should be discontinued on discharge Dictation was produced using [employer] dictation software. please excuse any grammatical, word or spelling errors. Time with Patient: Less than 30
--- NOTE | 2024-01-08 16:28 | P.DS ---
Providers Date of admission: 12/29/23 19:00 Expected date of discharge: 01/08/24 Attending physician: Jeovanny Lui Consults: 12/29/23 19:00 Consult Physician Urgent Consulting Provider: Talon Kathleen Consult Reason/Comments: abd abscess, diverticulitis Do you want consulting provider notified?: Yes 12/30/23 08:09 Consult Physician Urgent Consulting Provider: Deanne Burnett Consult Reason/Comments: abcess Do you want consulting provider notified?: Yes 01/07/24 10:04 Consult Physician Routine Consulting Provider: Stefano Mckeon Consult Reason/Comments: generalized weakness Do you want consulting provider notified?: Yes Primary care physician: Magali Britt Hospital Course: Diagnosis on discharge: 1. Worsening left pelvic abscess. 2. History of GI bleed secondary to severe diverticulosis with development of abscess patient was discharged 12/05/2022 for IV antibiotics 3. 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 Aspirin currently on hold 4. History of dysphagia requiring PEG tube in the past. peg tube has been removed 5. History of Parkinson's disease 6. History of BPH 7. oral thrush. Patient started on nystatin Hospital course: This is a 78-year-old male patient who was sent to the ER for evaluation per infectious disease. Patient has extensive medical history including recent treatment for GI bleed secondary to severe diverticulosis with development of left pelvic abscess patient was discharged on 12/05/2023 on IV antibiotics. According to patient he had follow-up CTs per infectious disease showing worsening abscess. Patient denies any further episodes of acute symptoms. Patient reports he has been receiving outpatient IV antibiotics as ordered through PICC line without issue. 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 History of dysphasia previously requiring PEG tube this was removed. History of Parkinson's disease, history of essential hypertension and BPH. Most recent CT completed on 12/23/2023 showing persistent thick walled collection with the midpelvis without significant adjacent inflammatory change this is enlarged from comparison and contains fecal debris. At this time patient has been started on IV Zosyn infectious disease and surgical service is consulted. Patient denies chest pain or shortness breath. Patient denies nausea vomiting or diarrhea. Patient denies any urinary burning or frequency. White blood cell noted to be elevated at 14.3. Current vital signs temp 97.6, heart rate 56, respiratory rate 18, blood pressure 172/88 with a pulse ox 97% home meds resumed including blood pressure medication. On 12/31/2023 patient was seen and examined on the medical floor, he is alert and oriented 3 in no apparent distress, he is complaining of abdominal pain, otherwise he denies any complaints, there is no fever or chills no headache or dizziness no chest pain no shortness of breath no cough no nausea or vomiting no diarrhea and no urinary symptoms. 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 Vital exam reveals a temperature of 98.7 pulse 73 respiration 15 blood pressure 147/84 pulse ox 95% on room air white blood count is 5.7 hemoglobin 12.9 platelet count 250. On 01/01/2024 patient was seen and examined on the medical floor he is alert and oriented 3 in no apparent distress he is still complaining of abdominal pain otherwise no complaints, there is no fever or chills no headache or dizziness no chest pain no shortness of breath no cough no nausea or vomiting no diarrhea no blood in the stools no burning with urination no frequency or urgency and no hematuria. Input from cardiology reviewed, patient is followed by infectious disease and general surgery. We will continue to follow closely. On 01/02/2024 patient was seen and examined on the medical floor he is alert and oriented 3 in no apparent distress he is sitting up in a chair, this morning he was having difficulty swallowing his pills, speech therapy consult was requested, he is still complaining of abdominal pain otherwise he denies any complaints there is no fever or chills no headache or dizziness no chest pain no shortness of breath no cough no nausea or vomiting no diarrhea no blood in the stools and no urinary symptoms. On 01/03/2024 patient was seen and examined on the medical floor he is alert and oriented 3 in no apparent distress he is sitting up in a chair, this morning he was having difficulty swallowing his pills, speech therapy consult was requested, he is still complaining of abdominal pain otherwise he denies any complaints there is no fever or chills no headache or dizziness no chest pain no shortness of breath no cough no nausea or vomiting no diarrhea no blood in the stools and no urinary symptoms. Patient has evidence of thrush, nystatin mouthwash was admitted, he is also complaining of difficulty sleeping, melatonin 10 mg at bedtime was added. He was started on clear liquid diet by general surgery. On 01/04/2024 patient's alert and oriented 3. Patient remains on clear liquid diet. Patient remains on IV Zosyn. Patient remains on TPN. Surgical services and infectious disease service is following. Chest pain or shortness breath. Patient denies nausea vomiting or diarrhea. Patient denies any urinary burning or frequency On 01/05/2024 patient was seen and examined on the medical floor he is alert and oriented 3 in no apparent distress, he is complaining of fatigue and generalized weakness otherwise he denies any complaints there is no fever or chills no headache or dizziness no chest pain no shortness of breath no cough no nausea or vomiting no abdominal pain no diarrhea and no urinary symptoms. Diet was advanced to regular diet by general surgery, TPN is being weaned off. Patient is complaining of severe weakness physical therapy and occupational therapy consulted, will follow closely. On 01/06/2024 patient's alert and oriented 3. Patient has been tolerating diet. Patient complains of general fatigue and weakness. Patient denies chest pain or shortness of breath. Patient denies nausea vomiting or diarrhea. Patient denies any urinary burning or frequency. Awaiting final recommendations per ID for antibiotics upon discharge. On 01/07/2024 patient's alert and oriented 3. Patient has been tolerating diet well. Per ID patient likely to be DC'd on oral Ceftin and Flagyl. Patient complaining of increased weakness will consult inpatient rehab for possible placement upon discharge. PT OT services are following case management services following. Patient denies chest pain or shortness breath. Patient denies nausea vomiting or diarrhea. Patient denies any urinary burning or frequency On 01/08/2024 patient was seen and examined on the medical floor he is alert and oriented 3 in no apparent distress there is no fever or chills no headache or dizziness no chest pain no shortness of breath no cough no nausea or vomiting no abdominal pain no diarrhea and no urinary symptoms. Patient was accepted at [facility] inpatient rehab, however insurance did not approve that, despite Peer to peer review done today, he was approved to [facility] a [facility], however patient and his family refused to go to a penitentiary, they opted for home with home care, with addition of care provided by his family, patient will be discharged to home today. Follow-up with surgeon within one week Follow-up with primary care physician Dr. Britt within one week Patient Condition at Discharge: Serious Plan - Discharge Summary Discharge Rx Participant: No New Discharge Prescriptions: New HYDROcodone/APAP 5-325MG [Pease 5-325] 1 tab PO Q6HR PRN 3 Days #12 tab PRN Reason: Pain Nystatin 100,000 Unit/ml Susp [Mycostatin Oral Susp] 500,000 unit PO QID 10 Days #200 ml cefUROXime axetiL [Ceftin] 500 mg PO BID 7 Days #14 tab metroNIDAZOLE [Flagyl] 500 mg PO TID #21 tab Continue Carbidopa-Levodopa 25-100 mg [Sinemet 25-100 mg] 1 tab PO DIRECTED amantadine HCL [Symmetrel] 100 mg PO TID@0600,1200,1800 Losartan [Cozaar] 50 mg PO DAILY 30 Days #30 tab Pantoprazole [Protonix] 40 mg PO DAILY 30 Days #30 tab amLODIPine [Norvasc] 5 mg PO HS Multivitamins, Thera [Multivitamin (formulary)] 1 tab PO DAILY Artificial Tears-Hypromellose [Artificial Tear Drops] 2 drops BOTH EYES Q2H ml Aspirin 81 mg PO DAILY 30 Days #30 tab Discontinued Ampicillin-Sulbactam [Unasyn 3 gm vial] 3 gm IVPB Q6HR each Discharge Medication List Carbidopa-Levodopa 25-100 mg [Sinemet 25-100 mg] 1 tab PO DIRECTED 05/17/20 [History] amantadine HCL [Symmetrel] 100 mg PO TID@0600,1200,1800 05/17/20 [History] Multivitamins, Thera [Multivitamin (formulary)] 1 tab PO DAILY 08/09/23 [History] amLODIPine [Norvasc] 5 mg PO HS 08/09/23 [History] Artificial Tears-Hypromellose [Artificial Tear Drops] 2 drops BOTH EYES Q2H ml 08/18/23 [Rx] Losartan [Cozaar] 50 mg PO DAILY 30 Days #30 tab 08/18/23 [Rx] Aspirin 81 mg PO DAILY 30 Days #30 tab 12/05/23 [Rx] Pantoprazole [Protonix] 40 mg PO DAILY 30 Days #30 tab 12/05/23 [Rx] HYDROcodone/APAP 5-325MG [Pease 5-325] 1 tab PO Q6HR PRN 3 Days #12 tab 01/05/24 [Rx] cefUROXime axetiL [Ceftin] 500 mg PO BID 7 Days #14 tab 01/07/24 [Rx] metroNIDAZOLE [Flagyl] 500 mg PO TID #21 tab 01/07/24 [Rx] Nystatin 100,000 Unit/ml Susp [Mycostatin Oral Susp] 500,000 unit PO QID 10 Days #200 ml 01/08/24 [Rx] Follow up Appointment(s)/Referral(s): Magali Britt MD [Primary Care Provider] - 1-2 days [facility] [NON-STAFF] - 1 Week Talon Kathleen MD [STAFF PHYSICIAN] - 1 Week Activity/Diet/Wound Care/Special Instructions: No driving while taking Pease No lifting over 10 pounds You may shower. No soaking or tub baths for 2 weeks Very light activity until you are reevaluated at your follow up appointment with your surgeon Keep a log of FAYE drain output and bring with you to your follow-up appointment Milk/strip drains 2-3 times a day Plan of Treatment: [place] 1 piece bag [id number] to stoma site No sting barrier to skin around ostomy appliance. deoderizer for ostomy bag and glenn seal available for improved secure seal
--- NOTE | 2024-01-08 17:11 | P.PN ---
Subjective Progress Note Date: 01/08/24 CHIEF COMPLAINT: Perforated diverticulitis HISTORY OF PRESENT ILLNESS: Patient is postop day #7 status post sigmoid colectomy with end colostomy. Patient's ostomy is functioning. He is tolerating diet. His pain is controlled. He is afebrile. They completed ostomy teaching. Patient received insurance authorization for rehab. PHYSICAL EXAM: VITAL SIGNS: Reviewed. GENERAL: Well-developed in no acute distress. ABDOMEN: Soft. Nondistended. Mild tenderness at incision site. Incision site clean dry and intact. Colostomy bag with liquidy stool. Stoma pink. NEUROLOGIC: Alert and oriented. Cranial nerves II through XII grossly intact. ASSESSMENT: 1. Perforated diverticulitis with fistulization into lateral pelvic wall PLAN: -Patient can be discharged from surgical standpoint -Discharge antibiotics per infectious disease -Continue regular diet -GI prophylaxis Protonix and DVT prophylaxis subcu heparin Physician Feeder Tender note has been reviewed by physician. Signing provider agrees with the documented findings, assessment, and plan of care. Objective - Vital Signs Vital signs: Vital Signs Temp 97.4 F L 01/08/24 11:35 Pulse 68 01/08/24 11:35 Resp 16 01/08/24 11:35 BP 170/91 01/08/24 17:10 Pulse Ox 98 01/08/24 11:35 FiO2 Intake & Output 01/07/24 01/08/24 01/08/24 18:59 06:59 18:59 Output Total 1330 1040 730 Balance -1330 -1040 -730 Weight 72.575 kg Output: Drainage 80 40 30 Abdomen 80 40 30 Urine 1225 1000 700 Stool 25 Other: Voiding Method External Catheter External Catheter External Catheter - Labs CBC & Chem 7: 01/05/24 06:23 01/08/24 06:08 Labs: Abnormal Lab Results - Last 24 Hours (Table) 01/08/24 Range/Units 06:08 Chloride 108 H (98-107) mmol/L Alkaline Phosphatase 176 H (38-126) U/L Total Protein 6.0 L (6.3-8.2) g/dL Albumin 2.9 L (3.5-5.0) g/dL
[2024-01-08 17:32] VITALS: BP 134/66; PULSE 75
--- NOTE | 2024-01-09 09:06 | CDI ---
Documentation Clarification Form Date: 01/09/2024 08:52:32 AM From: Scarlet Nguyen Admit Date: 12/29/2023 07:00:00 PM Patient Name: Jerson Edwards Visit Number: [id number] Discharge Date: 01/08/2024 06:02:00 PM ATTENTION: The Clinical Documentation Specialists (CDI) and [facility] Coding Staff appreciate your assistance in clarifying documentation. Please respond to the clarification below the line at the bottom and electronically sign. The CDI & [facility] Coding staff will review the response and follow-up if needed. Please note: Queries are made part of the Legal Health Record. If you have any questions, please contact the author of this message via ITS. Dr. Jeovanny Lui Per Dr. Phillips consult, "Sepsis secondary to above -- perforated sigmoid diverticulitis with fistulization" Documentation of sepsis is not carried through chart. Please clarify if patient had sepsis or was it ruled out. History/Risk Factors: perforated diverticulitis Clinical Indicators: WBC 14.3 Lactic acid: 0.8 Blood cultures: No growth Vitals signs: 98.6 F, 74 bpm, 20, 174/100, 98% RA Treatment: IV antibiotics ID Consult: complicated diverticulitis with abscess Antibiotics: Zosyn Is there an additional diagnosis that is clinically appropriate for this patient? [ ] Sepsis, present on admission [ ] Sepsis, developed during stay, not present on admission [ ] Sepsis ruled out [ ] Other, please specify [ ] Unable to determine SIRS Criteria: 2 or more of the following may indicate SIRS Temperature < 96.8F (36C) or > 101.0F (38.3C) Heart Rate > 90 bpm Respiratory Rate > 20 breaths/min or PaCO2 < 32 mmHg White Blood Cell Count > 12,000 or < 4,000 cells/mm3 or > 10% bands MTDD
--- NOTE | 2024-01-19 10:34 | CDI ---
Documentation Clarification Form Date: 01/19/2024 From: Scarlet Nguyen Admit Date: 12/29/2023 07:00:00 PM Patient Name: Jerson Edwards Visit Number: [id number] Discharge Date: 01/08/2024 06:02:00 PM ATTENTION: The Clinical Documentation Specialists (CDI) and [facility] Coding Staff appreciate your assistance in clarifying documentation. Please respond to the clarification below the line at the bottom and electronically sign. The CDI & [facility] Coding staff will review the response and follow-up if needed. Please note: Queries are made part of the Legal Health Record. If you have any questions, please contact the author of this message via ITS. Dr. Jeovanny Lui Per Dr. Phillips consult, "Sepsis secondary to above -- perforated sigmoid diverticulitis with fistulization" Documentation of sepsis is not carried through chart. Please clarify if patient had sepsis or was it ruled out. History/Risk Factors: perforated diverticulitis Clinical Indicators: WBC 14.3 Lactic acid: 0.8 Blood cultures: No growth Vitals signs: 98.6 F, 74 bpm, 20, 174/100, 98% RA Treatment: IV antibiotics ID Consult: complicated diverticulitis with abscess Antibiotics: Zosyn Is there an additional diagnosis that is clinically appropriate for this patient? [ ] Sepsis, present on admission [ ] Sepsis, developed during stay, not present on admission [ x ] Sepsis ruled out [ ] Other, please specify [ ] Unable to determine SIRS Criteria: 2 or more of the following may indicate SIRS Temperature < 96.8F (36C) or > 101.0F (38.3C) Heart Rate > 90 bpm Respiratory Rate > 20 breaths/min or PaCO2 < 32 mmHg White Blood Cell Count > 12,000 or < 4,000 cells/mm3 or > 10% bands MTDD
== END 2024-01-08 18:02 | disposition home or self-care (01) | DRG 329 ==
LOC: EC 13:38 → 5NMEDONC 19:00
PROVIDERS: ADMIT Internal Medicine; ATTEND Internal Medicine
DX: K57.20 Diverticulitis of large intestine with perforation and abscess without bleeding (principal); K65.1 Peritoneal abscess; B37.0 Candidal stomatitis; I69.354 Hemiplegia and hemiparesis following cerebral infarction affecting left non-dominant side; E78.5 Hyperlipidemia, unspecified; G20.A1 Parkinson's disease without dyskinesia, without mention of fluctuations; I10 Essential (primary) hypertension; I25.10 Atherosclerotic heart disease of native coronary artery without angina pectoris; I25.2 Old myocardial infarction; I69.392 Facial weakness following cerebral infarction; Z87.891 Personal history of nicotine dependence; N40.0 Benign prostatic hyperplasia without lower urinary tract symptoms; R13.10 Dysphagia, unspecified; K21.9 Gastro-esophageal reflux disease without esophagitis; Z93.1 Gastrostomy status; Z74.1 Need for assistance with personal care; Z79.82 Long term (current) use of aspirin; Z79.899 Other long term (current) drug therapy; Z82.49 Family history of ischemic heart disease and other diseases of the circulatory system; Z79.84 Long term (current) use of oral hypoglycemic drugs; Z87.19 Personal history of other diseases of the digestive system
CPT/HCPCS: 36415; 71045; 80048; 80053; 82330; 83605; 83735; 84100; 84478; 85025; 85610; 85730; 86140; 86850; 86900; 86901; 87040; 88307; 93005; 94760; 96360; 96361; 99284

== ENCOUNTER → 2024-04-09 | Outpatient (CLI) | payer MEDICARE ==
[2024-04-09 19:09] LABS: Basophils # (A) 0.08 X 10*3/uL (0.00-0.10); Basophils % (A) 0.9 %; Eosinophils % (A) 1.1 %; HCT 41.9 % (39.6-50.0); HGB 13.4 g/dL (13.0-17.0); Lymphocytes # (A) 1.12 X 10*3/uL (0.90-5.00); Lymphocytes % (A) 12.3 %; Mean Platelet Volume 11.2 FL (9.5-12.2); Monocytes # (A) 0.89 X 10*3/uL (0.20-1.00); Monocytes % (A) 9.8 %; NRBC Per 100 WBC 0 X 10*3/uL (0.00-0.01); Neutrophils # (A) 6.89 X 10*3/uL (1.80-7.70); Neutrophils % (A) 75.5 %; Platelet Count 253 X 10*3/uL (140-440); RBC 4.32 X 10*6/uL (4.40-5.60); RDW 14.4 % (11.5-14.5); WBC 9.12 X 10*3/uL (4.50-10.00)
[2024-04-09 20:20] LABS: Anion Gap 11.3 mmol/L (4.00-12.00); Carbon Dioxide 25.7 mmol/L (21.6-31.8); Potassium 4.7 mmol/L (3.5-5.5)
== END | disposition home or self-care (01) ==
LOC: LABPAT 10:24
PROVIDERS: ATTEND Surgery
DX: Z01.818 Encounter for other preprocedural examination (principal); K57.32 Diverticulitis of large intestine without perforation or abscess without bleeding; R00.1 Bradycardia, unspecified
CPT/HCPCS: 36415; 80051; 85025; 86850; 86900; 86901; 93005

== ENCOUNTER 2024-04-19 09:29 | Day surgery (SDC) | payer MEDICARE ==
[2024-04-12 15:02] VITALS: BMI 22.3
[2024-04-19] MEDS: LACTATED RINGERS 1,000 ML IV SCH (10:05)
[2024-04-19 10:14] VITALS: TEMP 97.5
[2024-04-19] MEDS ORDERED: PROPOFOL 10 MG/ML 20 ML VIAL IV ONE (11:33)
--- NOTE | 2024-04-19 11:58 | P.OP ---
Date of Procedure: 04/19/24 Preoperative Diagnosis: Diverticulitis Postoperative Diagnosis: Diverticulosis History of diverticulitis Procedure(s) Performed: Colonoscopy Anesthesia: ELVA Surgeon: Talon Kathleen Pathology: none sent Condition: stable Disposition: PACU Description of Procedure: The patient's placed on the endoscopy table in the lateral position. He received IV sedation. Digital rectal exam was performed. This revealed no abnormalities. Flexible colonoscope was then placed patient anus passed throughout the colon. Patient previous Magdalena procedure. The rectosigmoid stump measured prostate 24 cm length. There was diverticular changes noted. There is no other pathology seen in the rectum. Scope was withdrawn. Next the patient rotated into the supine position. The clot scope was then placed the patient's colostomy. The clot scope was advanced through the colon. Ileocecal valve sutures. The cecum, ascending and transverse colon appeared normal. The remaining descending colon appeared normal. Scope withdrawn for patient.
[2024-04-19 13:21] VITALS: BP 163/89; PULSE 51; RESP 17
== END 2024-04-19 13:04 | disposition home or self-care (01) ==
LOC: ORWHC2ENDO 09:29
PROVIDERS: ATTEND Surgery
DX: K57.30 Diverticulosis of large intestine without perforation or abscess without bleeding (principal); I25.10 Atherosclerotic heart disease of native coronary artery without angina pectoris; I10 Essential (primary) hypertension; E78.5 Hyperlipidemia, unspecified; K21.9 Gastro-esophageal reflux disease without esophagitis; G20.A1 Parkinson's disease without dyskinesia, without mention of fluctuations; Z86.73 Personal history of transient ischemic attack (TIA), and cerebral infarction without residual deficits; Z79.899 Other long term (current) drug therapy; Z98.890 Other specified postprocedural states; Z87.19 Personal history of other diseases of the digestive system
CPT/HCPCS: 44388; 45378; J2704

== ENCOUNTER 2024-04-20 08:02 | Inpatient (IN) | payer MEDICARE ==
[2024-04-14 14:30] VITALS: BMI 22.3
[~2024-04-20 08:02] MED LIST changes: +HEPARIN SODIUM,PORCINE 5,000 UNIT/ML 1 ML VIAL SQ PRN; +HYDROmorphone 0.5 MG/0.5 ML SYRINGE IVP PRN; -LACTATED RINGERS 1,000 ML IV SCH; +MIDAZOLAM 2 MG/2 ML VIAL IV PRN
[2024-04-20] MEDS: LACTATED RINGERS 1,000 ML IV SCH (08:48)
[2024-04-20] MEDS: DEXAMETHASONE SOD PHOSPHATE 4 MG/ML 1 ML VIAL IV ONE (09:15)
[2024-04-20] MEDS: ONDANSETRON 4 MG/2 ML VIAL IVP ONE (09:15)
[2024-04-20] MEDS: ACETAMINOPHEN TAB 500 MG TAB PO PRN (09:15)
[2024-04-20] MEDS: MIDAZOLAM 2 MG/2 ML VIAL IVP ONE (09:24)
[2024-04-20] MEDS ORDERED: NALOXONE 0.4 MG/ML 1 ML VIAL IV PRN (09:44)
--- NOTE | 2024-04-20 09:44 | P.ANPRN ---
Procedure Note - Anesthesia - Epidural/Spinal Epidural Continuous Time Out Performed: Yes Date of Procedure: 04/20/24 Procedure Start Time: : Procedure Stop Time: :35 Location of Patient: PreOp Indication: Acute Post-Operative Pain, Analgesia, Requested by Surgeon Sedation Type: Sedate with meaningful contact maintained Preparation: Sterile Prep Position: Sitting Catheter Depth at Skin (cm): 10 Catheter: Indwelling Needle Guage: 18 Narrative: Test dose- 1.5% lidocaine + epinephrine-- Negative S/S. Needle level L4-5. Blood Aspirated: No Pain Paresthesia on Injection Noted: No Events: Uneventful and Well Tolerated
[2024-04-20] MEDS: metroNIDAZOLE-NS PMX 500 MG in SALINE 1 100ML.BAG IVPB PRN (10:45)
[2024-04-20] MEDS: LACTATED RINGERS 1,000 ML IV ONE (11:27)
[2024-04-20] MEDS ORDERED: BENZOCAINE/MENTHOL LOZENG 1 EACH LOZENGE MUCOUS MEM PRN (12:15)
--- NOTE | 2024-04-20 12:15 | P.OP ---
Date of Procedure: 04/20/24 Preoperative Diagnosis: history of perforated diverticulitis Postoperative Diagnosis: history of perforated diverticulitis Procedure(s) Performed: reversal colostomy Takedown sigmoid flexure Partial colectomy Omentectomy Anesthesia: ELVA Surgeon: Talon Kathleen Estimated Blood Loss (ml): 75 Pathology: other (omentum, left colon) Condition: stable Disposition: PACU Description of Procedure: the patient's placed in the operative table in supine position. He received general endotracheal tube anesthesia. His abdomen was prepped and draped in usual sterile fashion. Patient was placed in dorsal lithotomy position. A skin incision was made through his previous midline scar. Then using lelectro cautery the abdominal wall divided. The fascia was divided.. The adhesions to the abdominal wall were lysed with sharp dissection. The colostomy was then divided using the ERICH stapler. This point the adhesions to the pelvis were lysed. The rectal stump was found. The colon was examined. The proximal colon had some more diverticular disease. This point the splenic flexure was taken down. And then the left colon was mobilized. small portion of the omentum was divided with the LigaSure device and sent to pathology. And enterotomy was made in the distal transverse colon. And then the anvil for the EEA stapler was placed into the colon. The colon was then divided with the linear stapler. And then Vicryl the a.m. was driven through the staple line. The distal colon mesentery was then divided with the LigaSure device and then the specimen sent to pathology. This point the cable splicer assistant went below and using the anal dilators the rectum was probed. And then the 29 mm EEA stapler was placed . The spike was driven through the distal rectal staple line. The anvil STAPLER. Staple and closed and then fired. stapler was withdrawn for patient. 2 intact tissue rings were removed from the stapler. The rigid sigmoidoscope was then used to insufflate the rectum and then anastomosis with air. There is no evidence of any leakage of air staple line. The cyst checked under water. The abdomen was irrigated there is no bleeding seen. The fascia of the colostomy site was then closed with #1 Xavi fix suture. The fascia was then closed with looped #1 PD S suture. Skin was closed chante. The colostomy was then excised using left cautery. The fascial defect was closed with 0 Vicryl. Skin was closed chante. The prevena wound system was placed on top of the exposed skin. Patient tolerated the procedure well. He was sent to recovery in stable condition.
[2024-04-20] MEDS: ROPIVACAINE 250 MG, HYDROMORPHONE (PF) 5 MG in SODIUM CHLORIDE 0.9% 200 ML EPIDURAL PRN (12:28)
[2024-04-20] MEDS: HYDROmorphone 1 MG/ML 1 ML SYRINGE IVP PRN (15:50)
[2024-04-20] MEDS: HEPARIN SODIUM,PORCINE 5,000 UNIT/ML 1 ML VIAL SQ SCH (15:50)
[2024-04-20] MEDS: DEXTROSE 5%-0.45% NACL 1,000 ML IV SCH (15:50)
[2024-04-20 20:08] LABS: Basophils % (A) 0 %; Eosinophils % (A) 0 %; HCT 37.6 % (39.0-53.0); HGB 11.8 gm/dL (13.0-17.5); Lymphocytes # (A) 0.3 k/uL (1.0-4.8); Lymphocytes % (A) 2 %; MCH 31.2 pg (25.0-35.0); MCHC 31.5 g/dL (31.0-37.0); Mean Platelet Volume 8.2; Monocytes # (A) 1.1 k/uL (0-1.0); Monocytes % (A) 6 %; Neutrophils # (A) 16.5 k/uL (1.3-7.7); Neutrophils % (A) 92 %; Platelet Count 225 k/uL (150-450); RDW 13.6 % (11.5-15.5)
[2024-04-20 20:14] LABS: African American GFR (CKD) 85 (>60 ml/min/1.73 sqM); Anion Gap 6 mmol/L; Blood Urea Nitrogen 15 mg/dL (9-20); Calcium 8.6 mg/dL (8.4-10.2); Carbon Dioxide 29 mmol/L (22-30); Chloride 104 mmol/L (98-107); Glucose 160 mg/dL (74-99); Non-African American GFR(CKD) 74 (>60 ml/min/1.73 sqM); Potassium 4.3 mmol/L (3.5-5.1); Sodium 139 mmol/L (137-145)
[2024-04-20] MEDS: CARBIDOPA-LEVODOPA 25-100 MG 1 EACH TAB PO SCH (21:48)
--- NOTE | 2024-04-21 07:00 | P.PN ---
Progress Note - Text Progress Note Date: 04/21/24 Postoperative day #1 status post colostomy reversal, epidural catheter placed for postoperative analgesia, patient doing well epidural site okay, patient currently on combination of epidural infusion solution of Ropivacaine 0.0625% and Dilaudid 20 g per mL the infusion rate at 10 ml per hour , patient had no motor deficit epidural site okay , vital signs stable ,VAS 2 /10 , Assessment and plan= post operative day # 1 patient doing well ,pain well controlled , there is no anesthesia related complications
[2024-04-21] MEDS: ASPIRIN 81 MG PO SCH (08:22)
[2024-04-21] MEDS: ALVIMOPAN 12 MG CAPSULE PO SCH (08:22)
[2024-04-21] MEDS: MULTIVITAMINS, THERA 1 EACH TAB PO SCH (08:22)
[2024-04-21] MEDS: LOSARTAN 50 MG TAB PO SCH (08:22)
[2024-04-21] MEDS: PANTOPRAZOLE 40 MG TABLET PO SCH (08:22)
[2024-04-21 08:38] LABS: Basophils # (A) 0.04 X 10*3/uL (0.00-0.10); Basophils % (A) 0.3 %; Eosinophils # (A) 0.01 X 10*3/uL (0.04-0.35); Eosinophils % (A) 0.1 %; HCT 34.3 % (39.6-50.0); HGB 11.3 g/dL (13.0-17.0); Lymphocytes # (A) 0.59 X 10*3/uL (0.90-5.00); Lymphocytes % (A) 4.4 %; MCH 31.5 pg (27.0-32.0); MCHC 32.9 g/dL (32.0-37.0); MCV 95.5 FL (80.0-97.0); Mean Platelet Volume 10.6 FL (9.5-12.2); Monocytes # (A) 1.29 X 10*3/uL (0.20-1.00); Monocytes % (A) 9.6 %; NRBC Per 100 WBC 0 X 10*3/uL (0.00-0.01); Neutrophils # (A) 11.48 X 10*3/uL (1.80-7.70); Neutrophils % (A) 85.2 %; Platelet Count 234 X 10*3/uL (140-440); RBC 3.59 X 10*6/uL (4.40-5.60); RDW 13.8 % (11.5-14.5); WBC 13.46 X 10*3/uL (4.50-10.00)
[2024-04-21 08:56] LABS: BUN/Creat Ratio 12.69 Ratio (12.00-20.00); Blood Urea Nitrogen 16.5 mg/dL (9.0-27.0); Chloride 104 mmol/L (96-109); Glucose 119 mg/dL (70-110); Potassium 4.4 mmol/L (3.5-5.5); Sodium 140 mmol/L (135-145)
[2024-04-21 08:57] LABS: ALT 17 U/L (10-49); AST 20 U/L (14-35); Albumin 3.3 g/dL (3.8-4.9); Albumin/Globulin Ratio 1.32 Ratio (1.60-3.17); Alkaline Phosphatase 108 U/L (41-126); Calcium 8.4 mg/dL (8.7-10.3); Carbon Dioxide 26.6 mmol/L (21.6-31.8); Globulin 2.5 g/dL (1.6-3.3); Total Bilirubin 1.3 mg/dL (0.3-1.2); Total Protein 5.8 g/dL (6.2-8.2)
--- NOTE | 2024-04-21 10:42 | P.CONS ---
History of Present Illness - Reason for Consult Consult date: 04/20/24 - History of Present Illness Jerson Edwards, is a 79-year-old male patient of Dr. Britt who presented for an electivecolostomy reversal takedown of sigmoid flexure and a partial colectomy with Dr. benavides on 04/20/2024. patient has a history of perforated diverticulitis with worsening abscess in Decembernd patient underwent sigmoid colectomy with colostomy. at that time patient was discharged on antibiotics. Additional medical history includesParkinson's disease, right frontal stroke requiring PEG tube but since has been removed and BPH. At this time patient is resting comfortably in bed wound VAC in place abdominal dressing is clean dry and intact. Patient has epidural. at bedside all questions answered. patient maintained on clear liquid diet. Current vital signs temp 98.6, heart rate 69, respiratory rate 15, blood pressure 115/61 with a pulse ox 94% on room air. Patient denies chest pain or shortness of breath. Patient denies nausea vomiting or diarrhea. Patient denies any urinary burning or frequency Review of Systems please refer to HPI otherwise unremarkable Past Medical History Past Medical History: Chest Pain / Angina, CVA/TIA, GERD/Reflux, Hyperlipidemia, Hypertension, Myocardial Infarction ([place]), Musculoskeletal Disorder Additional Past Medical History / Comment(s): Parkinsons disease, CVA x 2 - most recent 08/09/23 w/ no residual effects, perforated diverticuliti 12/23 Last Myocardial Infarction Date:: 1983 History of Any Multi-Drug Resistant Organisms: None Reported Past Surgical History: Bowel Resection, Heart Catheterization Additional Past Surgical History / Comment(s): states heart cath with Dr Mera 2019 - "mild Blockages'- PEG tube placement - 08/13/23, colonoscopy, sigmoid colectomy w/ end colostomy 12/31/23 Past Anesthesia/Blood Transfusion Reactions: No Reported Reaction Smoking Status: Former smoker - Past Family History Mother Family Medical History: Congestive Heart Failure (CHF) Father Family Medical History: Myocardial Infarction ([place]) Medications and Allergies Home Medications Medication Instructions Recorded Confirmed Type Carbidopa-Levodopa 25-100 mg 1 tab PO DIRECTED 05/17/20 04/20/24 History [Sinemet 25-100 mg] amantadine HCL [Symmetrel] 100 mg PO TID@0600,1200,1800 05/17/20 04/20/24 History Multivitamins, Thera [Multivitamin 1 tab PO DAILY 08/09/23 04/14/24 History (formulary)] amLODIPine [Norvasc] 5 mg PO HS 08/09/23 04/20/24 History Aspirin 81 mg PO DAILY 30 Days #30 tab 12/05/23 04/14/24 Rx Losartan [Cozaar] 50 mg PO QAM 04/14/24 04/20/24 History Pantoprazole [Protonix] 40 mg PO QAM 04/14/24 04/20/24 History Allergies Allergy/AdvReac Type Severity Reaction Status Date / Time No Known Allergies Allergy Verified 04/20/24 08:44 Physical Exam Vitals: Vital Signs Temp Pulse Pulse Resp BP Pulse Ox 04/20/24 15:38 97.5 F L 69 16 114/67 95 04/20/24 14:45 63 16 99/57 98 04/20/24 14:15 60 16 100/61 96 04/20/24 13:45 59 L 16 104/59 96 04/20/24 13:30 60 16 114/59 96 04/20/24 13:14 61 16 114/66 97 04/20/24 12:58 61 16 125/71 95 04/20/24 12:43 62 16 134/75 95 04/20/24 12:28 96.8 F L 65 16 145/76 96 04/20/24 09:38 67 16 147/71 100 04/20/24 08:55 97.2 F L 59 L 16 177/68 98 Intake and Output 04/20/24 04/20/24 04/20/24 06:59 14:59 22:59 Intake Total 2150 Output Total 175 Balance 1974 Intake: IV 2150 Output: Urine 100 Estimated Blood Loss 75 Other: Weight 72.7 kg Head normocephalic Neck supple Lungs clear to auscultation bilaterally no wheezing or crackles Heart regular rate and rhythm S1-S2, no rub or gallop Abdomen midline dressing clean dry and intact Extremities no edema Neuro alert and orientated to 3 Results CBC & Chem 7: 04/21/24 04:00 04/21/24 04:00 Assessment and Plan Assessment: 1. status post colostomy reversal 2. History of diverticulitis with abscess requiring colostomy in December 2023 3. History of stroke requiring PEG tube. This has been reversed 4. History of Parkinson's disease 5. History of BPH Thank you for this consultation we'll continue to follow patient closely throughout stay PT OT service is consulted Repeat labs ordered Time with Patient: Greater than 30 (Greater than 60% of the total time spent in counseling and coordination of care)
--- NOTE | 2024-04-21 10:44 | P.PN ---
Subjective Progress Note Date: 04/21/24 Jerson Edwards, is a 79-year-old male patient of Dr. Britt who presented for an electivecolostomy reversal takedown of sigmoid flexure and a partial colectomy with Dr. benavides on 04/20/2024. patient has a history of perforated diverticulitis with worsening abscess in Decembernd patient underwent s igmoid colectomy with colostomy. at that time patient was discharged on antibiotics. Additional medical history includesParkinson's disease, right frontal stroke requiring PEG tube but since has been removed and BPH. At this time patient is resting comfortably in bed wound VAC in place abdominal dressing is clean dry and intact. Patient has epidural. at bedside all questions answered. patient maintained on clear liquid diet. Current vital signs temp 98.6, heart rate 69, respiratory rate 15, blood pressure 115/61 with a pulse ox 94% on room air. Patient denies chest pain or shortness of breath. Patient denies nausea vomiting or diarrhea. Patient denies any urinary burning or freq uency On 04/21/2024 for patient's alert and oriented 3.Patient remains on clear liquid diet. Patient denies chest pain or shortness of breath. Patient denies nausea vomiting or diarrhea. Patient denies any urinary burning or frequency patient remains with epidural for pain control PT OT services consulted Objective - Vital Signs Vital signs: Vital Signs Temp 98.6 F 04/21/24 07:20 Pulse 69 04/21/24 08:21 Resp 15 04/21/24 08:21 BP 115/61 04/21/24 07:20 Pulse Ox 94 L 04/21/24 08:39 FiO2 Intake & Output 04/20/24 04/21/24 04/21/24 18:59 06:59 18:59 Intake Total 2150 Output Total 325 225 Balance 1825 -225 Weight 72.7 kg Intake: IV 2150 Output: Urine 250 225 Estimated Blood Loss 75 Other: Voiding Method Indwelling Catheter Indwelling Catheter Indwelling Catheter - Exam Head normocephalic Neck supple Lungs clear to auscultation bilaterally no wheezing or crackles Heart regular rate and rhythm S1-S2, no rub or gallop Abdomen midline dressing clean dry and intact Extremities no edema Neuro alert and orientated to 3 - Labs CBC & Chem 7: 04/21/24 04:00 04/21/24 04:00 Labs: Abnormal Lab Results - Last 24 Hours (Table) 04/20/24 04/20/24 04/21/24 Range/Units 19:20 19:20 04:00 WBC 18.0 H 13.46 H (3.8-10.6) k/uL RBC 3.80 L 3.59 L (4.30-5.90) m/uL Hgb 11.8 L 11.3 L (13.0-17.5) gm/dL Hct 37.6 L 34.3 L (39.0-53.0) % Immature Gran # 0.05 H (0.00-0.04) X 10*3/uL Neutrophils # 16.5 H 11.48 H (1.3-7.7) k/uL Lymphocytes # 0.3 L 0.59 L (1.0-4.8) k/uL Monocytes # 1.1 H 1.29 H (0-1.0) k/uL Eosinophils # 0.01 L (0.04-0.35) X 10*3/uL Est GFR (CKD-EPI) (>=60) Glucose 160 H (74-99) mg/dL Calcium (8.7-10.3) mg/dL Total Bilirubin (0.3-1.2) mg/dL Total Protein (6.2-8.2) g/dL Albumin (3.8-4.9) g/dL Albumin/Globulin Ratio (1.60-3.17) Ratio 04/21/24 Range/Units 04:00 WBC (3.8-10.6) k/uL RBC (4.30-5.90) m/uL Hgb (13.0-17.5) gm/dL Hct (39.0-53.0) % Immature Gran # (0.00-0.04) X 10*3/uL Neutrophils # (1.3-7.7) k/uL Lymphocytes # (1.0-4.8) k/uL Monocytes # (0-1.0) k/uL Eosinophils # (0.04-0.35) X 10*3/uL Est GFR (CKD-EPI) 56 L (>=60) Glucose 119 H (74-99) mg/dL Calcium 8.4 L (8.7-10.3) mg/dL Total Bilirubin 1.3 H (0.3-1.2) mg/dL Total Protein 5.8 L (6.2-8.2) g/dL Albumin 3.3 L (3.8-4.9) g/dL Albumin/Globulin Ratio 1.32 L (1.60-3.17) Ratio Assessment and Plan Assessment: 1. status post colostomy reversal 2. History of diverticulitis with abscess requiring colostomy in December 2023 3. History of stroke requiring PEG tube. This has been reversed 4. History of Parkinson's disease 5. History of BPH Thank you for this consultation we'll continue to follow patient closely throughout stay PT OT service is consulted Repeat labs ordered
--- NOTE | 2024-04-21 13:54 | P.PN ---
Subjective Progress Note Date: 04/21/24 CHIEF COMPLAINT: History of perforated diverticulitis HISTORY OF PRESENT ILLNESS: Patient is postop day #1 status post reversal of colostomy, takedown sigmoid flexure, partial colectomy and omentectomy. Patient has epidural in place. His pain is controlled. He is slightly confused. Denies any nausea or vomiting. Afebrile. WBC is down from 18-13.46 Hgb 11.3 PHYSICAL EXAM: VITAL SIGNS: Reviewed. GENERAL: Well-developed in no acute distress. ABDOMEN: Soft. Nondistended. Prevena dressing intact NEUROLOGIC: Alert and oriented. Cranial nerves II through XII grossly intact. ASSESSMENT: 1. History of perforated diverticulitis PLAN: -Continue clear liquid diet -Continue epidural for pain control -Continue Harrison catheter -Encourage patient increase activity level -PT OT consulted -Encourage patient to use incentive spirometer -Continue IV fluids -Continue Entereg -Repeat CBC in a.m. -DVT prophylaxis subcu heparin GI prophylaxis Protonix Physician Motor Equipment Sergeant note has been reviewed by physician. Signing provider agrees with the documented findings, assessment, and plan of care. Objective - Vital Signs Vital signs: Vital Signs Temp 98.6 F 04/21/24 07:20 Pulse 69 04/21/24 08:21 Resp 15 04/21/24 08:21 BP 115/61 04/21/24 07:20 Pulse Ox 94 L 04/21/24 08:39 FiO2 Intake & Output 04/20/24 04/21/24 04/21/24 18:59 06:59 18:59 Intake Total 2150 Output Total 325 225 Balance 1825 -225 Weight 72.7 kg Intake: IV 2150 Output: Urine 250 225 Estimated Blood Loss 75 Other: Voiding Method Indwelling Catheter Indwelling Catheter Indwelling Catheter - Labs CBC & Chem 7: 04/21/24 04:00 04/21/24 04:00 Labs: Abnormal Lab Results - Last 24 Hours (Table) 04/20/24 04/20/24 04/21/24 Range/Units 19:20 19:20 04:00 WBC 18.0 H 13.46 H (3.8-10.6) k/uL RBC 3.80 L 3.59 L (4.30-5.90) m/uL Hgb 11.8 L 11.3 L (13.0-17.5) gm/dL Hct 37.6 L 34.3 L (39.0-53.0) % Immature Gran # 0.05 H (0.00-0.04) X 10*3/uL Neutrophils # 16.5 H 11.48 H (1.3-7.7) k/uL Lymphocytes # 0.3 L 0.59 L (1.0-4.8) k/uL Monocytes # 1.1 H 1.29 H (0-1.0) k/uL Eosinophils # 0.01 L (0.04-0.35) X 10*3/uL Est GFR (CKD-EPI) (>=60) Glucose 160 H (74-99) mg/dL Calcium (8.7-10.3) mg/dL Total Bilirubin (0.3-1.2) mg/dL Total Protein (6.2-8.2) g/dL Albumin (3.8-4.9) g/dL Albumin/Globulin Ratio (1.60-3.17) Ratio / Range/Units 04:00 WBC (3.8-10.6) k/uL RBC (4.30-5.90) m/uL Hgb (13.0-17.5) gm/dL Hct (39.0-53.0) % Immature Gran # (0.00-0.04) X 10*3/uL Neutrophils # (1.3-7.7) k/uL Lymphocytes # (1.0-4.8) k/uL Monocytes # (0-1.0) k/uL Eosinophils # (0.04-0.35) X 10*3/uL Est GFR (CKD-EPI) 56 L (>=60) Glucose 119 H (74-99) mg/dL Calcium 8.4 L (8.7-10.3) mg/dL Total Bilirubin 1.3 H (0.3-1.2) mg/dL Total Protein 5.8 L (6.2-8.2) g/dL Albumin 3.3 L (3.8-4.9) g/dL Albumin/Globulin Ratio 1.32 L (1.60-3.17) Ratio
[2024-04-21] MEDS: amLODIPine 5 MG TAB PO SCH (20:06)
--- NOTE | 2024-04-22 06:24 | P.PN ---
Progress Note - Text Progress Note Date: 04/22/24 S/P abdominal surgery. POD #2. Epidural is running at 6 cc/h. Pain control is adequate, without additional pain medications. No ansthesia related complications. Dressing dry, clean and intact.
[2024-04-22 08:29] LABS: HCT 33.8 % (39.6-50.0); HGB 11.3 g/dL (13.0-17.0); MCH 31.5 pg (27.0-32.0); MCHC 33.4 g/dL (32.0-37.0); MCV 94.2 FL (80.0-97.0); Mean Platelet Volume 10.5 FL (9.5-12.2); NRBC Per 100 WBC 0 X 10*3/uL (0.00-0.01); Platelet Count 215 X 10*3/uL (140-440); RBC 3.59 X 10*6/uL (4.40-5.60); RDW 13.9 % (11.5-14.5); WBC 17.34 X 10*3/uL (4.50-10.00)
[2024-04-22 08:30] LABS: Basophils # (A) 0.05 X 10*3/uL (0.00-0.10); Basophils % (A) 0.3 %; Eosinophils # (A) 0.03 X 10*3/uL (0.04-0.35); Eosinophils % (A) 0.2 %; Lymphocytes # (A) 0.51 X 10*3/uL (0.90-5.00); Lymphocytes % (A) 2.9 %; Monocytes # (A) 1.58 X 10*3/uL (0.20-1.00); Monocytes % (A) 9.1 %; Neutrophils # (A) 15.08 X 10*3/uL (1.80-7.70)
[2024-04-22] MEDS: ONDANSETRON 4 MG/2 ML VIAL IVP PRN (09:07)
[2024-04-22 09:10] LABS: ALT 8 U/L (10-49); AST 21 U/L (14-35); Alkaline Phosphatase 106 U/L (41-126); BUN/Creat Ratio 13.62 Ratio (12.00-20.00); Blood Urea Nitrogen 17.7 mg/dL (9.0-27.0); Calcium 8.1 mg/dL (8.7-10.3); Carbon Dioxide 23.4 mmol/L (21.6-31.8); Chloride 101 mmol/L (96-109); Globulin 2.5 g/dL (1.6-3.3); Glucose 124 mg/dL (70-110); Potassium 4.1 mmol/L (3.5-5.5); Sodium 134 mmol/L (135-145); Total Bilirubin 1.5 mg/dL (0.3-1.2); Total Protein 5.5 g/dL (6.2-8.2)
--- NOTE | 2024-04-22 12:50 | P.PN ---
Subjective Progress Note Date: 04/22/24 patient has had some confusion this morning. He also has had some trouble swallowing. He is currently being worked up by the speech therapist. He states he has some abdominal pain. His epidural was cut back due to his confusion. On exam vital signs appear stable. Abdomen soft incision is clean dry tach Status post reversal of colostomy. Patient is made nothing by mouth due to potential risk of ileus. Patient will be watched closely. Objective - Vital Signs Vital signs: Vital Signs Temp 98.1 F 04/22/24 07:54 Pulse 80 04/22/24 07:54 Resp 19 04/22/24 07:54 BP 154/91 04/22/24 07:54 Pulse Ox 91 L 04/22/24 07:54 FiO2 Intake & Output 04/21/24 04/22/24 04/22/24 18:59 06:59 18:59 Intake Total 75.067 89.4 Output Total 350 250 Balance -274.933 -250 89.4 Weight 72.7 kg Intake: Intake, IV Titration 75.067 89.4 Amount Ropivacaine 250 mg 75.067 89.4 Hydromorphone (Pf) 5 mg In Sodium Chloride 0.9% 200 ml @ Per Protocol EPIDURAL .Q0M PRN Rx#: [id number] Output: Urine 350 250 Uretheral (Harrison) 250 Other: Voiding Method Indwelling Catheter Indwelling Catheter Indwelling Catheter - Labs CBC & Chem 7: 04/22/24 06:05 04/22/24 06:05 Labs: Abnormal Lab Results - Last 24 Hours (Table) 04/22/24 04/22/24 Range/Units 06:05 06:05 WBC 17.34 H (4.50-10.00) X 10*3/uL RBC 3.59 L (4.40-5.60) X 10*6/uL Hgb 11.3 L (13.0-17.0) g/dL Hct 33.8 L (39.6-50.0) % Immature Gran # 0.09 H (0.00-0.04) X 10*3/uL Neutrophils # 15.08 H (1.80-7.70) X 10*3/uL Lymphocytes # 0.51 L (0.90-5.00) X 10*3/uL Monocytes # 1.58 H (0.20-1.00) X 10*3/uL Eosinophils # 0.03 L (0.04-0.35) X 10*3/uL Sodium 134 L (135-145) mmol/L Est GFR (CKD-EPI) 56 L (>=60) Glucose 124 H (70-110) mg/dL Calcium 8.1 L (8.7-10.3) mg/dL Total Bilirubin 1.5 H (0.3-1.2) mg/dL ALT 8 L (10-49) U/L Total Protein 5.5 L (6.2-8.2) g/dL Albumin 3.0 L (3.8-4.9) g/dL Albumin/Globulin Ratio 1.20 L (1.60-3.17) Ratio
[2024-04-22] MEDS: PANTOPRAZOLE 40 MG/10 ML VIAL IVP SCH (13:49)
[2024-04-22] MEDS: hydrALAZINE HCL 20 MG/ML 1 ML VIAL IVP PRN (13:49)
[2024-04-22 14:20] LABS: Amorphous Sediment,Urine Rare /hpf; Appearance,Urine Clear (Clear); Bacteria,Urine Rare /hpf; Bilirubin,Urine Negative (Negative); Blood,Urine Large (Negative); Color,Urine Yellow; Glucose,Urine (UA) Negative (Negative); Ketones,Urine Negative (Negative); Leukocyte Esterase,Urine Moderate (Negative); Mucus,Urine Rare /hpf; Nitrite,Urine Negative (Negative); PH, Urine 5.5 (5.0-8.0); Protein,Urine 1+ (Negative); RBC,Urine >182 /hpf (0-5); Specific Gravity,Urine 1.017 (1.001-1.035); Squamous Epithelial Cell,Urine <1 /hpf (0-4); Urobilinogen,Urine <2.0 mg/dL (<2.0); WBC,Urine 17 /hpf (0-5)
[2024-04-22] MEDS: ACETAMINOPHEN IV (For NPO) 1,000 MG in EMPTY BAG 1 BAG IVPB SCH (14:38)
--- NOTE | 2024-04-22 15:14 | XR ---
EXAMINATION TYPE: XR chest 1V portable DATE OF EXAM: 04/22/2024 COMPARISON: 01/04/2024 HISTORY: Leukocytosis TECHNIQUE: Single frontal view of the chest is obtained. FINDINGS: There has been interval development of bibasilar opacities with given history of leukocytosis most li joao represent bibasilar pneumonias. There is a probable small left pleural effusion. Is no pneumothorax. There is persistent mild pneumoperitoneum beneath the right hemidiaphragm less than that seen on the prior study. The pulmonary vasculature is not congested. The osseous structures are intact IMPRESSION: 1. New bibasilar infiltrates most likely representing pneumonias. 2. New small left pleural effusion. 3. Decreased but residual pneumoperitoneum beneath the right hemidiaphragm
[2024-04-22] MEDS: PIPERACILLIN-TAZOBACTAM 3.375 GM in SODIUM CHLORIDE 0.9% 100 ML IVPB SCH (16:10)
--- NOTE | 2024-04-22 16:54 | P.PN ---
Subjective Progress Note Date: 04/22/24 Jerson Edwards, is a 79-year-old male patient of Dr. Britt who presented for an electivecolostomy reversal takedown of sigmoid flexure and a partial colectomy with Dr. benavides on 04/20/2024. patient has a history of perforated diverticulitis with worsening abscess in Decembernd patient underwent s igmoid colectomy with colostomy. at that time patient was discharged on antibiotics. Additional medical history includesParkinson's disease, right frontal stroke requiring PEG tube but since has been removed and BPH. At this time patient is resting comfortably in bed wound VAC in place abdominal dressing is clean dry and intact. Patient has epidural. at bedside all questions answered. patient maintained on clear liquid diet. Current vital signs temp 98.6, heart rate 69, respiratory rate 15, blood pressure 115/61 with a pulse ox 94% on room air. Patient denies chest pain or shortness of breath. Patient denies nausea vomiting or diarrhea. Patient denies any urinary burning or freq uency On 04/21/2024 for patient's alert and oriented 3.Patient remains on clear liquid diet. Patient denies chest pain or shortness of breath. Patient denies nausea vomiting or diarrhea. Patient denies any urinary burning or frequency patient remains with epidural for pain control PT OT services consulted. on 04/22/2024 patient was seen and examined on the medical floor, he is alert, slightly confused in no apparent distress, patient had elevated temperatures today, and elevated white blood count, blood culture and urine culture and chest x-ray were ordered, infectious disease consultation was requested, he denies any chest pain shortness of breath or cough there is no nausea or vomiting and no urinary symptoms. Objective - Vital Signs Vital signs: Vital Signs Temp 98.1 F 04/22/24 07:54 Pulse 80 04/22/24 07:54 Resp 19 04/22/24 07:54 BP 154/91 04/22/24 07:54 Pulse Ox 91 L 04/22/24 07:54 FiO2 Intake & Output 04/21/24 04/22/24 04/22/24 18:59 06:59 18:59 Intake Total 75.067 89.4 Output Total 350 250 Balance -274.933 -250 89.4 Weight 72.7 kg Intake: Intake, IV Titration 75.067 89.4 Amount Ropivacaine 250 mg 75.067 89.4 Hydromorphone (Pf) 5 mg In Sodium Chloride 0.9% 200 ml @ Per Protocol EPIDURAL .Q0M PRN Rx#: [id number] Output: Urine 350 250 Uretheral (Harrison) 250 Other: Voiding Method Indwelling Catheter Indwelling Catheter Indwelling Catheter - Exam Head normocephalic Neck supple Lungs clear to auscultation bilaterally no wheezing or crackles Heart regular rate and rhythm S1-S2, no rub or gallop Abdomen midline dressing clean dry and intact Extremities no edema Neuro alert and orientated to 3 - Labs CBC & Chem 7: 04/22/24 06:05 04/22/24 06:05 Labs: Abnormal Lab Results - Last 24 Hours (Table) 04/22/24 04/22/24 Range/Units 06:05 06:05 WBC 17.34 H (4.50-10.00) X 10*3/uL RBC 3.59 L (4.40-5.60) X 10*6/uL Hgb 11.3 L (13.0-17.0) g/dL Hct 33.8 L (39.6-50.0) % Immature Gran # 0.09 H (0.00-0.04) X 10*3/uL Neutrophils # 15.08 H (1.80-7.70) X 10*3/uL Lymphocytes # 0.51 L (0.90-5.00) X 10*3/uL Monocytes # 1.58 H (0.20-1.00) X 10*3/uL Eosinophils # 0.03 L (0.04-0.35) X 10*3/uL Sodium 134 L (135-145) mmol/L Est GFR (CKD-EPI) 56 L (>=60) Glucose 124 H (70-110) mg/dL Calcium 8.1 L (8.7-10.3) mg/dL Total Bilirubin 1.5 H (0.3-1.2) mg/dL ALT 8 L (10-49) U/L Total Protein 5.5 L (6.2-8.2) g/dL Albumin 3.0 L (3.8-4.9) g/dL Albumin/Globulin Ratio 1.20 L (1.60-3.17) Ratio Assessment and Plan Assessment: 1. status post colostomy reversal 2. History of diverticulitis with abscess requiring colostomy in December 2023 3. History of stroke requiring PEG tube. This has been reversed 4. History of Parkinson's disease 5. History of BPH Thank you for this consultation we'll continue to follow patient closely throughout stay PT OT service is consulted Repeat labs ordered
--- NOTE | 2024-04-22 22:30 | P.CONS ---
History of Present Illness - Reason for Consult Consult date: 04/22/24 Leukocytosis, mental status changes Requesting physician: Jeovanny Lui - Chief Complaint Cough x few days - History of Present Illness Patient is a 79-year-old male past medical history significant for hypertension hyperlipidemia VA reflux CVA TIA recent admission to the hospital and this patient who did have a perforated diverticulitis with peridiverticular abscess failing medical therapy status post laparotomy and diverting colostomy patient complete his antibiotic therapy patient has been electively admitted to the hospital after the patient underwent reversal of colostomy takedown of the sigmoid flexure partial colectomy and omentectomy patient currently undergoing rehabilitation postsurgery patient has been afebrile throughout his hospital stay no significant tachycardia or hypotension and no hypoxemia patient noticed to have a elevated white count prompting this consultation patient is currently complaining of feeling weak denies any headache or URI symptoms some shortness of breath and occasional cough but not bring up any sputum did have some nausea but no vomiting complaining of some abdominal pain mostly dull aching without any radiation no vomiting no bowel movement patient did have a chest x-ray with new bibasilar infiltrate most likely presenting in the morning as infectious he was consulted for further management of antibiotic therapy Review of Systems Positive point and negatives has been mentioned in the HPI, complete review of systems was performed and all other systems are negative Past Medical History Past Medical History: Chest Pain / Angina, CVA/TIA, GERD/Reflux, Hyperlipidemia, Hypertension, Myocardial Infarction (VA), Musculoskeletal Disorder Additional Past Medical History / Comment(s): Parkinsons disease, CVA x 2 - most recent 08/09/23 w/ no residual effects, perforated diverticuliti 12/23 Last Myocardial Infarction Date:: 1983 History of Any Multi-Drug Resistant Organisms: None Reported Past Surgical History: Bowel Resection, Heart Catheterization Additional Past Surgical History / Comment(s): states heart cath with Dr Mera 2019 - "mild Blockages'- PEG tube placement - 08/13/23, colonoscopy, sigmoid colectomy w/ end colostomy 12/31/23 Past Anesthesia/Blood Transfusion Reactions: No Reported Reaction Smoking Status: Former smoker - Past Family History Mother History Unknown: Yes Family Medical History: Congestive Heart Failure (CHF) Father History Unknown: Yes Family Medical History: Myocardial Infarction (VA) Medications and Allergies Home Medications Medication Instructions Recorded Confirmed Type Carbidopa-Levodopa 25-100 mg 1 tab PO DIRECTED 05/17/20 04/20/24 History [Sinemet 25-100 mg] amantadine HCL [Symmetrel] 100 mg PO TID@0600,1200,1800 05/17/20 04/20/24 History Multivitamins, Thera [Multivitamin 1 tab PO DAILY 08/09/23 04/14/24 History (formulary)] amLODIPine [Norvasc] 5 mg PO HS 08/09/23 04/20/24 History Aspirin 81 mg PO DAILY 30 Days #30 tab 12/05/23 04/14/24 Rx Losartan [Cozaar] 50 mg PO QAM 04/14/24 04/20/24 History Pantoprazole [Protonix] 40 mg PO QAM 04/14/24 04/20/24 History Moxifloxacin HCl [Avelox] 400 mg PO DAILY 7 Days #7 tab 04/29/24 Rx Nystatin 100,000 Unit/ml Susp 500,000 unit PO QID 10 Days #200 ml 04/29/24 Rx [Mycostatin Oral Susp] Allergies Allergy/AdvReac Type Severity Reaction Status Date / Time No Known Allergies Allergy Verified 04/20/24 08:44 Physical Exam Vitals: Vital Signs Temp Pulse Pulse Resp BP Pulse Ox 04/22/24 07:54 98.1 F 80 19 154/91 91 L 04/22/24 01:09 97.6 F 73 15 106/65 92 L 04/21/24 19:45 98.3 F 85 15 130/81 97 Intake and Output 04/21/24 04/22/24 04/22/24 22:59 06:59 14:59 Intake Total 75.067 89.4 Output Total 250 Balance 75.067 -250 89.4 Intake: Intake, IV Titration 75.067 89.4 Amount Ropivacaine 250 mg 75.067 89.4 Hydromorphone (Pf) 5 mg In Sodium Chloride 0.9% 200 ml @ Per Protocol EPIDURAL .Q0M PRN Rx#: [id number] Output: Urine 250 Uretheral (Harrison) 250 Other: Voiding Method Indwelling Catheter Indwelling Catheter Weight 72.7 kg GENERAL DESCRIPTION: Elderly male lying in bed, no distress. No tachypnea or accessory muscle of respiration use. HEENT: Shows Pallor , no scleral icterus. Oral mucous membrane is dry. No pharyngeal erythema or thrush NECK: Trachea central, no thyromegaly. LUNGS: Unlabored breathing. Decreased breath sound at the base HEART: S1, S2, regular rate and rhythm. No loud murmur ABDOMEN: Soft, mild distention and tenderness incision is intact EXTREMITIES: No edema of feet. SKIN: No rash, no masses palpable. NEUROLOGICAL: The patient is awake, alert, mood and affect normal. Results CBC & Chem 7: 04/29/24 06:23 04/29/24 06:23 Labs: Abnormal Lab Results - Last 24 Hours (Table) 04/22/24 04/22/24 Range/Units 06:05 06:05 WBC 17.34 H (4.50-10.00) X 10*3/uL RBC 3.59 L (4.40-5.60) X 10*6/uL Hgb 11.3 L (13.0-17.0) g/dL Hct 33.8 L (39.6-50.0) % Immature Gran # 0.09 H (0.00-0.04) X 10*3/uL Neutrophils # 15.08 H (1.80-7.70) X 10*3/uL Lymphocytes # 0.51 L (0.90-5.00) X 10*3/uL Monocytes # 1.58 H (0.20-1.00) X 10*3/uL Eosinophils # 0.03 L (0.04-0.35) X 10*3/uL Sodium 134 L (135-145) mmol/L Est GFR (CKD-EPI) 56 L (>=60) Glucose 124 H (70-110) mg/dL Calcium 8.1 L (8.7-10.3) mg/dL Total Bilirubin 1.5 H (0.3-1.2) mg/dL ALT 8 L (10-49) U/L Total Protein 5.5 L (6.2-8.2) g/dL Albumin 3.0 L (3.8-4.9) g/dL Albumin/Globulin Ratio 1.20 L (1.60-3.17) Ratio Assessment and Plan (1) Leukocytosis Status: Acute Code(s): D72.829 - ELEVATED WHITE BLOOD CELL COUNT, UNSPECIFIED SNOMED Code(s): 334560354 Plan: 1patient with elevated white count and this patient has been electively admitted to hospital after the patient underwent colostomy reversal partial colectomy and omentectomy did have a mild respiratory symptom abnormal chest x- ray concerning for possible pneumonia. 2we have requested for blood cultures CRP procalcitonin 3-patient empirically started on Zosyn while waiting for the workup to be completed Son at the bedside question concern answered We will follow on clinical condition and cultures to further adjust medication if needed Thank you for this consultation we will follow the patient along with you Dictation was produced using [employer] dictation software. please excuse any grammatical, word or spelling errors. Time with Patient: Greater than 30
--- NOTE | 2024-04-23 08:31 | P.PN ---
Progress Note - Text 04/23/24 619am 79-year-old male status post colostomy reversal by Dr. Kathleen. Patient has an epidural catheter for postop pain control with a solution running at 3 cc an hour with a VAS of 1. No motor or sensory deficit noted. Plan to DC the epidural nurse informed
--- NOTE | 2024-04-23 09:02 | P.PN ---
Subjective Progress Note Date: 04/23/24 the patient feels better today. He states she's had flatus. He states he has no trouble swallowing. On exam vital signs appear stable. Abdomen is soft. Incisions clean dry tach. Status post reversal colostomy. Patient will resume full liquid diet. If he shows any difficulty swallowing will have speech evtherapy evaluation. Objective - Vital Signs Vital signs: Vital Signs Temp 97.9 F 04/23/24 07:10 Pulse 78 04/23/24 07:10 Resp 19 04/23/24 07:10 BP 147/78 04/23/24 07:10 Pulse Ox 95 04/23/24 07:10 FiO2 Intake & Output 04/22/24 04/23/24 04/23/24 18:59 06:59 18:59 Intake Total 89.4 Output Total 400 600 Balance -310.6 -600 Intake: Intake, IV Titration 89.4 Amount Ropivacaine 250 mg 89.4 Hydromorphone (Pf) 5 mg In Sodium Chloride 0.9% 200 ml @ Per Protocol EPIDURAL .Q0M PRN Rx#: [id number] Output: Urine 400 600 Other: Voiding Method Indwelling Catheter Indwelling Catheter - Labs CBC & Chem 7: 04/22/24 06:05 04/22/24 06:05 Labs: Abnormal Lab Results - Last 24 Hours (Table) 04/22/24 04/22/24 Range/Units 06:05 13:38 Sodium 134 L (135-145) mmol/L Est GFR (CKD-EPI) 56 L (>=60) Glucose 124 H (70-110) mg/dL Calcium 8.1 L (8.7-10.3) mg/dL Total Bilirubin 1.5 H (0.3-1.2) mg/dL ALT 8 L (10-49) U/L Total Protein 5.5 L (6.2-8.2) g/dL Albumin 3.0 L (3.8-4.9) g/dL Albumin/Globulin Ratio 1.20 L (1.60-3.17) Ratio Urine Protein 1+ H (Negative) Urine Blood Large H (Negative) Ur Leukocyte Esterase Moderate H (Negative) Urine RBC >182 H (0-5) /hpf Urine WBC 17 H (0-5) /hpf Amorphous Sediment Rare H (None) /hpf Urine Bacteria Rare H (None) /hpf Urine Mucus Rare H (None) /hpf
[2024-04-23 10:36] LABS: Basophils # (A) 0.04 X 10*3/uL (0.00-0.10); Basophils % (A) 0.3 %; Eosinophils # (A) 0.06 X 10*3/uL (0.04-0.35); Eosinophils % (A) 0.4 %; HGB 10.2 g/dL (13.0-17.0); Lymphocytes # (A) 0.34 X 10*3/uL (0.90-5.00); Lymphocytes % (A) 2.4 %; MCH 31.8 pg (27.0-32.0); MCHC 32.9 g/dL (32.0-37.0); MCV 96.6 FL (80.0-97.0); Mean Platelet Volume 10.9 FL (9.5-12.2); Monocytes # (A) 1.02 X 10*3/uL (0.20-1.00); Monocytes % (A) 7.3 %; NRBC Per 100 WBC 0 X 10*3/uL (0.00-0.01); Neutrophils # (A) 12.32 X 10*3/uL (1.80-7.70); Neutrophils % (A) 88.9 %; Platelet Count 199 X 10*3/uL (140-440); RBC 3.21 X 10*6/uL (4.40-5.60); WBC 13.88 X 10*3/uL (4.50-10.00)
--- NOTE | 2024-04-23 10:48 | P.PN ---
Subjective Progress Note Date: 04/23/24 Jerson Edwards, is a 79-year-old male patient of Dr. Britt who presented for an electivecolostomy reversal takedown of sigmoid flexure and a partial colectomy with Dr. benavides on 04/20/2024. patient has a history of perforated diverticulitis with worsening abscess in Decembernd patient underwent s igmoid colectomy with colostomy. at that time patient was discharged on antibiotics. Additional medical history includesParkinson's disease, right frontal stroke requiring PEG tube but since has been removed and BPH. At this time patient is resting comfortably in bed wound VAC in place abdominal dressing is clean dry and intact. Patient has epidural. at bedside all questions answered. patient maintained on clear liquid diet. Current vital signs temp 98.6, heart rate 69, respiratory rate 15, blood pressure 115/61 with a pulse ox 94% on room air. Patient denies chest pain or shortness of breath. Patient denies nausea vomiting or diarrhea. Patient denies any urinary burning or freq uency On 04/21/2024 for patient's alert and oriented 3.Patient remains on clear liquid diet. Patient denies chest pain or shortness of breath. Patient denies nausea vomiting or diarrhea. Patient denies any urinary burning or frequency patient remains with epidural for pain control PT OT services consulted. on 04/22/2024 patient was seen and examined on the medical floor, he is alert, slightly confused in no apparent distress, patient had elevated temperatures today, and elevated white blood count, blood culture and urine culture and chest x-ray were ordered, infectious disease consultation was requested, he denies any chest pain shortness of breath or cough there is no nausea or vomiting and no urinary symptoms. On 04/23/2024 patient is less confused today alert and oriented 3.Patient was started on IV Zosyn per infectious disease with blood cell improving today to 13.88. Will start patient on nystatin for oral thrush. Patient denies chest pain or shortness breath. Patient is complaining of abdominal discomfort. Patient denies nausea vomiting or diarrhea. Patient denies any urinary burning or frequency Objective - Vital Signs Vital signs: Vital Signs Temp 97.9 F 04/23/24 07:10 Pulse 78 04/23/24 07:10 Resp 19 04/23/24 07:10 BP 147/78 04/23/24 07:10 Pulse Ox 95 04/23/24 07:10 FiO2 Intake & Output 04/22/24 04/23/24 04/23/24 18:59 06:59 18:59 Intake Total 89.4 Output Total 400 600 Balance -310.6 -600 Intake: Intake, IV Titration 89.4 Amount Ropivacaine 250 mg 89.4 Hydromorphone (Pf) 5 mg In Sodium Chloride 0.9% 200 ml @ Per Protocol EPIDURAL .Q0M PRN Rx#: [id number] Output: Urine 400 600 Other: Voiding Method Indwelling Catheter Indwelling Catheter - Exam Head normocephalic Neck supple Lungs clear to auscultation bilaterally no wheezing or crackles Heart regular rate and rhythm S1-S2, no rub or gallop Abdomen midline dressing clean dry and intact Extremities no edema Neuro alert and orientated to 3 - Labs CBC & Chem 7: 04/23/24 06:26 04/22/24 06:05 Labs: Abnormal Lab Results - Last 24 Hours (Table) 04/22/24 04/23/24 04/23/24 Range/Units 13:38 06:26 06:26 WBC 13.88 H (4.50-10.00) X 10*3/uL RBC 3.21 L (4.40-5.60) X 10*6/uL Hgb 10.2 L (13.0-17.0) g/dL Hct 31.0 L (39.6-50.0) % Immature Gran # 0.10 H (0.00-0.04) X 10*3/uL Neutrophils # 12.32 H (1.80-7.70) X 10*3/uL Lymphocytes # 0.34 L (0.90-5.00) X 10*3/uL Monocytes # 1.02 H (0.20-1.00) X 10*3/uL Procalcitonin 1.06 H (0.02-0.09) ng/mL Urine Protein 1+ H (Negative) Urine Blood Large H (Negative) Ur Leukocyte Esterase Moderate H (Negative) Urine RBC >182 H (0-5) /hpf Urine WBC 17 H (0-5) /hpf Amorphous Sediment Rare H (None) /hpf Urine Bacteria Rare H (None) /hpf Urine Mucus Rare H (None) /hpf Assessment and Plan Assessment: 1. status post colostomy reversal 2. History of diverticulitis with abscess requiring colostomy in December 2023 3. History of stroke requiring PEG tube. This has been reversed 4. History of Parkinson's disease 5. History of BPH 6. Leukocytosis 7. Oral thrush. Patient started nystatin Thank you for this consultation we'll continue to follow patient closely throughout stay PT OT service is consulted Infectious disease service is consulted Repeat labs ordered
[2024-04-23 11:25] LABS: ALT 6 U/L (10-49); AST 31 U/L (14-35); Albumin 2.9 g/dL (3.8-4.9); Albumin/Globulin Ratio 1.21 Ratio (1.60-3.17); Alkaline Phosphatase 132 U/L (41-126); BUN/Creat Ratio 15.76 Ratio (12.00-20.00); Blood Urea Nitrogen 26.8 mg/dL (9.0-27.0); Calcium 8.4 mg/dL (8.7-10.3); Carbon Dioxide 26.5 mmol/L (21.6-31.8); Chloride 102 mmol/L (96-109); Globulin 2.4 g/dL (1.6-3.3); Glucose 113 mg/dL (70-110); Sodium 138 mmol/L (135-145); Total Bilirubin 1.3 mg/dL (0.3-1.2); Total Protein 5.3 g/dL (6.2-8.2)
[2024-04-23] MEDS: NYSTATIN 100,000 UNIT/ML SUSP 500,000 UNIT/5 ML CUP PO SCH (14:08)
--- NOTE | 2024-04-23 16:08 | P.PN ---
Subjective Progress Note Date: 04/23/24 Principal diagnosis: Reason for follow-up is leukocytosis possible pneumonia Patient is a 79-year-old male past medical history significant for hypertension hyperlipidemia PR reflux CVA TIA recent admission to the hospital and this patient who did have a perforated diverticulitis with peridiverticular abscess status post diverticular ostomy patient admitted to the hospital for reversal of colostomy. Noticed to have elevated white count prompting this consultation. On today's evaluation that is 04/23/2024,the patient denies any fever or any chills, patient is breathing comfortably on room air, the patient denies chest pain shortness of breath and did have occasional dry cough patient denies abdominal pain, no nausea vomiting, no bowel movement. Patient white count is down to 13.88, creatinine is 1.7 procalcitonin 1.06 blood cultures pending Objective - Vital Signs Vital signs: Vital Signs Temp 97.9 F 04/23/24 07:10 Pulse 78 04/23/24 07:10 Resp 19 04/23/24 07:10 BP 147/78 04/23/24 07:10 Pulse Ox 95 04/23/24 07:10 FiO2 Intake & Output 04/22/24 04/23/24 04/23/24 18:59 06:59 18:59 Intake Total 89.4 Output Total 400 600 Balance -310.6 -600 Intake: Intake, IV Titration 89.4 Amount Ropivacaine 250 mg 89.4 Hydromorphone (Pf) 5 mg In Sodium Chloride 0.9% 200 ml @ Per Protocol EPIDURAL .Q0M PRN Rx#: [id number] Output: Urine 400 600 Other: Voiding Method Indwelling Catheter Indwelling Catheter - Exam GENERAL DESCRIPTION: An elderly male lying in bed in no distress RESPIRATORY SYSTEM: Unlabored breathing , decreased breath sounds at bases HEART: S1 S2 regular rate and rhythm , ABDOMEN: Soft , no tenderness EXTREMITIES: No edema feet - Labs CBC & Chem 7: 04/23/24 06:26 04/23/24 06:26 Labs: Abnormal Lab Results - Last 24 Hours (Table) 04/22/24 04/23/24 04/23/24 Range/Units 13:38 06:26 06:26 WBC 13.88 H (4.50-10.00) X 10*3/uL RBC 3.21 L (4.40-5.60) X 10*6/uL Hgb 10.2 L (13.0-17.0) g/dL Hct 31.0 L (39.6-50.0) % Immature Gran # 0.10 H (0.00-0.04) X 10*3/uL Neutrophils # 12.32 H (1.80-7.70) X 10*3/uL Lymphocytes # 0.34 L (0.90-5.00) X 10*3/uL Monocytes # 1.02 H (0.20-1.00) X 10*3/uL Creatinine (0.6-1.5) mg/dL Est GFR (CKD-EPI) (>=60) Glucose (70-110) mg/dL Calcium (8.7-10.3) mg/dL Total Bilirubin (0.3-1.2) mg/dL ALT (10-49) U/L Alkaline Phosphatase (41-126) U/L C-Reactive Protein (0.00-0.80) mg/dL Total Protein (6.2-8.2) g/dL Albumin (3.8-4.9) g/dL Albumin/Globulin Ratio (1.60-3.17) Ratio Procalcitonin 1.06 H (0.02-0.09) ng/mL Urine Protein 1+ H (Negative) Urine Blood Large H (Negative) Ur Leukocyte Esterase Moderate H (Negative) Urine RBC >182 H (0-5) /hpf Urine WBC 17 H (0-5) /hpf Amorphous Sediment Rare H (None) /hpf Urine Bacteria Rare H (None) /hpf Urine Mucus Rare H (None) /hpf 04/23/ Range/Units 06:26 WBC (4.50-10.00) X 10*3/uL RBC (4.40-5.60) X 10*6/uL Hgb (13.0-17.0) g/dL Hct (39.6-50.0) % Immature Gran # (0.00-0.04) X 10*3/uL Neutrophils # (1.80-7.70) X 10*3/uL Lymphocytes # (0.90-5.00) X 10*3/uL Monocytes # (0.20-1.00) X 10*3/uL Creatinine 1.7 H (0.6-1.5) mg/dL Est GFR (CKD-EPI) 40 L (>=60) Glucose 113 H (70-110) mg/dL Calcium 8.4 L (8.7-10.3) mg/dL Total Bilirubin 1.3 H (0.3-1.2) mg/dL ALT 6 L (10-49) U/L Alkaline Phosphatase 132 H (41-126) U/L C-Reactive Protein 18.70 H (0.00-0.80) mg/dL Total Protein 5.3 L (6.2-8.2) g/dL Albumin 2.9 L (3.8-4.9) g/dL Albumin/Globulin Ratio 1.21 L (1.60-3.17) Ratio Procalcitonin (0.02-0.09) ng/mL Urine Protein (Negative) Urine Blood (Negative) Ur Leukocyte Esterase (Negative) Urine RBC (0-5) /hpf Urine WBC (0-5) /hpf Amorphous Sediment (None) /hpf Urine Bacteria (None) /hpf Urine Mucus (None) /hpf Assessment and Plan (1) Elevated procalcitonin Current Visit: Yes Status: Acute Code(s): R79.89 - OTHER SPECIFIED ABNORMAL FINDINGS OF BLOOD CHEMISTRY SNOMED Code(s): 325327841 (2) Pneumonia Current Visit: Yes Status: Acute Code(s): J18.9 - PNEUMONIA, UNSPECIFIED OR GANISM SNOMED Code(s): 775878853 (3) Leukocytosis Current Visit: No Status: Acute Code(s): D72.829 - ELEVATED WHITE BLOOD CELL COUNT, UNSPECIFIED SNOMED Code(s): 247839993 Plan: 1patient with elevated white count and this patient has been electively admitted to hospital after the patient underwent colostomy reversal partial colectomy and omentectomy did have a mild respiratory symptom abnormal chest x- ray concerning for possible pneumonia. 2, blood culture currently pending patient did have elevated CRP procalcitonin 3-patient to continue with Zosyn while waiting for the workup to be completed at the bedside question concern answered Dictation was produced using [employer] dictation software. please excuse any grammatical, word or spelling errors. Time with Patient: Less than 30
[2024-04-24 09:14] LABS: Basophils # (A) 0.04 X 10*3/uL (0.00-0.10); Basophils % (A) 0.4 %; Eosinophils # (A) 0.12 X 10*3/uL (0.04-0.35); Eosinophils % (A) 1.3 %; HCT 31.2 % (39.6-50.0); HGB 10.4 g/dL (13.0-17.0); Lymphocytes # (A) 0.34 X 10*3/uL (0.90-5.00); Lymphocytes % (A) 3.7 %; MCH 32.2 pg (27.0-32.0); MCHC 33.3 g/dL (32.0-37.0); MCV 96.6 FL (80.0-97.0); Mean Platelet Volume 10.7 FL (9.5-12.2); Monocytes # (A) 0.92 X 10*3/uL (0.20-1.00); Monocytes % (A) 10.1 %; NRBC Per 100 WBC 0 X 10*3/uL (0.00-0.01); Neutrophils # (A) 7.71 X 10*3/uL (1.80-7.70); Neutrophils % (A) 84.3 %; Platelet Count 231 X 10*3/uL (140-440); RBC 3.23 X 10*6/uL (4.40-5.60); WBC 9.15 X 10*3/uL (4.50-10.00)
[2024-04-24 09:24] LABS: ALT 8 U/L (10-49); AST 39 U/L (14-35); Albumin/Globulin Ratio 1.15 Ratio (1.60-3.17); Alkaline Phosphatase 195 U/L (41-126); BUN/Creat Ratio 15.25 Ratio (12.00-20.00); Blood Urea Nitrogen 18.3 mg/dL (9.0-27.0); Calcium 8.7 mg/dL (8.7-10.3); Carbon Dioxide 26.8 mmol/L (21.6-31.8); Chloride 108 mmol/L (96-109); Globulin 2.6 g/dL (1.6-3.3); Glucose 119 mg/dL (70-110); Potassium 3.7 mmol/L (3.5-5.5); Sodium 144 mmol/L (135-145); Total Protein 5.6 g/dL (6.2-8.2)
--- NOTE | 2024-04-24 09:40 | P.PN ---
Subjective Progress Note Date: 04/24/24 Jerson Edwards, is a 79-year-old male patient of Dr. Britt who presented for an electivecolostomy reversal takedown of sigmoid flexure and a partial colectomy with Dr. benavides on 04/20/2024. patient has a history of perforated diverticulitis with worsening abscess in Decembernd patient underwent s igmoid colectomy with colostomy. at that time patient was discharged on antibiotics. Additional medical history includes Parkinson's disease, right frontal stroke requiring PEG tube but since has been removed and BPH. At this time patient is resting comfortably in bed wound VAC in place abdominal dressing is clean dry and intact. Patient has epidural. at bedside all questions answered. patient maintained on clear liquid diet. Current vital signs temp 98.6, heart rate 69, respiratory rate 15, blood pressure 115/61 with a pulse ox 94% on room air. Patient denies chest pain or shortness of breath. Patient denies nausea vomiting or diarrhea. Patient denies any urinary burning or prisca quency On 04/21/2024 for patient's alert and oriented 3.Patient remains on clear liquid diet. Patient denies chest pain or shortness of breath. Patient denies nausea vomiting or diarrhea. Patient denies any urinary burning or frequency patient remains with epidural for pain control PT OT services consulted. on 04/22/2024 patient was seen and examined on the medical floor, he is alert, slightly confused in no apparent distress, patient had elevated temperatures today, and elevated white blood count, blood culture and urine culture and chest x-ray were ordered, infectious disease consultation was requested, he denies any chest pain shortness of breath or cough there is no nausea or vomiting and no urinary symptoms. On 04/23/2024 patient is less confused today alert and oriented 3.Patient was started on IV Zosyn per infectious disease with blood cell improving today to 13.88. Will start patient on nystatin for oral thrush. Patient denies chest pain or shortness breath. Patient is complaining of abdominal discomfort. Patient denies nausea vomiting or diarrhea. Patient denies any urinary burning or frequency on 04/24/2024 patient was seen and examined on the medical floor, he is alert and oriented in no apparent distress there is no fever or chills no headache or dizzinesshe denies any chest pain shortness of breath or cough there is no nausea or vomiting and no urinary symptoms. patient is doing better, he is able to swallow his pills, will resume oral medications, advance diet gradually, discontinue IV fluid Objective - Vital Signs Vital signs: Vital Signs Temp 98.4 F 04/24/24 00:38 Pulse 74 04/24/24 00:38 Resp 17 04/24/24 00:38 BP 149/85 04/24/24 00:38 Pulse Ox 94 L 04/24/24 00:38 FiO2 Intake & Output 04/23/24 04/24/24 04/24/24 18:59 06:59 18:59 Output Total 650 1700 Balance -650 -1700 Weight 72.7 kg Output: Urine 650 1700 - Exam Head normocephalic Neck supple Lungs clear to auscultation bilaterally no wheezing or crackles Heart regular rate and rhythm S1-S2, no rub or gallop Abdomen midline dressing clean dry and intact Extremities no edema Neuro alert and orientated to 3 - Labs CBC & Chem 7: 04/24/24 06:28 04/24/24 06:28 Labs: Abnormal Lab Results - Last 24 Hours (Table) 04/23/24 04/23/24 04/23/24 Range/Units 06:26 06:26 06:26 WBC 13.88 H (4.50-10.00) X 10*3/uL RBC 3.21 L (4.40-5.60) X 10*6/uL Hgb 10.2 L (13.0-17.0) g/dL Hct 31.0 L (39.6-50.0) % Immature Gran # 0.10 H (0.00-0.04) X 10*3/uL Neutrophils # 12.32 H (1.80-7.70) X 10*3/uL Lymphocytes # 0.34 L (0.90-5.00) X 10*3/uL Monocytes # 1.02 H (0.20-1.00) X 10*3/uL Creatinine 1.7 H (0.6-1.5) mg/dL Est GFR (CKD-EPI) 40 L (>=60) Glucose 113 H (70-110) mg/dL Calcium 8.4 L (8.7-10.3) mg/dL Total Bilirubin 1.3 H (0.3-1.2) mg/dL ALT 6 L (10-49) U/L Alkaline Phosphatase 132 H (41-126) U/L C-Reactive Protein 18.70 H (0.00-0.80) mg/dL Total Protein 5.3 L (6.2-8.2) g/dL Albumin 2.9 L (3.8-4.9) g/dL Albumin/Globulin Ratio 1.21 L (1.60-3.17) Ratio Procalcitonin 1.06 H (0.02-0.09) ng/mL Microbiology - Last 24 Hours (Table) 04/22/24 13:38 Urine Culture - Final Urine,Catheterized 04/22/24 15:37 Blood Culture - Preliminary Blood Assessment and Plan Assessment: 1. status post colostomy reversal 2. History of diverticulitis with abscess requiring colostomy in December 2023 3. History of stroke requiring PEG tube. This has been reversed 4. History of Parkinson's disease 5. History of BPH 6. Leukocytosis 7. Oral thrush. Patient started nystatin Thank you for this consultation we'll continue to follow patient closely throughout stay PT OT service is consulted Infectious disease service is consulted Repeat labs ordered
[2024-04-24] MEDS: LOSARTAN 50 MG TAB PO SCH (11:55)
--- NOTE | 2024-04-24 16:53 | P.PN ---
Subjective patient seen and evaluated at bedside. Is accompanied by , no significant abdominal pain. Objective - Vital Signs Vital signs: Vital Signs Temp 97.9 F 04/24/24 14:10 Pulse 73 04/24/24 14:10 Resp 16 04/24/24 14:10 BP 169/96 04/24/24 14:10 Pulse Ox 96 04/24/24 14:10 FiO2 Intake & Output 04/23/24 04/24/24 04/24/24 18:59 06:59 18:59 Output Total 650 1700 Balance -650 -1700 Weight 72.7 kg Output: Urine 650 1700 Other: Voiding Method External Catheter - Exam general no acute distress Cardiovascular regular rhythm Pulmonary nonlabored breathing Abdomen soft, distended, tender to palpation around the incision site, no strikethrough through Provine a wound VAC system - Labs CBC & Chem 7: 04/24/24 06:28 04/24/24 06:28 Labs: Abnormal Lab Results - Last 24 Hours (Table) 04/24/24 04/24/24 Range/Units 06:28 06:28 RBC 3.23 L (4.40-5.60) X 10*6/uL Hgb 10.4 L (13.0-17.0) g/dL Hct 31.2 L (39.6-50.0) % MCH 32.2 H (27.0-32.0) pg Neutrophils # 7.71 H (1.80-7.70) X 10*3/uL Lymphocytes # 0.34 L (0.90-5.00) X 10*3/uL Glucose 119 H (70-110) mg/dL AST 39 H (14-35) U/L ALT 8 L (10-49) U/L Alkaline Phosphatase 195 H (41-126) U/L Total Protein 5.6 L (6.2-8.2) g/dL Albumin 3.0 L (3.8-4.9) g/dL Albumin/Globulin Ratio 1.15 L (1.60-3.17) Ratio Microbiology - Last 24 Hours (Table) 04/22/24 13:38 Urine Culture - Final Urine,Catheterized 04/22/24 15:37 Blood Culture - Preliminary Blood Assessment and Plan Assessment: 79-year-old male status post colostomy reversal History of Parkinson's Delirium secondary to pneumonia versus sundowning versus dedication effect Continue encouraging sitting up in chair Incentive spirometer Assess for flatus Avoid opiate overuse Time with Patient: Less than 30
--- NOTE | 2024-04-24 20:50 | P.PN ---
Subjective Progress Note Date: 04/24/24 Principal diagnosis: Reason for follow-up is leukocytosis possible pneumonia Patient is a 79-year-old male past medical history significant for hypertension hyperlipidemia [place] reflux CVA TIA recent admission to the hospital and this patient who did have a perforated diverticulitis with peridiverticular abscess status post diverticular ostomy patient admitted to the hospital for reversal of colostomy. Noticed to have elevated white count prompting this consultation. On today's evaluation that is 04/24/2024,the patient remains to be afebrile, patient is on room air not requiring supplemental oxygen and denies any shortness of breath no chest pain or any worsening cough.Patient denies having any nausea or vomiting, no abdominal pain and no diarrhea has been reported, complaining of some sores in the mouth. Patient white normalized to 9.15 creatinine is 1.2 blood cultures currently pending Objective - Vital Signs Vital signs: Vital Signs Temp 98.4 F 04/24/24 00:38 Pulse 74 04/24/24 00:38 Resp 17 04/24/24 00:38 BP 149/85 04/24/24 00:38 Pulse Ox 94 L 04/24/24 00:38 FiO2 Intake & Output 04/23/24 04/24/24 04/24/24 18:59 06:59 18:59 Output Total 650 1700 Balance -650 -1700 Weight 72.7 kg Output: Urine 650 1700 - Exam GENERAL DESCRIPTION: An elderly male lying in bed in no distress RESPIRATORY SYSTEM: Unlabored breathing , decreased breath sounds at bases HEART: S1 S2 regular rate and rhythm , ABDOMEN: Soft , no tenderness EXTREMITIES: No edema feet - Labs CBC & Chem 7: 04/24/24 06:28 04/24/24 06:28 Labs: Abnormal Lab Results - Last 24 Hours (Table) 04/23/24 04/23/24 04/23/24 Range/Units 06:26 06:26 06:26 WBC 13.88 H (4.50-10.00) X 10*3/uL RBC 3.21 L (4.40-5.60) X 10*6/uL Hgb 10.2 L (13.0-17.0) g/dL Hct 31.0 L (39.6-50.0) % Immature Gran # 0.10 H (0.00-0.04) X 10*3/uL Neutrophils # 12.32 H (1.80-7.70) X 10*3/uL Lymphocytes # 0.34 L (0.90-5.00) X 10*3/uL Monocytes # 1.02 H (0.20-1.00) X 10*3/uL Creatinine 1.7 H (0.6-1.5) mg/dL Est GFR (CKD-EPI) 40 L (>=60) Glucose 113 H (70-110) mg/dL Calcium 8.4 L (8.7-10.3) mg/dL Total Bilirubin 1.3 H (0.3-1.2) mg/dL ALT 6 L (10-49) U/L Alkaline Phosphatase 132 H (41-126) U/L C-Reactive Protein 18.70 H (0.00-0.80) mg/dL Total Protein 5.3 L (6.2-8.2) g/dL Albumin 2.9 L (3.8-4.9) g/dL Albumin/Globulin Ratio 1.21 L (1.60-3.17) Ratio Procalcitonin 1.06 H (0.02-0.09) ng/mL Microbiology - Last 24 Hours (Table) 04/22/24 13:38 Urine Culture - Final Urine,Catheterized 04/22/24 15:37 Blood Culture - Preliminary Blood Assessment and Plan (1) Elevated procalcitonin Current Visit: Yes Status: Acute Code(s): R79.89 - OTHER SPECIFIED ABNORMAL FINDINGS OF BLOOD CHEMISTRY SNOMED Code(s): 278265216 (2) Pneumonia Current Visit: Yes Status: Acute Code(s): J18.9 - PNEUMONIA, UNSPECIFIED ORGANISM SNOMED Code(s): 881020127 (3) Leukocytosis Current Visit: No Status: Acute Code(s): D72.829 - ELEVATED WHITE BLOOD CELL COUNT, UNSPECIFIED SNOMED Code(s): 189066428 Plan: 1patient with elevated white count and this patient has been electively admitted to hospital after the patient underwent colostomy reversal partial colectomy and omentectomy did have a mild respiratory symptom abnormal chest x- ray concerning for possible pneumonia. 2, blood culture currently pending patient did have elevated CRP procalcitonin 3-patient white count has normalized to continue with Zosyn, also noticed to have a oral thrush for the patient continue with the nystatin swish and swallow Family at the bedside question concern answered Dictation was produced using [employer] dictation software. please excuse any grammatical, word or spelling errors. Time with Patient: Less than 30
[2024-04-24] MEDS: amLODIPine 5 MG TAB PO SCH (21:51)
[2024-04-25 09:31] LABS: Basophils # (A) 0.06 X 10*3/uL (0.00-0.10); Basophils % (A) 0.7 %; Eosinophils # (A) 0.14 X 10*3/uL (0.04-0.35); Eosinophils % (A) 1.6 %; HCT 29.9 % (39.6-50.0); Lymphocytes # (A) 0.51 X 10*3/uL (0.90-5.00); MCH 31.7 pg (27.0-32.0); MCHC 33.4 g/dL (32.0-37.0); MCV 94.9 FL (80.0-97.0); Mean Platelet Volume 10.4 FL (9.5-12.2); Monocytes # (A) 0.85 X 10*3/uL (0.20-1.00); NRBC Per 100 WBC 0 X 10*3/uL (0.00-0.01); Neutrophils # (A) 6.94 X 10*3/uL (1.80-7.70); Neutrophils % (A) 81.2 %; Platelet Count 264 X 10*3/uL (140-440); RBC 3.15 X 10*6/uL (4.40-5.60); RDW 14.1 % (11.5-14.5); WBC 8.54 X 10*3/uL (4.50-10.00)
--- NOTE | 2024-04-25 09:47 | P.PN ---
Subjective Progress Note Date: 04/25/24 Jerson Edwards, is a 79-year-old male patient of Dr. Britt who presented for an electivecolostomy reversal takedown of sigmoid flexure and a partial colectomy with Dr. benavides on 04/20/2024. patient has a history of perforated diverticulitis with worsening abscess in Decembernd patient underwent s igmoid colectomy with colostomy. at that time patient was discharged on antibiotics. Additional medical history includes Parkinson's disease, right frontal stroke requiring PEG tube but since has been removed and BPH. At this time patient is resting comfortably in bed wound VAC in place abdominal dressing is clean dry and intact. Patient has epidural. at bedside all questions answered. patient maintained on clear liquid diet. Current vital signs temp 98.6, heart rate 69, respiratory rate 15, blood pressure 115/61 with a pulse ox 94% on room air. Patient denies chest pain or shortness of breath. Patient denies nausea vomiting or diarrhea. Patient denies any urinary burning or prisca quency On 04/21/2024 for patient's alert and oriented 3.Patient remains on clear liquid diet. Patient denies chest pain or shortness of breath. Patient denies nausea vomiting or diarrhea. Patient denies any urinary burning or frequency patient remains with epidural for pain control PT OT services consulted. on 04/22/2024 patient was seen and examined on the medical floor, he is alert, slightly confused in no apparent distress, patient had elevated temperatures today, and elevated white blood count, blood culture and urine culture and chest x-ray were ordered, infectious disease consultation was requested, he denies any chest pain shortness of breath or cough there is no nausea or vomiting and no urinary symptoms. On 04/23/2024 patient is less confused today alert and oriented 3.Patient was started on IV Zosyn per infectious disease with blood cell improving today to 13.88. Will start patient on nystatin for oral thrush. Patient denies chest pain or shortness breath. Patient is complaining of abdominal discomfort. Patient denies nausea vomiting or diarrhea. Patient denies any urinary burning or frequency on 04/24/2024 patient was seen and examined on the medical floor, he is alert and oriented in no apparent distress there is no fever or chills no headache or dizziness he denies any chest pain shortness of breath or cough there is no nausea or vomiting and no urinary symptoms. patient is doing better, he is able to swallow his pills, will resume oral medications, advance diet gradually, discontinue IV fluid on 04/25/2024 patient was seen and examined on the medical floor he is alert and oriented in no apparent distress, there is no fever or chills no headache or dizziness no chest pain no shortness of breath no cough, no nausea or vomiting no abdominal pain no diarrhea and no urinary symptoms, diet was advanced by surgery, patient is improving. Objective - Vital Signs Vital signs: Vital Signs Temp 97.9 F 04/25/24 06:45 Pulse 79 04/25/24 06:45 Resp 17 04/25/24 06:45 BP 157/84 04/25/24 06:45 Pulse Ox 94 L 04/25/24 06:45 FiO2 Intake & Output 04/24/24 04/25/24 04/25/24 18:59 06:59 18:59 Output Total 750 Balance -750 Output: Urine 750 Other: Voiding Method External Catheter External Catheter External Catheter - Exam Head normocephalic Neck supple Lungs clear to auscultation bilaterally no wheezing or crackles Heart regular rate and rhythm S1-S2, no rub or gallop Abdomen midline dressing clean dry and intact Extremities no edema Neuro alert and orientated to 3 - Labs CBC & Chem 7: 04/25/24 06:57 04/24/24 06:28 Labs: Abnormal Lab Results - Last 24 Hours (Table) 04/25/24 Range/Units 06:57 RBC 3.15 L (4.40-5.60) X 10*6/uL Hgb 10.0 L (13.0-17.0) g/dL Hct 29.9 L (39.6-50.0) % Lymphocytes # 0.51 L (0.90-5.00) X 10*3/uL Microbiology - Last 24 Hours (Table) 04/22/24 15:37 Blood Culture - Preliminary Blood Assessment and Plan Assessment: 1. status post colostomy reversal 2. History of diverticulitis with abscess requiring colostomy in December 2023 3. History of stroke requiring PEG tube. This has been reversed 4. History of Parkinson's disease 5. History of BPH 6. Leukocytosis 7. Oral thrush. Patient started nystatin Thank you for this consultation we'll continue to follow patient closely throughout stay PT OT service is consulted Infectious disease service is consulted Repeat labs ordered
--- NOTE | 2024-04-25 11:02 | P.PN ---
Subjective Progress Note Date: 04/25/24 Principal diagnosis: Ostomy reversal Patient is doing well today. Tolerating full liquids. Having bowel function with flatus. No nausea or vomiting. Wants more to eat. No confusion. No pain. Objective - Vital Signs Vital signs: Vital Signs Temp 97.9 F 04/25/24 06:45 Pulse 79 04/25/24 06:45 Resp 17 04/25/24 06:45 BP 157/84 04/25/24 06:45 Pulse Ox 94 L 04/25/24 06:45 FiO2 Intake & Output 04/24/24 04/25/24 04/25/24 18:59 06:59 18:59 Output Total 750 Balance -750 Output: Urine 750 Other: Voiding Method External Catheter External Catheter External Catheter - Exam Abdomen: Soft, nondistended, dressing clean and dry, nontender - Labs CBC & Chem 7: 04/25/24 06:57 04/24/24 06:28 Labs: Abnormal Lab Results - Last 24 Hours (Table) 04/25/24 Range/Units 06:57 RBC 3.15 L (4.40-5.60) X 10*6/uL Hgb 10.0 L (13.0-17.0) g/dL Hct 29.9 L (39.6-50.0) % Lymphocytes # 0.51 L (0.90-5.00) X 10*3/uL Microbiology - Last 24 Hours (Table) 04/22/24 15:37 Blood Culture - Preliminary Blood Assessment and Plan (1) Diverticulitis Narrative/Plan: 79-year-old male doing well after colostomy reversal. Continue increasing activity. Advance to regular diet. Probable discharge Friday. Current Visit: No Status: Acute Code(s): K57.92 - DVTRCLI OF INTEST, PART UNSP, W/O PERF OR ABSCESS W/O BLEED SNOMED Code(s): 156420803
[2024-04-25 14:22] LABS: BUN/Creat Ratio 15.45 Ratio (12.00-20.00); Carbon Dioxide 22.8 mmol/L (21.6-31.8); Chloride 111 mmol/L (96-109); Glucose 113 mg/dL (70-110); Potassium 3.6 mmol/L (3.5-5.5); Sodium 146 mmol/L (135-145)
[2024-04-25 14:23] LABS: ALT 11 U/L (10-49); AST 34 U/L (14-35); Albumin/Globulin Ratio 1.07 Ratio (1.60-3.17); Alkaline Phosphatase 236 U/L (41-126); Calcium 9.2 mg/dL (8.7-10.3); Globulin 2.8 g/dL (1.6-3.3); Total Bilirubin 0.7 mg/dL (0.3-1.2); Total Protein 5.8 g/dL (6.2-8.2)
[2024-04-26] MEDS: METOCLOPRAMIDE 5 MG/ML 2 ML VIAL IVP PRN (08:55)
--- NOTE | 2024-04-26 09:33 | P.PN ---
Subjective Progress Note Date: 04/26/24 Jerson Edwards, is a 79-year-old male patient of Dr. Britt who presented for an electivecolostomy reversal takedown of sigmoid flexure and a partial colectomy with Dr. benavides on 04/20/2024. patient has a history of perforated diverticulitis with worsening abscess in Decembernd patient underwent s igmoid colectomy with colostomy. at that time patient was discharged on antibiotics. Additional medical history includes Parkinson's disease, right frontal stroke requiring PEG tube but since has been removed and BPH. At this time patient is resting comfortably in bed wound VAC in place abdominal dressing is clean dry and intact. Patient has epidural. at bedside all questions answered. patient maintained on clear liquid diet. Current vital signs temp 98.6, heart rate 69, respiratory rate 15, blood pressure 115/61 with a pulse ox 94% on room air. Patient denies chest pain or shortness of breath. Patient denies nausea vomiting or diarrhea. Patient denies any urinary burning or prisca quency On 04/21/2024 for patient's alert and oriented 3.Patient remains on clear liquid diet. Patient denies chest pain or shortness of breath. Patient denies nausea vomiting or diarrhea. Patient denies any urinary burning or frequency patient remains with epidural for pain control PT OT services consulted. on 04/22/2024 patient was seen and examined on the medical floor, he is alert, slightly confused in no apparent distress, patient had elevated temperatures today, and elevated white blood count, blood culture and urine culture and chest x-ray were ordered, infectious disease consultation was requested, he denies any chest pain shortness of breath or cough there is no nausea or vomiting and no urinary symptoms. On 04/23/2024 patient is less confused today alert and oriented 3.Patient was started on IV Zosyn per infectious disease with blood cell improving today to 13.88. Will start patient on nystatin for oral thrush. Patient denies chest pain or shortness breath. Patient is complaining of abdominal discomfort. Patient denies nausea vomiting or diarrhea. Patient denies any urinary burning or frequency on 04/24/2024 patient was seen and examined on the medical floor, he is alert and oriented in no apparent distress there is no fever or chills no headache or dizziness he denies any chest pain shortness of breath or cough there is no nausea or vomiting and no urinary symptoms. patient is doing better, he is able to swallow his pills, will resume oral medications, advance diet gradually, discontinue IV fluid on 04/25/2024 patient was seen and examined on the medical floor he is alert and oriented in no apparent distress, there is no fever or chills no headache or dizziness no chest pain no shortness of breath no cough, no nausea or vomiting no abdominal pain no diarrhea and no urinary symptoms, diet was advanced by surgery, patient is improving. on 04/26/2024 patient was seen and examined on the medical floor he is alert and oriented x 3, there is no fever or chills no headache or dizziness no chest pain no shortness of breath no cough, no nausea or vomiting no abdominal pain no diarrhea and no urinary symptoms, diet was advanced by surgery, patient is improving. he is passing gas but has not had a bowel movement since surgery, medication and labs were reviewed, continue with current care possible discharge in the next 1-2 days Objective - Vital Signs Vital signs: Vital Signs Temp 98.4 F 04/26/24 02:00 Pulse 70 04/26/24 02:00 Resp 20 04/26/24 02:00 BP 154/88 04/26/24 02:00 Pulse Ox 94 L 04/26/24 02:00 FiO2 Intake & Output 04/25/24 04/26/24 04/26/24 18:59 06:59 18:59 Output Total 400 450 Balance -400 -450 Output: Urine 400 450 Other: Voiding Method External Catheter External Catheter - Exam Head normocephalic Neck supple Lungs clear to auscultation bilaterally no wheezing or crackles Heart regular rate and rhythm S1-S2, no rub or gallop Abdomen midline dressing clean dry and intact Extremities no edema Neuro alert and orientated to 3 - Labs CBC & Chem 7: 04/25/24 06:57 04/25/24 06:57 Labs: Abnormal Lab Results - Last 24 Hours (Table) 04/25/24 04/25/24 Range/Units 06:57 06:57 RBC 3.15 L (4.40-5.60) X 10*6/uL Hgb 10.0 L (13.0-17.0) g/dL Hct 29.9 L (39.6-50.0) % Lymphocytes # 0.51 L (0.90-5.00) X 10*3/uL Sodium 146 H (135-145) mmol/L Chloride 111 H (96-109) mmol/L Anion Gap 12.20 H (4.00-12.00) mmol/L Glucose 113 H (70-110) mg/dL Alkaline Phosphatase 236 H (41-126) U/L Total Protein 5.8 L (6.2-8.2) g/dL Albumin 3.0 L (3.8-4.9) g/dL Albumin/Globulin Ratio 1.07 L (1.60-3.17) Ratio Microbiology - Last 24 Hours (Table) 04/22/24 15:37 Blood Culture - Preliminary Blood Assessment and Plan Assessment: 1. status post colostomy reversal 2. History of diverticulitis with abscess requiring colostomy in December 2023 3. History of stroke requiring PEG tube. This has been reversed 4. History of Parkinson's disease 5. History of BPH 6. Leukocytosis 7. Oral thrush. Patient started nystatin Thank you for this consultation we'll continue to follow patient closely throughout stay PT OT service is consulted Infectious disease service is consulted Repeat labs ordered
--- NOTE | 2024-04-26 09:52 | P.PN ---
Subjective Progress Note Date: 04/26/24 Principal diagnosis: Ostomy reversal Patient doing well again today. He had some mild nausea yesterday. Tolerating diet however. Minimal discomfort. He passed flatus. No bowel movement yet. White blood cell count 8.5 yesterday. He is afebrile. Objective - Vital Signs Vital signs: Vital Signs Temp 98.2 F 04/26/24 08:00 Pulse 77 04/26/24 08:00 Resp 17 04/26/24 08:00 BP 158/87 04/26/24 08:00 Pulse Ox 94 L 04/26/24 08:00 FiO2 Intake & Output 04/25/24 04/26/24 04/26/24 18:59 06:59 18:59 Output Total 400 450 Balance -400 -450 Output: Urine 400 450 Other: Voiding Method External Catheter External Catheter - Exam Abdomen: Soft, nondistended, dressing clean and dry - Labs CBC & Chem 7: 04/25/24 06:57 04/25/24 06:57 Labs: Abnormal Lab Results - Last 24 Hours (Table) 04/25/24 Range/Units 06:57 Sodium 146 H (135-145) mmol/L Chloride 111 H (96-109) mmol/L Anion Gap 12.20 H (4.00-12.00) mmol/L Glucose 113 H (70-110) mg/dL Alkaline Phosphatase 236 H (41-126) U/L Total Protein 5.8 L (6.2-8.2) g/dL Albumin 3.0 L (3.8-4.9) g/dL Albumin/Globulin Ratio 1.07 L (1.60-3.17) Ratio Microbiology - Last 24 Hours (Table) 04/22/24 15:37 Blood Culture - Preliminary Blood Assessment and Plan (1) Diverticulitis Narrative/Plan: Patient doing well today. Continue regular diet. Ambulate. Await return of latia [employer] activity. Possible discharge tomorrow. Current Visit: No Status: Acute Code(s): K57.92 - DVTRCLI OF INTEST, PART UNSP, W/O PERF OR ABSCESS W/O BLEED SNOMED Code(s): 461720437
--- NOTE | 2024-04-27 07:54 | P.PN ---
Subjective Progress Note Date: 04/25/24 Principal diagnosis: Reason for follow-up is leukocytosis possible pneumonia Patient is a 79-year-old male past medical history significant for hypertension hyperlipidemia [place] reflux CVA TIA recent admission to the hospital and this patient who did have a perforated diverticulitis with peridiverticular abscess status post diverticular ostomy patient admitted to the hospital for reversal of colostomy. Noticed to have elevated white count prompting this consultation. On today's evaluation that is 04/25/2024, the patient continues to be afebrile, the patient is on room air and breathing comfortably, the Pt denies having any chest pain or cough, the patient denies having any abdominal pain no vomiting or any diarrhea has been reported by the nursing staff Patient white count normalized to 8.54, creatinine is 1.1 Objective - Vital Signs Vital signs: Vital Signs Temp 97.9 F 04/25/24 06:45 Pulse 79 04/25/24 06:45 Resp 17 04/25/24 06:45 BP 157/84 04/25/24 06:45 Pulse Ox 94 L 04/25/24 06:45 FiO2 Intake & Output 04/24/24 04/25/24 04/25/24 18:59 06:59 18:59 Output Total 750 Balance -750 Output: Urine 750 Other: Voiding Method External Catheter External Catheter External Catheter - Exam GENERAL DESCRIPTION: An elderly male lying in bed in no distress RESPIRATORY SYSTEM: Unlabored breathing , decreased breath sounds at bases HEART: S1 S2 regular rate and rhythm , ABDOMEN: Soft , no tenderness EXTREMITIES: No edema feet - Labs CBC & Chem 7: 04/25/24 06:57 04/25/24 06:57 Labs: Abnormal Lab Results - Last 24 Hours (Table) 04/25/24 Range/Units 06:57 RBC 3.15 L (4.40-5.60) X 10*6/uL Hgb 10.0 L (13.0-17.0) g/dL Hct 29.9 L (39.6-50.0) % Lymphocytes # 0.51 L (0.90-5.00) X 10*3/uL Microbiology - Last 24 Hours (Table) 04/22/24 15:37 Blood Culture - Preliminary Blood Assessment and Plan (1) Elevated procalcitonin Current Visit: Yes Status: Acute Code(s): R79.89 - OTHER SPECIFIED ABNORMAL FINDINGS OF BLOOD CHEMISTRY SNOMED Code(s): 278931574 (2) Pneumonia Current Visit: Yes Status: Acute Code(s): J18.9 - PNEUMONIA, UNSPECIFIED ORGANISM SNOMED Code(s): 132182884 (3) Leukocytosis Current Visit: No Status: Acute Code(s): D72.829 - ELEVATED WHITE BLOOD CELL COUNT, UNSPECIFIED SNOMED Code(s): 299099930 Plan: 1patient with elevated white count and this patient has been electively admitted to hospital after the patient underwent colostomy reversal partial colectomy and omentectomy did have a mild respiratory symptom abnormal chest x-r ay concerning for possible pneumonia. 2, blood culture has been negative patient did have elevated CRP procalcitonin 3-patient white count has normalized with Zosyn, which will be continued while inpatient 4-oral thrush to continue the nystatin swish and swallow Dictation was produced using [employer] dictation software. please excuse any grammatical, word or spelling errors. Time with Patient: Less than 30
--- NOTE | 2024-04-27 07:55 | P.PN ---
Subjective Progress Note Date: 04/26/24 Principal diagnosis: Reason for follow-up is leukocytosis possible pneumonia Patient is a 79-year-old male past medical history significant for hypertension hyperlipidemia [place] reflux CVA TIA recent admission to the hospital and this patient who did have a perforated diverticulitis with peridiverticular abscess status post diverticular ostomy patient admitted to the hospital for reversal of colostomy. Noticed to have elevated white count prompting this consultation. On today's evaluation that is 04/26/2024, Patient is afebrile patient is currently on room air and denies having any shortness of breath, the patient denies any chest pain and cough is decreased in intensity, the patient denies any nausea vomiting did not have any abdominal pain however did mention a bowel movement. No new labs has been obtained today Objective - Vital Signs Vital signs: Vital Signs Temp 97.6 F 04/26/24 14:50 Pulse 65 04/26/24 14:50 Resp 16 04/26/24 14:50 BP 137/68 04/26/24 14:50 Pulse Ox 97 04/26/24 14:50 FiO2 Intake & Output 04/25/24 04/26/24 04/26/24 18:59 06:59 18:59 Output Total 400 450 850 Balance -400 -450 -850 Output: Urine 400 450 850 Other: Voiding Method External Catheter External Catheter - Exam GENERAL DESCRIPTION: An elderly male lying in bed in no distress RESPIRATORY SYSTEM: Unlabored breathing , decreased breath sounds at bases HEART: S1 S2 regular rate and rhythm , ABDOMEN: Soft , no tenderness EXTREMITIES: No edema feet - Labs CBC & Chem 7: 04/25/24 06:57 04/25/24 06:57 Labs: Microbiology - Last 24 Hours (Table) 04/22/24 15:37 Blood Culture - Preliminary Blood Assessment and Plan (1) Elevated procalcitonin Current Visit: Yes Status: Acute Code(s): R79.89 - OTHER SPECIFIED ABNORMAL FINDINGS OF BLOOD CHEMISTRY SNOMED Code(s): 327706628 (2) Pneumonia Current Visit: Yes Status: Acute Code(s): J18.9 - PNEUMONIA, UNSPECIFIED ORGANISM SNOMED Code(s): 689412544 (3) Leukocytosis Current Visit: No Status: Acute Code(s): D72.829 - ELEVATED WHITE BLOOD CELL COUNT, UNSPECIFIED SNOMED Code(s): 302092219 Plan: 1patient with elevated white count and this patient has been electively admitted to hospital after the patient underwent colostomy reversal partial colectomy and omentectomy did have a mild respiratory symptom abnormal chest x- ray concerning for possible pneumonia. 2, blood culture has been negative patient did have elevated CRP procalcitonin 3-oral thrush to continue the nystatin swish and swallow 4patient white count has normalized culture has been negative patient to con brett Morris while inpatient finishing therapy with oral antibiotics Dictation was produced using [email or web address] dictation software. please excuse any grammatical, word or spelling errors. Time with Patient: Less than 30
--- NOTE | 2024-04-27 10:51 | P.PN ---
Subjective Progress Note Date: 04/27/24 Jerson Edwards, is a 79-year-old male patient of Dr. Britt who presented for an electivecolostomy reversal takedown of sigmoid flexure and a partial colectomy with Dr. benavides on 04/20/2024. patient has a history of perforated diverticulitis with worsening abscess in Decembernd patient underwent s igmoid colectomy with colostomy. at that time patient was discharged on antibiotics. Additional medical history includes Parkinson's disease, right frontal stroke requiring PEG tube but since has been removed and BPH. At this time patient is resting comfortably in bed wound VAC in place abdominal dressing is clean dry and intact. Patient has epidural. at bedside all questions answered. patient maintained on clear liquid diet. Current vital signs temp 98.6, heart rate 69, respiratory rate 15, blood pressure 115/61 with a pulse ox 94% on room air. Patient denies chest pain or shortness of breath. Patient denies nausea vomiting or diarrhea. Patient denies any urinary burning or prisca quency On 04/21/2024 for patient's alert and oriented 3.Patient remains on clear liquid diet. Patient denies chest pain or shortness of breath. Patient denies nausea vomiting or diarrhea. Patient denies any urinary burning or frequency patient remains with epidural for pain control PT OT services consulted. on 04/22/2024 patient was seen and examined on the medical floor, he is alert, slightly confused in no apparent distress, patient had elevated temperatures today, and elevated white blood count, blood culture and urine culture and chest x-ray were ordered, infectious disease consultation was requested, he denies any chest pain shortness of breath or cough there is no nausea or vomiting and no urinary symptoms. On 04/23/2024 patient is less confused today alert and oriented 3.Patient was started on IV Zosyn per infectious disease with blood cell improving today to 13.88. Will start patient on nystatin for oral thrush. Patient denies chest pain or shortness breath. Patient is complaining of abdominal discomfort. Patient denies nausea vomiting or diarrhea. Patient denies any urinary burning or frequency on 04/24/2024 patient was seen and examined on the medical floor, he is alert and oriented in no apparent distress there is no fever or chills no headache or dizziness he denies any chest pain shortness of breath or cough there is no nausea or vomiting and no urinary symptoms. patient is doing better, he is able to swallow his pills, will resume oral medications, advance diet gradually, discontinue IV fluid on 04/25/2024 patient was seen and examined on the medical floor he is alert and oriented in no apparent distress, there is no fever or chills no headache or dizziness no chest pain no shortness of breath no cough, no nausea or vomiting no abdominal pain no diarrhea and no urinary symptoms, diet was advanced by surgery, patient is improving. on 04/26/2024 patient was seen and examined on the medical floor he is alert and oriented x 3, there is no fever or chills no headache or dizziness no chest pain no shortness of breath no cough, no nausea or vomiting no abdominal pain no diarrhea and no urinary symptoms, diet was advanced by surgery, patient is improving. he is passing gas but has not had a bowel movement since surgery, medication and labs were reviewed, continue with current care possible discharge in the next 1-2 days On 04/27/2024 for patient's alert and oriented 3. Patient reports improvement with abdominal pain. Patient denies any chest pain or shortness breath. Patient denies any nausea vomiting or diarrhea. Patient denies any urinary burning or frequency. Objective - Vital Signs Vital signs: Vital Signs Temp 98 F 04/27/24 07:25 Pulse 62 04/27/24 07:25 Resp 17 04/27/24 07:25 BP 175/84 04/27/24 07:25 Pulse Ox 94 L 04/27/24 07:25 FiO2 Intake & Output 04/26/24 04/27/24 04/27/24 18:59 06:59 18:59 Output Total 850 800 Balance -850 -800 Output: Urine 850 800 Other: Voiding Method Bedside Commode External Catheter External Catheter - Exam Head normocephalic Neck supple Lungs clear to auscultation bilaterally no wheezing or crackles Heart regular rate and rhythm S1-S2, no rub or gallop Abdomen midline dressing clean dry and intact Extremities no edema Neuro alert and orientated to 3 - Labs CBC & Chem 7: 04/25/24 06:57 04/25/24 06:57 Assessment and Plan Assessment: 1. status post colostomy reversal 2. History of diverticulitis with abscess requiring colostomy in December 2023 3. History of stroke requiring PEG tube. This has been reversed 4. History of Parkinson's disease 5. History of BPH 6. Leukocytosis 7. Oral thrush. Patient started nystatin Thank you for this consultation we'll continue to follow patient closely throughout stay PT OT service is consulted Infectious disease service is consulted Repeat labs ordered
[2024-04-27] MEDS: ACETAMINOPHEN TAB 325 MG TAB PO PRN (12:30)
--- NOTE | 2024-04-27 13:09 | P.PN ---
Subjective Progress Note Date: 04/27/24 CHIEF COMPLAINT: History of perforated diverticulitis HISTORY OF PRESENT ILLNESS: Patient is postop day #7 status post reversal of colostomy, takedown sigmoid flexure, partial colectomy and omentectomy. Patient reports his pain is controlled. Denies any nausea or vomiting. He is having flatus. Denies any bowel movements. He is on a low fiber diet. Afebrile. Patient followed by infectious disease and on antibiotics for possible pneumonia. PHYSICAL EXAM: VITAL SIGNS: Reviewed. GENERAL: Well-developed in no acute distress. ABDOMEN: Soft. Nondistended. Prevena wound VAC pulled down. Incision is clean dry and intact there is a small area of bleeding of the ostomy incision towards the midline. There is a skin tear on the left side of the abdomen/flank NEUROLOGIC: Alert and oriented. Cranial nerves II through XII grossly intact. ASSESSMENT: 1. History of perforated diverticulitis PLAN: -Continue low fiber diet -Prevena wound VAC removed and Optifoam silver dressing placed -Patient can shower -Encourage patient to ambulate -Continue Entereg -DVT prophylaxis subcu heparin GI prophylaxis Protonix Physician Salesperson Household Appliances note has been reviewed by physician. Signing provider agrees with the documented findings, assessment, and plan of care. Objective - Vital Signs Vital signs: Vital Signs Temp 98 F 04/27/24 07:25 Pulse 62 04/27/24 07:25 Resp 17 04/27/24 07:25 BP 175/84 04/27/24 07:25 Pulse Ox 94 L 04/27/24 07:25 FiO2 Intake & Output 04/26/24 04/27/24 04/27/24 18:59 06:59 18:59 Output Total 850 800 Balance -850 -800 Output: Urine 850 800 Other: Voiding Method Bedside Commode External Catheter External Catheter - Labs CBC & Chem 7: 04/25/24 06:57 04/25/24 06:57
--- NOTE | 2024-04-27 16:07 | P.PN ---
Subjective Progress Note Date: 04/27/24 Principal diagnosis: Reason for follow-up is leukocytosis possible pneumonia Patient is a 79-year-old male past medical history significant for hypertension hyperlipidemia SC reflux CVA TIA recent admission to the hospital and this patient who did have a perforated diverticulitis with peridiverticular abscess status post diverticular ostomy patient admitted to the hospital for reversal of colostomy. Noticed to have elevated white count prompting this consultation. On today's evaluation that is 04/27/2024, patient has been afebrile, patient is breathing comfortably and is currently on room air, patient denies having any significant cough no chest pain shortness of breath, patient denies nausea vomiting or abdominal pain did not have any bowel movement. Patient did not have any lab draw today cultures so far negative Objective - Vital Signs Vital signs: Vital Signs Temp 98 F 04/27/24 07:25 Pulse 62 04/27/24 07:25 Resp 17 04/27/24 07:25 BP 175/84 04/27/24 07:25 Pulse Ox 94 L 04/27/24 07:25 FiO2 Intake & Output 04/26/24 04/27/24 04/27/24 18:59 06:59 18:59 Output Total 850 800 Balance -850 -800 Output: Urine 850 800 Other: Voiding Method Bedside Commode External Catheter External Catheter - Exam GENERAL DESCRIPTION: An elderly male lying in bed in no distress RESPIRATORY SYSTEM: Unlabored breathing , decreased breath sounds at bases HEART: S1 S2 regular rate and rhythm , ABDOMEN: Soft , no tenderness EXTREMITIES: No edema feet - Labs CBC & Chem 7: 04/25/24 06:57 04/25/24 06:57 Assessment and Plan (1) Elevated procalcitonin Current Visit: Yes Status: Acute Code(s): R79.89 - OTHER SPECIFIED ABNORMAL FINDINGS OF BLOOD CHEMISTRY SNOMED Code(s): 886338862 (2) Pneumonia Current Visit: Yes Status: Acute Code(s): J18.9 - PNEUMONIA, UNSPECIFIED ORGANISM SNOMED Code(s): 094074296 (3) Leukocytosis Current Visit: No Status: Acute Code(s): D72.829 - ELEVATED WHITE BLOOD CELL COUNT, UNSPECIFIED SNOMED Code(s): 298864584 Plan: 1patient with elevated white count and this patient has been electively admitted to hospital after the patient underwent colostomy reversal partial colectomy and omentectomy did have a mild respiratory symptom abnormal chest x- ray concerning for possible pneumonia. 2, blood culture has been negative patient did have elevated CRP procalcitonin 3-oral thrush to continue the nystatin swish and swallow 4patient white count has normalized culture has been negative patient to continue Zosyn while inpatient and hopefully finishing therapy with oral antibiotics at the bedside questions were answered Dictation was produced using [id number] dictation software. please excuse any grammatical, word or spelling errors. Time with Patient: Less than 30
[2024-04-28 09:19] LABS: Blood Urea Nitrogen 16.8 mg/dL (9.0-27.0); Calcium 8.8 mg/dL (8.7-10.3); Carbon Dioxide 26.1 mmol/L (21.6-31.8); Chloride 105 mmol/L (96-109); Glucose 86 mg/dL (70-110); Potassium 4.1 mmol/L (3.5-5.5); Sodium 143 mmol/L (135-145)
--- NOTE | 2024-04-28 10:53 | P.PN ---
Subjective Progress Note Date: 04/28/24 CHIEF COMPLAINT: History of perforated diverticulitis HISTORY OF PRESENT ILLNESS: Patient is postop day #8 status post reversal of colostomy, takedown sigmoid flexure, partial colectomy and omentectomy. Patient is sitting in bedside chair. His pain is controlled. He is having flatus. No bowel movement yet. Afebrile. Patient followed by infectious disease and on antibiotics for possible pneumonia. PHYSICAL EXAM: VITAL SIGNS: Reviewed. GENERAL: Well-developed in no acute distress. ABDOMEN: Soft. Nondistended. NEUROLOGIC: Alert and oriented. Cranial nerves II through XII grossly intact. ASSESSMENT: 1. History of perforated diverticulitis PLAN: -Continue low fiber diet -Encourage patient to ambulate -Continue Entereg -Anticipate discharge possibly tomorrow -DVT prophylaxis subcu heparin GI prophylaxis Protonix Physician Driver Guide note has been reviewed by physician. Signing provider agrees with the documented findings, assessment, and plan of care. Objective - Vital Signs Vital signs: Vital Signs Temp 97.8 F 04/28/24 01:42 Pulse 63 04/28/24 01:42 Resp 15 04/28/24 01:42 BP 146/76 04/28/24 01:42 Pulse Ox 96 04/28/24 01:42 FiO2 Intake & Output 04/27/24 04/28/24 04/28/24 18:59 06:59 18:59 Output Total 650 900 Balance -650 -900 Weight 72.7 kg Output: Urine 650 900 Other: Voiding Method External Catheter - Labs CBC & Chem 7: 04/25/24 06:57 04/28/24 04:09 Labs: Microbiology - Last 24 Hours (Table) 04/22/24 15:37 Blood Culture - Final Blood
--- NOTE | 2024-04-28 11:00 | P.PN ---
Subjective Progress Note Date: 04/28/24 Jerson Edwards, is a 79-year-old male patient of Dr. Britt who presented for an electivecolostomy reversal takedown of sigmoid flexure and a partial colectomy with Dr. bneavides on 04/20/2024. patient has a history of perforated diverticulitis with worsening abscess in Decembernd patient underwent s igmoid colectomy with colostomy. at that time patient was discharged on antibiotics. Additional medical history includes Parkinson's disease, right frontal stroke requiring PEG tube but since has been removed and BPH. At this time patient is resting comfortably in bed wound VAC in place abdominal dressing is clean dry and intact. Patient has epidural. at bedside all questions answered. patient maintained on clear liquid diet. Current vital signs temp 98.6, heart rate 69, respiratory rate 15, blood pressure 115/61 with a pulse ox 94% on room air. Patient denies chest pain or shortness of breath. Patient denies nausea vomiting or diarrhea. Patient denies any urinary burning or prisca quency On 04/21/2024 for patient's alert and oriented 3.Patient remains on clear liquid diet. Patient denies chest pain or shortness of breath. Patient denies nausea vomiting or diarrhea. Patient denies any urinary burning or frequency patient remains with epidural for pain control PT OT services consulted. on 04/22/2024 patient was seen and examined on the medical floor, he is alert, slightly confused in no apparent distress, patient had elevated temperatures today, and elevated white blood count, blood culture and urine culture and chest x-ray were ordered, infectious disease consultation was requested, he denies any chest pain shortness of breath or cough there is no nausea or vomiting and no urinary symptoms. On 04/23/2024 patient is less confused today alert and oriented 3.Patient was started on IV Zosyn per infectious disease with blood cell improving today to 13.88. Will start patient on nystatin for oral thrush. Patient denies chest pain or shortness breath. Patient is complaining of abdominal discomfort. Patient denies nausea vomiting or diarrhea. Patient denies any urinary burning or frequency on 04/24/2024 patient was seen and examined on the medical floor, he is alert and oriented in no apparent distress there is no fever or chills no headache or dizziness he denies any chest pain shortness of breath or cough there is no nausea or vomiting and no urinary symptoms. patient is doing better, he is able to swallow his pills, will resume oral medications, advance diet gradually, discontinue IV fluid on 04/25/2024 patient was seen and examined on the medical floor he is alert and oriented in no apparent distress, there is no fever or chills no headache or dizziness no chest pain no shortness of breath no cough, no nausea or vomiting no abdominal pain no diarrhea and no urinary symptoms, diet was advanced by surgery, patient is improving. on 04/26/2024 patient was seen and examined on the medical floor he is alert and oriented x 3, there is no fever or chills no headache or dizziness no chest pain no shortness of breath no cough, no nausea or vomiting no abdominal pain no diarrhea and no urinary symptoms, diet was advanced by surgery, patient is improving. he is passing gas but has not had a bowel movement since surgery, medication and labs were reviewed, continue with current care possible discharge in the next 1-2 days On 04/27/2024 for patient's alert and oriented 3. Patient reports improvement with abdominal pain. Patient denies any chest pain or shortness breath. Patient denies any nausea vomiting or diarrhea. Patient denies any urinary burning or frequency. on 04/28/2024 patient is alert and oriented 3.patient maintained on low fiber diet per surgical services and possible discharge home tomorrow. Current vital signs temp 97.6, heart rate 64, respiratory rate 16, blood pressure 163/88 with pulse ox 99% on room air Objective - Vital Signs Vital signs: Vital Signs Temp 97.6 F 04/28/24 07:35 Pulse 64 04/28/24 07:35 Resp 16 04/28/24 07:35 BP 163/88 04/28/24 07:35 Pulse Ox 99 04/28/24 07:35 FiO2 Intake & Output 04/27/24 04/28/24 04/28/24 18:59 06:59 18:59 Output Total 650 900 Balance -650 -900 Weight 72.7 kg Output: Urine 650 900 Other: Voiding Method External Catheter External Catheter # Bowel Movements 1 - Exam Head normocephalic Neck supple Lungs clear to auscultation bilaterally no wheezing or crackles Heart regular rate and rhythm S1-S2, no rub or gallop Abdomen midline dressing clean dry and intact Extremities no edema Neuro alert and orientated to 3 - Labs CBC & Chem 7: 04/25/24 06:57 04/28/24 04:09 Labs: Microbiology - Last 24 Hours (Table) 04/22/24 15:37 Blood Culture - Final Blood Assessment and Plan Assessment: 1. status post colostomy reversal 2. History of diverticulitis with abscess requiring colostomy in December 2023 3. History of stroke requiring PEG tube. This has been reversed 4. History of Parkinson's disease 5. History of BPH 6. Leukocytosis 7. Oral thrush. Patient started nystatin Thank you for this consultation we'll continue to follow patient closely throughout stay PT OT service is consulted Infectious disease service is consulted Repeat labs ordered
[2024-04-29 08:07] VITALS: BP 163/77; PULSE 59; RESP 16; TEMP 98.1
[2024-04-29 08:26] LABS: Basophils # (A) 0.09 X 10*3/uL (0.00-0.10); Basophils % (A) 0.9 %; Eosinophils # (A) 0.18 X 10*3/uL (0.04-0.35); Eosinophils % (A) 1.8 %; HCT 34.9 % (39.6-50.0); HGB 11.2 g/dL (13.0-17.0); MCH 32.2 pg (27.0-32.0); MCHC 32.1 g/dL (32.0-37.0); MCV 100.3 FL (80.0-97.0); Mean Platelet Volume 10.8 FL (9.5-12.2); Monocytes # (A) 0.76 X 10*3/uL (0.20-1.00); Monocytes % (A) 7.6 %; NRBC Per 100 WBC 0 X 10*3/uL (0.00-0.01); Neutrophils # (A) 7.97 X 10*3/uL (1.80-7.70); Neutrophils % (A) 79.2 %; Platelet Count 340 X 10*3/uL (140-440); RBC 3.48 X 10*6/uL (4.40-5.60); RDW 14.8 % (11.5-14.5); WBC 10.05 X 10*3/uL (4.50-10.00)
[2024-04-29 09:22] LABS: ALT 20 U/L (10-49); AST 29 U/L (14-35); Albumin 3.2 g/dL (3.8-4.9); Albumin/Globulin Ratio 1.14 Ratio (1.60-3.17); Alkaline Phosphatase 217 U/L (41-126); BUN/Creat Ratio 13.67 Ratio (12.00-20.00); Blood Urea Nitrogen 16.4 mg/dL (9.0-27.0); Calcium 8.9 mg/dL (8.7-10.3); Carbon Dioxide 23.4 mmol/L (21.6-31.8); Chloride 106 mmol/L (96-109); Globulin 2.8 g/dL (1.6-3.3); Glucose 91 mg/dL (70-110); Potassium 4.4 mmol/L (3.5-5.5); Sodium 139 mmol/L (135-145); Total Bilirubin 0.5 mg/dL (0.3-1.2)
--- NOTE | 2024-04-29 10:28 | XR ---
EXAMINATION TYPE: XR chest 1V portable DATE OF EXAM: 04/29/2024 COMPARISON: 12/23/2023 INDICATION: Follow-up pneumonia TECHNIQUE: Single frontal view of the chest is obtained. FINDINGS: The heart size is normal. The pulmonary vasculature is normal. The lungs are clear. Pneumoperitoneum is on the right. This is greater than expected without interval abdomen surgery. Las bobby reported surgery was 04/20/2024 for colostomy reversal. Additional workup is recommended. Report was called to Robert, the patient's nurse by Dr. Samuel by telephone at the time of interpretation. IMPRESSION: 1. No acute pulmonary process. 2. Persistent pneumoperitoneum greater than expected. Additional workup recommended with CT abdomen p augie.
--- NOTE | 2024-04-29 11:24 | P.DS ---
Providers Date of admission: 04/20/24 08:02 Expected date of discharge: 04/29/24 Attending physician: Talon Kathleen Consults: 04/20/24 12:15 Consult Physician Routine Consulting Provider: Jeovanny Lui Consult Reason/Comments: medical management Do you want consulting provider notified?: Yes 04/22/24 13:28 Consult Physician Routine Consulting Provider: Deanne Burnett Consult Reason/Comments: leukocytosis, mental status changes Do you want consulting provider notified?: Yes Primary care physician: Magali Britt Hospital Course: Discharge diagnosis 1. History of perforated diverticulitis status post colostomy reversal, takedown of sigmoid flexure, partial colectomy and omentectomy 2. Possible pneumonia Hospital course This is a 79-year-old male with a history of perforated diverticulitis. He is status post colostomy reversal, takedown of sigmoid flexure, partial colectomy and omentectomy. Patient tolerated surgery well. Pain is controlled. He is tolerating diet. He is having bowel movements. He is ambulating. He is afebrile. Chest x-ray results had reported no acute pulmonary process. Did report persistent pneumoperitoneum greater than expected. Chest x-ray results reviewed with Dr. Kathleen. The free air is an expected postoperative finding. Patient is stable clinically. Dr. Kathleen has cleared patient to be discharged. Please refer to chart for any further details. Physician Welder Helper note has been reviewed by physician. Signing provider agrees with the documented findings, assessment, and plan of care. Patient Condition at Discharge: Stable Plan - Discharge Summary Discharge Rx Participant: No New Discharge Prescriptions: New Moxifloxacin HCl [Avelox] 400 mg PO DAILY 7 Days #7 tab Continue Carbidopa-Levodopa 25-100 mg [Sinemet 25-100 mg] 1 tab PO DIRECTED amantadine HCL [Symmetrel] 100 mg PO TID@0600,1200,1800 Losartan [Cozaar] 50 mg PO QAM amLODIPine [Norvasc] 5 mg PO HS Multivitamins, Thera [Multivitamin (formulary)] 1 tab PO DAILY Aspirin 81 mg PO DAILY 30 Days #30 tab Pantoprazole [Protonix] 40 mg PO QAM Discharge Medication List Carbidopa-Levodopa 25-100 mg [Sinemet 25-100 mg] 1 tab PO DIRECTED 05/17/20 [History] amantadine HCL [Symmetrel] 100 mg PO TID@0600,1200,1800 05/17/20 [History] Multivitamins, Thera [Multivitamin (formulary)] 1 tab PO DAILY 08/09/23 [History] amLODIPine [Norvasc] 5 mg PO HS 08/09/23 [History] Aspirin 81 mg PO DAILY 30 Days #30 tab 12/05/23 [Rx] Losartan [Cozaar] 50 mg PO QAM 04/14/24 [History] Pantoprazole [Protonix] 40 mg PO QAM 04/14/24 [History] Moxifloxacin HCl [Avelox] 400 mg PO DAILY 7 Days #7 tab 04/29/24 [Rx] Follow up Appointment(s)/Referral(s): Magali Britt MD [Primary Care Provider] - 3 Days [facility] [NON-STAFF] - As Needed Talon Kathleen MD [STAFF PHYSICIAN] - 1 Week Activity/Diet/Wound Care/Special Instructions: No lifting over 10 pounds Shower daily. No soaking or tub baths for 2 weeks Very light activity until you are reevaluated at your follow up appointment with your surgeon Use Tylenol [id number] as needed for pain Remove incisional dressing on May 01 Discharge Disposition: HOME WITH HOME HEALTH SERVICES
--- NOTE | 2024-04-29 11:45 | P.PN ---
Subjective Progress Note Date: 04/29/24 Jerson Edwards, is a 79-year-old male patient of Dr. Britt who presented for an electivecolostomy reversal takedown of sigmoid flexure and a partial colectomy with Dr. benavides on 04/20/2024. patient has a history of perforated diverticulitis with worsening abscess in Decembernd patient underwent s igmoid colectomy with colostomy. at that time patient was discharged on antibiotics. Additional medical history includes Parkinson's disease, right frontal stroke requiring PEG tube but since has been removed and BPH. At this time patient is resting comfortably in bed wound VAC in place abdominal dressing is clean dry and intact. Patient has epidural. at bedside all questions answered. patient maintained on clear liquid diet. Current vital signs temp 98.6, heart rate 69, respiratory rate 15, blood pressure 115/61 with a pulse ox 94% on room air. Patient denies chest pain or shortness of breath. Patient denies nausea vomiting or diarrhea. Patient denies any urinary burning or prisca quency On 04/21/2024 for patient's alert and oriented 3.Patient remains on clear liquid diet. Patient denies chest pain or shortness of breath. Patient denies nausea vomiting or diarrhea. Patient denies any urinary burning or frequency patient remains with epidural for pain control PT OT services consulted. on 04/22/2024 patient was seen and examined on the medical floor, he is alert, slightly confused in no apparent distress, patient had elevated temperatures today, and elevated white blood count, blood culture and urine culture and chest x-ray were ordered, infectious disease consultation was requested, he denies any chest pain shortness of breath or cough there is no nausea or vomiting and no urinary symptoms. On 04/23/2024 patient is less confused today alert and oriented 3.Patient was started on IV Zosyn per infectious disease with blood cell improving today to 13.88. Will start patient on nystatin for oral thrush. Patient denies chest pain or shortness breath. Patient is complaining of abdominal discomfort. Patient denies nausea vomiting or diarrhea. Patient denies any urinary burning or frequency on 04/24/2024 patient was seen and examined on the medical floor, he is alert and oriented in no apparent distress there is no fever or chills no headache or dizziness he denies any chest pain shortness of breath or cough there is no nausea or vomiting and no urinary symptoms. patient is doing better, he is able to swallow his pills, will resume oral medications, advance diet gradually, discontinue IV fluid on 04/25/2024 patient was seen and examined on the medical floor he is alert and oriented in no apparent distress, there is no fever or chills no headache or dizziness no chest pain no shortness of breath no cough, no nausea or vomiting no abdominal pain no diarrhea and no urinary symptoms, diet was advanced by surgery, patient is improving. on 04/26/2024 patient was seen and examined on the medical floor he is alert and oriented x 3, there is no fever or chills no headache or dizziness no chest pain no shortness of breath no cough, no nausea or vomiting no abdominal pain no diarrhea and no urinary symptoms, diet was advanced by surgery, patient is improving. he is passing gas but has not had a bowel movement since surgery, medication and labs were reviewed, continue with current care possible discharge in the next 1-2 days On 04/27/2024 for patient's alert and oriented 3. Patient reports improvement with abdominal pain. Patient denies any chest pain or shortness breath. Patient denies any nausea vomiting or diarrhea. Patient denies any urinary burning or frequency. on 04/28/2024 patient is alert and oriented 3.patient maintained on low fiber diet per surgical services and possible discharge home tomorrow. Current vital signs temp 97.6, heart rate 64, respiratory rate 16, blood pressure 163/88 with pulse ox 99% on room air on 04/29/2024 patient was seen and examined on the medical floor he is alert and oriented 3 in no apparent distress there is no fever or chills no headache or dizziness no chest pain no shortness of breath no cough no nausea or vomiting no abdominal pain no diarrhea and no urinary symptoms plan for surgery is for discharge to home today Objective - Vital Signs Vital signs: Vital Signs Temp 98.1 F 04/29/24 06:58 Pulse 59 L 04/29/24 06:58 Resp 16 04/29/24 06:58 BP 163/77 04/29/24 06:58 Pulse Ox 97 04/29/24 06:58 FiO2 Intake & Output 04/28/24 04/29/24 04/29/24 18:59 06:59 18:59 Output Total 900 750 Balance -900 -750 Output: Urine 900 750 Other: Voiding Method External Catheter External Catheter # Bowel Movements 1 1 - Exam Head normocephalic Neck supple Lungs clear to auscultation bilaterally no wheezing or crackles Heart regular rate and rhythm S1-S2, no rub or gallop Abdomen midline dressing clean dry and intact Extremities no edema Neuro alert and orientated to 3 - Labs CBC & Chem 7: 04/29/24 06:23 04/29/24 06:23 Labs: Abnormal Lab Results - Last 24 Hours (Table) 04/29/24 04/29/24 Range/Units 06:23 06:23 WBC 10.05 H (4.50-10.00) X 10*3/uL RBC 3.48 L (4.40-5.60) X 10*6/uL Hgb 11.2 L (13.0-17.0) g/dL Hct 34.9 L (39.6-50.0) % MCV 100.3 H (80.0-97.0) FL MCH 32.2 H (27.0-32.0) pg RDW 14.8 H (11.5-14.5) % Immature Gran # 0.25 H (0.00-0.04) X 10*3/uL Neutrophils # 7.97 H (1.80-7.70) X 10*3/uL Lymphocytes # 0.80 L (0.90-5.00) X 10*3/uL Alkaline Phosphatase 217 H (41-126) U/L Total Protein 6.0 L (6.2-8.2) g/dL Albumin 3.2 L (3.8-4.9) g/dL Albumin/Globulin Ratio 1.14 L (1.60-3.17) Ratio Assessment and Plan Assessment: 1. status post colostomy reversal 2. History of diverticulitis with abscess requiring colostomy in December 2023 3. History of stroke requiring PEG tube. This has been reversed 4. History of Parkinson's disease 5. History of BPH 6. Leukocytosis 7. Oral thrush. Patient started nystatin Thank you for this consultation we'll continue to follow patient closely throughout stay PT OT service is consulted Infectious disease service is consulted Repeat labs ordered
--- NOTE | 2024-04-29 14:46 | P.PN ---
Subjective Progress Note Date: 04/28/24 Principal diagnosis: Reason for follow-up is leukocytosis possible pneumonia Patient is a 79-year-old male past medical history significant for hypertension hyperlipidemia MO reflux CVA TIA recent admission to the hospital and this patient who did have a perforated diverticulitis with peridiverticular abscess status post diverticular ostomy patient admitted to the hospital for reversal of colostomy. Noticed to have elevated white count prompting this consultation. On today's evaluation that is 04/28/2024,the patient denies any fever or any chills, patient is breathing comfortably on room air, the patient denies chest pain shortness of breath and no worsening cough, patient denies abdominal pain, no nausea vomiting and did not have any bowel movement so far Patient white count is normal as of 04/25/2024, creatinine is 1.2 Objective - Vital Signs Vital signs: Vital Signs Temp 97.6 F 04/28/24 07:35 Pulse 64 04/28/24 07:35 Resp 16 04/28/24 07:35 BP 163/88 04/28/24 07:35 Pulse Ox 99 04/28/24 07:35 FiO2 Intake & Output 04/27/24 04/28/24 04/28/24 18:59 06:59 18:59 Output Total 650 900 Balance -650 -900 Weight 72.7 kg Output: Urine 650 900 Other: Voiding Method External Catheter External Catheter # Bowel Movements 1 - Exam GENERAL DESCRIPTION: An elderly male lying in bed in no distress RESPIRATORY SYSTEM: Unlabored breathing , decreased breath sounds at bases HEART: S1 S2 regular rate and rhythm , ABDOMEN: Soft , no tenderness EXTREMITIES: No edema feet - Labs CBC & Chem 7: 04/29/24 06:23 04/29/24 06:23 Labs: Microbiology - Last 24 Hours (Table) 04/22/24 15:37 Blood Culture - Final Blood Assessment and Plan (1) Elevated procalcitonin Status: Acute Code(s): R79.89 - OTHER SPECIFIED ABNORMAL FINDINGS OF BLOOD CHEMISTRY SNOMED Code(s): 511726329 (2) Pneumonia Status: Acute Code(s): J18.9 - PNEUMONIA, UNSPECIFIED ORGANISM SNOMED Code(s): 017867006 (3) Leukocytosis Status: Acute Code(s): D72.829 - ELEVATED WHITE BLOOD CELL COUNT, UNSPECIFIED SNOMED Code(s): 994695682 Plan: 1patient with elevated white count and this patient has been electively admitt ed to hospital after the patient underwent colostomy reversal partial colectomy and omentectomy did have a mild respiratory symptom abnormal chest x-ray concerning for possible pneumonia. 2, blood culture has been negative patient did have elevated CRP procalcitonin 3-oral thrush to continue the nystatin swish and swallow 4patient white count has normalized culture has been negative, patient to continue with the Zosyn while inpatient and monitor clinical course closely Dictation was produced using [employer] dictation software. please excuse any grammatical, word or spelling errors. Time with Patient: Less than 30
--- NOTE | 2024-04-29 14:46 | P.PN ---
Subjective Progress Note Date: 04/29/24 Principal diagnosis: Reason for follow-up is leukocytosis possible pneumonia Patient is a 79-year-old male past medical history significant for hypertension hyperlipidemia AR reflux CVA TIA recent admission to the hospital and this patient who did have a perforated diverticulitis with peridiverticular abscess status post diverticular ostomy patient admitted to the hospital for reversal of colostomy. Noticed to have elevated white count prompting this consultation. On today's evaluation that is 04/29/2024,the patient remains to be afebrile, patient is on room air not requiring supplemental oxygen and denies any shortness of breath no chest pain cough has decreased intensity not bring up any sputum.Patient denies having any nausea or vomiting, no abdominal pain and did have a bowel movement Patient white count is 10.05, creatinine is 1.2 Objective - Vital Signs Vital signs: Vital Signs Temp 98.1 F 04/29/24 06:58 Pulse 59 L 04/29/24 06:58 Resp 16 04/29/24 06:58 BP 163/77 04/29/24 06:58 Pulse Ox 97 04/29/24 06:58 FiO2 Intake & Output 04/28/24 04/29/24 04/29/24 18:59 06:59 18:59 Output Total 900 750 Balance -900 -750 Output: Urine 900 750 Other: Voiding Method External Catheter External Catheter External Catheter # Bowel Movements 1 1 - Exam GENERAL DESCRIPTION: An elderly male lying in bed in no distress RESPIRATORY SYSTEM: Unlabored breathing , decreased breath sounds at bases HEART: S1 S2 regular rate and rhythm , ABDOMEN: Soft , no tenderness EXTREMITIES: No edema feet - Labs CBC & Chem 7: 04/29/24 06:23 04/29/24 06:23 Labs: Abnormal Lab Results - Last 24 Hours (Table) 04/29/24 04/29/24 Range/Units 06:23 06:23 WBC 10.05 H (4.50-10.00) X 10*3/uL RBC 3.48 L (4.40-5.60) X 10*6/uL Hgb 11.2 L (13.0-17.0) g/dL Hct 34.9 L (39.6-50.0) % MCV 100.3 H (80.0-97.0) FL MCH 32.2 H (27.0-32.0) pg RDW 14.8 H (11.5-14.5) % Immature Gran # 0.25 H (0.00-0.04) X 10*3/uL Neutrophils # 7.97 H (1.80-7.70) X 10*3/uL Lymphocytes # 0.80 L (0.90-5.00) X 10*3/uL Alkaline Phosphatase 217 H (41-126) U/L Total Protein 6.0 L (6.2-8.2) g/dL Albumin 3.2 L (3.8-4.9) g/dL Albumin/Globulin Ratio 1.14 L (1.60-3.17) Ratio Assessment and Plan (1) Elevated procalcitonin Status: Acute Code(s): R79.89 - OTHER SPECIFIED ABNORMAL FINDINGS OF BLOOD CHEMISTRY SNOMED Code(s): 271422885 (2) Pneumonia Status: Acute Code(s): J18.9 - PNEUMONIA, UNSPECIFIED ORGANISM SNOMED Code(s): 792048745 (3) Leukocytosis Status: Acute Code(s): D72.829 - ELEVATED WHITE BLOOD CELL COUNT, UNSPECIFIED SNOMED Code(s): 899363082 Plan: 1patient with elevated white count and this patient has been electively admitted to hospital after the patient underwent colostomy reversal partial colectomy and omentectomy did have a mild respiratory symptom abnormal chest x- ray concerning for possible pneumonia. 2, blood culture has been negative patient did have elevated CRP procalcitonin 3-oral thrush to continue the nystatin swish and swallow 4patient white count has normalized culture has been negative, patient will finish therapy with a short course of oral Avelox on discharge discussed with the surgical [employer] working on discharge Care also discussed with the at the bedside Dictation was produced using [employer] dictation software. please excuse any grammatical, word or spelling errors. Time with Patient: Less than 30
== END 2024-04-29 14:12 | disposition home health service (06) | DRG 329 ==
LOC: 2ORMAIN 08:02 → 4SSUR 14:33
PROVIDERS: ADMIT Surgery; ATTEND Surgery
PROC: 0DBU0ZZ Excision of Omentum, Open Approach (ICD-10-PCS; 2024-04-20)
PROC: 2W13X6Z Compression of Abdominal Wall using Pressure Dressing (ICD-10-PCS; 2024-04-20)
PROC: 0DBL0ZZ Excision of Transverse Colon, Open Approach (ICD-10-PCS; principal; 2024-04-20 10:10)
DX: Z43.3 Encounter for attention to colostomy (principal); J18.9 Pneumonia, unspecified organism; B37.0 Candidal stomatitis; F05 Delirium due to known physiological condition; G20.A1 Parkinson's disease without dyskinesia, without mention of fluctuations; I10 Essential (primary) hypertension; K66.8 Other specified disorders of peritoneum; E78.5 Hyperlipidemia, unspecified; N40.0 Benign prostatic hyperplasia without lower urinary tract symptoms; I25.2 Old myocardial infarction; Z87.19 Personal history of other diseases of the digestive system; Z82.49 Family history of ischemic heart disease and other diseases of the circulatory system; Z79.82 Long term (current) use of aspirin; Z87.891 Personal history of nicotine dependence; Z86.73 Personal history of transient ischemic attack (TIA), and cerebral infarction without residual deficits
CPT/HCPCS: 71045; 80048; 80053; 81001; 84145; 85025; 86140; 87040; 87086; 88307; 94760

== ENCOUNTER 2024-05-02 05:56 | Inpatient (IN) | payer OTHER, MEDICARE ==
--- NOTE | 2024-05-02 06:29 | ED ---
Fall HPI - General Chief Complaint: Fall Stated Complaint: fall Time Seen by Provider: 05/02/24 05:59 Source: patient, EMS, RN notes reviewed Mode of arrival: EMS Limitations: no limitations - History of Present Illness Initial Comments: This is a 79-year-old male who presents to the emergency department for a fall. Patient has Parkinson's disease and got up to use the bathroom this morning. When he was reaching for the light, he ended up tripping and falling. States that he fell face first and also injured his left hip. He hit his head but denies any loss of consciousness. Not taking any blood thinners. All of the pain is localized to the left hip. He has been unable to ambulate since the event. He was given pain medication by EMS en route without much relief in symptoms. MD Complaint: fall - Related Data Home Medications Medication Instructions Recorded Confirmed Carbidopa-Levodopa 25-100 mg 1 tab PO DIRECTED 05/17/20 05/02/24 [Sinemet 25-100 mg] amantadine HCL [Symmetrel] 100 mg PO TID@0600,1200,1800 05/17/20 05/02/24 Multivitamins, Thera [Multivitamin 1 tab PO DAILY 08/09/23 05/02/24 (formulary)] amLODIPine [Norvasc] 5 mg PO HS 08/09/23 05/02/24 Losartan [Cozaar] 50 mg PO DAILY 04/14/24 05/02/24 Pantoprazole [Protonix] 40 mg PO DAILY 04/14/24 05/02/24 Previous Rx's Medication Instructions Recorded Aspirin 81 mg PO DAILY 30 Days #30 tab 12/05/23 Moxifloxacin HCl [Avelox] 400 mg PO DAILY 7 Days #7 tab 04/29/24 Nystatin 100,000 Unit/ml Susp 500,000 unit PO QID 10 Days #200 ml 04/29/24 [Mycostatin Oral Susp] Allergies Allergy/AdvReac Type Severity Reaction Status Date / Time No Known Allergies Allergy Verified 05/02/24 09:43 Review of Systems ROS Statement: Those systems with pertinent positive or pertinent negative responses have been documented in the HPI. ROS Other: All systems not noted in ROS Statement are negative. Past Medical History Past Medical History: Chest Pain / Angina, CVA/TIA, GERD/Reflux, Hyperlipidemia, Hypertension, Myocardial Infarction ([place]), Musculoskeletal Disorder Additional Past Medical History / Comment(s): Parkinsons disease, CVA x 2 - most recent 08/09/23 w/ no residual effects, perforated diverticuliti 12/23 Last Myocardial Infarction Date:: 1983 History of Any Multi-Drug Resistant Organisms: None Reported Past Surgical History: Bowel Resection, Heart Catheterization Additional Past Surgical History / Comment(s): states heart cath with Dr Mera 2019 - "mild Blockages'- PEG tube placement - 08/13/23, colonoscopy, sigmoid colectomy w/ end colostomy 12/31/23 Past Anesthesia/Blood Transfusion Reactions: No Reported Reaction Past Psychological History: No Psychological Hx Reported Smoking Status: Former smoker - Past Family History Mother History Unknown: Yes Family Medical History: Congestive Heart Failure (CHF) Father History Unknown: Yes Family Medical History: Myocardial Infarction ([place]) General Exam Limitations: no limitations General appearance: alert, in no apparent distress Head exam: Present: atraumatic, normocephalic, normal inspection Eye exam: Present: normal appearance, PERRL, EOMI. Absent: scleral icterus, conjunctival injection, periorbital swelling Respiratory exam: Present: normal lung sounds bilaterally. Absent: respiratory distress, wheezes, rales, rhonchi, stridor Cardiovascular Exam: Present: regular rate, normal rhythm, normal heart sounds. Absent: systolic murmur, diastolic murmur, rubs, gallop, clicks Extremities exam: Present: other (Shortening and external rotation of the left lower extremity. 2+ DP and PT pulses.) Neurological exam: Present: alert, oriented X3, CN II-XII intact Psychiatric exam: Present: normal affect, normal mood Skin exam: Present: warm, dry, intact, normal color. Absent: rash Course Vital Signs 05/02/24 05/02/24 05/02/24 05:57 10:06 10:09 Temperature 97.7 F Pulse Rate 65 75 77 Respiratory 18 18 18 Rate Blood Pressure 171/88 165/92 O2 Sat by Pulse 96 98 Oximetry 05/02/24 05/02/24 11:30 11:45 Temperature Pulse Rate 76 Respiratory 16 Rate Blood Pressure 144/99 147/102 O2 Sat by Pulse 96 Oximetry Medical Decision Making - Medical Decision Making This is a 79 year old male who presents to the emergency department for left hip pain after a fall. Was pt. sent in by a medical professional or institution? @ -No Did you speak to anyone other than the patient for history? @ -No Did you review nursing and triage notes? @ -Yes, and I agree, it is accurate with regards to the patient's symptoms. Were old charts reviewed? @ -No Differential Diagnosis? @ -Differential Musculoskeletal Muscular strain, contusion, ligament sprain, fracture, arthritis, septic arthritis, bursitis, cellulitis, muscle spasm, nerve compression, DVT, arterial occlusion, herpes zoster, electrolyte abnormality, tumor.... This is not meant to be in all inclusive list EKG interpreted by me (3pts min.)? @ -EKG interpreted by me demonstrating the following: Sinus rhythm. Ventricular rate 61 bpm, [place] interval 185 ms, QRS duration 101 ms, QTc 413 ms. X-rays interpreted by me (1pt min.)? @ -Chest x-ray obtained, my interpretation identifies no localized consolidations or infiltrates. X-ray of the left hip and AP pelvis obtained. My interpretation identifies a left intertrochanteric fracture. CT interpreted by me (1pt min.)? @ -Computed tomography scan of the brain and c-spine obtained. My interpretation identifies no evidence of an acute intracranial hemorrhage, skull fracture, or cervical spine fracture. U/S interpreted by me (1pt. min.)? @ -Not obtained What testing was considered but not performed? (CT, X-rays, U/S, labs)? Why? @ -None What meds were considered but not given? Why? @ -None Did you discuss the management of the patient with other professionals? @ -Yes, Dr. Ortiz, who accepts the patient for admission to orthopedics. Did you reconcile home meds? @ -Yes Was smoking cessation discussed for >3mins.? @ -No Was critical care preformed (if so, how long)? @ -No Were there social determinants of health that impacted care today? How? (Homelessness, low income, unemployed, alcoholism, drug addiction, transportation, low edu. Level, literacy, decrease access to med. care, shelter, rehab)? @ -No Was there de-escalation of care discussed even if they declined? (Discuss DNR or withdrawal of care, Hospice)? @ -No What co-morbidities impacted this encounter? (DM, HTN, Smoking, COPD, CAD, Cancer, CVA, Hep., AIDS, mental health diagnosis, sleep apnea, morbid obesity)? @ -Parkinson's disease Was patient admitted / discharged? @ -Admitted. CT scan of the brain and C-spine obtained demonstrating no acute process. X-ray of the left hip and AP pelvis demonstrates an intertrochanteric fracture of the left hip. Chest x-ray reveals no acute process. Lab work obtained as well demonstrating leukocytosis and was otherwise fairly unremarkable. Case discussed with orthopedics, who accepts the patient for admission to their service. Will keep the patient NPO in anticipation for surgical intervention later today. Consult placed for medicine for medical management and surgical clearance. Undiagnosed new problem with uncertain prognosis? @ -None Drug Therapy requiring intensive monitoring for toxicity (Heparin, Nitro, Insulin, Cardizem)? @ -None Were any procedures done? @ -None Diagnosis/symptom? @ -Fall, intertrochanteric fracture of the left hip Acute, or Chronic, or Acute on Chronic? @ -Acute Uncomplicated (without systemic symptoms) or Complicated (systemic symptoms)? @ -Uncomplicated Side effects of treatment? @ -None Exacerbation, Progression, or Severe Exacerbation] @ -Not applicable Poses a threat to life or bodily function? @ -Yes, this will limit his ability to ambulate. This case was discussed in detail with the attending ED physician, Dr. Beyer. Presentation, findings, and treatment plan discussed in detail as well. - Lab Data Result diagrams: 05/02/24 07:03 05/02/24 07:03 Lab Results 05/02/24 05/02/24 05/02/24 Range/Units 07:03 07:03 07:03 WBC 14.7 H (3.8-10.6) k/uL RBC 3.43 L (4.30-5.90) m/uL Hgb 10.9 L (13.0-17.5) gm/dL Hct 34.5 L (39.0-53.0) % MCV 100.8 H (80.0-100.0) fL MCH 31.8 (25.0-35.0) pg MCHC 31.5 (31.0-37.0) g/dL RDW 14.6 (11.5-15.5) % Plt Count 446 (150-450) k/uL MPV 8.6 Neutrophils % 88 % Lymphocytes % 5 % Monocytes % 6 % Eosinophils % 1 % Basophils % 0 % Neutrophils # 13.0 H (1.3-7.7) k/uL Lymphocytes # 0.7 L (1.0-4.8) k/uL Monocytes # 0.8 (0-1.0) k/uL Eosinophils # 0.1 (0-0.7) k/uL Basophils # 0.1 (0-0.2) k/uL Macrocytosis Slight PT 11.3 (10.0-12.5) sec INR 1.0 (<1.2) APTT 23.0 (22.0-30.0) sec Sodium 144 (137-145) mmol/L Potassium 4.1 (3.5-5.1) mmol/L Chloride 112 H (98-107) mmol/L Carbon Dioxide 30 (22-30) mmol/L Anion Gap 2 mmol/L BUN 22 H (9-20) mg/dL Creatinine 1.06 (0.66-1.25) mg/dL Est GFR (CKD-EPI)AfAm 77 (>60 ml/min/1.73 sqM) Est GFR (CKD-EPI)NonAf 67 (>60 ml/min/1.73 sqM) Glucose 102 H (74-99) mg/dL Calcium 8.8 (8.4-10.2) mg/dL Total Bilirubin 0.9 (0.2-1.3) mg/dL AST 26 (17-59) U/L ALT 13 (4-49) U/L Alkaline Phosphatase 174 H (38-126) U/L Total Protein 6.4 (6.3-8.2) g/dL Albumin 3.3 L (3.5-5.0) g/dL - Radiology Data Radiology results: report reviewed, image reviewed Disposition Clinical Impression: Fall, Intertrochanteric fracture of left hip Disposition: ADMITTED IP TO THIS HOSP
[2024-05-02] MEDS: MORPHINE SULFATE 4 MG/ML SYRINGE IVP STA (07:16)
[2024-05-02] MEDS: SODIUM CHLORIDE 0.9% 500 ML 500 ML IV STA (07:16)
[2024-05-02 07:19] LABS: Basophils # (A) 0.1 k/uL (0-0.2); Basophils % (A) 0 %; Eosinophils # (A) 0.1 k/uL (0-0.7); Eosinophils % (A) 1 %; HCT 34.5 % (39.0-53.0); HGB 10.9 gm/dL (13.0-17.5); Lymphocytes # (A) 0.7 k/uL (1.0-4.8); Lymphocytes % (A) 5 %; MCH 31.8 pg (25.0-35.0); MCHC 31.5 g/dL (31.0-37.0); MCV 100.8 fL (80.0-100.0); Macrocytosis Slight; Mean Platelet Volume 8.6; Monocytes # (A) 0.8 k/uL (0-1.0); Monocytes % (A) 6 %; Neutrophils % (A) 88 %; Platelet Count 446 k/uL (150-450); RBC 3.43 m/uL (4.30-5.90); RDW 14.6 % (11.5-15.5); WBC 14.7 k/uL (3.8-10.6)
--- NOTE | 2024-05-02 07:22 | CT ---
EXAMINATION TYPE: CT brain doroteo gupta DATE OF EXAM: 05/02/2024 COMPARISON: Head CT dated 923 HISTORY: Fall CT DLP: 1279.9 mGycm Automated exposure control for dose reduction was used. TECHNIQUE: CT scan of the head and cervical spine are performed without contrast. Findings: Head CT: Ventricles, basal cisterns and sulci over convexities within normal limits for the patient's age and there is no mass, mass effect or shift of midline structures. There is a remote lacunar infarct in the left caudate nucleus. There is no acute intra or extra-axial hemorrhage. There is cerebellar atrophy otherwise the posterior fossa including the brainstem, fourth ventricle a nd cerebellar pontine angles are grossly normal. The intraorbital contents appear normal and symmetric. Visualized paranasal sinuses are well aerated. CT cervical spine: Craniovertebral junction relationships and prevertebral soft tissues are normal. The cervical vertebral segments are normal in height and alignment and there is no fracture subluxati on. There is marked anterior spondylosis. There is moderate disc space narrowing at C4-5 and C7/T1 levels . The bony cervical canal is widely patent. There is moderate to severe bony neural foraminal encroachm ent at C4-5 on the right. The paraspinal soft tissues unremarkable. IMPRESSION: 1. Head CT: No acute bleed or mass effect. 2. CT cervical spine: No acute trauma. Degenerative changes are described above.
[2024-05-02 07:28] LABS: Prothrombin Time 11.3 sec (10.0-12.5)
[2024-05-02 07:34] LABS: ALT 13 U/L (4-49); AST 26 U/L (17-59); African American GFR (CKD) 77 (>60 ml/min/1.73 sqM); Albumin 3.3 g/dL (3.5-5.0); Alkaline Phosphatase 174 U/L (38-126); Anion Gap 2 mmol/L; Blood Urea Nitrogen 22 mg/dL (9-20); Calcium 8.8 mg/dL (8.4-10.2); Carbon Dioxide 30 mmol/L (22-30); Chloride 112 mmol/L (98-107); Glucose 102 mg/dL (74-99); Non-African American GFR(CKD) 67 (>60 ml/min/1.73 sqM); Potassium 4.1 mmol/L (3.5-5.1); Sodium 144 mmol/L (137-145); Total Bilirubin 0.9 mg/dL (0.2-1.3); Total Protein 6.4 g/dL (6.3-8.2)
--- NOTE | 2024-05-02 07:55 | XR ---
EXAMINATION TYPE: XR chest 1V DATE OF EXAM: 05/02/2024 COMPARISON: 04/29/2024 HISTORY: Fall TECHNIQUE: Single frontal view of the chest is obtained. FINDINGS: There is no focal air space opacity, pleural effusion, or pneumothorax seen. The cardiac silhouette size is within normal limits. The osseous structures are intact. IMPRESSION: No acute process.
--- NOTE | 2024-05-02 07:57 | XR ---
EXAMINATION TYPE: XR Hip LT and AP Pelvis DATE OF EXAM: 05/02/2024 COMPARISON: NONE HISTORY: Fall TECHNIQUE: A single AP view of the pelvis is obtained. Two views of the left hip are obtained. FINDINGS: There is markedly displaced and angulated intertrochanteric fracture of the left hip. The pelvis is intact and there is no pelvic fracture or focal intraosseous abnormality. There is no s clerosis or diastasis of the pubic symphysis or SI joints. There are skin chante in the midline indicating recent surgery. IMPRESSION: Intertrochanteric fracture of the left hip.
[2024-05-02] MEDS: HYDROmorphone 1 MG/ML 1 ML SYRINGE IVP STA (08:28)
[2024-05-02] MEDS ORDERED: ACETAMINOPHEN TAB 325 MG TAB PO PRN (09:13)
[2024-05-02] MEDS ORDERED: ONDANSETRON 4 MG/2 ML VIAL IVP PRN (09:13)
[2024-05-02] MEDS ORDERED: NALOXONE 0.4 MG/ML 1 ML VIAL IV PRN ×2 (09:13→12:57)
[2024-05-02] MEDS: HYDROmorphone 1 MG/ML 1 ML SYRINGE IVP PRN (10:04)
[2024-05-02 10:19] LABS: Appearance,Urine Clear (Clear); Bilirubin,Urine Negative (Negative); Blood,Urine Negative (Negative); Color,Urine Colorless; Glucose,Urine (UA) Negative (Negative); Ketones,Urine Negative (Negative); Leukocyte Esterase,Urine Negative (Negative); Nitrite,Urine Negative (Negative); PH, Urine 5.5 (5.0-8.0); Protein,Urine Negative (Negative); Specific Gravity,Urine 1.015 (1.001-1.035); Urobilinogen,Urine <2.0 mg/dL (<2.0)
--- NOTE | 2024-05-02 10:58 | P.CONS ---
History of Present Illness - Reason for Consult Consult date: 05/02/24 - History of Present Illness Jerson Edwards, is a 79-year-old male who presented to [facility] emergency room after sustaining a fall and complaining of left hip pain. He was evaluated in the emergency room vital examination on presentation revealed a temperature of 97.7 pulse 65 respiration 18 blood pressure 171/88 pulse ox 96% on room air Laboratory data revealed a white blood count of 14.7 hemoglobin 10.9 platelet count 446 BUN 22 creatinine 1.06 Testing in the emergency room revealed CT scan of the head revealed no acute bleed or mass effect, CT scan of the cervical spine revealed no acute trauma, chest x-ray revealed no acute process, x-ray of the pelvis and the left hip revealed intertrochanteric fracture of the left hip. Patient was admitted to medical floor for further evaluation and treatment Past medical history is significant for history of recent admission by Dr. Kathleen, patient underwent abdominal surgery for reversal of colostomy, takedown sigmoid flexure and partial colectomy, he has a history of perforated diverticulitis with colostomy placement, history of stroke, history of Parkinson disease, history of hypertension On review of systems patient is alert and oriented x 3 in no apparent distress, he is complaining of pain in the left hip area otherwise he denies any co mplaints, there is no fever or chills no headache or dizziness no chest pain no shortness of breath no cough no nausea or vomiting no abdominal pain no diarrhea no blood in the stools no burning with urination no frequency or urgency and no hematuria. Past Medical History Past Medical History: Chest Pain / Angina, CVA/TIA, GERD/Reflux, Hyperlipidemia, Hypertension, Myocardial Infarction (OR), Musculoskeletal Disorder Additional Past Medical History / Comment(s): Parkinsons disease, CVA x 2 - most recent 08/09/23 w/ no residual effects, perforated diverticuliti 12/23 Last Myocardial Infarction Date:: 1983 History of Any Multi-Drug Resistant Organisms: None Reported Past Surgical History: Bowel Resection, Heart Catheterization Additional Past Surgical History / Comment(s): states heart cath with Dr Mera 2019 - "mild Blockages'- PEG tube placement - 08/13/23, colonoscopy, sigmoid colectomy w/ end colostomy 12/31/23 Past Anesthesia/Blood Transfusion Reactions: No Reported Reaction Past Psychological History: No Psychological Hx Reported Smoking Status: Former smoker - Past Family History Mother History Unknown: Yes Family Medical History: Congestive Heart Failure (CHF) Father History Unknown: Yes Family Medical History: Myocardial Infarction (OR) Medications and Allergies Home Medications Medication Instructions Recorded Confirmed Type Carbidopa-Levodopa 25-100 mg 1 tab PO DIRECTED 05/17/20 05/02/24 History [Sinemet 25-100 mg] amantadine HCL [Symmetrel] 100 mg PO TID@0600,1200,1800 05/17/20 05/02/24 History Multivitamins, Thera [Multivitamin 1 tab PO DAILY 08/09/23 05/02/24 History (formulary)] amLODIPine [Norvasc] 5 mg PO HS 08/09/23 05/02/24 History Aspirin 81 mg PO DAILY 30 Days #30 tab 12/05/23 05/02/24 Rx Losartan [Cozaar] 50 mg PO DAILY 04/14/24 05/02/24 History Pantoprazole [Protonix] 40 mg PO DAILY 04/14/24 05/02/24 History Moxifloxacin HCl [Avelox] 400 mg PO DAILY 7 Days #7 tab 04/29/24 05/02/24 Rx Nystatin 100,000 Unit/ml Susp 500,000 unit PO QID 10 Days #200 ml 04/29/24 05/02/24 Rx [Mycostatin Oral Susp] Allergies Allergy/AdvReac Type Severity Reaction Status Date / Time No Known Allergies Allergy Verified 05/02/24 09:43 Physical Exam Vitals: Vital Signs Temp Pulse Resp BP Pulse Ox 05/02/24 10:09 77 18 165/92 98 05/02/24 10:06 75 18 05/02/24 05:57 97.7 F 65 18 171/88 96 Intake and Output 05/01/24 05/02/24 05/02/24 22:59 06:59 14:59 Other: Weight 72.575 kg In general patient is alert and oriented x 3 in no distress HEENT head normocephalic and atraumatic Neck is supple no JVD no goiter no lymphadenopathy no carotid bruit Chest examination is clear to auscultation no crackles no wheezing Cardiac exam reveals regular heart sounds S1 and S2 no gallops no murmurs Abdomen is soft nontender no organomegaly with normal bowel sounds Extremity exam reveals no edema no cyanosis or clubbing Neurological examination reveals chronic left-sided weakness related to previous stroke without any acute abnormality Results CBC & Chem 7: 05/02/24 07:03 05/02/24 07:03 Labs: Abnormal Lab Results - Last 24 Hours (Table) 05/02/24 05/02/24 Range/Units 07:03 07:03 WBC 14.7 H (3.8-10.6) k/uL RBC 3.43 L (4.30-5.90) m/uL Hgb 10.9 L (13.0-17.5) gm/dL Hct 34.5 L (39.0-53.0) % MCV 100.8 H (80.0-100.0) fL Neutrophils # 13.0 H (1.3-7.7) k/uL Lymphocytes # 0.7 L (1.0-4.8) k/uL Chloride 112 H (98-107) mmol/L BUN 22 H (9-20) mg/dL Glucose 102 H (74-99) mg/dL Alkaline Phosphatase 174 H (38-126) U/L Albumin 3.3 L (3.5-5.0) g/dL Assessment and Plan Plan: 1. 79-year-old male presenting after sustaining a fall, with evidence of left hip intertrochanteric fracture, patient is scheduled for orthopedic surgery this afternoon, medical clearance was requested. Previous cardiac evaluation was reviewed echocardiogram August 2023 revealed normal left ventricular ejection fraction of 55 to 60%, patient is denying any cardiac symptoms there is no chest pain shortness of breath dizziness presyncope or syncope. White blood count was elevated on presentation at 14.7 this is most likely reactive, due to fall and recent abdominal surgery, there is no evidence of any infectious process, patient is afebrile, chest x-ray and urine analysis reviewed, no evidence of infection at this time. Patient underwent recent abdominal surgery for reversal of colostomy, takedown sigmoid flexure and partial colectomy, patient tolerated surgery well, surgical site is clear without evidence of infection. Patient is at increased risk for surgery due to his multiple medical problems, however there is no medical contraindication for surgery. 2. Underlying history of Parkinson disease 3. History of stroke with left-sided hemiparesis 4. History of benign prostatic hypertrophy 5. History of diverticulitis with perforation requiring surgery with colostomy placement, and recent colostomy reversal. 6. Underlying history of hypertension 7. Underlying history of hyperlipidemia 8. Underlying history of gastroesophageal reflux disease At this time patient will be admitted to surgical floor, Plan is for surgical intervention on the left hip this afternoon DVT prophylaxis and pain management per orthopedic protocols Patient would benefit of resuming his Parkinson disease medications as soon as possible Will continue to follow closely during this admission
[2024-05-02] MEDS: CARBIDOPA-LEVODOPA 25-100 MG 1 EACH TAB PO SCH (11:14)
[2024-05-02] MEDS: LEVOFLOXACIN 750 MG TAB PO SCH (11:14)
--- NOTE | 2024-05-02 11:25 | P.HPOR ---
History of Present Illness H&P Date: 05/02/24 Chief Complaint: Left hip pain Patient is a 79-year-old male who presented to the emergency department this morning status post fall home. Patient does have past medical history sig for Parkinson's disease. Patient does not take any blood thinners. Patient was seen at bedside this morning with family present in the emergency room. Patient's gave mostly history and states when the patient tried to get out of bed this morning using walker he tripped and fell and landed on his hip inside of his room. Patient mentions he fell on his head but denies losing consciousness. Patient denies any other areas of pain besides the left hip. He says he has been unable to walk since the injury. Patient says at baseline he usually uses a cane or walker to aid in ambulation. Patient did have surgery recently on 04/20/[address] Kathleen for reverse colostomy. Patient's says they do have visit scheduled to see Dr. Kathleen in office this coming for staple removal. Patient's left leg is shortened and externally rotated. X-ray left hip does demonstrate left hip intertrochanteric fracture. Patient denies chest pain, fever, shortness breath, nausea, vomiting, change in vision, loss of bladder control. Past Medical History Past Medical History: Chest Pain / Angina, CVA/TIA, GERD/Reflux, Hyperlipidemia, Hypertension, Myocardial Infarction (CT), Musculoskeletal Disorder Additional Past Medical History / Comment(s): Parkinsons disease, CVA x 2 - most recent 08/09/23 w/ no residual effects, perforated diverticuliti 12/23 Last Myocardial Infarction Date:: 1983 History of Any Multi-Drug Resistant Organisms: None Reported Past Surgical History: Bowel Resection, Heart Catheterization Additional Past Surgical History / Comment(s): states heart cath with Dr Mera 2019 - "mild Blockages'- PEG tube placement - 08/13/23, colonoscopy, sigmoid colectomy w/ end colostomy 12/31/23 Past Anesthesia/Blood Transfusion Reactions: No Reported Reaction Past Psychological History: No Psychological Hx Reported Smoking Status: Former smoker - Past Family History Mother History Unknown: Yes Family Medical History: Congestive Heart Failure (CHF) Father History Unknown: Yes Family Medical History: Myocardial Infarction (CT) Medications and Allergies Home Medications Medication Instructions Recorded Confirmed Type Carbidopa-Levodopa 25-100 mg 1 tab PO DIRECTED 05/17/20 05/02/24 History [Sinemet 25-100 mg] amantadine HCL [Symmetrel] 100 mg PO TID@0600,1200,1800 05/17/20 05/02/24 History Multivitamins, Thera [Multivitamin 1 tab PO DAILY 08/09/23 05/02/24 History (formulary)] amLODIPine [Norvasc] 5 mg PO HS 08/09/23 05/02/24 History Aspirin 81 mg PO DAILY 30 Days #30 tab 12/05/23 05/02/24 Rx Losartan [Cozaar] 50 mg PO DAILY 04/14/24 05/02/24 History Pantoprazole [Protonix] 40 mg PO DAILY 04/14/24 05/02/24 History Moxifloxacin HCl [Avelox] 400 mg PO DAILY 7 Days #7 tab 04/29/24 05/02/24 Rx Nystatin 100,000 Unit/ml Susp 500,000 unit PO QID 10 Days #200 ml 04/29/24 05/02/24 Rx [Mycostatin Oral Susp] Allergies Allergy/AdvReac Type Severity Reaction Status Date / Time No Known Allergies Allergy Verified 05/02/24 09:43 Physical Examination Inspection: Left leg appears be shortened and externally rotated. Negative for any ecchymosis/erythema/open wound/open fractures. Positive for some swelling diffusely around the left hip. Sensation: Equal, symmetric combine checked at the upper and lower extremity. Palpation: Significant tenderness to palpation diffusely throughout the left hip. Nontender to palpation throughout rest of exam. Range of motion: Significant wound range of motion the left lower extremity in the hip secondary to injury and pain. Patient is able to dorsi and plantarflex the left ankle elbow. With some referred pain in the left hip. Full range of motion throughout right lower extremity and bilateral upper extremities on exam. Motor: 4/5 in all major motor groups in bilateral upper extremity is in right lower extremity exam. 3+/5 in resisted left ankle dorsi/plantar flexion. Left knee and active motor exams not performed due to injury. Neurovascular: Radial pulse intact, 2+5. DP pulses palpable bilaterally. Cap refill under 3 seconds in digits of lower extremities Special tests: Negative Homans bilaterally. Positive log roll maneuver on the left Results - Labs Labs: Abnormal Lab Results - Last Hours (Table) 05/02/24 05/02/24 Range/Units 07:03 07:03 WBC 14.7 H (3.8-10.6) k/uL RBC 3.43 L (4.30-5.90) m/uL Hgb 10.9 L (13.0-17.5) gm/dL Hct 34.5 L (39.0-53.0) % MCV 100.8 H (80.0-100.0) fL Neutrophils # 13.0 H (1.3-7.7) k/uL Lymphocytes # 0.7 L (1.0-4.8) k/uL Chloride 112 H (98-107) mmol/L BUN 22 H (9-20) mg/dL Glucose 102 H (74-99) mg/dL Alkaline Phosphatase 174 H (38-126) U/L Albumin 3.3 L (3.5-5.0) g/dL H & H 05/02/24 Range/Units 07:03 Hgb 10.9 L (13.0-17.5) gm/dL Hct 34.5 L (39.0-53.0) % Coagulation 05/02/24 Range/Units 07:03 INR 1.0 (<1.2) Result Diagrams: 05/02/24 07:03 05/02/24 07:03 - Diagnostic results Hip x-ray: report reviewed, image reviewed (X-ray left hip demonstrate left hip IT fracture. Negative for any dislocations) Assessment and Plan Assessment: 1. Left hip IT fracture Plan: 1. Left hip IT fracture - x-ray left hip does demonstrate left hip IT fracture. I did discuss the findings of the imaging and exam with my attending, Dr. Ortiz. At this time we are planning to move forward with orthopedic surgical intervention in the form of left hip intramedullary nail fixation. Surgery is scheduled for 1 PM this afternoon in the operating room. I did discuss the options for treatment with patient and family at bedside this morning in the ER. At this time they have agreed to the scheduled for surgery for left hip IM nail fixation this afternoon. Patient to be nothing by mouth at this time. Pain medication as needed. Nonweightbearing to left lower extremity. With hold blood thinners at this time. Patient has been cleared by medicine for surgery. We'll continue to follow patient during her stay in hospital. 2. Appreciate medical management 3. Pain management - Tylenol; [place]; Dilaudid 4. DVT prophylaxis - mechanical; with hold blood thinners at this time 5. GI prophylaxis - senna 6. PT/OT - nonweightbearing left lower extremity 7. Encourage incentive spirometer use Time with Patient: Less than 30
[2024-05-02] MEDS ORDERED: TRANEXAMIC 1,000 MG/100ML-NACL 1,000 MG in SALINE 1 100ML.BAG IVPB PRN (11:49)
[2024-05-02] MEDS ORDERED: MAGNESIUM HYDROXIDE 2,400 MG/30 ML CUP PO PRN (12:57)
[2024-05-02] MEDS ORDERED: PROPOFOL 10 MG/ML 20 ML VIAL IV ONE (13:03)
[2024-05-02] MEDS ORDERED: TRANEXAMIC 1,000 MG/100ML-NACL PREMIX BAG ONE (13:03)
[2024-05-02] MEDS: IV FLUID CONTINUATION 1,000 ML IV ONE (13:03)
[2024-05-02] MEDS ORDERED: MIDAZOLAM 2 MG/2 ML VIAL ONE (13:03)
[2024-05-02] MEDS ORDERED: KETAMINE HCL IN 0.9 % NACL 50 MG/5 ML SYRINGE ONE (13:03)
[2024-05-02] MEDS ORDERED: fentaNYL (PF) 50 MCG/ML 2 ML AMP ONE (13:03)
[2024-05-02] MEDS: ceFAZolin 1,000 MG in SODIUM CHLORIDE 0.9% 1,000 ML IRRIGATION ONE (13:33)
--- NOTE | 2024-05-02 14:41 | FL ---
EXAMINATION TYPE: FL guidance operating room, XR Hip Complete LT Intraoperative/procedural fluoroscop ic services were provided. Total fluoroscopy time is 2 minutes 32 seconds seconds with a total of 3 s ubmitted images to PACS. Please see the operative/procedural note for further details. DAP: 15.73 mGym2
--- NOTE | 2024-05-02 14:43 | P.OP ---
Date of Procedure: 05/02/24 Preoperative Diagnosis: Displaced four-part left intertrochanteric femur fracture Postoperative Diagnosis: Same Procedure(s) Performed: Intramedullary nailing left intertrochanteric femur fracture Implants: Bettina 11 mm x 36 cm trochanteric nail with 120 mm compression screw Anesthesia: spinal Surgeon: Willie Ortiz Webbing Seamer Pound Net #1: Dayron Mustafa Estimated Blood Loss (ml): 150 Pathology: none sent Condition: stable Disposition: PACU Indications for Procedure: The patient is a 79-year-old male who presents after falling today at home sustaining a closed, displaced, left four-part intertrochanteric femur fracture. A discussion of the risks and benefits of operative intervention was made with the patient and his family. He opted to proceed with surgery. Operative risks include infection, neurovascular injury, development of blood clots, possible development of nonunion, possible development of malunion, possible hardware failure and need for subsequent procedures was discussed. Informed consent was obtained. Operative Findings: As below Description of Procedure: The patient was brought to the operating room, and after induction of spinal anesthesia was positioned supine on the fracture table. The fracture was reduced with longitudinal traction and internal rotation of the left lower extremity. This was verified on the AP and lateral views with the aid of f luoroscopy. There was some residual neck angulation/displacement. The left lower extremity was prepped and draped in a normal fashion. A 10 cm incision was then made starting at the greater trochanter extending proximally. Skin and subcutaneous tissues were divided sharply. Electrocautery was used for hemostasis. The gluteus lisa fascia was split in line with the skin incision. Blunt dissection was then made down to level of the greater trochanter. A starting awl was used with the aid of fluoroscopy along the medial aspect of the greater trochanter. A ball-tipped guidewire was gently inserted. The distal shaft was reamed up to 12.5 mm. The proximal intertrochanteric region was reamed up to 16.5 mm with the aid of fluoroscopy. An 11 mm x 36 cm trochanteric nail was then gently inserted over the guidewire to the appropriate depth. The guidewire was then removed. Fluoroscopy was used on the AP and lateral views to reduce the neck segment to acceptable alignment. A threaded guidepin was then placed through the drill guide into the femoral neck and head to within 5 mm of the articular surface on the AP and lateral views. A triple reamer was used to a depth of 120 mm. The compression screw was inserted to within 5 mm of the articular surface on the AP and lateral views. The derotational screw was inserted in the top of the nail allowing for compression, however controlling rotation. The distal locking screw was placed utilizing a freehand technique with the aid of fluoroscopy. Final fluoroscopic views showed adequate reduction of this complex fracture pattern and placement of the implant. The wounds were irrigated with normal saline. The fascia was closed with running #1 Vicryl suture. The subcutaneous tissues reapproximated interrupted 2-0 Vicryl sutures. The skin was reapproximated chante. A sterile dressing was applied. The patient was then awoken from sedation and transferred to the recovery room in fair condition. Blood loss was estimated 150 cc. No complications were incurred. Sponge and needle counts were correct at the end of the case. Dayron SAGASTUME assisted during the major components of the case to include positioning, exposure, reduction, implantation, and closure.
[2024-05-02] MEDS: NYSTATIN 100,000 UNIT/ML SUSP 500,000 UNIT/5 ML CUP PO SCH (15:01)
[2024-05-02 15:41] LABS: Basophils # (A) 0.1 k/uL (0-0.2); Basophils % (A) 0 %; Eosinophils # (A) 0.1 k/uL (0-0.7); Eosinophils % (A) 0 %; HCT 34.9 % (39.0-53.0); HGB 10.7 gm/dL (13.0-17.5); Hypochromasia Slight; Lymphocytes % (A) 4 %; MCH 32.5 pg (25.0-35.0); MCHC 30.8 g/dL (31.0-37.0); MCV 105.5 fL (80.0-100.0); Macrocytosis Moderate; Mean Platelet Volume 8.2; Monocytes # (A) 0.8 k/uL (0-1.0); Monocytes % (A) 3 %; Neutrophils # (A) 22.8 k/uL (1.3-7.7); Neutrophils % (A) 92 %; Platelet Count 441 k/uL (150-450); RBC 3.31 m/uL (4.30-5.90); RDW 14.4 % (11.5-15.5); WBC 24.9 k/uL (3.8-10.6)
[2024-05-02] MEDS: SENNOSIDES 8.6 MG TAB PO SCH (20:44)
[2024-05-02] MEDS: amLODIPine 5 MG TAB PO SCH (20:45)
[2024-05-02] MEDS: HYDROcodone/APAP 7.5-325MG 1 EACH TAB PO PRN (22:47)
[2024-05-03] MEDS: HYDROmorphone 0.5 MG/0.5 ML SYRINGE IVP PRN (03:01)
[2024-05-03] MEDS: LOSARTAN 50 MG TAB PO SCH (09:27)
[2024-05-03] MEDS: ASPIRIN 81 MG PO SCH (09:27)
[2024-05-03] MEDS: MULTIVITAMINS, THERA 1 EACH TAB PO SCH (09:27)
[2024-05-03] MEDS: PANTOPRAZOLE 40 MG TABLET PO SCH (09:27)
--- NOTE | 2024-05-03 09:45 | P.PN ---
Subjective Progress Note Date: 05/03/24 Jerson Edwards, is a 79-year-old male who presented to [facility] emergency room after sustaining a fall and complaining of left hip pain. He was evaluated in the emergency room vital examination on presentation revealed a temperature of 97.7 pulse 65 respiration 18 blood pressure 171/88 p ulse ox 96% on room air Laboratory data revealed a white blood count of 14.7 hemoglobin 10.9 platelet count 446 BUN 22 creatinine 1.06 Testing in the emergency room revealed CT scan of the head revealed no acute bleed or mass effect, CT scan of the cervical spine revealed no acute trauma, chest x-ray revealed no acute process, x-ray of the pelvis and the left hip revealed intertrochanteric fracture of the left hip. Patient was admitted to medical floor for further evaluation and treatment Past medical history is significant for history of recent admission by Dr. Kathleen, patient underwent abdominal surgery for reversal of colostomy, takedown sigmoid flexure and partial colectomy, he has a history of perforated diverticulitis with colostomy placement, history of stroke, history of Parkinson disease, history of hypertension On review of systems patient is alert and oriented x 3 in no apparent distress, he is complaining of pain in the left hip area otherwise he denies any complaints, there is no fever or chills no headache or dizziness no chest pain no shortness of breath no cough no nausea or vomiting no abdominal pain no diarrhea no blood in the stools no burning with urination no frequency or urgency and no hematuria. On 05/03/2024 patient was seen and examined on the medical floor, he is alert and oriented x 3 in no apparent distress, he is complaining of pain in the left hip otherwise he denies any complaints, there is no fever or chills no headache or dizziness no chest pain no shortness of breath no cough no nausea or vomiting no abdominal pain no diarrhea and no urinary symptoms. Vital exam this morning revealed a temperature of 97.3 pulse 78 respiration 18 blood pressure 143/82 pulse ox 95% on room air, his laboratory data is significant for a white blood count of 24.9 hemoglobin 10.7 platelet count 441. Patient's is at the bedside she is concerned that patient is leaning towards the right, which is a recent change in his condition, she is afraid that this is why he fell at home, she is requesting a neurology consult to rule out new CVA, patient has known history of Parkinson disease, and history of CVA in the past. Physical therapy and Occupational Therapy will be added, neurology consult requested. Objective - Vital Signs Vital signs: Vital Signs Temp 97.3 F L 05/03/24 07:11 Pulse 78 05/03/24 07:11 Resp 18 05/03/24 07:11 BP 143/82 05/03/24 07:11 Pulse Ox 95 05/03/24 07:11 FiO2 Intake & Output 05/02/24 05/03/24 05/03/24 18:59 06:59 18:59 Intake Total 601 100 Output Total 250 600 Balance 351 -500 Weight 72.575 kg Intake: IV 601 Intake, IV Titration 100 Amount ceFAZolin 2 gm In Sodium 100 Chloride 0.9% 50 ml @ 100 mls/hr IVPB Q8H [facility] Rx#: [id number] Output: Urine 100 600 Estimated Blood Loss 150 Other: Voiding Method Indwelling Catheter Indwelling Catheter - Exam In general patient is alert and oriented x 3 in no distress HEENT head normocephalic and atraumatic Neck is supple no JVD no goiter no lymphadenopathy no carotid bruit Chest examination is clear to auscultation no crackles no wheezing Cardiac exam reveals regular heart sounds S1 and S2 no gallops no murmurs Abdomen is soft nontender no organomegaly with normal bowel sounds Extremity exam reveals no edema no cyanosis or clubbing Neurological examination reveals chronic left-sided weakness related to previous stroke without any acute abnormality - Labs CBC & Chem 7: 05/02/24 15:29 05/02/24 07:03 Labs: Abnormal Lab Results - Last 24 Hours (Table) 05/02/24 Range/Units 15:29 WBC 24.9 H (3.8-10.6) k/uL RBC 3.31 L (4.30-5.90) m/uL Hgb 10.7 L (13.0-17.5) gm/dL Hct 34.9 L (39.0-53.0) % MCV 105.5 H (80.0-100.0) fL MCHC 30.8 L (31.0-37.0) g/dL Neutrophils # 22.8 H (1.3-7.7) k/uL Assessment and Plan Plan: 1. 79-year-old male presenting after sustaining a fall, with evidence of left hip intertrochanteric fracture, patient is scheduled for orthopedic surgery this afternoon, medical clearance was requested. Previous cardiac evaluation was reviewed echocardiogram August 2023 revealed normal left ventricular ejection fraction of 55 to 60%, patient is denying any cardiac symptoms there is no chest pain shortness of breath dizziness presyncope or syncope. White blood count was elevated on presentation at 14.7 this is most likely reactive, due to fall and recent abdominal surgery, there is no evidence of any infectious process, patient is afebrile, chest x-ray and urine analysis reviewed, no evidence of infection at this time. Patient underwent recent abdominal surgery for reversal of colostomy, takedown sigmoid flexure and partial colectomy, patient tolerated surgery well, surgical site is clear without evidence of infection. Patient is at increased risk for surgery due to his multiple medical problems, however there is no medical contraindication for surgery. 2. Underlying history of Parkinson disease 3. History of stroke with left-sided hemiparesis 4. History of benign prostatic hypertrophy 5. History of diverticulitis with perforation requiring surgery with colostomy placement, and recent colostomy reversal. 6. Underlying history of hypertension 7. Underlying history of hyperlipidemia 8. Underlying history of gastroesophageal reflux disease At this time patient will be admitted to surgical floor, Plan is for surgical intervention on the left hip this afternoon DVT prophylaxis and pain management per orthopedic protocols Patient would benefit of resuming his Parkinson disease medications as soon as possible Will continue to follow closely during this admission
[2024-05-03] MEDS: ENOXAPARIN 40 MG/0.4 ML SYRINGE SQ SCH (12:16)
--- NOTE | 2024-05-03 12:37 | P.PN ---
Subjective Progress Note Date: 05/03/24 Principal diagnosis: Left hip IT fracture Patient was seen at bedside this morning lying in the semirecumbent position with dressing present over left hip. was present during encounter. Patient and are hoping to go to rehab upon discharge. [place] is present. Patient says he has not been up out of bed since surgery. Patient says he is in a moderate amount of pain lying in bed and pain does increase when trying to move the left lower extremity. Patient is looking forward to working with PT/OT this morning. Patient denies chest pain, fever, shortness of breath, nausea, vomiting, change in vision, loss of bowel control. Objective - Vital Signs Vital signs: Vital Signs Temp 97.3 F L 05/03/24 07:11 Pulse 78 05/03/24 07:11 Resp 18 05/03/24 07:11 BP 143/82 05/03/24 07:11 Pulse Ox 95 05/03/24 07:11 FiO2 Intake & Output 05/02/24 05/03/24 05/03/24 18:59 06:59 18:59 Intake Total 601 100 Output Total 250 600 Balance 351 -500 Weight 72.575 kg Intake: IV 601 Intake, IV Titration 100 Amount ceFAZolin 2 gm In Sodium 100 Chloride 0.9% 50 ml @ 100 mls/hr IVPB Q8H [facility] Rx#: [id number] Output: Urine 100 600 Estimated Blood Loss 150 Other: Voiding Method Indwelling Catheter Indwelling Catheter Indwelling Catheter - Exam Inspection: Dressings present over left lateral hip. [place] appear to be well aligned and intact. Negative for any drainage. Positive for fair amount of swelling. Minimal ecchymosis present. Sensation: Equal, symmetric bilaterally intact in the upper and lower extremities Palpation: Moderate tenderness to palpation diffusely throughout the left hip. Nontender to palpation throughout rest of exam. Range of motion: Limited range of motion in left lower extremity in the hip secondary to injury and pain. Patient is able to dorsi and plantarflex the left ankle ankle with some referred pain in the left hip. Full range of motion throughout right lower extremity and bilateral upper extremities on exam. Motor: 4/5 in all major motor groups in bilateral upper extremity is in right lower extremity exam. 3+/5 in resisted left ankle dorsi/plantar flexion. 3-/5 in resisted left hip and left knee flexion so extension. Neurovascular: Radial pulse intact, 2+5. DP pulses palpable bilaterally. Cap refill under 3 seconds in digits of lower extremities Special tests: Negative Homans bilaterally. - Labs CBC & Chem 7: 05/02/24 15:29 05/02/24 07:03 Labs: Abnormal Lab Results - Last 24 Hours (Table) 05/02/24 Range/Units 15:29 WBC 24.9 H (3.8-10.6) k/uL RBC 3.31 L (4.30-5.90) m/uL Hgb 10.7 L (13.0-17.5) gm/dL Hct 34.9 L (39.0-53.0) % MCV 105.5 H (80.0-100.0) fL MCHC 30.8 L (31.0-37.0) g/dL Neutrophils # 22.8 H (1.3-7.7) k/uL Assessment and Plan Assessment: 1. Left hip IT fracture -Postop day 1 status post left hip IM nail Plan: 1. Left hip IT fracture -left hip IM nail performed yesterday, 05/02/2024 . Patient stable at bedside this morning with dressing present over left hip. Plan to work with therapy daily. Case management working on rehab placement. 50% weightbearing left lower extremity with walker and assistance as needed. We will continue to follow patient during stay in hospital. 2. Appreciate medical management 3. Pain management - Tylenol; [place]; Dilaudid 4. DVT prophylaxis - lovenox; aspirin 5. GI prophylaxis - senna 6. PT/OT - 50% weight-bearing LLE; WBAT RLE 7. Encourage incentive spirometer use 8. Discharge planning -rehab pending Time with Patient: Less than 30
--- NOTE | 2024-05-03 17:38 | P.GSCN ---
History of Present Illness Consult date: 05/03/24 Reason for Consult: diverticulitis Left hip fracture History of present illness: this a 79-year-old male well-known to myself. Patient underwent recent reversal colostomy due to diverticulitis. Patient was doing well at home however he fell when he went to the bathroom home. Patient underwent surgery for left hip fracture. Patient denies any abdominal pain. He is tolerating diet. Past Medical History Past Medical History: Chest Pain / Angina, CVA/TIA, GERD/Reflux, Hyperlipidemia, Hypertension, Myocardial Infarction ([place]), Musculoskeletal Disorder Additional Past Medical History / Comment(s): Parkinsons disease, CVA x 2 - most recent 08/09/23 w/ no residual effects, perforated diverticuliti 12/23 Last Myocardial Infarction Date:: 1983 History of Any Multi-Drug Resistant Organisms: None Reported Past Surgical History: Bowel Resection, Heart Catheterization Additional Past Surgical History / Comment(s): states heart cath with Dr Mera 2019 - "mild Blockages'- PEG tube placement - 08/13/23, colonoscopy, sigmoid colectomy w/ end colostomy 12/31/23, reversal of colosty 04/20/24 Past Anesthesia/Blood Transfusion Reactions: No Reported Reaction Smoking Status: Former smoker - Past Family History Mother History Unknown: Yes Family Medical History: Congestive Heart Failure (CHF) Father History Unknown: Yes Family Medical History: Myocardial Infarction ([place]) Medications and Allergies Home Medications Medication Instructions Recorded Confirmed Type Carbidopa-Levodopa 25-100 mg 1 tab PO DIRECTED 05/17/20 05/02/24 History [Sinemet 25-100 mg] amantadine HCL [Symmetrel] 100 mg PO TID@0600,1200,1800 05/17/20 05/02/24 Histo ry Multivitamins, Thera [Multivitamin 1 tab PO DAILY 08/09/23 05/02/24 History (formulary)] amLODIPine [Norvasc] 5 mg PO HS 08/09/23 05/02/24 History Aspirin 81 mg PO DAILY 30 Days #30 tab 12/05/23 05/02/24 Rx Losartan [Cozaar] 50 mg PO DAILY 04/14/24 05/02/24 History Pantoprazole [Protonix] 40 mg PO DAILY 04/14/24 05/02/24 History Moxifloxacin HCl [Avelox] 400 mg PO DAILY 7 Days #7 tab 04/29/24 05/02/24 Rx Nystatin 100,000 Unit/ml Susp 500,000 unit PO QID 10 Days #200 ml 04/29/24 05/02/24 Rx [Mycostatin Oral Susp] Allergies Allergy/AdvReac Type Severity Reaction Status Date / Time No Known Allergies Allergy Verified 05/02/24 15:32 Surgical - Exam Vital Signs Temp Pulse Resp BP Pulse Ox 97.7 F 65 18 171/88 96 05/02/24 05:57 05/02/24 05:57 05/02/24 05:57 05/02/24 05:57 05/02/24 05:57 - General well developed, no distress - Eyes PERRL - ENT normal pinna - Neck no masses - Respiratory normal expansion - Cardiovascular Rhythm: regular - Abdomen chante are clean dry intact. Abdomen: soft, non tender Results - Labs 05/02/24 15:29 05/02/24 07:03 Assessment and Plan Assessment: left hip fracture related to fall. The patient's abdomen is soft nontender Patient will have his chante removed.
[2024-05-03] MEDS: PIPERACILLIN-TAZOBACTAM 3.375 GM in SODIUM CHLORIDE 0.9% 100 ML IVPB SCH (17:45)
--- NOTE | 2024-05-04 06:55 | P.CONS ---
History of Present Illness - Reason for Consult Consult date: 05/03/24 - History of Present Illness Patient is a 79-year-old male with past medical history significant for hypertension hyperlipidemia reflux history of perforated diverticulitis requiring diverting colostomy with recent reversal patient now presenting back to the hospital after the patient did have a fall at home while trying to go to the bathroom and has developed displaced four-part left intertrochanteric femoral fracture s/p intramedullary nailing procedure completed on 05/02/2024 patient on presentation to the hospital was afebrile and no fever have been recorded subsequently patient did have a white count of 14.7 on admission which is up to 24.9 with a left shift prompting this consultation patient did have a normal creatinine and liver enzymes urine has been negative chest x-ray on admission was negative for acute process patient denies having any headache or URI symptoms no chest pain shortness of breath or cough complaining of pain to the left hip to be mostly dull aching mild to moderate intensity without radiation patient abdominal incision is currently intact with the chante still in patient denies any nausea vomiting no significant abdominal pain is having bowel movement Past Medical History Past Medical History: Chest Pain / Angina, CVA/TIA, GERD/Reflux, Hyperlipidemia, Hypertension, Myocardial Infarction ([place]), Musculoskeletal Disorder Additional Past Medical History / Comment(s): Parkinsons disease, CVA x 2 - most recent 08/09/23 w/ no residual effects, perforated diverticuliti 12/23 Last Myocardial Infarction Date:: 1983 History of Any Multi-Drug Resistant Organisms: None Reported Past Surgical History: Bowel Resection, Heart Catheterization Additional Past Surgical History / Comment(s): states heart cath with Dr Mera 2019 - "mild Blockages'- PEG tube placement - 08/13/23, colonoscopy, sigmoid colectomy w/ end colostomy 12/31/23, reversal of colosty 04/20/24 Past Anesthesia/Blood Transfusion Reactions: No Reported Reaction Smoking Status: Former smoker - Past Family History Mother History Unknown: Yes Family Medical History: Congestive Heart Failure (CHF) Father History Unknown: Yes Family Medical History: Myocardial Infarction ([place]) Medications and Allergies Home Medications Medication Instructions Recorded Confirmed Type Carbidopa-Levodopa 25-100 mg 1 tab PO DIRECTED 05/17/20 05/02/24 History [Sinemet 25-100 mg] amantadine HCL [Symmetrel] 100 mg PO TID@0600,1200,1800 05/17/20 05/02/24 History Multivitamins, Thera [Multivitamin 1 tab PO DAILY 08/09/23 05/02/24 History (formulary)] amLODIPine [Norvasc] 5 mg PO HS 08/09/23 05/02/24 History Aspirin 81 mg PO DAILY 30 Days #30 tab 12/05/23 05/02/24 Rx Losartan [Cozaar] 50 mg PO DAILY 04/14/24 05/02/24 History Pantoprazole [Protonix] 40 mg PO DAILY 04/14/24 05/02/24 History Moxifloxacin HCl [Avelox] 400 mg PO DAILY 7 Days #7 tab 04/29/24 05/02/24 Rx Nystatin 100,000 Unit/ml Susp 500,000 unit PO QID 10 Days #200 ml 04/29/24 05/02/24 Rx [Mycostatin Oral Susp] Allergies Allergy/AdvReac Type Severity Reaction Status Date / Time No Known Allergies Allergy Verified 05/02/24 15:32 Physical Exam Vitals: Vital Signs Temp Pulse Resp BP Pulse Ox 05/03/24 14:00 98.3 F 72 17 94/61 100 05/03/24 07:11 97.3 F L 78 18 143/82 95 05/03/24 02:13 97.5 F L 77 18 114/66 96 05/02/24 20:28 98 F 72 18 117/67 95 05/02/24 20:00 79 16 05/02/24 17:30 79 148/77 96 05/02/24 17:15 73 153/68 96 05/02/24 17:00 74 138/77 97 05/02/24 16:45 70 123/67 96 05/02/24 16:30 68 127/79 96 05/02/24 16:15 69 111/69 96 05/02/24 16:00 69 123/67 96 05/02/24 15:45 70 133/71 96 Intake and Output 05/03/24 05/03/24 05/03/24 06:59 14:59 22:59 Intake Total 100 Output Total 600 Balance -500 Intake: Intake, IV Titration 100 Amount ceFAZolin 2 gm In Sodium 100 Chloride 0.9% 50 ml @ 100 mls/hr IVPB Q8H [facility] Rx#: [id number] Output: Urine 600 Other: Voiding Method Indwelling Catheter Results CBC & Chem 7: 05/02/24 15:29 05/02/24 07:03 Labs: Abnormal Lab Results - Last 24 Hours (Table) 05/02/24 Range/Units 15:29 WBC 24.9 H (3.8-10.6) k/uL RBC 3.31 L (4.30-5.90) m/uL Hgb 10.7 L (13.0-17.5) gm/dL Hct 34.9 L (39.0-53.0) % MCV 105.5 H (80.0-100.0) fL MCHC 30.8 L (31.0-37.0) g/dL Neutrophils # 22.8 H (1.3-7.7) k/uL Assessment and Plan Plan: 1patient with elevated white count questionably reactive in this patient with a fall and left femoral fracture status post operative repair at the patient not running any fever and does not toxic urine has been negative chest x-ray was negative, patient did have some skin necrosis at the previous colostomy site. 2we will obtain blood cultures and inflammatory markers. 3discontinue cefazolin. 4start the patient on Zosyn 3.375 g every 8 hours. We will follow on clinical condition and cultures to further adjust medication if needed Thank you for this consultation we will follow the patient along with you Dictation was produced using [employer] dictation software. please excuse any grammatical, word or spelling errors. Time with Patient: Greater than 30
[2024-05-04 08:42] LABS: Basophils # (A) 0.03 X 10*3/uL (0.00-0.10); Basophils % (A) 0.2 %; Eosinophils # (A) 0.02 X 10*3/uL (0.04-0.35); Eosinophils % (A) 0.1 %; HCT 26.6 % (39.6-50.0); HGB 8.5 g/dL (13.0-17.0); Lymphocytes # (A) 0.53 X 10*3/uL (0.90-5.00); Lymphocytes % (A) 2.8 %; MCH 33.1 pg (27.0-32.0); MCV 103.5 FL (80.0-97.0); Mean Platelet Volume 10.7 FL (9.5-12.2); Monocytes % (A) 8.3 %; NRBC Per 100 WBC 0 X 10*3/uL (0.00-0.01); Neutrophils # (A) 16.83 X 10*3/uL (1.80-7.70); Neutrophils % (A) 87.6 %; Platelet Count 350 X 10*3/uL (140-440); RBC 2.57 X 10*6/uL (4.40-5.60); RDW 15.3 % (11.5-14.5)
[2024-05-04 09:06] LABS: ALT 8 U/L (10-49); AST 20 U/L (14-35); Albumin 3.1 g/dL (3.8-4.9); Albumin/Globulin Ratio 1.24 Ratio (1.60-3.17); Alkaline Phosphatase 149 U/L (41-126); BUN/Creat Ratio 15.25 Ratio (12.00-20.00); Blood Urea Nitrogen 18.3 mg/dL (9.0-27.0); Calcium 8.8 mg/dL (8.7-10.3); Carbon Dioxide 26.1 mmol/L (21.6-31.8); Chloride 107 mmol/L (96-109); Globulin 2.5 g/dL (1.6-3.3); Glucose 103 mg/dL (70-110); Potassium 3.7 mmol/L (3.5-5.5); Sodium 145 mmol/L (135-145); Total Bilirubin 0.7 mg/dL (0.3-1.2); Total Protein 5.6 g/dL (6.2-8.2)
--- NOTE | 2024-05-04 10:27 | P.PN ---
Subjective Progress Note Date: 05/04/24 Principal diagnosis: Left hip IT fracture Patient was seen at bedside this morning lying in the semirecumbent position with dressing present over left hip. was present during encounter. Patient and are hoping to go to rehab upon discharge. Patient says he did get out of bed with PT/OT yesterday but did need a lot of help when doing this. Patient says his pain is under control while he is resting in bed, but does increase when he tries to move. Patient is looking forward to working with PT/OT this morning. Patient denies chest pain, fever, shortness of breath, nausea, vomiting, change in vision, loss of bowel control. Objective - Vital Signs Vital signs: Vital Signs Temp 98.0 F 05/04/24 07:05 Pulse 75 05/04/24 07:05 Resp 19 05/04/24 08:56 BP 129/66 05/04/24 07:05 Pulse Ox 94 L 05/04/24 09:44 FiO2 Intake & Output 05/03/24 05/04/24 05/04/24 18:59 06:59 18:59 Output Total 400 350 Balance -400 -350 Output: Urine 400 350 Other: Voiding Method Indwelling Catheter Indwelling Catheter Indwelling Catheter # Bowel Movements 1 - Exam Inspection: Dressings present over left lateral hip. [place] appear to be well aligned and intact. Negative for any drainage. Positive for fair amount of swelling. Minimal ecchymosis present. Sensation: Equal, symmetric bilaterally intact in the upper and lower extremities Palpation: Moderate tenderness to palpation diffusely throughout the left hip. Nontender to palpation throughout rest of exam. Range of motion: Limited range of motion in left lower extremity in the hip secondary to injury and pain. Patient is able to dorsi and plantarflex the left ankle ankle with some referred pain in the left hip. Full range of motion throughout right lower extremity and bilateral upper extremities on exam. Motor: 4/5 in all major motor groups in bilateral upper extremity is in right lower extremity exam. 3+/5 in resisted left ankle dorsi/plantar flexion. 3-/5 in resisted left hip and left knee flexion so extension. Neurovascular: Radial pulse intact, 2+5. DP pulses palpable bilaterally. Cap refill under 3 seconds in digits of lower extremities Special tests: Negative Homans bilaterally. - Labs CBC & Chem 7: 05/04/24 03:10 05/04/24 03:10 Labs: Abnormal Lab Results - Last 24 Hours (Table) 05/03/24 05/03/24 05/04/24 Range/Units 17:49 17:49 03:10 WBC 19.20 H (4.50-10.00) X 10*3/uL RBC 2.57 L (4.40-5.60) X 10*6/uL Hgb 8.5 L (13.0-17.0) g/dL Hct 26.6 L (39.6-50.0) % MCV 103.5 H (80.0-97.0) FL MCH 33.1 H (27.0-32.0) pg RDW 15.3 H (11.5-14.5) % Immature Gran # 0.19 H (0.00-0.04) X 10*3/uL Neutrophils # 16.83 H (1.80-7.70) X 10*3/uL Lymphocytes # 0.53 L (0.90-5.00) X 10*3/uL Monocytes # 1.60 H (0.20-1.00) X 10*3/uL Eosinophils # 0.02 L (0.04-0.35) X 10*3/uL ALT (10-49) U/L Alkaline Phosphatase (41-126) U/L C-Reactive Protein 18.2 H (<1.0) mg/dL Total Protein (6.2-8.2) g/dL Albumin (3.8-4.9) g/dL Albumin/Globulin Ratio (1.60-3.17) Ratio Procalcitonin 0.40 H (0.02-0.09) ng/mL 05/04/24 Range/Units 03:10 WBC (4.50-10.00) X 10*3/uL RBC (4.40-5.60) X 10*6/uL Hgb (13.0-17.0) g/dL Hct (39.6-50.0) % MCV (80.0-97.0) FL MCH (27.0-32.0) pg RDW (11.5-14.5) % Immature Gran # (0.00-0.04) X 10*3/uL Neutrophils # (1.80-7.70) X 10*3/uL Lymphocytes # (0.90-5.00) X 10*3/uL Monocytes # (0.20-1.00) X 10*3/uL Eosinophils # (0.04-0.35) X 10*3/uL ALT 8 L (10-49) U/L Alkaline Phosphatase 149 H (41-126) U/L C-Reactive Protein (<1.0) mg/dL Total Protein 5.6 L (6.2-8.2) g/dL Albumin 3.1 L (3.8-4.9) g/dL Albumin/Globulin Ratio 1.24 L (1.60-3.17) Ratio Procalcitonin (0.02-0.09) ng/mL Assessment and Plan Assessment: 1. Left hip IT fracture -Postop day 2 status post left hip IM nail Plan: 1. Left hip IT fracture -left hip IM nail performed yesterday, 05/02/2024. Patient stable at bedside this morning with dressing present over left hip. Plan to work with therapy daily. Case management working on rehab placement. 50% weightbearing left lower extremity with walker and assistance as needed. Hemoglobin at 8.5 this morning. Added ferrous sulfate 325 mg daily. CBC repeat tmrw morning. We will continue to follow patient during stay in hospital. TUSHAR once auth obtained 2. Appreciate medical management 3. Pain management - Tylenol; [place]; Dilaudid 4. DVT prophylaxis - lovenox; aspirin 5. GI prophylaxis - senna 6. PT/OT - 50% weight-bearing LLE; WBAT RLE 7. Encourage incentive spirometer use 8. Discharge planning -TUSHAR once auth obtained Time with Patient: Less than 30
--- NOTE | 2024-05-04 10:34 | P.PN ---
Subjective Progress Note Date: 05/04/24 Jerson Edwards, is a 79-year-old male who presented to [facility] emergency room after sustaining a fall and complaining of left hip pain. He was evaluated in the emergency room vital examination on presentation revealed a temperature of 97.7 pulse 65 respiration 18 blood pressure 171/88 p ulse ox 96% on room air Laboratory data revealed a white blood count of 14.7 hemoglobin 10.9 platelet count 446 BUN 22 creatinine 1.06 Testing in the emergency room revealed CT scan of the head revealed no acute bleed or mass effect, CT scan of the cervical spine revealed no acute trauma, chest x-ray revealed no acute process, x-ray of the pelvis and the left hip revealed intertrochanteric fracture of the left hip. Patient was admitted to medical floor for further evaluation and treatment Past medical history is significant for history of recent admission by Dr. Kathleen, patient underwent abdominal surgery for reversal of colostomy, takedown sigmoid flexure and partial colectomy, he has a history of perforated diverticulitis with colostomy placement, history of stroke, history of Parkinson disease, history of hypertension On review of systems patient is alert and oriented x 3 in no apparent distress, he is complaining of pain in the left hip area otherwise he denies any complaints, there is no fever or chills no headache or dizziness no chest pain no shortness of breath no cough no nausea or vomiting no abdominal pain no diarrhea no blood in the stools no burning with urination no frequency or urgency and no hematuria. On 05/03/2024 patient was seen and examined on the medical floor, he is alert and oriented x 3 in no apparent distress, he is complaining of pain in the left hip otherwise he denies any complaints, there is no fever or chills no headache or dizziness no chest pain no shortness of breath no cough no nausea or vomiting no abdominal pain no diarrhea and no urinary symptoms. Vital exam this morning revealed a temperature of 97.3 pulse 78 respiration 18 blood pressure 143/82 pulse ox 95% on room air, his laboratory data is significant for a white blood count of 24.9 hemoglobin 10.7 platelet count 441. Patient's is at the bedside she is concerned that patient is leaning towards the right, which is a recent change in his condition, she is afraid that this is why he fell at home, she is requesting a neurology consult to rule out new CVA, patient has known history of Parkinson disease, and history of CVA in the past. Physical therapy and Occupational Therapy will be added, neurology consult requested. On 05/04/2024 patient is alert and oriented 3. Patient currently sitting up in bed. Patient remains on IV Zosyn. White blood cell improving in 19.20. Neurology, surgical services infectious disease and orthopedic services are also following.Current vital signs temp 98.0, heart rate 75, respiratory rate 17, blood pressure 129/66 with pulse ox 94% on room air Objective - Vital Signs Vital signs: Vital Signs Temp 98.0 F 05/04/24 07:05 Pulse 75 05/04/24 07:05 Resp 19 05/04/24 08:56 BP 129/66 05/04/24 07:05 Pulse Ox 94 L 05/04/24 09:44 FiO2 Intake & Output 05/03/24 05/04/24 05/04/24 18:59 06:59 18:59 Output Total 400 350 Balance -400 -350 Output: Urine 400 350 Other: Voiding Method Indwelling Catheter Indwelling Catheter Indwelling Catheter # Bowel Movements 1 - Exam In general patient is alert and oriented x 3 in no distress HEENT head normocephalic and atraumatic Neck is supple no JVD no goiter no lymphadenopathy no carotid bruit Chest examination is clear to auscultation no crackles no wheezing Cardiac exam reveals regular heart sounds S1 and S2 no gallops no murmurs Abdomen is soft nontender no organomegaly with normal bowel sounds Extremity exam reveals no edema no cyanosis or clubbing Neurological examination reveals chronic left-sided weakness related to previous stroke without any acute abnormality - Labs CBC & Chem 7: 05/04/24 03:10 05/04/24 03:10 Labs: Abnormal Lab Results - Last 24 Hours (Table) 05/03/24 05/03/24 05/04/24 Range/Units 17:49 17:49 03:10 WBC 19.20 H (4.50-10.00) X 10*3/uL RBC 2.57 L (4.40-5.60) X 10*6/uL Hgb 8.5 L (13.0-17.0) g/dL Hct 26.6 L (39.6-50.0) % MCV 103.5 H (80.0-97.0) FL MCH 33.1 H (27.0-32.0) pg RDW 15.3 H (11.5-14.5) % Immature Gran # 0.19 H (0.00-0.04) X 10*3/uL Neutrophils # 16.83 H (1.80-7.70) X 10*3/uL Lymphocytes # 0.53 L (0.90-5.00) X 10*3/uL Monocytes # 1.60 H (0.20-1.00) X 10*3/uL Eosinophils # 0.02 L (0.04-0.35) X 10*3/uL ALT (10-49) U/L Alkaline Phosphatase (41-126) U/L C-Reactive Protein 18.2 H (<1.0) mg/dL Total Protein (6.2-8.2) g/dL Albumin (3.8-4.9) g/dL Albumin/Globulin Ratio (1.60-3.17) Ratio Procalcitonin 0.40 H (0.02-0.09) ng/mL 05/04/24 Range/Units 03:10 WBC (4.50-10.00) X 10*3/uL RBC (4.40-5.60) X 10*6/uL Hgb (13.0-17.0) g/dL Hct (39.6-50.0) % MCV (80.0-97.0) FL MCH (27.0-32.0) pg RDW (11.5-14.5) % Immature Gran # (0.00-0.04) X 10*3/uL Neutrophils # (1.80-7.70) X 10*3/uL Lymphocytes # (0.90-5.00) X 10*3/uL Monocytes # (0.20-1.00) X 10*3/uL Eosinophils # (0.04-0.35) X 10*3/uL ALT 8 L (10-49) U/L Alkaline Phosphatase 149 H (41-126) U/L C-Reactive Protein (<1.0) mg/dL Total Protein 5.6 L (6.2-8.2) g/dL Albumin 3.1 L (3.8-4.9) g/dL Albumin/Globulin Ratio 1.24 L (1.60-3.17) Ratio Procalcitonin (0.02-0.09) ng/mL Assessment and Plan Plan: 1. 79-year-old male presenting after sustaining a fall, with evidence of left hip intertrochanteric fracture, patient is scheduled for orthopedic surgery this afternoon, medical clearance was requested. Previous cardiac evaluation was reviewed echocardiogram August 2023 revealed normal left ventricular ejection fraction of 55 to 60%, patient is denying any cardiac symptoms there is no chest pain shortness of breath dizziness presyncope or syncope. White blood count was elevated on presentation at 14.7 this is most likely reactive, due to fall and recent abdominal surgery, there is no evidence of any infectious process, patient is afebrile, chest x-ray and urine analysis reviewed, no evidence of infection at this time. Patient underwent recent abdominal surgery for reversal of colostomy, takedown sigmoid flexure and partial colectomy, patient tolerated surgery well, surgical site is clear without evidence of infection. Patient is at increased risk for surgery due to his multiple medical problems, however there is no medical contraindication for surgery. 2. Underlying history of Parkinson disease 3. History of stroke with left-sided hemiparesis 4. History of benign prostatic hypertrophy 5. History of diverticulitis with perforation requiring surgery with colostomy placement, and recent colostomy reversal. 6. Underlying history of hypertension 7. Underlying history of hyperlipidemia 8. Underlying history of gastroesophageal reflux disease At this time patient will be admitted to surgical floor, Plan is for surgical intervention on the left hip this afternoon DVT prophylaxis and pain management per orthopedic protocols Patient would benefit of resuming his Parkinson disease medications as soon as possible Will continue to follow closely during this admission
[2024-05-04] MEDS: FERROUS SULFATE 325 MG TAB PO SCH (12:03)
--- NOTE | 2024-05-04 14:22 | P.PN ---
Subjective Progress Note Date: 05/04/24 the patient courtney stable. He has no abdominal complaints. On exam vital signs appear stable. Abdomen soft. Status post reversal colostomy several weeks ago, Recent left hip fracture. Patient will continue receive supportive care. Objective - Vital Signs Vital signs: Vital Signs Temp 98.2 F 05/04/24 13:00 Pulse 75 05/04/24 13:00 Resp 17 05/04/24 13:00 BP 114/65 05/04/24 13:00 Pulse Ox 97 05/04/24 13:00 FiO2 Intake & Output 05/03/24 05/04/24 05/04/24 18:59 06:59 18:59 Output Total 400 350 Balance -400 -350 Output: Urine 400 350 Other: Voiding Method Indwelling Catheter Indwelling Catheter Indwelling Catheter # Bowel Movements 1 - Labs CBC & Chem 7: 05/04/24 03:10 05/04/24 03:10 Labs: Abnormal Lab Results - Last 24 Hours (Table) 05/03/24 05/03/24 05/04/24 Range/Units 17:49 17:49 03:10 WBC 19.20 H (4.50-10.00) X 10*3/uL RBC 2.57 L (4.40-5.60) X 10*6/uL Hgb 8.5 L (13.0-17.0) g/dL Hct 26.6 L (39.6-50.0) % MCV 103.5 H (80.0-97.0) FL MCH 33.1 H (27.0-32.0) pg RDW 15.3 H (11.5-14.5) % Immature Gran # 0.19 H (0.00-0.04) X 10*3/uL Neutrophils # 16.83 H (1.80-7.70) X 10*3/uL Lymphocytes # 0.53 L (0.90-5.00) X 10*3/uL Monocytes # 1.60 H (0.20-1.00) X 10*3/uL Eosinophils # 0.02 L (0.04-0.35) X 10*3/uL ALT (10-49) U/L Alkaline Phosphatase (41-126) U/L C-Reactive Protein 18.2 H (<1.0) mg/dL Total Protein (6.2-8.2) g/dL Albumin (3.8-4.9) g/dL Albumin/Globulin Ratio (1.60-3.17) Ratio Procalcitonin 0.40 H (0.02-0.09) ng/mL 05/04/24 Range/Units 03:10 WBC (4.50-10.00) X 10*3/uL RBC (4.40-5.60) X 10*6/uL Hgb (13.0-17.0) g/dL Hct (39.6-50.0) % MCV (80.0-97.0) FL MCH (27.0-32.0) pg RDW (11.5-14.5) % Immature Gran # (0.00-0.04) X 10*3/uL Neutrophils # (1.80-7.70) X 10*3/uL Lymphocytes # (0.90-5.00) X 10*3/uL Monocytes # (0.20-1.00) X 10*3/uL Eosinophils # (0.04-0.35) X 10*3/uL ALT 8 L (10-49) U/L Alkaline Phosphatase 149 H (41-126) U/L C-Reactive Protein (<1.0) mg/dL Total Protein 5.6 L (6.2-8.2) g/dL Albumin 3.1 L (3.8-4.9) g/dL Albumin/Globulin Ratio 1.24 L (1.60-3.17) Ratio Procalcitonin (0.02-0.09) ng/mL
--- NOTE | 2024-05-04 14:49 | P.PN ---
Subjective Progress Note Date: 05/04/24 Principal diagnosis: Reason for follow-up is leukocytosis Patient is a 79-year-old male with past medical history significant for hypertension hyperlipidemia reflux history of perforated diverticulitis requiring diverting colostomy with recent reversal patient now presenting back to the hospital after the patient did have a fall at home, patient did have a left femur fracture status postoperative repair he noticed to have elevated white count prompting this consultation. On today's evaluation that is 05/04/2024,the patient remains to be afebrile, patient is on room air not requiring supplemental oxygen and denies any shortness of breath no chest pain or cough.Patient denies having any nausea or vomiting, no abdominal pain and no diarrhea has been reported. Patient will go slightly to 19.20 creatinine is 1.2 procalcitonin 0.40 cultures currently pending Objective - Vital Signs Vital signs: Vital Signs Temp 98.0 F 05/04/24 07:05 Pulse 75 05/04/24 07:05 Resp 19 05/04/24 08:56 BP 129/66 05/04/24 07:05 Pulse Ox 94 L 05/04/24 09:44 FiO2 Intake & Output 05/03/24 05/04/24 05/04/24 18:59 06:59 18:59 Output Total 400 350 Balance -400 -350 Output: Urine 400 350 Other: Voiding Method Indwelling Catheter Indwelling Catheter Indwelling Catheter # Bowel Movements 1 - Exam GENERAL DESCRIPTION: An elderly male up in the chair in no distress RESPIRATORY SYSTEM: Unlabored breathing , decreased breath sounds at bases HEART: S1 S2 regular rate and rhythm , ABDOMEN: Soft , no tenderness EXTREMITIES: No edema feet - Labs CBC & Chem 7: 05/04/24 03:10 05/04/24 03:10 Labs: Abnormal Lab Results - Last 24 Hours (Table) 05/03/24 05/03/24 05/04/24 Range/Units 17:49 17:49 03:10 WBC 19.20 H (4.50-10.00) X 10*3/uL RBC 2.57 L (4.40-5.60) X 10*6/uL Hgb 8.5 L (13.0-17.0) g/dL Hct 26.6 L (39.6-50.0) % MCV 103.5 H (80.0-97.0) FL MCH 33.1 H (27.0-32.0) pg RDW 15.3 H (11.5-14.5) % Immature Gran # 0.19 H (0.00-0.04) X 10*3/uL Neutrophils # 16.83 H (1.80-7.70) X 10*3/uL Lymphocytes # 0.53 L (0.90-5.00) X 10*3/uL Monocytes # 1.60 H (0.20-1.00) X 10*3/uL Eosinophils # 0.02 L (0.04-0.35) X 10*3/uL ALT (10-49) U/L Alkaline Phosphatase (41-126) U/L C-Reactive Protein 18.2 H (<1.0) mg/dL Total Protein (6.2-8.2) g/dL Albumin (3.8-4.9) g/dL Albumin/Globulin Ratio (1.60-3.17) Ratio Procalcitonin 0.40 H (0.02-0.09) ng/mL 05/04/24 Range/Units 03:10 WBC (4.50-10.00) X 10*3/uL RBC (4.40-5.60) X 10*6/uL Hgb (13.0-17.0) g/dL Hct (39.6-50.0) % MCV (80.0-97.0) FL MCH (27.0-32.0) pg RDW (11.5-14.5) % Immature Gran # (0.00-0.04) X 10*3/uL Neutrophils # (1.80-7.70) X 10*3/uL Lymphocytes # (0.90-5.00) X 10*3/uL Monocytes # (0.20-1.00) X 10*3/uL Eosinophils # (0.04-0.35) X 10*3/uL ALT 8 L (10-49) U/L Alkaline Phosphatase 149 H (41-126) U/L C-Reactive Protein (<1.0) mg/dL Total Protein 5.6 L (6.2-8.2) g/dL Albumin 3.1 L (3.8-4.9) g/dL Albumin/Globulin Ratio 1.24 L (1.60-3.17) Ratio Procalcitonin (0.02-0.09) ng/mL Assessment and Plan (1) Leukocytosis Current Visit: No Status: Acute Code(s): D72.829 - ELEVATED WHITE BLOOD CELL COUNT, UNSPECIFIED SNOMED Code(s): 712982230 Plan: 1patient with elevated white count questionably reactive in this patient with a fall and left femoral fracture status post operative repair at the patient not running any fever and does not toxic urine has been negative chest x-ray was negative, patient did have some skin necrosis at the previous colostomy site. 2patient blood culture currently pending, inflammatory markers are elevated 3patient to continue with Zosyn 3.375 g every 8 hours while waiting for the culture to finalize Dictation was produced using [employer] dictation software. please excuse any grammatical, word or spelling errors. Time with Patient: Less than 30
[2024-05-04 15:16] LABS: Basophils # (A) 0.1 k/uL (0-0.2); Basophils % (A) 0 %; Eosinophils % (A) 0 %; HCT 26.9 % (39.0-53.0); Lymphocytes # (A) 0.7 k/uL (1.0-4.8); Lymphocytes % (A) 3 %; MCH 33.7 pg (25.0-35.0); MCHC 32.1 g/dL (31.0-37.0); Macrocytosis Moderate; Mean Platelet Volume 8.6; Monocytes % (A) 5 %; Neutrophils # (A) 18.3 k/uL (1.3-7.7); Neutrophils % (A) 91 %; Platelet Count 398 k/uL (150-450); RBC 2.57 m/uL (4.30-5.90); RDW 14.6 % (11.5-15.5); WBC 20.2 k/uL (3.8-10.6)
[2024-05-04 15:21] LABS: HGB 8.6 gm/dL (13.0-17.5)
--- NOTE | 2024-05-04 17:00 | P.CNNES ---
History of Present Illness Consult date: 05/04/24 Requesting physician: Jeovanny Lui Reason for Consult: parkinson's dz and cva History of Present Illness: This is a 79-year-old gentleman with history of Parkinson disease, stroke present emergency department on 05/02/2024 after a fall. Patient daughter is at bedside who helps with some of the history. It seems that the patient had a recent abdominal surgery then after that he was discharged home and was at home for 3 days. It seems the patient went to the bathroom and is having limitation walking as a result of abdominal surgery and patient did not call for help from his when he went to the bathroom so when he walked he fell and had left hip fracture which required him to have surgery during this admission. According to the daughter he has been having fluctuation of mentation and has been hallucinating for since his abdominal surgery on 04/20/2024. It seems that the patient had perforated diverticulitis at that time. Denies any worsening of his Parkinson's disease or any new stroke symptoms. Per the daughter today he has been doing well for the nurse and currently. Some of the workup during this hospital visit: I reviewed the lab workup. CT of the head is reported as no acute bleed or mass effect. I personally reviewed the CT of the head and agree there is no acute or subacute process. Personally reviewed the CT of the head and agree there is no acute or subacute process. CT cervical spine is reported as no acute trauma. Degenerative changes are described above. Review of Systems The positive and negative as per HPI. Past Medical History Past Medical History: Chest Pain / Angina, CVA/TIA, GERD/Reflux, Hyperlipidemia, Hypertension, Myocardial Infarction ([place]), Musculoskeletal Disorder Additional Past Medical History / Comment(s): Parkinsons disease, CVA x 2 - most recent 08/09/23 w/ no residual effects, perforated diverticuliti 12/23 Last Myocardial Infarction Date:: 1983 History of Any Multi-Drug Resistant Organisms: None Reported Past Surgical History: Bowel Resection, Heart Catheterization Additional Past Surgical History / Comment(s): states heart cath with Dr Mera 2019 - "mild Blockages'- PEG tube placement - 08/13/23, colonoscopy, sigmoid colectomy w/ end colostomy 12/31/23, reversal of colosty 04/20/24 Past Anesthesia/Blood Transfusion Reactions: No Reported Reaction Smoking Status: Former smoker - Past Family History Mother History Unknown: Yes Family Medical History: Congestive Heart Failure (CHF) Father History Unknown: Yes Family Medical History: Myocardial Infarction ([place]) Medications and Allergies Home Medications Medication Instructions Recorded Confirmed Type Carbidopa-Levodopa 25-100 mg 1 tab PO DIRECTED 05/17/20 05/02/24 History [Sinemet 25-100 mg] amantadine HCL [Symmetrel] 100 mg PO TID@0600,1200,1800 05/17/20 05/02/24 History Multivitamins, Thera [Multivitamin 1 tab PO DAILY 08/09/23 05/02/24 History (formulary)] amLODIPine [Norvasc] 5 mg PO HS 08/09/23 05/02/24 History Aspirin 81 mg PO DAILY 30 Days #30 tab 12/05/23 05/02/24 Rx Losartan [Cozaar] 50 mg PO DAILY 04/14/24 05/02/24 History Pantoprazole [Protonix] 40 mg PO DAILY 04/14/24 05/02/24 History Moxifloxacin HCl [Avelox] 400 mg PO DAILY 7 Days #7 tab 04/29/24 05/02/24 Rx Nystatin 100,000 Unit/ml Susp 500,000 unit PO QID 10 Days #200 ml 04/29/24 05/02/24 Rx [Mycostatin Oral Susp] Allergies Allergy/AdvReac Type Severity Reaction Status Date / Time No Known Allergies Allergy Verified 05/02/24 15:32 Physical Examination - Vital Signs Vital Signs: Vital Signs Temp Pulse Resp BP Pulse Ox 05/04/24 13:00 98.2 F 75 17 114/65 97 05/04/24 09:44 94 L 05/04/24 08:56 19 05/04/24 07:05 98.0 F 75 17 129/66 94 L 05/04/24 01:26 98.1 F 82 20 119/69 97 05/03/24 19:45 97.6 F 72 18 131/83 95 Intake and Output 05/04/24 05/04/24 05/04/24 06:59 14:59 22:59 Output Total 350 500 Balance -350 -500 Output: Urine 350 500 Other: Voiding Method Indwelling Catheter Indwelling Catheter # Bowel Movements 1 GENERAL: The patient is sitting in a recliner chair and is not in acute distress. NEUROLOGICAL: Higher mental function: The patient is awake, alert, oriented to self, place and time. Patient is following commands. No aphasia and no neglect. Cranial nerves: The pupils are round, equal and reactive to light and accommodation. Visual ward are full to confrontation throughout. Extraocular movement is intact no nystagmus is noted. Facial sensation is normal to touch throughout. Has left lower facial weakness. Hearing is normal bilaterally to hand rub. Tongue is midline and moved [id number] without any difficulty. Has mild to moderate dysarthria. Shoulder shrug is normal bilaterally. Motor: The strength is limited in left lower extremity because of hip pain. Otherwise lifting all extremities above gravity equally. Normal tone and bulk. Cerebellum: Normal finger to nose bilaterally. Sensation: Sensation is normal to touch throughout. Results - Laboratory Findings CBC and BMP: 05/04/24 14:18 05/04/24 03:10 Abnormal Lab Findings: Abnormal Labs 05/02/24 05/02/24 05/02/24 07:03 07:03 15:29 WBC 14.7 H 24.9 H RBC 3.43 L 3.31 L Hgb 10.9 L 10.7 L Hct 34.5 L 34.9 L MCV 100.8 H 105.5 H MCH MCHC 30.8 L RDW Immature Gran # Neutrophils # 13.0 H 22.8 H Lymphocytes # 0.7 L Monocytes # Eosinophils # Chloride 112 H BUN 22 H Glucose 102 H ALT Alkaline Phosphatase 174 H C-Reactive Protein Total Protein Albumin 3.3 L Albumin/Globulin Ratio Procalcitonin 05/03/24 05/03/24 05/04/24 17:49 17:49 03:10 WBC 19.20 H RBC 2.57 L Hgb 8.5 L Hct 26.6 L MCV 103.5 H MCH 33.1 H MCHC RDW 15.3 H Immature Gran # 0.19 H Neutrophils # 16.83 H Lymphocytes # 0.53 L Monocytes # 1.60 H Eosinophils # 0.02 L Chloride BUN Glucose ALT Alkaline Phosphatase C-Reactive Protein 18.2 H Total Protein Albumin Albumin/Globulin Ratio Procalcitonin 0.40 H 05/04/24 05/04/24 03:10 14:18 WBC 20.2 H RBC 2.57 L Hgb 8.6 L D Hct 26.9 L MCV 105.0 H MCH MCHC RDW Immature Gran # Neutrophils # 18.3 H Lymphocytes # 0.7 L Monocytes # Eosinophils # Chloride BUN Glucose ALT 8 L Alkaline Phosphatase 149 H C-Reactive Protein Total Protein 5.6 L Albumin 3.1 L Albumin/Globulin Ratio 1.24 L Procalcitonin Assessment and Plan Assessment: This is a 79-year-old gentleman who had acute perforated diverticulitis that required surgery on 04/20/2024 and eventually was discharged home and at home he had limitation of his walking because of his abdominal pain and while in the bathroom he fell and he presents with left hip pain. He was found to have left hip fracture and had surgery. Per the daughter he is having fluctuation of mentation and having hallucination. Delirium likely due to recent condition having left hip pain as well as recent diverticulitis/hospital induced--currently no confusion. Acute left hip fracture s/p surgery Recent perforated diverticulitis History of Parkinson disease History of stroke August 2023 with residual left facial droop and dysarthria. Plan: Had CT of the head on presentation which is negative for any acute process. Patient and his daughter are in agreement to hold off any further imaging for now but if he continues to have further confusion they would like to pursue with MRI of the brain. Recommend if possible to hold any pain or sedated this is much as possible During the day to keep it bright and for the patient to be as interactive nights vice versa during the night. Consider Seroquel 25 mg nightly if patient becomes agitated restless Patient is resumed on his home dose of Sinemet 18183 at 6, 9, 12, 1500, 1800 and 2100. Also was on his home dose of amantadine 100 mg 1 tablet 3 times daily. He is on aspirin 81 mg daily. Will defer the rest of the medical management to primary and other specialists Upon discharge the patient to continue to follow-up with his neurologist over [facility] Mena. Plan discussed with the patient and his daughter who is at bedside Thank you for the consultation Time with Patient: Greater than 30
[2024-05-05 10:24] LABS: Basophils % (A) 0 %; Eosinophils # (A) 0.1 k/uL (0-0.7); Eosinophils % (A) 0 %; HCT 25.1 % (39.0-53.0); Lymphocytes # (A) 0.7 k/uL (1.0-4.8); Lymphocytes % (A) 4 %; MCH 32.9 pg (25.0-35.0); MCHC 31.8 g/dL (31.0-37.0); MCV 103.3 fL (80.0-100.0); Macrocytosis Slight; Mean Platelet Volume 8.6; Monocytes # (A) 0.9 k/uL (0-1.0); Monocytes % (A) 6 %; Neutrophils # (A) 14.2 k/uL (1.3-7.7); Neutrophils % (A) 89 %; Platelet Count 351 k/uL (150-450); RBC 2.43 m/uL (4.30-5.90); RDW 14.5 % (11.5-15.5); WBC 16.1 k/uL (3.8-10.6)
--- NOTE | 2024-05-05 10:52 | P.PN ---
Subjective Progress Note Date: 05/05/24 Jerson Edwards, is a 79-year-old male who presented to [facility] emergency room after sustaining a fall and complaining of left hip pain. He was evaluated in the emergency room vital examination on presentation revealed a temperature of 97.7 pulse 65 respiration 18 blood pressure 171/88 p ulse ox 96% on room air Laboratory data revealed a white blood count of 14.7 hemoglobin 10.9 platelet count 446 BUN 22 creatinine 1.06 Testing in the emergency room revealed CT scan of the head revealed no acute bleed or mass effect, CT scan of the cervical spine revealed no acute trauma, chest x-ray revealed no acute process, x-ray of the pelvis and the left hip revealed intertrochanteric fracture of the left hip. Patient was admitted to medical floor for further evaluation and treatment Past medical history is significant for history of recent admission by Dr. Kathleen, patient underwent abdominal surgery for reversal of colostomy, takedown sigmoid flexure and partial colectomy, he has a history of perforated diverticulitis with colostomy placement, history of stroke, history of Parkinson disease, history of hypertension On review of systems patient is alert and oriented x 3 in no apparent distress, he is complaining of pain in the left hip area otherwise he denies any complaints, there is no fever or chills no headache or dizziness no chest pain no shortness of breath no cough no nausea or vomiting no abdominal pain no diarrhea no blood in the stools no burning with urination no frequency or urgency and no hematuria. On 05/03/2024 patient was seen and examined on the medical floor, he is alert and oriented x 3 in no apparent distress, he is complaining of pain in the left hip otherwise he denies any complaints, there is no fever or chills no headache or dizziness no chest pain no shortness of breath no cough no nausea or vomiting no abdominal pain no diarrhea and no urinary symptoms. Vital exam this morning revealed a temperature of 97.3 pulse 78 respiration 18 blood pressure 143/82 pulse ox 95% on room air, his laboratory data is significant for a white blood count of 24.9 hemoglobin 10.7 platelet count 441. Patient's is at the bedside she is concerned that patient is leaning towards the right, which is a recent change in his condition, she is afraid that this is why he fell at home, she is requesting a neurology consult to rule out new CVA, patient has known history of Parkinson disease, and history of CVA in the past. Physical therapy and Occupational Therapy will be added, neurology consult requested. On 05/04/2024 patient is alert and oriented 3. Patient currently sitting up in bed. Patient remains on IV Zosyn. White blood cell improving in 19.20. Neurology, surgical services infectious disease and orthopedic services are also following.Current vital signs temp 98.0, heart rate 75, respiratory rate 17, blood pressure 129/66 with pulse ox 94% on room air On 05/05/2024 patient is alert and oriented with having episodes of intermittent confusion patient was started on Seroquel per neurology recommendation. Nursing expressed concern to patient coughing with food will order chest x-ray to rule out aspiration and consult speech services to assess swallow. Current vital signs temp 98.4, heart rate 78, respiratory rate 18, blood pressure 106/58 with pulse ox 97% on room air Objective - Vital Signs Vital signs: Vital Signs Temp 98.4 F 05/05/24 07:07 Pulse 78 05/05/24 07:07 Resp 17 05/05/24 08:42 BP 106/58 05/05/24 07:07 Pulse Ox 96 05/05/24 09:04 FiO2 Intake & Output 05/04/24 05/05/24 05/05/24 18:59 06:59 18:59 Output Total 700 600 Balance -700 -600 Output: Urine 700 600 Uretheral (Harrison) 200 Other: Voiding Method Indwelling Catheter External Catheter # Bowel Movements 1 - Exam In general patient is alert and oriented x 3 in no distress HEENT head normocephalic and atraumatic Neck is supple no JVD no goiter no lymphadenopathy no carotid bruit Chest examination is clear to auscultation no crackles no wheezing Cardiac exam reveals regular heart sounds S1 and S2 no gallops no murmurs Abdomen is soft nontender no organomegaly with normal bowel sounds Extremity exam reveals no edema no cyanosis or clubbing Neurological examination reveals chronic left-sided weakness related to previous stroke without any acute abnormality - Labs CBC & Chem 7: 05/05/24 09:53 05/04/24 03:10 Labs: Abnormal Lab Results - Last 24 Hours (Table) 05/04/24 05/05/24 Range/Units 14:18 09:53 WBC 20.2 H 16.1 H (3.8-10.6) k/uL RBC 2.57 L 2.43 L (4.30-5.90) m/uL Hgb 8.6 L D 8.0 L (13.0-17.5) gm/dL Hct 26.9 L 25.1 L (39.0-53.0) % MCV 105.0 H 103.3 H (80.0-100.0) fL Neutrophils # 18.3 H 14.2 H (1.3-7.7) k/uL Lymphocytes # 0.7 L 0.7 L (1.0-4.8) k/uL Microbiology - Last 24 Hours (Table) 05/03/24 17:54 Blood Culture - Preliminary Blood Assessment and Plan Plan: 1. 79-year-old male presenting after sustaining a fall, with evidence of left hip intertrochanteric fracture, patient is scheduled for orthopedic surgery this afternoon, medical clearance was requested. Previous cardiac evaluation was reviewed echocardiogram August 2023 revealed normal left ventricular ejection fraction of 55 to 60%, patient is denying any cardiac symptoms there is no chest pain shortness of breath dizziness presyncope or syncope. White blood count was elevated on presentation at 14.7 this is most likely reactive, due to fall and recent abdominal surgery, there is no evidence of any infectious process, patient is afebrile, chest x-ray and urine analysis reviewed, no evidence of infection at this time. Patient underwent recent abdominal surgery for reversal of colostomy, takedown sigmoid flexure and partial colectomy, patient tolerated surgery well, surgical site is clear without evidence of infection. Patient is at increased risk for surgery due to his multiple medical problems, however there is no medical contraindication for surgery. 2. Underlying history of Parkinson disease 3. History of stroke with left-sided hemiparesis 4. History of benign prostatic hypertrophy 5. History of diverticulitis with perforation requiring surgery with colostomy placement, and recent colostomy reversal. 6. Underlying history of hypertension 7. Underlying history of hyperlipidemia 8. Underlying history of gastroesophageal reflux disease At this time patient will be admitted to surgical floor, Plan is for surgical intervention on the left hip this afternoon DVT prophylaxis and pain management per orthopedic protocols Patient would benefit of resuming his Parkinson disease medications as soon as possible Will continue to follow closely during this admission
--- NOTE | 2024-05-05 11:16 | P.PN ---
Subjective Progress Note Date: 05/05/24 Principal diagnosis: Left hip IT fracture Patient was seen at bedside this morning lying in the semirecumbent position with dressing present over left hip. was present during encounter. Patient and are hoping to go to rehab upon discharge. Patient says patient has seemed out of it mentally in regards to his history with parkinsons. She mentions medicine possibly looking into seroquel for since he did not get much sleep last night. Patient says his pain is under control while he is resting in bed, but does increase when he tries to move. Patient and hopinh to work with PT/OT this morning. Patient denies chest pain, fever, shortness of breath, nausea, vomiting, change in vision, loss of bowel control. Objective - Vital Signs Vital signs: Vital Signs Temp 98.4 F 05/05/24 07:07 Pulse 78 05/05/24 07:07 Resp 17 05/05/24 08:42 BP 106/58 05/05/24 07:07 Pulse Ox 96 05/05/24 09:04 FiO2 Intake & Output 05/04/24 05/05/24 05/05/24 18:59 06:59 18:59 Output Total 700 600 Balance -700 -600 Output: Urine 700 600 Uretheral ([place]) 200 Other: Voiding Method Indwelling Catheter External Catheter # Bowel Movements 1 - Exam Inspection: Dressings present over left lateral hip. Gray appear to be well aligned and intact. Negative for any drainage. Positive for fair amount of swelling. Minimal ecchymosis present. Sensation: Equal, symmetric bilaterally intact in the upper and lower extremities Palpation: Moderate tenderness to palpation diffusely throughout the left hip. Nontender to palpation throughout rest of exam. Range of motion: Limited range of motion in left lower extremity in the hip secondary to injury and pain. Patient is able to dorsi and plantarflex the left ankle ankle with some referred pain in the left hip. Full range of motion throu ghout right lower extremity and bilateral upper extremities on exam. Motor: 4/5 in all major motor groups in bilateral upper extremity is in right lower extremity exam. 3+/5 in resisted left ankle dorsi/plantar flexion. 3-/5 in resisted left hip and left knee flexion so extension. Neurovascular: Radial pulse intact, 2+5. DP pulses palpable bilaterally. Cap refill under 3 seconds in digits of lower extremities Special tests: Negative Homans bilaterally. - Labs CBC & Chem 7: 05/05/24 09:53 05/04/24 03:10 Labs: Abnormal Lab Results - Last 24 Hours (Table) 05/04/24 Range/Units 14:18 WBC 20.2 H (3.8-10.6) k/uL RBC 2.57 L (4.30-5.90) m/uL Hgb 8.6 L D (13.0-17.5) gm/dL Hct 26.9 L (39.0-53.0) % MCV 105.0 H (80.0-100.0) fL Neutrophils # 18.3 H (1.3-7.7) k/uL Lymphocytes # 0.7 L (1.0-4.8) k/uL Microbiology - Last 24 Hours (Table) 05/03/24 17:54 Blood Culture - Preliminary Blood Assessment and Plan Assessment: 1. Left hip IT fracture -Postop day 3 status post left hip IM nail Plan: 1. Left hip IT fracture -left hip IM nail performed 05/02/2024. Patient stable at bedside this morning with dressing present over left hip. Plan to work with therapy daily. Case management working on rehab placement. 50% weightbearing left lower extremity with walker and assistance as needed. Hemoglobin at 8.0 this morning. continue ferrous sulfate 325 mg daily. CBC rep eat tmrw morning. We will continue to follow patient during stay in hospital. TUSHAR once auth obtained 2. Appreciate medical management 3. Pain management - Tylenol; [place]; Dilaudid 4. DVT prophylaxis - lovenox; aspirin 5. GI prophylaxis - senna 6. PT/OT - 50% weight-bearing LLE; WBAT RLE 7. Encourage incentive spirometer use 8. Discharge planning -TUSHAR once auth obtained Time with Patient: Less than 30
--- NOTE | 2024-05-05 11:40 | XR ---
EXAMINATION TYPE: XR chest 1V portable DATE OF EXAM: 05/05/2024 10:31 AM CLINICAL INDICATION:Male, 79 years old with history of aspiration. Concern for pneumonia.; [facility] COMPARISON: Chest radiographs from TECHNIQUE: XR chest 1V portable Frontal view of the chest. FINDINGS: Lungs/Pleura: There is no evidence of pleural effusion, focal consolidation, or pneumothorax. Pulmonary vascularity: Unremarkable. Heart/mediastinum: Cardiomediastinal silhouette is unremarkable. Musculoskeletal: No acute osseous pathology. Other findings: None Lines/Tubes: IMPRESSION: No acute cardiopulmonary disease/process.
--- NOTE | 2024-05-05 15:55 | P.PN ---
Subjective Progress Note Date: 05/05/24 CHIEF COMPLAINT: Left hip fracture HISTORY OF PRESENT ILLNESS: Patient denies any abdominal pain. He denies any nausea or vomiting. He is admitted with left hip fracture status post surgery. He is confused. Afebrile. WBC is down from 20-16.1 PHYSICAL EXAM: VITAL SIGNS: Reviewed. GENERAL: Well-developed in no acute distress. ABDOMEN: Soft. Nondistended. Nontender. Incision site clean dry and intact with some mild scabbing noted. NEUROLOGIC: Alert and oriented. Cranial nerves II through XII grossly intact. ASSESSMENT: 1. History of perforated diverticulitis status post reversal of colostomy on 04/20/2024 PLAN: -Continue supportive care -Change incisional dressing and wash incision Physician Felting Machine Operator note has been reviewed by physician. Signing provider agrees with the documented findings, assessment, and plan of care. Objective - Vital Signs Vital signs: Vital Signs Temp 98.0 F 05/05/24 14:00 Pulse 70 05/05/24 14:00 Resp 18 05/05/24 14:00 BP 128/69 05/05/24 14:00 Pulse Ox 92 L 05/05/24 14:00 FiO2 Intake & Output 05/04/24 05/05/24 05/05/24 18:59 06:59 18:59 Output Total 700 600 Balance -700 -600 Output: Urine 700 600 Uretheral ([place]) 200 Other: Voiding Method Indwelling Catheter External Catheter # Bowel Movements 1 - Labs CBC & Chem 7: 05/05/24 09:53 05/04/24 03:10 Labs: Abnormal Lab Results - Last 24 Hours (Table) 05/05/24 Range/Units 09:53 WBC 16.1 H (3.8-10.6) k/uL RBC 2.43 L (4.30-5.90) m/uL Hgb 8.0 L (13.0-17.5) gm/dL Hct 25.1 L (39.0-53.0) % MCV 103.3 H (80.0-100.0) fL Neutrophils # 14.2 H (1.3-7.7) k/uL Lymphocytes # 0.7 L (1.0-4.8) k/uL Microbiology - Last 24 Hours (Table) 05/03/24 17:54 Blood Culture - Preliminary Blood
[2024-05-05 17:05] LABS: % Iron Saturation 5.6 (15.00-50.00)
--- NOTE | 2024-05-05 17:39 | P.PN ---
Subjective Progress Note Date: 05/05/24 I am following-up with patient and is accompanied with his who states patient is having fluctuation of mentation since his abdominal surgery. Prior to recent two surgeries he was doing well. Currently she feels mentation is better. Objective - Vital Signs Vital signs: Vital Signs Temp 98.0 F 05/05/24 14:00 Pulse 70 05/05/24 14:00 Resp 18 05/05/24 14:00 BP 128/69 05/05/24 14:00 Pulse Ox 92 L 05/05/24 14:00 FiO2 Intake & Output 05/04/24 05/05/24 05/05/24 18:59 06:59 18:59 Output Total 700 600 Balance -700 -600 Output: Urine 700 600 Uretheral ([place]) 200 Other: Voiding Method Indwelling Catheter External Catheter # Bowel Movements 1 - Exam GENERAL: The patient is sitting in a recliner chair and is not in acute dis tress. NEUROLOGICAL: Higher mental function: The patient is awake, alert, oriented to self, place and time. Patient is following commands. No aphasia and no neglect. Cranial nerves: The pupils are round, equal and reactive to light and accommodation. Visual ward are full to confrontation throughout. Extraocular movement is intact no nystagmus is noted. Facial sensation is normal to touch t hroughout. Has left lower facial weakness. Hearing is normal bilaterally to hand rub. Tongue is midline and moved [id number] without any difficulty. Has mild to moderate dysarthria. Shoulder shrug is normal bilaterally. Motor: The strength is limited in left lower extremity because of hip pain. Otherwise lifting all extremities above gravity equally. Normal tone and bulk. Cerebellum: Normal finger to nose bilaterally. Sensation: Sensation is normal to touch throughout. Some of the workup during this hospital visit: Vitamin B12: is [address] of the head is reported as no acute bleed or mass effect. I personally reviewed the CT of the head and agree there is no acute or subacute process. Personally reviewed the CT of the head and agree there is no acute or subacute process. CT cervical spine is reported as no acute trauma. Degenerative changes are described above. - Labs CBC & Chem 7: 05/05/24 09:53 05/04/24 03:10 Labs: Abnormal Lab Results - Last 24 Hours (Table) 05/05/24 05/05/24 Range/Units 09:53 09:53 WBC 16.1 H (3.8-10.6) k/uL RBC 2.43 L (4.30-5.90) m/uL Hgb 8.0 L (13.0-17.5) gm/dL Hct 25.1 L (39.0-53.0) % MCV 103.3 H (80.0-100.0) fL Neutrophils # 14.2 H (1.3-7.7) k/uL Lymphocytes # 0.7 L (1.0-4.8) k/uL Iron 13 L (65-175) UG/DL % Saturation 5.60 L (15.00-50.00) Transferrin 166.0 L (204.0-354.0) mg/dL Microbiology - Last 24 Hours (Table) 05/03/24 17:54 Blood Culture - Preliminary Blood Assessment and Plan Assessment: This is a 79-year-old gentleman who had acute perforated diverticulitis that required surgery on 04/20/2024 and eventually was discharged home and at home he had limitation of his walking because of his abdominal pain and while in the bathroom he fell and he presents with left hip pain. He was found to have left hip fracture and had surgery. Per the daughter he is having fluctuation of mentation and having hallucination. Delirium likely due to recent condition having left hip pain as well as recent diverticulitis/hospital induced--currently no confusion. Acute left hip fracture s/p surgery Low normal vitamin B12 of 254 Recent perforated diverticulitis History of Parkinson disease History of stroke August 2023 with residual left facial droop and dysarthria. Plan: Had CT of the head on presentation which is negative for any acute process. Patient and his are in agreement to hold off any further imaging for now but if he continues to have further confusion they would like to pursue with MRI of the brain. Recommend if possible to hold any pain or sedated this is much as possible During the day to keep it bright and for the patient to be as interactive nights vice versa during the night. Currently is on seroquel 25mg qhs but once mentation to remains improves and no agitation or restless, please discontinue medication. Patient is resumed on his home dose of Sinemet 69501 at 6, 9, 12, 1500, 1800 and 2100. Also was on his home dose of amantadine 100 mg 1 tablet 3 times daily. He is on aspirin 81 mg daily. Because of low normal vitamin B12: I gave him one time Vitamin B12 1000mcg once IM then after that PO daily. Will defer the rest of the medical management to primary and other specialists Upon discharge the patient to continue to follow-up with his neurologist over [facility]. Plan discussed with the patient and his who is at bedside. Will continue to follow-up sporadically. Time with Patient: Less than 30
[2024-05-05] MEDS: CYANOCOBALAMIN 1,000 MCG/ML 1 ML VIAL IM ONE (21:52)
[2024-05-05] MEDS: QUEtiapine 25 MG TAB PO SCH (21:52)
[2024-05-06] MEDS: HYDROcodone/APAP 5-325MG 1 EACH TAB PO PRN (04:10)
--- NOTE | 2024-05-06 07:05 | P.PN ---
Subjective Progress Note Date: 05/06/24 Principal diagnosis: Left hip IT fracture Patient seen and examined this morning. Patient is resting comfortably in bed. RN at bedside providing morning medications. Surgical incision to the left hip, dressing has been removed. Large blister noted due to irritation of tape. Incision has been left open to air, edges are well-approximated with chante intact. No active drainage. Informed staff that if patient begins to pick at incision to apply ABD with foam tape. Swallow evaluation was performed yesterday afternoon due to possible aspiration. Diet orders have been updated to their recommendations. Patient is to be a 1:1 supervision feed, position upright with oral intake. Patient is cleared from orthopedic standpoint for discharge to subacute rehab when medically stable. Objective - Vital Signs Vital signs: Vital Signs Temp 98.2 F 05/06/24 01:25 Pulse 85 05/06/24 01:25 Resp 15 05/06/24 01:25 BP 111/70 05/06/24 01:25 Pulse Ox 98 05/06/24 01:25 FiO2 Intake & Output 05/05/24 05/05/24 05/06/24 06:59 18:59 06:59 Output Total 600 800 500 Balance -600 -800 -500 Output: Urine 600 800 500 Other: Voiding Method External Catheter External Catheter - Exam Inspection: Surgical incisions over the left lateral hip, edges are well- approximated with chante intact. Large blister present due to tape irritation near incision. Negative for any drainage. Positive for fair amount of swelling. Minimal ecchymosis present. Sensation: Equal, symmetric bilaterally intact in the upper and lower extremi ties Palpation: Moderate tenderness to palpation diffusely throughout the left hip. Nontender to palpation throughout rest of exam. Range of motion: Limited range of motion in left lower extremity in the hip secondary to injury and pain. Patient is able to dorsi and plantarflex the left ankle ankle with some referred pain in the left hip. Full range of motion throughout right lower extremity and bilateral upper extremities on exam. Motor: 4/5 in all major motor groups in bilateral upper extremity is in right lower extremity exam. 3+/5 in resisted left ankle dorsi/plantar flexion. 3-/5 i n resisted left hip and left knee flexion so extension. Neurovascular: Radial pulse intact, 2+5. DP pulses palpable bilaterally. Cap refill under 3 seconds in digits of lower extremities Special tests: Negative Homans bilaterally. - Labs CBC & Chem 7: 05/05/24 09:53 05/04/24 03:10 Labs: Abnormal Lab Results - Last 24 Hours (Table) 05/05/24 05/05/24 Range/Units 09:53 09:53 WBC 16.1 H (3.8-10.6) k/uL RBC 2.43 L (4.30-5.90) m/uL Hgb 8.0 L (13.0-17.5) gm/dL Hct 25.1 L (39.0-53.0) % MCV 103.3 H (80.0-100.0) fL Neutrophils # 14.2 H (1.3-7.7) k/uL Lymphocytes # 0.7 L (1.0-4.8) k/uL Iron 13 L (65-175) UG/DL % Saturation 5.60 L (15.00-50.00) Transferrin 166.0 L (204.0-354.0) mg/dL Microbiology - Last 24 Hours (Table) 05/03/24 17:54 Blood Culture - Preliminary Blood Assessment and Plan Assessment: Postop day 4: Left hip IM nail fixation 1. Left hip IT fracture Plan: 1. Left hip IT fracture -left hip IM nail performed 05/02/2024. Patient is alert this morning and answering simple questions appropriately. Dressing has been removed from left hip incisions. If patient starts to pick at incision, please place ABD with foam tape. Continue to encourage patient to work with PT. Case management working on rehab placement. 50% weightbearing left lower extremity with walker and assistance as needed. Hemoglobin at 8.0 yesterday morning, awaiting lab results that were obtained today. Continue with ferrous sulfate 325 mg daily. We will continue to follow patient during stay in hospital. TUSHAR once auth obtained 2. Appreciate medical management 3. Pain management - Tylenol; [place]; Dilaudid 4. DVT prophylaxis - lovenox; aspirin 5. GI prophylaxis - senna 6. PT/OT - 50% weight-bearing LLE; WBAT RLE 7. Encourage incentive spirometer use 8. Discharge planning -TUSHAR once auth obtained *I reviewed and discussed this case with my attending Dr. Ortiz, whom has reviewed this chart and films and is in agreement with assessment and plan of care as outlined above. I have personally seen and examined the patient, performed the documentation and the assessment and plan as written. Number of minutes spent on the visit: 20m.
[2024-05-06] MEDS: CYANOCOBALAMIN 500 MCG TAB PO SCH (09:38)
[2024-05-06 09:45] LABS: ALT 9 U/L (10-49); AST 19 U/L (14-35); Alkaline Phosphatase 229 U/L (41-126); BUN/Creat Ratio 18.73 Ratio (12.00-20.00); Blood Urea Nitrogen 20.6 mg/dL (9.0-27.0); Calcium 8.6 mg/dL (8.7-10.3); Carbon Dioxide 26.6 mmol/L (21.6-31.8); Chloride 108 mmol/L (96-109); Globulin 2.5 g/dL (1.6-3.3); Glucose 97 mg/dL (70-110); Sodium 146 mmol/L (135-145); Total Bilirubin 1.2 mg/dL (0.3-1.2); Total Protein 5.5 g/dL (6.2-8.2)
[2024-05-06 09:46] LABS: HCT 24.1 % (39.6-50.0); HGB 7.9 g/dL (13.0-17.0); MCH 33.3 pg (27.0-32.0); MCHC 32.8 g/dL (32.0-37.0); MCV 101.7 FL (80.0-97.0); Mean Platelet Volume 10.7 FL (9.5-12.2); NRBC Per 100 WBC 0 X 10*3/uL (0.00-0.01); Platelet Count 382 X 10*3/uL (140-440); RBC 2.37 X 10*6/uL (4.40-5.60); RDW 15.6 % (11.5-14.5); WBC 14.44 X 10*3/uL (4.50-10.00)
[2024-05-06 09:47] LABS: Basophils # (A) 0.06 X 10*3/uL (0.00-0.10); Basophils % (A) 0.4 %; Eosinophils # (A) 0.07 X 10*3/uL (0.04-0.35); Eosinophils % (A) 0.5 %; Lymphocytes # (A) 0.59 X 10*3/uL (0.90-5.00); Lymphocytes % (A) 4.1 %; Monocytes # (A) 1.34 X 10*3/uL (0.20-1.00); Monocytes % (A) 9.3 %; Neutrophils # (A) 12.27 X 10*3/uL (1.80-7.70); Neutrophils % (A) 84.9 %
--- NOTE | 2024-05-06 13:15 | P.PN ---
Subjective Progress Note Date: 05/06/24 CHIEF COMPLAINT: Left hip fracture HISTORY OF PRESENT ILLNESS: Patient denies any abdominal pain. He denies any nausea or vomiting. He did have a bowel movement. There was a small amount of light colored blood noted on the tissue paper when he wiped. He denies any rectal pain. He is admitted with left hip fracture status post surgery. He is confused. Afebrile. WBC is down from 16.1-14.4 hemoglobin stable at 7.9 PHYSICAL EXAM: VITAL SIGNS: Reviewed. GENERAL: Well-developed in no acute distress. ABDOMEN: Soft. Nondistended. Nontender. Incision site clean dry and intact with some mild scabbing noted. NEUROLOGIC: Alert and oriented. Cranial nerves II through XII grossly intact. ASSESSMENT: 1. History of perforated diverticulitis status post reversal of colostomy on 04/20/2024 PLAN: -Continue supportive care -Will have nursing staff remove the rest of the remaining chante from incision Physician Library Consultant note has been reviewed by physician. Signing provider agrees with the documented findings, assessment, and plan of care. Objective - Vital Signs Vital signs: Vital Signs Temp 98.0 F 05/06/24 07:31 Pulse 83 05/06/24 07:31 Resp 19 05/06/24 07:31 BP 108/66 05/06/24 07:31 Pulse Ox 96 05/06/24 07:31 FiO2 Intake & Output 05/05/24 05/06/24 05/06/24 18:59 06:59 18:59 Output Total 800 500 Balance -800 -500 Output: Urine 800 500 Other: Voiding Method External Catheter External Catheter - Labs CBC & Chem 7: 05/06/24 05:34 05/06/24 05:34 Labs: Abnormal Lab Results - Last 24 Hours (Table) 05/05/24 05/06/24 05/06/24 Range/Units 09:53 05:34 05:34 WBC 14.44 H (4.50-10.00) X 10*3/uL RBC 2.37 L (4.40-5.60) X 10*6/uL Hgb 7.9 L (13.0-17.0) g/dL Hct 24.1 L (39.6-50.0) % MCV 101.7 H (80.0-97.0) FL MCH 33.3 H (27.0-32.0) pg RDW 15.6 H (11.5-14.5) % Immature Gran # 0.11 H (0.00-0.04) X 10*3/uL Neutrophils # 12.27 H (1.80-7.70) X 10*3/uL Lymphocytes # 0.59 L (0.90-5.00) X 10*3/uL Monocytes # 1.34 H (0.20-1.00) X 10*3/uL Sodium 146 H (135-145) mmol/L Calcium 8.6 L (8.7-10.3) mg/dL Iron 13 L (65-175) UG/DL % Saturation 5.60 L (15.00-50.00) Transferrin 166.0 L (204.0-354.0) mg/dL ALT 9 L (10-49) U/L Alkaline Phosphatase 229 H (41-126) U/L Total Protein 5.5 L (6.2-8.2) g/dL Albumin 3.0 L (3.8-4.9) g/dL Albumin/Globulin Ratio 1.20 L (1.60-3.17) Ratio Crossmatch /05/24 Range/Units 11:12 WBC (4.50-10.00) X 10*3/uL RBC (4.40-5.60) X 10*6/uL Hgb (13.0-17.0) g/dL Hct (39.6-50.0) % MCV (80.0-97.0) FL MCH (27.0-32.0) pg RDW (11.5-14.5) % Immature Gran # (0.00-0.04) X 10*3/uL Neutrophils # (1.80-7.70) X 10*3/uL Lymphocytes # (0.90-5.00) X 10*3/uL Monocytes # (0.20-1.00) X 10*3/uL Sodium (135-145) mmol/L Calcium (8.7-10.3) mg/dL Iron (65-175) UG/DL % Saturation (15.00-50.00) Transferrin (204.0-354.0) mg/dL ALT (10-49) U/L Alkaline Phosphatase (41-126) U/L Total Protein (6.2-8.2) g/dL Albumin (3.8-4.9) g/dL Albumin/Globulin Ratio (1.60-3.17) Ratio Crossmatch See Detail Microbiology - Last 24 Hours (Table) 05/03/24 17:54 Blood Culture - Preliminary Blood
--- NOTE | 2024-05-06 16:54 | P.PN ---
Subjective Progress Note Date: 05/06/24 Principal diagnosis: Reason for follow-up is leukocytosis Patient is a 79-year-old male with past medical history significant for hypertension hyperlipidemia reflux history of perforated diverticulitis requiring diverting colostomy with recent reversal patient now presenting back to the hospital after the patient did have a fall at home, patient did have a left femur fracture status postoperative repair he noticed to have elevated white count prompting this consultation. On today's evaluation that is 05/06/2024, Patient is afebrile patient is currently on room air and denies having any shortness of breath, the patient denies any chest pain or cough, the patient denies any nausea vomiting did not have any abdominal pain and no diarrhea, patient apparently has been complaining of mostly confusion and did not have any sleep last night Patient white count is down to 14.4 blood culture has been negative so far Objective - Vital Signs Vital signs: Vital Signs Temp 98.0 F 05/06/24 07:31 Pulse 83 05/06/24 07:31 Resp 19 05/06/24 07:31 BP 108/66 05/06/24 07:31 Pulse Ox 96 05/06/24 07:31 FiO2 Intake & Output 05/05/24 05/06/24 05/06/24 18:59 06:59 18:59 Output Total 800 500 Balance -800 -500 Output: Urine 800 500 Other: Voiding Method External Catheter External Catheter - Exam GENERAL DESCRIPTION: An elderly male up in the chair in no distress RESPIRATORY SYSTEM: Unlabored breathing , decreased breath sounds at bases HEART: S1 S2 regular rate and rhythm , ABDOMEN: Soft , no tenderness EXTREMITIES: No edema feet - Labs CBC & Chem 7: 05/06/24 05:34 05/06/24 05:34 Labs: Abnormal Lab Results - Last 24 Hours (Table) 05/05/24 05/06/24 05/06/24 Range/Units 09:53 05:34 05:34 WBC 14.44 H (4.50-10.00) X 10*3/uL RBC 2.37 L (4.40-5.60) X 10*6/uL Hgb 7.9 L (13.0-17.0) g/dL Hct 24.1 L (39.6-50.0) % MCV 101.7 H (80.0-97.0) FL MCH 33.3 H (27.0-32.0) pg RDW 15.6 H (11.5-14.5) % Immature Gran # 0.11 H (0.00-0.04) X 10*3/uL Neutrophils # 12.27 H (1.80-7.70) X 10*3/uL Lymphocytes # 0.59 L (0.90-5.00) X 10*3/uL Monocytes # 1.34 H (0.20-1.00) X 10*3/uL Sodium 146 H (135-145) mmol/L Calcium 8.6 L (8.7-10.3) mg/dL Iron 13 L (65-175) UG/DL % Saturation 5.60 L (15.00-50.00) Transferrin 166.0 L (204.0-354.0) mg/dL ALT 9 L (10-49) U/L Alkaline Phosphatase 229 H (41-126) U/L Total Protein 5.5 L (6.2-8.2) g/dL Albumin 3.0 L (3.8-4.9) g/dL Albumin/Globulin Ratio 1.20 L (1.60-3.17) Ratio Crossmatch /05/24 Range/Units 11:12 WBC (4.50-10.00) X 10*3/uL RBC (4.40-5.60) X 10*6/uL Hgb (13.0-17.0) g/dL Hct (39.6-50.0) % MCV (80.0-97.0) FL MCH (27.0-32.0) pg RDW (11.5-14.5) % Immature Gran # (0.00-0.04) X 10*3/uL Neutrophils # (1.80-7.70) X 10*3/uL Lymphocytes # (0.90-5.00) X 10*3/uL Monocytes # (0.20-1.00) X 10*3/uL Sodium (135-145) mmol/L Calcium (8.7-10.3) mg/dL Iron (65-175) UG/DL % Saturation (15.00-50.00) Transferrin (204.0-354.0) mg/dL ALT (10-49) U/L Alkaline Phosphatase (41-126) U/L Total Protein (6.2-8.2) g/dL Albumin (3.8-4.9) g/dL Albumin/Globulin Ratio (1.60-3.17) Ratio Crossmatch See Detail Microbiology - Last 24 Hours (Table) 05/03/24 17:54 Blood Culture - Preliminary Blood Assessment and Plan (1) Leukocytosis Current Visit: No Status: Acute Code(s): D72.829 - ELEVATED WHITE BLOOD CELL COUNT, UNSPECIFIED SNOMED Code(s): 559945192 Plan: 1patient with elevated white count questionably reactive in this patient with a fall and left femoral fracture status post operative repair at the patient not running any fever and does not toxic urine has been negative chest x-ray was negative, patient did have some skin necrosis at the previous colostomy site. 2patient blood culture has been negative so far 3patient remains to be afebrile white count has been trending down, we will continue Zosyn while inpatient however will transition to short course of oral antibiotic on discharge Family bedside questions answered Dictation was produced using [employer] dictation software. please excuse any grammatical, word or spelling errors. Time with Patient: Less than 30
--- NOTE | 2024-05-06 16:54 | P.PN ---
Subjective Progress Note Date: 05/05/24 Principal diagnosis: Reason for follow-up is leukocytosis Patient is a 79-year-old male with past medical history significant for hypertension hyperlipidemia reflux history of perforated diverticulitis requiring diverting colostomy with recent reversal patient now presenting back to the hospital after the patient did have a fall at home, patient did have a left femur fracture status postoperative repair he noticed to have elevated white count prompting this consultation. On today's evaluation that is 05/05/2024, the patient continues to be afebrile, the patient is on room air and breathing comfortably, the Pt denies having any chest pain or cough, the patient denies having any abdominal pain no vomiting or any diarrhea has been reported by the nursing staff. Patient white count is down to 16.1 Objective - Vital Signs Vital signs: Vital Signs Temp 98.4 F 05/05/24 07:07 Pulse 78 05/05/24 07:07 Resp 17 05/05/24 08:42 BP 106/58 05/05/24 07:07 Pulse Ox 96 05/05/24 09:04 FiO2 Intake & Output 05/04/24 05/05/24 05/05/24 18:59 06:59 18:59 Output Total 700 600 Balance -700 -600 Output: Urine 700 600 Uretheral (Harrison) 200 Other: Voiding Method Indwelling Catheter External Catheter # Bowel Movements 1 - Exam GENERAL DESCRIPTION: An elderly male up in the chair in no distress RESPIRATORY SYSTEM: Unlabored breathing , decreased breath sounds at bases HEART: S1 S2 regular rate and rhythm , ABDOMEN: Soft , no tenderness EXTREMITIES: No edema feet - Labs CBC & Chem 7: 05/06/24 05:34 05/06/24 05:34 Labs: Abnormal Lab Results - Last 24 Hours (Table) 05/04/24 05/05/24 Range/Units 14:18 09:53 WBC 20.2 H 16.1 H (3.8-10.6) k/uL RBC 2.57 L 2.43 L (4.30-5.90) m/uL Hgb 8.6 L D 8.0 L (13.0-17.5) gm/dL Hct 26.9 L 25.1 L (39.0-53.0) % MCV 105.0 H 103.3 H (80.0-100.0) fL Neutrophils # 18.3 H 14.2 H (1.3-7.7) k/uL Lymphocytes # 0.7 L 0.7 L (1.0-4.8) k/uL Microbiology - Last 24 Hours (Table) 05/03/24 17:54 Blood Culture - Preliminary Blood Assessment and Plan (1) Leukocytosis Current Visit: No Status: Acute Code(s): D72.829 - ELEVATED WHITE BLOOD CELL COUNT, UNSPECIFIED SNOMED Code(s): 063273104 Plan: 1patient with elevated white count questionably reactive in this patient with a fall and left femoral fracture status post operative repair at the patient not running any fever and does not toxic urine has been negative chest x-ray was negative, patient did have some skin necrosis at the previous colostomy site. 2patient blood culture has been negative so far 3patient remains to be afebrile white count has been trending down, to continue with Zosyn 3.375 g every 8 hours while waiting for the culture to finalize Dictation was produced using [employer] dictation software. please excuse any grammatical, word or spelling errors. Time with Patient: Less than 30
--- NOTE | 2024-05-06 17:08 | P.PN ---
Subjective Progress Note Date: 05/06/24 Jerson Edwards, is a 79-year-old male who presented to [facility] emergency room after sustaining a fall and complaining of left hip pain. He was evaluated in the emergency room vital examination on presentation revealed a temperature of 97.7 pulse 65 respiration 18 blood pressure 171/88 p ulse ox 96% on room air Laboratory data revealed a white blood count of 14.7 hemoglobin 10.9 platelet count 446 BUN 22 creatinine 1.06 Testing in the emergency room revealed CT scan of the head revealed no acute bleed or mass effect, CT scan of the cervical spine revealed no acute trauma, chest x-ray revealed no acute process, x-ray of the pelvis and the left hip revealed intertrochanteric fracture of the left hip. Patient was admitted to medical floor for further evaluation and treatment Past medical history is significant for history of recent admission by Dr. Kathleen, patient underwent abdominal surgery for reversal of colostomy, takedown sigmoid flexure and partial colectomy, he has a history of perforated diverticulitis with colostomy placement, history of stroke, history of Parkinson disease, history of hypertension On review of systems patient is alert and oriented x 3 in no apparent distress, he is complaining of pain in the left hip area otherwise he denies any complaints, there is no fever or chills no headache or dizziness no chest pain no shortness of breath no cough no nausea or vomiting no abdominal pain no diarrhea no blood in the stools no burning with urination no frequency or urgency and no hematuria. On 05/03/2024 patient was seen and examined on the medical floor, he is alert and oriented x 3 in no apparent distress, he is complaining of pain in the left hip otherwise he denies any complaints, there is no fever or chills no headache or dizziness no chest pain no shortness of breath no cough no nausea or vomiting no abdominal pain no diarrhea and no urinary symptoms. Vital exam this morning revealed a temperature of 97.3 pulse 78 respiration 18 blood pressure 143/82 pulse ox 95% on room air, his laboratory data is significant for a white blood count of 24.9 hemoglobin 10.7 platelet count 441. Patient's is at the bedside she is concerned that patient is leaning towards the right, which is a recent change in his condition, she is afraid that this is why he fell at home, she is requesting a neurology consult to rule out new CVA, patient has known history of Parkinson disease, and history of CVA in the past. Physical therapy and Occupational Therapy will be added, neurology consult requested. On 05/04/2024 patient is alert and oriented 3. Patient currently sitting up in bed. Patient remains on IV Zosyn. White blood cell improving in 19.20. Neurology, surgical services infectious disease and orthopedic services are also following.Current vital signs temp 98.0, heart rate 75, respiratory rate 17, blood pressure 129/66 with pulse ox 94% on room air On 05/05/2024 patient is alert and oriented with having episodes of intermittent confusion patient was started on Seroquel per neurology recommendation. Nursing expressed concern to patient coughing with food will order chest x-ray to rule out aspiration and consult speech services to assess swallow. Current vital signs temp 98.4, heart rate 78, respiratory rate 18, blood pressure 106/58 with pulse ox 97% on room air On 05/06/2024 patient was seen and examined on the medical floor he is alert and oriented x 3 in no apparent distress, he received 1 unit of red blood cell transfusion per orthopedic surgery, he is alert and oriented responding to questions appropriately, family is stating that he is having episodes of confusion, he remains on IV Zosyn, infectious disease are following, medication and labs were reviewed will follow in a.m. Objective - Vital Signs Vital signs: Vital Signs Temp 98.0 F 05/06/24 07:31 Pulse 83 05/06/24 07:31 Resp 19 05/06/24 07:31 BP 108/66 05/06/24 07:31 Pulse Ox 96 05/06/24 07:31 FiO2 Intake & Output 05/05/24 05/06/24 05/06/24 18:59 06:59 18:59 Output Total 800 500 Balance -800 -500 Output: Urine 800 500 Other: Voiding Method External Catheter - Exam In general patient is alert and oriented x 3 in no distress HEENT head normocephalic and atraumatic Neck is supple no JVD no goiter no lymphadenopathy no carotid bruit Chest examination is clear to auscultation no crackles no wheezing Cardiac exam reveals regular heart sounds S1 and S2 no gallops no murmurs Abdomen is soft nontender no organomegaly with normal bowel sounds Extremity exam reveals no edema no cyanosis or clubbing Neurological examination reveals chronic left-sided weakness related to previous stroke without any acute abnormality - Labs CBC & Chem 7: 05/06/24 05:34 05/06/24 05:34 Labs: Abnormal Lab Results - Last 24 Hours (Table) 05/05/24 05/05/24 Range/Units 09:53 09:53 WBC 16.1 H (3.8-10.6) k/uL RBC 2.43 L (4.30-5.90) m/uL Hgb 8.0 L (13.0-17.5) gm/dL Hct 25.1 L (39.0-53.0) % MCV 103.3 H (80.0-100.0) fL Neutrophils # 14.2 H (1.3-7.7) k/uL Lymphocytes # 0.7 L (1.0-4.8) k/uL Iron 13 L (65-175) UG/DL % Saturation 5.60 L (15.00-50.00) Transferrin 166.0 L (204.0-354.0) mg/dL Microbiology - Last 24 Hours (Table) 05/03/24 17:54 Blood Culture - Preliminary Blood Assessment and Plan Plan: 1. 79-year-old male presenting after sustaining a fall, with evidence of left hip intertrochanteric fracture, patient is scheduled for orthopedic surgery this afternoon, medical clearance was requested. Previous cardiac evaluation was reviewed echocardiogram August 2023 revealed normal left ventricular ejection fraction of 55 to 60%, patient is denying any cardiac symptoms there is no chest pain shortness of breath dizziness presyncope or syncope. White blood count was elevated on presentation at 14.7 this is most likely reactive, due to fall and recent abdominal surgery, there is no evidence of any infectious process, patient is afebrile, chest x-ray and urine analysis reviewed, no evidence of infection at this time. Patient underwent recent abdominal surgery for reversal of colostomy, takedown sigmoid flexure and partial colectomy, patient tolerated surgery well, surgical site is clear without evidence of infection. Patient is at increased risk for surgery due to his multiple medical problems, however there is no medical contraindication for surgery. 2. Underlying history of Parkinson disease 3. History of stroke with left-sided hemiparesis 4. History of benign prostatic hypertrophy 5. History of diverticulitis with perforation requiring surgery with colostomy placement, and recent colostomy reversal. 6. Underlying history of hypertension 7. Underlying history of hyperlipidemia 8. Underlying history of gastroesophageal reflux disease At this time patient will be admitted to surgical floor, Plan is for surgical intervention on the left hip this afternoon DVT prophylaxis and pain management per orthopedic protocols Patient would benefit of resuming his Parkinson disease medications as soon as possible Will continue to follow closely during this admission
[2024-05-06] MEDS: SODIUM CHLORIDE 0.9% 1,000 ML IV STA (18:01)
[2024-05-06 20:33] LABS: HCT 28.5 % (39.0-53.0); MCH 32.5 pg (25.0-35.0); MCHC 31.7 g/dL (31.0-37.0); MCV 102.6 fL (80.0-100.0); Macrocytosis Slight; Mean Platelet Volume 8.9; Platelet Count 383 k/uL (150-450); RBC 2.77 m/uL (4.30-5.90); RDW 14.7 % (11.5-15.5); WBC 10.8 k/uL (3.8-10.6)
--- NOTE | 2024-05-07 09:18 | P.DS ---
Providers Date of admission: 05/02/24 09:51 Expected date of discharge: 05/07/24 Attending physician: Willie Ortiz Consults: 05/02/24 09:13 Consult Physician Urgent Consulting Provider: Jeovanny Lui Consult Reason/Comments: Medical Management Do you want consulting provider notified?: Yes 05/03/24 09:39 Consult Physician Routine Consulting Provider: Joshua Mitchell Consult Reason/Comments: parkinson disease, CVA Do you want consulting provider notified?: Yes 05/03/24 09:40 Consult Physician Routine Consulting Provider: Talon Kathleen Consult Reason/Comments: recent abdominal surgery Do you want consulting provider notified?: Yes 05/03/24 09:41 Consult Physician Routine Consulting Provider: Deanne Burnett Consult Reason/Comments: leukocytosis Do you want consulting provider notified?: Yes Primary care physician: Magali Britt Hospital Course: Date of admission: 05/02/2024 Date of discharge: 05/07/2024 Admission diagnosis: Left hip IT fracture Discharge diagnosis: Same Attending physician: Dr. Ortiz Surgical procedures: Left hip IM nail Brief history: Patient is a 79-year-old male with a history of left hip IT fracture status post fall. At this point patient has failed conservative treatment measures and has opted to proceed with a elective left hip IM nail. Hospital course: Details of patient's surgery can be found in operative report. Patient tolerated the procedure well and was subsequently transported to orthopedic floor. Patient's orthopeidc and medical care was provided daily. Patient had daily laboratory tests performed for evaluation of overall blood counts. Patient had daily physical therapy to include strengthening range of motion as well as education with walker ambulation. Patient was treated with Lovenox for their postoperative DVT prophylaxis during their inpatient stay. Patient was noted to have a relatively uneventful postoperative course. Patient reported satisfactory pain control with oral pain medications by postoperative day 5. Patient showed satisfactory progress with physical therapy. Patient moved steadily through the program and had no difficulty meeting the goals by postoperative day 5. Given patient's otherwise satisfactory course and having met physical therapy goals, plan is to discharge patient to rehab on postoperative day 5. Discharge condition/disposition: Patient will be discharged to rehab in stable condition. Discharge medications: Instructions are given on resumption of patient's normal daily medications per primary care recommendation, in addition patient will be prescribed P[place]; Lovenox; senna. Discharge instructions: 1. Wound care and infection precautions, keep incision dry and covered while showering, no lotions, creams, moisturizers. No soaking, tubs, pools, hottubs. Do not scrub over the incision. 2. Weight-bear as tolerated with walker / cane until follow-up. 3. Ice and elevate when necessary. Do not exceed 20 minutes per hour with ice pack. 4. Utilize compression sleeve until seen at first follow up appointment. 5. Nursing care. 6. Home physical therapy including home CPM. 7. Pain meds and anticoagulants per prescription. 8. Pain medication has potential to cause constipation. Increase oral fluid and fiber intake. Contact primary care provider if you have not had a bowel movement within 48 hours after discharge 9. No anti-inflammatory medication until discussed at first post operative visit, this including Motrin, Aleve, Mobic, Diclofenac. 10. Follow up in office at 2 weeks postop with Thomas Quick PA-C / Dayron Mustafa PA-C 11. Follow up with your primary care doctor 7-10 days after discharge. 12. Contact [facility] with any questions, . Assessment: Left hip IT fracture Procedures: Left hip IM nail Patient Condition at Discharge: Good Plan - Discharge Summary New Discharge Prescriptions: New HYDROcodone/APAP 5-325MG [Pewamo 5-325] 1 tab PO Q6HR PRN 7 Days #28 tab PRN Reason: Pain Enoxaparin [Lovenox] 40 mg SQ DAILY #30 each Sennosides/Docusate Sodium [Senna Plus 8.6-50 mg Tablet] 1 each PO DAILY PRN #20 tablet PRN Reason: Constipation No Action Carbidopa-Levodopa 25-100 mg [Sinemet 25-100 mg] 1 tab PO DIRECTED amantadine HCL [Symmetrel] 100 mg PO TID@0600,1200,1800 Losartan [Cozaar] 50 mg PO DAILY Moxifloxacin HCl [Avelox] 400 mg PO DAILY 7 Days #7 tab Nystatin 100,000 Unit/ml Susp [Mycostatin Oral Susp] 500,000 unit PO QID 10 Days #200 ml amLODIPine [Norvasc] 5 mg PO HS Multivitamins, Thera [Multivitamin (formulary)] 1 tab PO DAILY Aspirin 81 mg PO DAILY 30 Days #30 tab Pantoprazole [Protonix] 40 mg PO DAILY Discharge Medication List Carbidopa-Levodopa 25-100 mg [Sinemet 25-100 mg] 1 tab PO DIRECTED 05/17/20 [History] amantadine HCL [Symmetrel] 100 mg PO TID@0600,1200,1800 05/17/20 [History] Multivitamins, Thera [Multivitamin (formulary)] 1 tab PO DAILY 08/09/23 [History] amLODIPine [Norvasc] 5 mg PO HS 08/09/23 [History] Aspirin 81 mg PO DAILY 30 Days #30 tab 12/05/23 [Rx] Losartan [Cozaar] 50 mg PO DAILY 04/14/24 [History] Pantoprazole [Protonix] 40 mg PO DAILY 04/14/24 [History] Moxifloxacin HCl [Avelox] 400 mg PO DAILY 7 Days #7 tab 04/29/24 [Rx] Nystatin 100,000 Unit/ml Susp [Mycostatin Oral Susp] 500,000 unit PO QID 10 Days #200 ml 04/29/24 [Rx] Enoxaparin [Lovenox] 40 mg SQ DAILY #30 each 05/06/24 [Rx] HYDROcodone/APAP 5-325MG [Pewamo 5-325] 1 tab PO Q6HR PRN 7 Days #28 tab 05/06/24 [Rx] Sennosides/Docusate Sodium [Senna Plus 8.6-50 mg Tablet] 1 each PO DAILY PRN #20 tablet 05/06/24 [Rx] Follow up Appointment(s)/Referral(s): Magali Britt MD [Primary Care Provider] - 1-2 days Dayron Mustafa PAC [PHYSICIAN [employer]ING [employer] SUPERVISOR] - 2 Weeks [facility], [NON-STAFF] - As Needed Patient Instructions/Handouts: Hip Fracture (ED), Hip Fracture (GEN) Activity/Diet/Wound Care/Special Instructions: Orthopedic Discharge Instructions: 1. Wound care and infection precautions, keep incision dry and covered while showering, no lotions, creams, moisturizers. No soaking, pools, hot tubs. Do not scrub over incision. 2. Weight-bear as tolerated with walker / cane until follow-up. 3. Ice and elevate when necessary. Do not exceed 20 minutes per hour with ice pack. 4. Utilize compression sleeve until seen at first follow up appointment. 5. Pain meds and anticoagulants per prescription. 6. Pain medication has potential to cause constipation. Increase oral fluid and fiber intake. Contact primary care provider if you have not had a bowel movement within 48 hours after discharge. 7. No anti-inflammatory medication until discussed at first post operative visit, this including Motrin, Aleve, Mobic, Diclofenac. aspirin up in office at 2 weeks postop with Thomas Quick PA-C / Dayron Mustafa PA-C 9. Follow up with your primary care doctor 7-10 days after discharge. 10. Contact [facility] with any questions, . as tolerated keep incision dry and covered while showering Discharge Disposition: TRANSFER TO SNF/ECF
[2024-05-07 10:14] VITALS: BMI 22.3
--- NOTE | 2024-05-07 10:43 | P.PN ---
Subjective Progress Note Date: 05/07/24 Principal diagnosis: Left hip IT fracture Patient seen and examined this morning. Patient is sitting up in chair at bedside. Spouse is present in room. Patient is more alert today and able to answer questions appropriately. Surgical incisions to the left hip, edges are well-approximated with chante intact. Dr. Mitchell has ordered an MRI of the brain and an EEG. Patient is cleared from orthopedic standpoint for discharge. No acute concerns. Objective - Vital Signs Vital signs: Vital Signs Temp 97.4 F L 05/07/24 07:15 Pulse 71 05/07/24 07:15 Resp 17 05/07/24 07:15 BP 132/73 05/07/24 07:15 Pulse Ox 98 05/07/24 07:15 FiO2 Intake & Output 05/06/24 05/07/24 05/07/24 18:59 06:59 18:59 Intake Total 310 Output Total 400 500 Balance -90 -500 Weight 72.575 kg Intake: Blood Product 310 Rc As-1 Unit 310 [id number] Output: Urine 400 500 Other: Voiding Method External Catheter External Catheter External Catheter # Voids 2 # Bowel Movements 1 - Exam Inspection: Surgical incisions over the left lateral hip, edges are well- approximated with chante intact. Large blister present due to tape irritation near incision. Negative for any drainage. Minimal ecchymosis present. Incisions open to air. Sensation: Equal, symmetric bilaterally intact in the upper and lower extremities Palpation: Moderate tenderness to palpation diffusely throughout the left hip. Nontender to palpation throughout rest of exam. Range of motion: Limited range of motion in left lower extremity in the hip secondary to injury and pain. Patient is able to dorsi and plantarflex the left ankle ankle with some referred pain in the left hip. Full range of motion throughout right lower extremity and bilateral upper extremities on exam. Motor: 4/5 in all major motor groups in bilateral upper extremity is in right lower extremity exam. 3+/5 in resisted left ankle dorsi/plantar flexion. 3-/5 in resisted left hip and left knee flexion so extension. Neurovascular: Radial pulse intact, 2+5. DP pulses palpable bilaterally. Cap refill under 3 seconds in digits of lower extremities Special tests: Negative Homans bilaterally. - Labs CBC & Chem 7: 05/06/24 20:23 05/06/24 05:34 Labs: Abnormal Lab Results - Last 24 Hours (Table) 05/06/24 05/06/24 Range/Units 11:12 20:23 WBC 10.8 H (3.8-10.6) k/uL RBC 2.77 L (4.30-5.90) m/uL Hgb 9.0 L (13.0-17.5) gm/dL Hct 28.5 L (39.0-53.0) % MCV 102.6 H (80.0-100.0) fL Crossmatch See Detail Microbiology - Last 24 Hours (Table) 05/03/24 17:54 Blood Culture - Preliminary Blood Assessment and Plan Assessment: Postop day 5: Left hip IM nail fixation 1. Left hip IT fracture Plan: 1. Left hip IT fracture -left hip IM nail performed 05/02/2024. Patient is more alert this morning and answering questions appropriately. Incisions to the left hip, edges are well-approximated with chante intact. Continue to encourage patient to work with PT. Case management working on rehab placement. 50% weightbearing left lower extremity with walker and assistance as needed. Hemoglobin at 9.0 yesterday evening after receiving 1 u RBC. Continue with ferrous sulfate 325 mg daily. 2. Appreciate medical management 3. Pain management - Tylenol; [place]; Dilaudid 4. DVT prophylaxis - lovenox; aspirin 5. GI prophylaxis - senna 6. PT/OT - 50% weight-bearing LLE; WBAT RLE 7. Encourage incentive spirometer use 8. Discharge planning -patient is cleared from orthopedic standpoint for discharge to subacute rehab *I reviewed and discussed this case with my attending Dr. Ortiz, whom has reviewed this chart and films and is in agreement with assessment and plan of care as outlined above. I have personally seen and examined the patient, performed the documentation and the assessment and plan as written. Number of minutes spent on the visit: 20m.
[2024-05-07 11:23] LABS: Basophils # (A) 0.07 X 10*3/uL (0.00-0.10); Basophils % (A) 0.6 %; Eosinophils # (A) 0.12 X 10*3/uL (0.04-0.35); HCT 28.7 % (39.6-50.0); HGB 9.3 g/dL (13.0-17.0); Lymphocytes # (A) 0.55 X 10*3/uL (0.90-5.00); Lymphocytes % (A) 4.8 %; MCH 32.3 pg (27.0-32.0); MCHC 32.4 g/dL (32.0-37.0); MCV 99.7 FL (80.0-97.0); Mean Platelet Volume 10.4 FL (9.5-12.2); Monocytes # (A) 0.93 X 10*3/uL (0.20-1.00); Monocytes % (A) 8.1 %; NRBC Per 100 WBC 0 X 10*3/uL (0.00-0.01); Neutrophils # (A) 9.81 X 10*3/uL (1.80-7.70); Neutrophils % (A) 84.9 %; Platelet Count 388 X 10*3/uL (140-440); RBC 2.88 X 10*6/uL (4.40-5.60); RDW 15.1 % (11.5-14.5); WBC 11.55 X 10*3/uL (4.50-10.00)
[2024-05-07 11:34] LABS: ALT 9 U/L (10-49); AST 17 U/L (14-35); Albumin 3.1 g/dL (3.8-4.9); Albumin/Globulin Ratio 1.24 Ratio (1.60-3.17); Alkaline Phosphatase 233 U/L (41-126); Blood Urea Nitrogen 20.5 mg/dL (9.0-27.0); Calcium 8.6 mg/dL (8.7-10.3); Carbon Dioxide 25.5 mmol/L (21.6-31.8); Chloride 108 mmol/L (96-109); Globulin 2.5 g/dL (1.6-3.3); Glucose 98 mg/dL (70-110); Potassium 3.8 mmol/L (3.5-5.5); Sodium 145 mmol/L (135-145); Total Bilirubin 1.3 mg/dL (0.3-1.2); Total Protein 5.6 g/dL (6.2-8.2)
--- NOTE | 2024-05-07 13:09 | P.PN ---
Subjective Progress Note Date: 05/07/24 Yesterday the patient was having confusion and family is concerned about his neurological status. Therefore, MRI Brain and EEG are ordered and pending. I am following-up with patient and he continues to have fluctuation of confusion. Per the A.M. nurse, the patient was doing well for her. Currently patient feels he is doing better and denies headache, nausea, vomiting or any new focal deficits. Objective - Vital Signs Vital signs: Vital Signs Temp 97.4 F L 05/07/24 07:15 Pulse 71 05/07/24 07:15 Resp 17 05/07/24 07:15 BP 132/73 05/07/24 07:15 Pulse Ox 98 05/07/24 07:15 FiO2 Intake & Output 05/06/24 05/07/24 05/07/24 18:59 06:59 18:59 Intake Total 310 Output Total 400 500 Balance -90 -500 Weight 72.575 kg Intake: Blood Product 310 Rc As-1 Unit 310 [id number] Output: Urine 400 500 Other: Voiding Method External Catheter External Catheter External Catheter # Voids 2 # Bowel Movements 1 - Exam GENERAL: The patient is sitting in a recliner chair and is not in acute distress. NEUROLOGICAL: Higher mental function: The patient is awake, alert, oriented to self, place and time. Patient is following commands. No aphasia and no neglect. Cranial nerves: The pupils are round, equal and reactive to light and accommodation. Visual ward are full to confrontation throughout. Extraocular movement is intact no nystagmus is noted. Facial sensation is normal to touch throughout. Has left lower facial weakness. Tongue is midline and moved [id number] without any difficulty. Has mild to moderate dysarthria. Shoulder shrug is normal bilaterally. Motor: The strength is limited in left lower extremity because of hip pain. Otherwise lifting all extremities above gravity equally. Normal tone and bulk. Cerebellum: Normal finger to nose bilaterally. Sensation: Sensation is normal to touch throughout. Some of the workup during this hospital visit: Vitamin B12: is [address] of the head is reported as no acute bleed or mass effect. I personally reviewed the CT of the head and agree there is no acute or subacute process. Personally reviewed the CT of the head and agree there is no acute or subacute process. CT cervical spine is reported as no acute trauma. Degenerative changes are described above. - Labs CBC & Chem 7: 05/07/24 07:18 05/07/24 07:18 Labs: Abnormal Lab Results - Last 24 Hours (Table) 05/06/24 05/06/24 05/07/24 Range/Units 11:12 20:23 07:18 WBC 10.8 H 11.55 H (3.8-10.6) k/uL RBC 2.77 L 2.88 L (4.30-5.90) m/uL Hgb 9.0 L 9.3 L (13.0-17.5) gm/dL Hct 28.5 L 28.7 L (39.0-53.0) % MCV 102.6 H 99.7 H (80.0-100.0) fL MCH 32.3 H (27.0-32.0) pg RDW 15.1 H (11.5-14.5) % Immature Gran # 0.07 H (0.00-0.04) X 10*3/uL Neutrophils # 9.81 H (1.80-7.70) X 10*3/uL Lymphocytes # 0.55 L (0.90-5.00) X 10*3/uL BUN/Creatinine Ratio (12.00-20.00) Ratio Calcium (8.7-10.3) mg/dL Total Bilirubin (0.3-1.2) mg/dL ALT (10-49) U/L Alkaline Phosphatase (41-126) U/L Total Protein (6.2-8.2) g/dL Albumin (3.8-4.9) g/dL Albumin/Globulin Ratio (1.60-3.17) Ratio Crossmatch See Detail 05/07/24 Range/Units 07:18 WBC (3.8-10.6) k/uL RBC (4.30-5.90) m/uL Hgb (13.0-17.5) gm/dL Hct (39.0-53.0) % MCV (80.0-100.0) fL MCH (27.0-32.0) pg RDW (11.5-14.5) % Immature Gran # (0.00-0.04) X 10*3/uL Neutrophils # (1.80-7.70) X 10*3/uL Lymphocytes # (0.90-5.00) X 10*3/uL BUN/Creatinine Ratio 20.50 H (12.00-20.00) Ratio Calcium 8.6 L (8.7-10.3) mg/dL Total Bilirubin 1.3 H (0.3-1.2) mg/dL ALT 9 L (10-49) U/L Alkaline Phosphatase 233 H (41-126) U/L Total Protein 5.6 L (6.2-8.2) g/dL Albumin 3.1 L (3.8-4.9) g/dL Albumin/Globulin Ratio 1.24 L (1.60-3.17) Ratio Crossmatch Microbiology - Last 24 Hours (Table) 05/03/24 17:54 Blood Culture - Preliminary Blood Assessment and Plan Assessment: This is a 79-year-old gentleman who had acute perforated diverticulitis that required surgery on 04/20/2024 and eventually was discharged home and at home he had limitation of his walking because of his abdominal pain and while in the bathroom he fell and he presents with left hip pain. He was found to have left hip fracture and had surgery. Per the daughter he is having fluctuation of mentation and having hallucination. Delirium likely due to recent condition having left hip pain as well as recent diverticulitis/hospital induced--currently no confusion. Acute left hip fracture s/p surgery Low normal vitamin B12 of 254 Recent perforated diverticulitis History of Parkinson disease History of stroke August 2023 with residual left facial droop and dysarthria. Plan: Had CT of the head on presentation which is negative for any acute process. Pending MRI Brain and routine EEG. Recommend if possible to hold any pain or sedated this is much as possible During the day to keep it bright and for the patient to be as interactive nights vice versa during the night. Currently is on seroquel 25mg qhs but once mentation to remains improves and no agitation or restless, please discontinue medication. Patient is resumed on his home dose of Sinemet [id number] at 6, 9, 12, 1500, 1800 and 2100. Also was on his home dose of amantadine 100 mg 1 tablet 3 times daily. He is on aspirin 81 mg daily. Because of low normal vitamin B12: I gave him one time Vitamin B12 1000mcg once IM then after that PO daily. Will defer the rest of the medical management to primary and other specialists Upon discharge the patient to continue to follow-up with his neurologist over [facility]. Plan discussed with the patient and his who is at bedside. Also discussed with his nurse. Dr. Tierney will resume with neurology service tomorrow A.M. Time with Patient: Less than 30
--- NOTE | 2024-05-07 13:11 | P.PN ---
Subjective Progress Note Date: 05/07/24 Jerson Edwards, is a 79-year-old male who presented to [facility] emergency room after sustaining a fall and complaining of left hip pain. He was evaluated in the emergency room vital examination on presentation revealed a temperature of 97.7 pulse 65 respiration 18 blood pressure 171/88 p ulse ox 96% on room air Laboratory data revealed a white blood count of 14.7 hemoglobin 10.9 platelet count 446 BUN 22 creatinine 1.06 Testing in the emergency room revealed CT scan of the head revealed no acute bleed or mass effect, CT scan of the cervical spine revealed no acute trauma, chest x-ray revealed no acute process, x-ray of the pelvis and the left hip revealed intertrochanteric fracture of the left hip. Patient was admitted to medical floor for further evaluation and treatment Past medical history is significant for history of recent admission by Dr. Kathleen, patient underwent abdominal surgery for reversal of colostomy, takedown sigmoid flexure and partial colectomy, he has a history of perforated diverticulitis with colostomy placement, history of stroke, history of Parkinson disease, history of hypertension On review of systems patient is alert and oriented x 3 in no apparent distress, he is complaining of pain in the left hip area otherwise he denies any complaints, there is no fever or chills no headache or dizziness no chest pain no shortness of breath no cough no nausea or vomiting no abdominal pain no diarrhea no blood in the stools no burning with urination no frequency or urgency and no hematuria. On 05/03/2024 patient was seen and examined on the medical floor, he is alert and oriented x 3 in no apparent distress, he is complaining of pain in the left hip otherwise he denies any complaints, there is no fever or chills no headache or dizziness no chest pain no shortness of breath no cough no nausea or vomiting no abdominal pain no diarrhea and no urinary symptoms. Vital exam this morning revealed a temperature of 97.3 pulse 78 respiration 18 blood pressure 143/82 pulse ox 95% on room air, his laboratory data is significant for a white blood count of 24.9 hemoglobin 10.7 platelet count 441. Patient's is at the bedside she is concerned that patient is leaning towards the right, which is a recent change in his condition, she is afraid that this is why he fell at home, she is requesting a neurology consult to rule out new CVA, patient has known history of Parkinson disease, and history of CVA in the past. Physical therapy and Occupational Therapy will be added, neurology consult requested. On 05/04/2024 patient is alert and oriented 3. Patient currently sitting up in bed. Patient remains on IV Zosyn. White blood cell improving in 19.20. Neurology, surgical services infectious disease and orthopedic services are also following.Current vital signs temp 98.0, heart rate 75, respiratory rate 17, blood pressure 129/66 with pulse ox 94% on room air On 05/05/2024 patient is alert and oriented with having episodes of intermittent confusion patient was started on Seroquel per neurology recommendation. Nursing expressed concern to patient coughing with food will order chest x-ray to rule out aspiration and consult speech services to assess swallow. Current vital signs temp 98.4, heart rate 78, respiratory rate 18, blood pressure 106/58 with pulse ox 97% on room air On 05/06/2024 patient was seen and examined on the medical floor he is alert and oriented x 3 in no apparent distress, he received 1 unit of red blood cell transfusion per orthopedic surgery, he is alert and oriented responding to questions appropriately, family is stating that he is having episodes of confusion, he remains on IV Zosyn, infectious disease are following, medication and labs were reviewed will follow in a.m. On 05/07/2024 patient was seen and examined on the medical floor, he is alert and oriented x 3 in no apparent distress, there is no fever or chills no headache or dizziness no chest pain no shortness of breath no cough no nausea or vomiting no abdominal pain no diarrhea and no urinary symptoms, patient was having episodes of confusion and mild agitation, he was seen by neurology, EEG and MRI of the brain were ordered, he was cleared by orthopedic surgery for discharge, we are awaiting neurology testing, possible transfer to half-way for rehab tomorrow or Friday. Objective - Vital Signs Vital signs: Vital Signs Temp 97.4 F L 05/07/24 07:15 Pulse 71 05/07/24 07:15 Resp 17 05/07/24 07:15 BP 132/73 05/07/24 07:15 Pulse Ox 98 05/07/24 07:15 FiO2 Intake & Output 05/06/24 05/07/24 05/07/24 18:59 06:59 18:59 Intake Total 310 Output Total 400 500 Balance -90 -500 Intake: Blood Product 310 Rc As-1 Unit 310 [id number] Output: Urine 400 500 Other: Voiding Method External Catheter External Catheter External Catheter # Voids 2 # Bowel Movements 1 - Exam In general patient is alert and oriented x 3 in no distress HEENT head normocephalic and atraumatic Neck is supple no JVD no goiter no lymphadenopathy no carotid bruit Chest examination is clear to auscultation no crackles no wheezing Cardiac exam reveals regular heart sounds S1 and S2 no gallops no murmurs Abdomen is soft nontender no organomegaly with normal bowel sounds Extremity exam reveals no edema no cyanosis or clubbing Neurological examination reveals chronic left-sided weakness related to previous stroke without any acute abnormality - Labs CBC & Chem 7: 05/07/24 07:18 05/07/24 07:18 Labs: Abnormal Lab Results - Last 24 Hours (Table) 05/06/24 05/06/24 05/06/24 Range/Units 05:34 05:34 11:12 WBC 14.44 H (4.50-10.00) X 10*3/uL RBC 2.37 L (4.40-5.60) X 10*6/uL Hgb 7.9 L (13.0-17.0) g/dL Hct 24.1 L (39.6-50.0) % MCV 101.7 H (80.0-97.0) FL MCH 33.3 H (27.0-32.0) pg RDW 15.6 H (11.5-14.5) % Immature Gran # 0.11 H (0.00-0.04) X 10*3/uL Neutrophils # 12.27 H (1.80-7.70) X 10*3/uL Lymphocytes # 0.59 L (0.90-5.00) X 10*3/uL Monocytes # 1.34 H (0.20-1.00) X 10*3/uL Sodium 146 H (135-145) mmol/L Calcium 8.6 L (8.7-10.3) mg/dL ALT 9 L (10-49) U/L Alkaline Phosphatase 229 H (41-126) U/L Total Protein 5.5 L (6.2-8.2) g/dL Albumin 3.0 L (3.8-4.9) g/dL Albumin/Globulin Ratio 1.20 L (1.60-3.17) Ratio Crossmatch See Detail 05/06/24 Range/Units 20:23 WBC 10.8 H (4.50-10.00) X 10*3/uL RBC 2.77 L (4.40-5.60) X 10*6/uL Hgb 9.0 L (13.0-17.0) g/dL Hct 28.5 L (39.6-50.0) % MCV 102.6 H (80.0-97.0) FL MCH (27.0-32.0) pg RDW (11.5-14.5) % Immature Gran # (0.00-0.04) X 10*3/uL Neutrophils # (1.80-7.70) X 10*3/uL Lymphocytes # (0.90-5.00) X 10*3/uL Monocytes # (0.20-1.00) X 10*3/uL Sodium (135-145) mmol/L Calcium (8.7-10.3) mg/dL ALT (10-49) U/L Alkaline Phosphatase (41-126) U/L Total Protein (6.2-8.2) g/dL Albumin (3.8-4.9) g/dL Albumin/Globulin Ratio (1.60-3.17) Ratio Crossmatch Microbiology - Last 24 Hours (Table) 05/03/24 17:54 Blood Culture - Preliminary Blood Assessment and Plan Plan: 1. 79-year-old male presenting after sustaining a fall, with evidence of left hip intertrochanteric fracture, patient is scheduled for orthopedic surgery this afternoon, medical clearance was requested. Previous cardiac evaluation was reviewed echocardiogram August 2023 revealed normal left ventricular ejection fraction of 55 to 60%, patient is denying any cardiac symptoms there is no chest pain shortness of breath dizziness presyncope or syncope. White blood count was elevated on presentation at 14.7 this is most likely reactive, due to fall and recent abdominal surgery, there is no evidence of any infectious process, patient is afebrile, chest x-ray and urine analysis reviewed, no evidence of infection at this time. Patient underwent recent abdominal surgery for reversal of colostomy, takedown sigmoid flexure and partial colectomy, patient tolerated surgery well, surgical site is clear without evidence of infection. Patient is at increased risk for surgery due to his multiple medical problems, however there is no medical contraindication for surgery. 2. Underlying history of Parkinson disease 3. History of stroke with left-sided hemiparesis 4. History of benign prostatic hypertrophy 5. History of diverticulitis with perforation requiring surgery with colostomy placement, and recent colostomy reversal. 6. Underlying history of hypertension 7. Underlying history of hyperlipidemia 8. Underlying history of gastroesophageal reflux disease At this time patient will be admitted to surgical floor, Plan is for surgical intervention on the left hip this afternoon DVT prophylaxis and pain management per orthopedic protocols Patient would benefit of resuming his Parkinson disease medications as soon as possible Will continue to follow closely during this admission
--- NOTE | 2024-05-07 13:44 | P.PN ---
Subjective Progress Note Date: 05/07/24 CHIEF COMPLAINT: Left hip fracture HISTORY OF PRESENT ILLNESS: Patient denies any abdominal pain. He denies any nausea or vomiting. He is having bowel movements. He did again have a small amount of light blood on tissue paper when he wiped. He is admitted with left hip fracture status post surgery. His delirium is better today. They are planning for discharge to ECF today. Afebrile. WBC 11.5 hemoglobin 9.3. [place] removed from incision yesterday. PHYSICAL EXAM: VITAL SIGNS: Reviewed. GENERAL: Well-developed in no acute distress. ABDOMEN: Soft. Nondistended. Nontender. Incision clean dry and intact. NEUROLOGIC: Alert and oriented. Cranial nerves II through XII grossly intact. ASSESSMENT: 1. History of perforated diverticulitis status post reversal of colostomy on 04/20/2024 PLAN: -Agree with with discharge to ECF today Physician [employer] note has been reviewed by physician. Signing provider agrees with the documented findings, assessment, and plan of care. Objective - Vital Signs Vital signs: Vital Signs Temp 98.0 F 05/07/24 12:48 Pulse 64 05/07/24 12:48 Resp 18 05/07/24 12:48 BP 109/63 05/07/24 12:48 Pulse Ox 96 05/07/24 12:48 FiO2 Intake & Output 05/06/24 05/07/24 05/07/24 18:59 06:59 18:59 Intake Total 310 Output Total 400 500 Balance -90 -500 Weight 72.575 kg Intake: Blood Product 310 Rc As-1 Unit 310 [id number] Output: Urine 400 500 Other: Voiding Method External Catheter External Catheter External Catheter # Voids 2 # Bowel Movements 1 - Labs CBC & Chem 7: 05/07/24 07:18 05/07/24 07:18 Labs: Abnormal Lab Results - Last 24 Hours (Table) 05/06/24 05/06/24 05/07/24 Range/Units 11:12 20:23 07:18 WBC 10.8 H 11.55 H (3.8-10.6) k/uL RBC 2.77 L 2.88 L (4.30-5.90) m/uL Hgb 9.0 L 9.3 L (13.0-17.5) gm/dL Hct 28.5 L 28.7 L (39.0-53.0) % MCV 102.6 H 99.7 H (80.0-100.0) fL MCH 32.3 H (27.0-32.0) pg RDW 15.1 H (11.5-14.5) % Immature Gran # 0.07 H (0.00-0.04) X 10*3/uL Neutrophils # 9.81 H (1.80-7.70) X 10*3/uL Lymphocytes # 0.55 L (0.90-5.00) X 10*3/uL BUN/Creatinine Ratio (12.00-20.00) Ratio Calcium (8.7-10.3) mg/dL Total Bilirubin (0.3-1.2) mg/dL ALT (10-49) U/L Alkaline Phosphatase (41-126) U/L Total Protein (6.2-8.2) g/dL Albumin (3.8-4.9) g/dL Albumin/Globulin Ratio (1.60-3.17) Ratio Crossmatch See Detail 05/07/24 Range/Units 07:18 WBC (3.8-10.6) k/uL RBC (4.30-5.90) m/uL Hgb (13.0-17.5) gm/dL Hct (39.0-53.0) % MCV (80.0-100.0) fL MCH (27.0-32.0) pg RDW (11.5-14.5) % Immature Gran # (0.00-0.04) X 10*3/uL Neutrophils # (1.80-7.70) X 10*3/uL Lymphocytes # (0.90-5.00) X 10*3/uL BUN/Creatinine Ratio 20.50 H (12.00-20.00) Ratio Calcium 8.6 L (8.7-10.3) mg/dL Total Bilirubin 1.3 H (0.3-1.2) mg/dL ALT 9 L (10-49) U/L Alkaline Phosphatase 233 H (41-126) U/L Total Protein 5.6 L (6.2-8.2) g/dL Albumin 3.1 L (3.8-4.9) g/dL Albumin/Globulin Ratio 1.24 L (1.60-3.17) Ratio Crossmatch Microbiology - Last 24 Hours (Table) 05/03/24 17:54 Blood Culture - Preliminary Blood
--- NOTE | 2024-05-07 16:35 | P.PN ---
Progress Note - Text Progress Note Date: 05/07/24 Preliminary routine EEG: Normal.
--- NOTE | 2024-05-07 17:14 | MR ---
EXAMINATION TYPE: MR brain wo con DATE OF EXAM: 05/07/2024 3:27 PM CLINICAL INDICATION:Male, 79 years old with history of confusion; PHH, confusion COMPARISON: 05/02/2024. TECHNIQUE: Multi planar, multi sequence imaging was performed through the brain including: T1, T2, In version recovery, Diffusion weighted imaging, and gradient echo imaging. No gadolinium was given. FINDINGS: The cruz-white junctions, ventricular system, basal cisterns appear unremarkable. Prominent. Osseous spaces throughout the basal ganglia and mckeon radiata bilaterally. Scattered foci of high T2 signal intensity are seen within the periventricular white matter. Midline structures show no abnormality. Diffusion-weighted imaging shows no evidence of restricted diffusion. There is some right mckeon radi arielle T2 shine through on DWI imaging.. The susceptibility weighted images do not reveal any evidence f or micro-hemorrhage. The bone marrow signal is within normal limits. Paranasal sinuses and mastoid air cells: No significant paranasal sinus disease. Visualized orbits: Orbital contents are intact. IMPRESSION: 1. No evidence of intracranial mass or acute/subacute infarct. 2. Nonspecific white matter changes, likely secondary to small vessel ischemic disease.
--- NOTE | 2024-05-07 19:40 | P.PN ---
Subjective Progress Note Date: 05/07/24 Principal diagnosis: Reason for follow-up is leukocytosis Patient is a 79-year-old male with past medical history significant for hypertension hyperlipidemia reflux history of perforated diverticulitis requiring diverting colostomy with recent reversal patient now presenting back to the hospital after the patient did have a fall at home, patient did have a left femur fracture status postoperative repair he noticed to have elevated white count prompting this consultation. On today's evaluation that is 05/07/2024, patient has been afebrile, patient is breathing comfortably and is currently on room air, patient denies having any significant cough no chest pain shortness of breath, patient denies nausea vomiting or diarrhea and no abdominal pain mention feeling better today. patient white count is slightly up to 11.5 today creatinine is 1.0 culture has been negative Objective - Vital Signs Vital signs: Vital Signs Temp 97.4 F L 05/07/24 07:15 Pulse 71 05/07/24 07:15 Resp 17 05/07/24 07:15 BP 132/73 05/07/24 07:15 Pulse Ox 98 05/07/24 07:15 FiO2 Intake & Output 05/06/24 05/07/24 05/07/24 18:59 06:59 18:59 Intake Total 310 Output Total 400 500 Balance -90 -500 Weight 72.575 kg Intake: Blood Product 310 Rc As-1 Unit 310 [id number] Output: Urine 400 500 Other: Voiding Method External Catheter External Catheter External Catheter # Voids 2 # Bowel Movements 1 - Exam GENERAL DESCRIPTION: An elderly male up in the chair in no distress RESPIRATORY SYSTEM: Unlabored breathing , decreased breath sounds at bases HEART: S1 S2 regular rate and rhythm , ABDOMEN: Soft , no tenderness EXTREMITIES: No edema feet - Labs CBC & Chem 7: 05/07/24 07:18 05/07/24 07:18 Labs: Abnormal Lab Results - Last 24 Hours (Table) 05/06/24 05/06/24 05/07/24 Range/Units 11:12 20:23 07:18 WBC 10.8 H 11.55 H (3.8-10.6) k/uL RBC 2.77 L 2.88 L (4.30-5.90) m/uL Hgb 9.0 L 9.3 L (13.0-17.5) gm/dL Hct 28.5 L 28.7 L (39.0-53.0) % MCV 102.6 H 99.7 H (80.0-100.0) fL MCH 32.3 H (27.0-32.0) pg RDW 15.1 H (11.5-14.5) % Immature Gran # 0.07 H (0.00-0.04) X 10*3/uL Neutrophils # 9.81 H (1.80-7.70) X 10*3/uL Lymphocytes # 0.55 L (0.90-5.00) X 10*3/uL BUN/Creatinine Ratio (12.00-20.00) Ratio Calcium (8.7-10.3) mg/dL Total Bilirubin (0.3-1.2) mg/dL ALT (10-49) U/L Alkaline Phosphatase (41-126) U/L Total Protein (6.2-8.2) g/dL Albumin (3.8-4.9) g/dL Albumin/Globulin Ratio (1.60-3.17) Ratio Crossmatch See Detail 05/07/24 Range/Units 07:18 WBC (3.8-10.6) k/uL RBC (4.30-5.90) m/uL Hgb (13.0-17.5) gm/dL Hct (39.0-53.0) % MCV (80.0-100.0) fL MCH (27.0-32.0) pg RDW (11.5-14.5) % Immature Gran # (0.00-0.04) X 10*3/uL Neutrophils # (1.80-7.70) X 10*3/uL Lymphocytes # (0.90-5.00) X 10*3/uL BUN/Creatinine Ratio 20.50 H (12.00-20.00) Ratio Calcium 8.6 L (8.7-10.3) mg/dL Total Bilirubin 1.3 H (0.3-1.2) mg/dL ALT 9 L (10-49) U/L Alkaline Phosphatase 233 H (41-126) U/L Total Protein 5.6 L (6.2-8.2) g/dL Albumin 3.1 L (3.8-4.9) g/dL Albumin/Globulin Ratio 1.24 L (1.60-3.17) Ratio Crossmatch Microbiology - Last 24 Hours (Table) 05/03/24 17:54 Blood Culture - Preliminary Blood Assessment and Plan (1) Leukocytosis Current Visit: No Status: Acute Code(s): D72.829 - ELEVATED WHITE BLOOD CELL COUNT, UNSPECIFIED SNOMED Code(s): 387934199 Plan: 1patient with elevated white count questionably reactive in this patient with a fall and left femoral fracture status post operative repair at the patient not running any fever and does not toxic urine has been negative chest x-ray was negative, patient did have some skin necrosis at the previous colostomy site. 2patient blood culture has been negative so far 3patient remains to be afebrile white count has been trending down and almost normal patient is also on Zosyn however will be able to finish therapy with oral Augmentin Dictation was produced using [employer] dictation software. please excuse any grammatical, word or spelling errors. Time with Patient: Less than 30
--- NOTE | 2024-05-07 21:40 | EEG ---
ELECTROENCEPHALOGRAM REPORT CLINICAL HISTORY: This is a 79-year-old gentleman with fluctuation of mentation. The video EEG is obtained to evaluate for seizure epileptiform activity. EEG TYPE: A routine 21-channel EEG with video using the 10/20 electrode placement system. DESCRIPTION: Wakefulness is only obtained. During awake state, the posterior-dominant rhythm consists of [id number] voltage of 9 to 9.5 hertz activity that is well modulated, and well sustained. There is no physiological stage 2 sleep architecture. There is no focal slowing. There is mild to moderate amount of myogenic artifact over the right and left caodaism since the patient was restless, agitated, moving around during the study. Interictal and ictal is none. ACTIVATION PROCEDURE: Photic stimulation and hyperventilation are not performed. CLINICAL INTERPRETATION: This is a normal routine EEG. There is no focal slowing, epileptiform discharge, or seizure on the EEG. A normal routine EEG does not rule out underlying epilepsy. Clinical correlation is recommended. NATHALIA / DONOVAN: [id number] /
[2024-05-08 04:27] VITALS: RESP 18; TEMP 97.7
[2024-05-08 07:49] VITALS: BP 127/56; PULSE 78
--- NOTE | 2024-05-08 13:39 | P.DS ---
Providers Date of admission: 05/02/24 09:51 Expected date of discharge: 05/08/24 Attending physician: Jeovanny Lui Consults: 05/02/24 09:13 Consult Physician Urgent Consulting Provider: Jeovanny Lui Consult Reason/Comments: Medical Management Do you want consulting provider notified?: Yes 05/03/24 09:39 Consult Physician Routine Consulting Provider: Joshua Mitchell Consult Reason/Comments: parkinson disease, CVA Do you want consulting provider notified?: Yes 05/03/24 09:40 Consult Physician Routine Consulting Provider: Talon Kathleen Consult Reason/Comments: recent abdominal surgery Do you want consulting provider notified?: Yes 05/03/24 09:41 Consult Physician Routine Consulting Provider: Deanne Burnett Consult Reason/Comments: leukocytosis Do you want consulting provider notified?: Yes Primary care physician: Magali Britt Hospital Course: Diagnosis on discharge: 1. 79-year-old male presenting after sustaining a fall, with evidence of left hip intertrochanteric fracture, patient is scheduled for orthopedic surgery this afternoon, medical clearance was requested. Previous cardiac evaluation was reviewed echocardiogram August 2023 revealed normal left ventricular ejection fraction of 55 to 60%, patient is denying any cardiac symptoms there is no chest pain shortness of breath dizziness presyncope or syncope. White blood count was elevated on presentation at 14.7 this is most likely reactive, due to fall and recent abdominal surgery, there is no evidence of any infectious process, patient is afebrile, chest x-ray and urine analysis reviewed, no evidence of infection at this time. Patient underwent recent abdominal surgery for reversal of colostomy, takedown sigmoid flexure and partial colectomy, patient tolerated surgery well, surgical site is clear without evidence of infection. Patient is at increased risk for surgery due to his multiple medical problems, however there is no medical contraindication for surgery. 2. Underlying history of Parkinson disease 3. History of stroke with left-sided hemiparesis 4. History of benign prostatic hypertrophy 5. History of diverticulitis with perforation requiring surgery with colostomy placement, and recent colostomy reversal. 6. Underlying history of hypertension 7. Underlying history of hyperlipidemia 8. Underlying history of gastroesophageal reflux disease Hospital course: Jerson Edwards, is a 79-year-old male who presented to [facility] emergency room after sustaining a fall and complaining of left hip pain. He was evaluated in the emergency room vital examination on presentation revealed a temperature of 97.7 pulse 65 respiration 18 blood pressure 171/88 pulse ox 96% on room air Laboratory data revealed a white blood count of 14.7 hemoglobin 10.9 platelet count 446 BUN 22 creatinine 1.06 Testing in the emergency room revealed CT scan of the head revealed no acute bleed or mass effect, CT scan of the cervical spine revealed no acute trauma, chest x-ray revealed no acute process, x-ray of the pelvis and the left hip revealed intertrochanteric fracture of the left hip. Patient was admitted to medical floor for further evaluation and treatment Past medical history is significant for history of recent admission by Dr. Kathleen, patient underwent abdominal surgery for reversal of colostomy, takedown sigmoid flexure and partial colectomy, he has a history of perforated diverticulitis with colostomy placement, history of stroke, history of Parkinson disease, history of hypertension On review of systems patient is alert and oriented x 3 in no apparent distress, he is complaining of pain in the left hip area otherwise he denies any complaints, there is no fever or chills no headache or dizziness no chest pain no shortness of breath no cough no nausea or vomiting no abdominal pain no diarrhea no blood in the stools no burning with urination no frequency or urgency and no hematuria. On 05/03/2024 patient was seen and examined on the medical floor, he is alert and oriented x 3 in no apparent distress, he is complaining of pain in the left hip otherwise he denies any complaints, there is no fever or chills no headache or dizziness no chest pain no shortness of breath no cough no nausea or vomiting no abdominal pain no diarrhea and no urinary symptoms. Vital exam this morning revealed a temperature of 97.3 pulse 78 respiration 18 blood pressure 143/82 pulse ox 95% on room air, his laboratory data is significant for a white blood count of 24.9 hemoglobin 10.7 platelet count 441. Patient's is at the bedside she is concerned that patient is leaning towards the right, which is a recent change in his condition, she is afraid that this is why he fell at home, she is requesting a neurology consult to rule out new CVA, patient has known history of Parkinson disease, and history of CVA in the past. Physical therapy and Occupational Therapy will be added, neurology consult requested. On 05/04/2024 patient is alert and oriented 3. Patient currently sitting up in bed. Patient remains on IV Zosyn. White blood cell improving in 19.20. Neurology, surgical services infectious disease and orthopedic services are also following.Current vital signs temp 98.0, heart rate 75, respiratory rate 17, blood pressure 129/66 with pulse ox 94% on room air On 05/05/2024 patient is alert and oriented with having episodes of intermittent confusion patient was started on Seroquel per neurology recommendation. Nursing expressed concern to patient coughing with food will order chest x-ray to rule out aspiration and consult speech services to assess swallow. Current vital signs temp 98.4, heart rate 78, respiratory rate 18, blood pressure 106/58 with pulse ox 97% on room air On 05/06/2024 patient was seen and examined on the medical floor he is alert and oriented x 3 in no apparent distress, he received 1 unit of red blood cell transfusion per orthopedic surgery, he is alert and oriented responding to questions appropriately, family is stating that he is having episodes of confusion, he remains on IV Zosyn, infectious disease are following, medication and labs were reviewed will follow in a.m. On 05/07/2024 patient was seen and examined on the medical floor, he is alert and oriented x 3 in no apparent distress, there is no fever or chills no headache or dizziness no chest pain no shortness of breath no cough no nausea or vomiting no abdominal pain no diarrhea and no urinary symptoms, patient was having episodes of confusion and mild agitation, he was seen by neurology, EEG and MRI of the brain were ordered, he was cleared by orthopedic surgery for discharge, we are awaiting neurology testing, possible transfer to snf for rehab tomorrow or Friday. On 05/08/2024 patient was seen and examined on the medical floor he is alert and oriented x 3 in no apparent distress he states that he is feeling well and denies any complaints there is no fever or chills no headache or dizziness no chest pain no shortness of breath no cough no nausea or vomiting no abdominal pain no diarrhea no urinary symptoms. Patient was cleared by Dr. Lex hernández nfectious disease for discharge on oral Augmentin, neurology ordered MRI of the brain and EEG results are available and do not show any acute abnormality. Patient will be transferred to snf for rehab today. Assessment: Left hip IT fracture Patient Condition at Discharge: Good Plan - Discharge Summary New Discharge Prescriptions: New HYDROcodone/APAP 5-325MG [[place] 5-325] 1 tab PO Q6HR PRN 7 Days #28 tab PRN Reason: Pain Amoxic-Pot Clav 875-125Mg [Augmentin 875-125] 1 tab PO BID 7 Days #14 tab Ferrous Sulfate [Iron (65 MG Elemental)] 325 mg PO W/LUNCH #0 tab HYDROcodone/APAP 5-325MG [[place] 5-325] 1 each PO Q6HR PRN #0 tab PRN Reason: Pain Scale 1 To 5 Cyanocobalamin [Vitamin B-12] 1,000 mcg PO DAILY tab Enoxaparin [Lovenox] 40 mg SQ DAILY #30 each Sennosides/Docusate Sodium [Senna Plus 8.6-50 mg Tablet] 1 each PO DAILY PRN #20 tablet PRN Reason: Constipation Magnesium Hydroxide [Milk of Magnesia] 2,400 mg PO DAILY PRN ml PRN Reason: Constipation QUEtiapine [SEROquel] 25 mg PO HS tab Continue Carbidopa-Levodopa 25-100 mg [Sinemet 25-100 mg] 1 tab PO DIRECTED amantadine HCL [Symmetrel] 100 mg PO TID@0600,1200,1800 Losartan [Cozaar] 50 mg PO DAILY amLODIPine [Norvasc] 5 mg PO HS Multivitamins, Thera [Multivitamin (formulary)] 1 tab PO DAILY Aspirin 81 mg PO DAILY 30 Days #30 tab Pantoprazole [Protonix] 40 mg PO DAILY Discontinued Moxifloxacin HCl [Avelox] 400 mg PO DAILY 7 Days #7 tab Nystatin 100,000 Unit/ml Susp [Mycostatin Oral Susp] 500,000 unit PO QID 10 Days #200 ml Discharge Medication List Carbidopa-Levodopa 25-100 mg [Sinemet 25-100 mg] 1 tab PO DIRECTED 05/17/20 [History] amantadine HCL [Symmetrel] 100 mg PO TID@0600,1200,1800 05/17/20 [History] Multivitamins, Thera [Multivitamin (formulary)] 1 tab PO DAILY 08/09/23 [History] amLODIPine [Norvasc] 5 mg PO HS 08/09/23 [History] Aspirin 81 mg PO DAILY 30 Days #30 tab 12/05/23 [Rx] Losartan [Cozaar] 50 mg PO DAILY 04/14/24 [History] Pantoprazole [Protonix] 40 mg PO DAILY 04/14/24 [History] Enoxaparin [Lovenox] 40 mg SQ DAILY #30 each 05/06/24 [Rx] HYDROcodone/APAP 5-325MG [[place] 5-325] 1 tab PO Q6HR PRN 7 Days #28 tab 05/06/24 [Rx] Sennosides/Docusate Sodium [Senna Plus 8.6-50 mg Tablet] 1 each PO DAILY PRN #20 tablet 05/06/24 [Rx] Amoxic-Pot Clav 875-125Mg [Augmentin 875-125] 1 tab PO BID 7 Days #14 tab 05/07/24 [Rx] Cyanocobalamin [Vitamin B-12] 1,000 mcg PO DAILY tab 05/08/24 [Rx] Ferrous Sulfate [Iron (65 MG Elemental)] 325 mg PO W/LUNCH #0 tab 05/08/24 [Rx] HYDROcodone/APAP 5-325MG [[place] 5-325] 1 each PO Q6HR PRN #0 tab 05/08/24 [Rx] Magnesium Hydroxide [Milk of Magnesia] 2,400 mg PO DAILY PRN ml 05/08/24 [Rx] QUEtiapine [SEROquel] 25 mg PO HS tab 05/08/24 [Rx] Follow up Appointment(s)/Referral(s): Magali Britt MD [Primary Care Provider] - 1-2 days Dayron Mustafa PAC [PHYSICIAN PLANNING RN] - 2 Weeks [facility] Екатерина Arce, [NON-STAFF] - As Needed Patient Instructions/Handouts: Hip Fracture (ED), Hip Fracture (GEN) Activity/Diet/Wound Care/Special Instructions: Orthopedic Discharge Instructions: 1. Wound care and infection precautions, keep incision dry and covered while showering, no lotions, creams, moisturizers. No soaking, pools, hot tubs. Do not scrub over incision. 2. Weight-bear as tolerated with walker / cane until follow-up. 3. Ice and elevate when necessary. Do not exceed 20 minutes per hour with ice pack. 4. Utilize compression sleeve until seen at first follow up appointment. 5. Pain meds and anticoagulants per prescription. 6. Pain medication has potential to cause constipation. Increase oral fluid and fiber intake. Contact primary care provider if you have not had a bowel movement within 48 hours after discharge. 7. No anti-inflammatory medication until discussed at first post operative visit, this including Motrin, Aleve, Mobic, Diclofenac. aspirin up in office at 2 weeks postop with Thomas Quick PA-C / Dayron Mustafa PA-C 9. Follow up with your primary care doctor 7-10 days after discharge. 10. Contact [facility] with any questions, . as tolerated keep incision dry and covered while showering Discharge Disposition: TRANSFER TO SNF/ECF
[2024-05-08] MEDS: SODIUM FERRIC GLUCONAT-SUCROSE 125 MG in SODIUM CHLORIDE 0.9% 100 ML IVPB ONE (14:15)
== END 2024-05-08 16:19 | DRG 481 ==
LOC: EC 05:56 → 4SSUR 09:51
PROVIDERS: ADMIT Internal Medicine; ATTEND Internal Medicine
PROC: 3E0T3BZ Introduction of Anesthetic Agent into Peripheral Nerves and Plexi, Percutaneous Approach (ICD-10-PCS; 2024-05-02)
PROC: 0QS706Z Reposition Left Upper Femur with Intramedullary Internal Fixation Device, Open Approach (ICD-10-PCS; principal; 2024-05-02 13:00)
PROC: 30233N1 Transfusion of Nonautologous Red Blood Cells into Peripheral Vein, Percutaneous Approach (ICD-10-PCS; 2024-05-06)
PROC: 4A10X4Z Monitoring of Central Nervous Electrical Activity, External Approach (ICD-10-PCS; 2024-05-07)
DX: S72.142A Displaced intertrochanteric fracture of left femur, initial encounter for closed fracture (principal); F05 Delirium due to known physiological condition; I69.354 Hemiplegia and hemiparesis following cerebral infarction affecting left non-dominant side; G20.A1 Parkinson's disease without dyskinesia, without mention of fluctuations; I10 Essential (primary) hypertension; E78.5 Hyperlipidemia, unspecified; K21.9 Gastro-esophageal reflux disease without esophagitis; I25.2 Old myocardial infarction; I69.392 Facial weakness following cerebral infarction; I69.322 Dysarthria following cerebral infarction; Z87.19 Personal history of other diseases of the digestive system; M19.90 Unspecified osteoarthritis, unspecified site; N40.0 Benign prostatic hyperplasia without lower urinary tract symptoms; W01.0XXA Fall on same level from slipping, tripping and stumbling without subsequent striking against object, initial encounter; Y92.009 Unspecified place in unspecified non-institutional (private) residence as the place of occurrence of the external cause; Z79.82 Long term (current) use of aspirin; Z79.899 Other long term (current) drug therapy; Z82.49 Family history of ischemic heart disease and other diseases of the circulatory system; Z93.3 Colostomy status
CPT/HCPCS: 36415; 51702; 70450; 70551; 71045; 72125; 73502; 80053; 81003; 82607; 82746; 83540; 83550; 84145; 85025; 85027; 85610; 85730; 86140; 86850; 86900; 86901; 86920; 87040; 93005; 94760; 95816; 96361; 96374; 96375; 96376; 99285